=== PATIENT | female | born 1930 | race Caucasian/White ===

== ENCOUNTER 2016-03-28 13:22 | Emergency (ER) | payer MEDICARE, BC ==
[2016-03-28 14:28] LABS: Basophils # (A) 0.1 k/uL (0-0.2); Basophils % (A) 1 %; CH 30.6; CHCM 32.8; Eosinophils # (A) 0.1 k/uL (0-0.7); Eosinophils % (A) 1 %; HCT 40.1 % (34.0-46.0); HDW 3.11; HGB 12.5 gm/dL (11.4-16.0); Luc # (Auto) 0.16; Luc % (Auto) 2; Lymphocytes # (A) 1.6 k/uL (1.0-4.8); Lymphocytes % (A) 22 %; MCH 29.2 pg (25.0-35.0); MCHC 31.2 g/dL (31.0-37.0); MCV 93.7 fL (80.0-100.0); Mean Platelet Volume 8.8; Monocytes # (A) 0.6 k/uL (0-1.0); Monocytes % (A) 8 %; Neutrophils # (A) 4.9 k/uL (1.3-7.7); Neutrophils % (A) 67 %; RBC 4.28 m/uL (3.80-5.40); RDW 15.2 % (11.5-15.5); WBC 7.3 k/uL (3.8-10.6); WBC (Perox) 7.02
[2016-03-28 14:32] LABS: Appearance,Urine Clear (Clear); Bilirubin,Urine Negative (Negative); Glucose,Urine (UA) 4+ (Negative); Ketones,Urine Negative (Negative); Leukocyte Esterase,Urine Negative (Negative); Nitrite,Urine Negative (Negative); PH, Urine 5.5 (5.0-8.0); Protein,Urine Negative (Negative); Specific Gravity,Urine 1.004 (1.001-1.035); UA Billing (MACRO vs. MICRO) CHEM; Urobilinogen,Urine <2.0 mg/dL (<2.0)
[2016-03-28 14:37] LABS: Calcium 9.8 mg/dL (8.4-10.2); Total Bilirubin 0.7 mg/dL (0.2-1.3); Total Protein 7.7 g/dL (6.3-8.2)
--- NOTE | 2016-03-28 14:37 | XR ---
EXAMINATION TYPE: XR chest 1V portable DATE OF EXAM: 03/28/2016 2:23 PM COMPARISON: NONE HISTORY: Dizziness TECHNIQUE: Single frontal view of the chest is obtained. FINDINGS: Heart and mediastinum are normal. Lungs are clear of infiltrate. There are sternal wires. Costophrenic angles are clear. There are no hilar masses. IMPRESSION: No active cardiopulmonary disease.
--- NOTE | 2016-03-28 15:35 | ED ---
Dizziness HPI - General Chief Complaint: Dizziness Stated Complaint: Dizziness Time Seen by Provider: 03/28/16 13:28 Source: patient Mode of arrival: EMS Limitations: no limitations - History of Present Illness Initial Comments: This patient is an 86-year-old woman who presents to be evaluated for vertigo symptoms. She states that she had been getting ready to do some cooking and she was seated in a chair. When she attempted to get up she sat back down because she had an intense spinning sensation. She felt like the chair was doing flips and had to hold onto the arms. She states that when she attempted to get back up this sensation Returning. The symptoms were better when she was just sitting and remaining still. She has had no previous history of this. She denies any other associated symptoms. MD Complaint: dizziness -: hour(s) Timing: sudden onset Description: "room spinning", difficulty walking History of Same: No History of Trauma: No Severity: severe Improves With: remaining still Worsens With: movement Associated Symptoms: denies other symptoms - Related Data Home Medications Medication Instructions Recorded Confirmed Benazepril HCl 20 mg PO DAILY 03/28/16 03/28/16 Biotin 7500mcg 7,500 mcg PO DAILY 03/28/16 03/28/16 Furosemide [Lasix] 20 mg PO Q48H 03/28/16 03/28/16 Glimepiride [Amaryl] 4 mg PO AC-BID 03/28/16 03/28/16 Levothyroxine Sodium [Unithroid] 125 mcg PO QAM 03/28/16 03/28/16 Metoprolol Tartrate [Lopressor] 50 mg PO BID 03/28/16 03/28/16 Vit C/E/Zn/Coppr/Lutein/Zeaxan 1 cap PO BID 03/28/16 03/28/16 [Preservision Areds 2 Softgel] cloNIDine HCL [Catapres] 0.1 mg PO BID 03/28/16 03/28/16 Previous Rx's Medication Instructions Recorded Meclizine [Antivert] 25 mg PO TID #15 tab 03/28/16 Allergies Allergy/AdvReac Type Severity Reaction Status Date / Time No Known Allergies Allergy Unverified 03/28/16 13:45 Review of Systems ROS Statement: Those systems with pertinent positive or pertinent negative responses have been documented in the HPI. ROS Other: All systems not noted in ROS Statement are negative. Constitutional: Denies: fever, chills, weakness Eyes: Denies: eye pain, vision change ENT: Denies: ear pain, hearing loss Respiratory: Denies: cough, dyspnea Cardiovascular: Denies: chest pain, palpitations, edema, syncope Gastrointestinal: Denies: abdominal pain, vomiting, diarrhea, melena, hematochezia Genitourinary: Denies: dysuria, hematuria Musculoskeletal: Denies: back pain Skin: Denies: rash Neurological: Reports: vertigo. Denies: headache, weakness, numbness Past Medical History Past Medical History: Atrial Fibrillation, COPD, Diabetes Mellitus, Hyperlipidemia, Hypertension, Thyroid Disorder History of Any Multi-Drug Resistant Organisms: None Reported Past Surgical History: Appendectomy, Cholecystectomy, Coronary Bypass/CABG, Hysterectomy Additional Past Surgical History / Comment(s): 2009 five vessel CABG Past Psychological History: No Psychological Hx Reported Smoking Status: Former smoker Past Alcohol Use History: None Reported Past Drug Use History: None Reported General Exam Limitations: no limitations General appearance: alert, in no apparent distress Head exam: Present: atraumatic, normocephalic Eye exam: Present: normal appearance, PERRL, EOMI, nystagmus. Absent: scleral icterus, conjunctival injection ENT exam: Present: normal oropharynx Neck exam: Present: normal inspection, full ROM. Absent: tenderness Respiratory exam: Present: normal lung sounds bilaterally. Absent: respiratory distress, wheezes, rales, rhonchi, stridor Cardiovascular Exam: Present: regular rate, irregular rhythm, normal heart sounds. Absent: systolic murmur, diastolic murmur, rubs, gallop GI/Abdominal exam: Present: soft. Absent: distended, tenderness, guarding, rebound, mass Extremities exam: Present: normal inspection, normal capillary refill. Absent: pedal edema, calf tenderness Back exam: Present: normal inspection. Absent: CVA tenderness (R), CVA tenderness (L) Neurological exam: Present: alert, oriented X3, CN II-XII intact. Absent: motor sensory deficit Skin exam: Present: warm, dry, intact, normal color. Absent: rash Course Vital Signs 03/28/16 03/28/16 03/28/16 13:25 15:00 15:59 Temperature 97.7 F 97.8 F Pulse Rate 84 76 72 Respiratory 18 16 18 Rate Blood Pressure 158/72 139/64 130/60 O2 Sat by Pulse 94 L 97 Oximetry EKG Findings - EKG Results: EKG: interpreted by ERMD, normal axis, normal ST/T EKG shows: atrial fibrillation (Rate approximate 77 bpm) - KS, Pacemaker, Normal: Myocardial infarction: septal KS (old age or indeterminate) Medical Decision Making - Medical Decision Making Patient is an 86-year-old woman with acute onset of vertigo. The workup findings a few conditions 1 the patient is in atrial fibrillation. The patient is aware of this and believes that she takes the metoprolol for rate control. She states that her doctor did provide her with an anticoagulant but she had an episode of hemorrhage so they decided she was not going to take any anticoagulation. The patient has some mild renal function abnormalities that she will follow-up with her physician to discuss. The patient will take meclizine and is going to follow-up with her physician, she is returning home tomorrow. Discussed return parameters. - Lab Data Result diagrams: 03/28/16 14:10 03/28/16 14:10 Lab Results 03/28/16 03/28/16 03/28/16 Range/Units 14:05 14:10 14:10 WBC 7.3 (3.8-10.6) k/uL RBC 4.28 (3.80-5.40) m/uL Hgb 12.5 (11.4-16.0) gm/dL Hct 40.1 (34.0-46.0) % MCV 93.7 (80.0-100.0) fL MCH 29.2 (25.0-35.0) pg MCHC 31.2 (31.0-37.0) g/dL RDW 15.2 (11.5-15.5) % Plt Count 171 (150-450) k/uL Neutrophils % 67 % Lymphocytes % 22 % Monocytes % 8 % Eosinophils % 1 % Basophils % 1 % Neutrophils # 4.9 (1.3-7.7) k/uL Lymphocytes # 1.6 (1.0-4.8) k/uL Monocytes # 0.6 (0-1.0) k/uL Eosinophils # 0.1 (0-0.7) k/uL Basophils # 0.1 (0-0.2) k/uL D-Dimer (<0.60) mg/L FEU Sodium 145 (137-145) mmol/L Potassium 4.0 (3.5-5.1) mmol/L Chloride 104 (98-107) mmol/L Carbon Dioxide 26 (22-30) mmol/L Anion Gap 15 mmol/L BUN 31 H (7-17) mg/dL Creatinine 1.40 H (0.52-1.04) mg/dL Est GFR (MDRD) Af Amer 43 (>60 ml/min/1.73 sqM) Est GFR (MDRD) Non-Af 36 (>60 ml/min/1.73 sqM) Glucose 196 H (74-99) mg/dL Calcium 9.8 (8.4-10.2) mg/dL Total Bilirubin 0.7 (0.2-1.3) mg/dL AST 24 (14-36) U/L ALT 35 (9-52) U/L Alkaline Phosphatase 99 (38-126) U/L Troponin I (0.000-0.034) ng/mL Total Protein 7.7 (6.3-8.2) g/dL Albumin 4.3 (3.5-5.0) g/dL Urine Color Light Yellow Urine Appearance Clear (Clear) Urine pH 5.5 (5.0-8.0) Ur Specific Glidden 1.004 (1.001-1.035) Urine Protein Negative (Negative) Urine Glucose (UA) 4+ H (Negative) Urine Ketones Negative (Negative) Urine Blood Negative (Negative) Urine Nitrate Negative (Negative) Urine Bilirubin Negative (Negative) Urine Urobilinogen <2.0 (<2.0) mg/dL Ur Leukocyte Esterase Negative (Negative) 03/28/16 03/28/16 Range/Units 14:10 14:10 WBC (3.8-10.6) k/uL RBC (3.80-5.40) m/uL Hgb (11.4-16.0) gm/dL Hct (34.0-46.0) % MCV (80.0-100.0) fL MCH (25.0-35.0) pg MCHC (31.0-37.0) g/dL RDW (11.5-15.5) % Plt Count (150-450) k/uL Neutrophils % % Lymphocytes % % Monocytes % % Eosinophils % % Basophils % % Neutrophils # (1.3-7.7) k/uL Lymphocytes # (1.0-4.8) k/uL Monocytes # (0-1.0) k/uL Eosinophils # (0-0.7) k/uL Basophils # (0-0.2) k/uL D-Dimer 0.88 H (<0.60) mg/L FEU Sodium (137-145) mmol/L Potassium (3.5-5.1) mmol/L Chloride (98-107) mmol/L Carbon Dioxide (22-30) mmol/L Anion Gap mmol/L BUN (7-17) mg/dL Creatinine (0.52-1.04) mg/dL Est GFR (MDRD) Af Amer (>60 ml/min/1.73 sqM) Est GFR (MDRD) Non-Af (>60 ml/min/1.73 sqM) Glucose (74-99) mg/dL Calcium (8.4-10.2) mg/dL Total Bilirubin (0.2-1.3) mg/dL AST (14-36) U/L ALT (9-52) U/L Alkaline Phosphatase (38-126) U/L Troponin I <0.012 (0.000-0.034) ng/mL Total Protein (6.3-8.2) g/dL Albumin (3.5-5.0) g/dL Urine Color Urine Appearance (Clear) Urine pH (5.0-8.0) Ur Specific Glidden (1.001-1.035) Urine Protein (Negative) Urine Glucose (UA) (Negative) Urine Ketones (Negative) Urine Blood (Negative) Urine Nitrate (Negative) Urine Bilirubin (Negative) Urine Urobilinogen (<2.0) mg/dL Ur Leukocyte Esterase (Negative) Disposition Clinical Impression: Vertigo Disposition: HOME SELF-CARE Condition: Fair Instructions: Vertigo (ED) Prescriptions: Meclizine [Antivert] 25 mg PO TID #15 tab Referrals: Nonstaff,Physician [Primary Care Provider] - 1-2 days
--- NOTE | 2016-03-28 15:45 | CT ---
EXAMINATION TYPE: CT brain wo con DATE OF EXAM: 03/28/2016 3:38 PM COMPARISON: NONE HISTORY: Patient complains of dizziness. CT DLP: 782.6 mGycm Automated exposure control for dose reduction was used. FINDINGS: There is cerebral cortical atrophy. There is no mass effect nor midline shift. There is no sign of in tracranial hemorrhage. The calvarium is intact. IMPRESSION: Cerebral atrophy. Otherwise negative exam.
[2016-03-28 16:00] VITALS: BP 130/60; PULSE 72; RESP 18; TEMP 97.8
== END 2016-03-28 16:00 | disposition home or self-care (01) ==
LOC: EC 13:22
DX: R42 Dizziness and giddiness (principal); G31.9 Degenerative disease of nervous system, unspecified; R26.2 Difficulty in walking, not elsewhere classified; I48.91 Unspecified atrial fibrillation; E11.9 Type 2 diabetes mellitus without complications; I10 Essential (primary) hypertension; E07.9 Disorder of thyroid, unspecified; Z87.891 Personal history of nicotine dependence; Z79.899 Other long term (current) drug therapy
CPT/HCPCS: 36415; 70450; 71010; 80053; 81003; 84484; 85025; 85379; 93005; 99285

== ENCOUNTER → 2016-09-27 | Outpatient (CLI) | payer MEDICARE, BC | END | disposition home or self-care (01) | LOC: LABWHC1 16:35 | DX: E87.5 Hyperkalemia (principal) | CPT/HCPCS: 36415; 84132 ==

== ENCOUNTER 2017-05-22 21:36 | Inpatient (IN) | payer MEDICARE, BC ==
[2017-05-22] MEDS ORDERED: SODIUM CHLORIDE 0.9% 1,000 ML IV STA (21:44)
[2017-05-22] MEDS ORDERED: SODIUM CHLORIDE 0.9% 500 ML IV STA (21:44)
--- NOTE | 2017-05-22 21:47 | ED ---
General Adult HPI - General Chief complaint: Weakness Stated complaint: Leg Numbness Time Seen by Provider: 05/22/17 21:39 Source: patient, EMS, RN notes reviewed, old records reviewed Mode of arrival: EMS Limitations: no limitations - History of Present Illness Initial comments: This is a 7-year-old female to the ER for evasive dizziness, dizziness and headache. Patient states the room spinning around she feels weak. Patient also complains of weakness in her legs. Patient does have history of A. fib hypertension high cholesterol. Patient denies prior history of stroke. She does admit to headache at this time. She states her weakness in his leg is improved - Related Data Home Medications Medication Instructions Recorded Confirmed Benazepril HCl 20 mg PO DAILY 03/28/16 05/22/17 Furosemide [Lasix] 20 mg PO Q48H 03/28/16 05/22/17 Metoprolol Tartrate [Lopressor] 50 mg PO BID 03/28/16 05/22/17 Vit C/E/Zn/Coppr/Lutein/Zeaxan 1 cap PO BID 03/28/16 05/22/17 [Preservision Areds 2 Softgel] cloNIDine HCL [Catapres] 0.1 mg PO BID 03/28/16 05/22/17 Biotin 10,000 mcg PO DAILY 05/22/17 05/22/17 Cholecalciferol [Vitamin D3] 1,000 unit PO DAILY 05/22/17 05/22/17 Famotidine 40 mg PO BID 05/22/17 05/22/17 Multivitamin/Iron/Folic Acid 1 tab PO DAILY 05/22/17 05/22/17 [Centrum Complete Multivit Tab] Rosuvastatin [Crestor] 10 mg PO DAILY 05/22/17 05/22/17 Sodium Chloride [Putnam] 1 spray EA NOSTRIL DAILY PRN 05/22/17 05/22/17 amLODIPine BESYLATE [Norvasc] 10 mg PO DAILY 05/22/17 05/22/17 Previous Rx's Medication Instructions Recorded Glimepiride [Amaryl] 4 mg PO DAILY #0 05/26/17 Levothyroxine Sodium [Synthroid] 137 mcg PO QAM@0630 #30 tab 05/26/17 Allergies Allergy/AdvReac Type Severity Reaction Status Date / Time No Known Allergies Allergy Verified 05/22/17 22:16 Review of Systems ROS Statement: Those systems with pertinent positive or pertinent negative responses have been documented in the HPI. ROS Other: All systems not noted in ROS Statement are negative. Past Medical History Past Medical History: Atrial Fibrillation, COPD, Diabetes Mellitus, Hyperlipidemia, Hypertension, Thyroid Disorder History of Any Multi-Drug Resistant Organisms: None Reported Past Surgical History: Appendectomy, Cholecystectomy, Coronary Bypass/CABG, Hysterectomy Additional Past Surgical History / Comment(s): 2008 five vessel CABG Past Psychological History: No Psychological Hx Reported Smoking Status: Former smoker Past Alcohol Use History: None Reported Past Drug Use History: None Reported - Past Family History Father History Unknown: Yes General Exam - General Exam Comments Initial Comments: NIH of 0 Limitations: no limitations General appearance: alert, in no apparent distress Head exam: Present: atraumatic, normocephalic, normal inspection Eye exam: Present: normal appearance, PERRL, EOMI. Absent: scleral icterus, conjunctival injection, periorbital swelling ENT exam: Present: normal exam, mucous membranes moist Neck exam: Present: normal inspection. Absent: tenderness, meningismus, lymphadenopathy Respiratory exam: Present: normal lung sounds bilaterally. Absent: respiratory distress, wheezes, rales, rhonchi, stridor Cardiovascular Exam: Present: regular rate, normal rhythm, normal heart sounds. Absent: systolic murmur, diastolic murmur, rubs, gallop, clicks GI/Abdominal exam: Present: soft, normal bowel sounds. Absent: distended, tenderness, guarding, rebound, rigid Extremities exam: Present: normal inspection, full ROM, normal capillary refill. Absent: tenderness, pedal edema, joint swelling, calf tenderness Back exam: Present: normal inspection Neurological exam: Present: alert, oriented X3, CN II-XII intact Psychiatric exam: Present: normal affect, normal mood Skin exam: Present: warm, dry, intact, normal color. Absent: rash Course Vital Signs 05/22/17 05/22/17 05/23/17 21:38 23:50 01:06 Temperature 99.2 F Pulse Rate 98 76 Pulse Rate [ 78 Transport Operations Inspector ] Respiratory 20 18 18 Rate Blood Pressure 161/70 151/75 Blood Pressure 193/78 [Left Arm] O2 Sat by Pulse 97 98 100 Oximetry 05/23/17 05/23/17 05/23/17 01:57 04:00 06:36 Temperature Pulse Rate Pulse Rate [ 81 78 78 Transport Operations Inspector ] Respiratory 18 18 18 Rate Blood Pressure Blood Pressure 169/77 176/76 [Left Arm] O2 Sat by Pulse 98 99 Oximetry 05/23/17 05/23/17 05/23/17 07:42 07:44 11:21 Temperature 97 F L Pulse Rate Pulse Rate [ 77 70 Transport Operations Inspector ] Respiratory 18 17 17 Rate Blood Pressure Blood Pressure 171/70 162/73 [Left Arm] O2 Sat by Pulse 98 99 Oximetry 05/23/17 05/23/17 05/23/17 13:30 14:22 15:16 Temperature Pulse Rate Pulse Rate [ Transport Operations Inspector ] Respiratory Rate Blood Pressure Blood Pressure 210/84 168/75 178/77 [Left Arm] O2 Sat by Pulse Oximetry 05/23/17 15:18 Temperature Pulse Rate Pulse Rate [ 70 Transport Operations Inspector ] Respiratory 17 Rate Blood Pressure Blood Pressure [Left Arm] O2 Sat by Pulse Oximetry - Reevaluation(s) Reevaluation #1: 05/22/17 22:57 Significant change in symptoms Patient not a TPA Candidate secondary to extreme of age, low NIH, resolution of symptoms EKG Findings - EKG Comments: EKG Findings:: EKG shows rhythm rate of 82, QRS 78, QTC 443 Medical Decision Making - Medical Decision Making 87 female the ER for evaluation of TIA type symptoms. Patient be admitted for observation, neurological evaluation, continue monitoring and testing - Lab Data Result diagrams: 05/26/17 06:44 05/26/17 06:44 Lab Results 05/22/17 05/22/17 05/22/17 Range/Units 22:04 22:04 22:04 WBC 6.1 (3.8-10.6) k/uL RBC 3.92 (3.80-5.40) m/uL Hgb 11.3 L (11.4-16.0) gm/dL Hct 36.0 (34.0-46.0) % MCV 91.6 (80.0-100.0) fL MCH 28.8 (25.0-35.0) pg MCHC 31.4 (31.0-37.0) g/dL RDW 17.4 H (11.5-15.5) % Plt Count 211 (150-450) k/uL Neutrophils % 60 % Lymphocytes % 27 % Monocytes % 8 % Eosinophils % 2 % Basophils % 1 % Neutrophils # 3.7 (1.3-7.7) k/uL Lymphocytes # 1.7 (1.0-4.8) k/uL Monocytes # 0.5 (0-1.0) k/uL Eosinophils # 0.1 (0-0.7) k/uL Basophils # 0.0 (0-0.2) k/uL Anisocytosis Slight PT (9.0-12.0) sec INR (<1.2) APTT (22.0-30.0) sec Sodium 143 (137-145) mmol/L Potassium 4.9 (3.5-5.1) mmol/L Chloride 104 (98-107) mmol/L Carbon Dioxide 24 (22-30) mmol/L Anion Gap 15 mmol/L BUN 44 H (7-17) mg/dL Creatinine 1.30 H (0.52-1.04) mg/dL Est GFR (CKD-EPI)AfAm 43 (>60 ml/min/1.73 sqM) Est GFR (CKD-EPI)NonAf 37 (>60 ml/min/1.73 sqM) Glucose 164 H (74-99) mg/dL Calcium 9.9 (8.4-10.2) mg/dL Phosphorus 4.8 H (2.5-4.5) mg/dL Magnesium 2.4 H (1.6-2.3) mg/dL Total Bilirubin 0.4 (0.2-1.3) mg/dL AST 22 (14-36) U/L ALT 14 (9-52) U/L Alkaline Phosphatase 133 H (38-126) U/L Total Creatine Kinase 23 L (30-135) U/L CK-MB (CK-2) 0.7 (0.0-2.4) ng/mL CK-MB (CK-2) Rel Index 3.0 Troponin I <0.012 (0.000-0.034) ng/mL Total Protein 8.2 (6.3-8.2) g/dL Albumin 3.9 (3.5-5.0) g/dL Triglycerides (<150) mg/dL Cholesterol (<200) mg/dL LDL Cholesterol, Calc (0-99) mg/dL HDL Cholesterol (40-60) mg/dL 05/22/17 05/22/17 Range/Units 22:04 22:04 WBC (3.8-10.6) k/uL RBC (3.80-5.40) m/uL Hgb (11.4-16.0) gm/dL Hct (34.0-46.0) % MCV (80.0-100.0) fL MCH (25.0-35.0) pg MCHC (31.0-37.0) g/dL RDW (11.5-15.5) % Plt Count (150-450) k/uL Neutrophils % % Lymphocytes % % Monocytes % % Eosinophils % % Basophils % % Neutrophils # (1.3-7.7) k/uL Lymphocytes # (1.0-4.8) k/uL Monocytes # (0-1.0) k/uL Eosinophils # (0-0.7) k/uL Basophils # (0-0.2) k/uL Anisocytosis PT 11.0 (9.0-12.0) sec INR 1.1 (<1.2) APTT 23.7 (22.0-30.0) sec Sodium (137-145) mmol/L Potassium (3.5-5.1) mmol/L Chloride (98-107) mmol/L Carbon Dioxide (22-30) mmol/L Anion Gap mmol/L BUN (7-17) mg/dL Creatinine (0.52-1.04) mg/dL Est GFR (CKD-EPI)AfAm (>60 ml/min/1.73 sqM) Est GFR (CKD-EPI)NonAf (>60 ml/min/1.73 sqM) Glucose (74-99) mg/dL Calcium (8.4-10.2) mg/dL Phosphorus (2.5-4.5) mg/dL Magnesium (1.6-2.3) mg/dL Total Bilirubin (0.2-1.3) mg/dL AST (14-36) U/L ALT (9-52) U/L Alkaline Phosphatase (38-126) U/L Total Creatine Kinase (30-135) U/L CK-MB (CK-2) (0.0-2.4) ng/mL CK-MB (CK-2) Rel Index Troponin I (0.000-0.034) ng/mL Total Protein (6.3-8.2) g/dL Albumin (3.5-5.0) g/dL Triglycerides 143 (<150) mg/dL Cholesterol 106 (<200) mg/dL LDL Cholesterol, Calc 44 (0-99) mg/dL HDL Cholesterol 33 L (40-60) mg/dL - Radiology Data Radiology results: report reviewed (CT brain CTA negative), image reviewed Disposition Clinical Impression: Dizziness, Headache, CVA (cerebral vascular accident) Disposition: ADMITTED IP TO THIS [facility] Condition: Stable
[2017-05-22] MEDS ORDERED: MORPHINE SULFATE/PF 10MG/10ML VL IVP STA ×2 (21:56→23:30)
[2017-05-22] MEDS ORDERED: RX INFO: IV CONTRAST WAS GIVEN 1 EACH MISC MISCELLANE PRN (21:56)
[2017-05-22 22:22] LABS: Anisocytosis Slight; Basophils % (A) 1 %; Eosinophils # (A) 0.1 k/uL (0-0.7); Eosinophils % (A) 2 %; HGB 11.3 gm/dL (11.4-16.0); Lymphocytes # (A) 1.7 k/uL (1.0-4.8); Lymphocytes % (A) 27 %; MCH 28.8 pg (25.0-35.0); MCHC 31.4 g/dL (31.0-37.0); MCV 91.6 fL (80.0-100.0); Mean Platelet Volume 8.2; Monocytes # (A) 0.5 k/uL (0-1.0); Monocytes % (A) 8 %; Neutrophils # (A) 3.7 k/uL (1.3-7.7); Neutrophils % (A) 60 %; Platelet Count 211 k/uL (150-450); RBC 3.92 m/uL (3.80-5.40); RDW 17.4 % (11.5-15.5); WBC 6.1 k/uL (3.8-10.6)
[2017-05-22 22:35] LABS: Albumin 3.9 g/dL (3.5-5.0); Calcium 9.9 mg/dL (8.4-10.2); INR 1.1 (<1.2); Magnesium 2.4 mg/dL (1.6-2.3); Partial Thromboplastin Time 23.7 sec (22.0-30.0); Phosphorus 4.8 mg/dL (2.5-4.5); Potassium 4.9 mmol/L (3.5-5.1); Total Bilirubin 0.4 mg/dL (0.2-1.3); Total Protein 8.2 g/dL (6.3-8.2)
[2017-05-22] MEDS ORDERED: ASPIRIN 325 MG TAB PO STA (22:55)
[2017-05-22 23:20] LABS: Creatine Kinase 23 U/L (30-135)
--- NOTE | 2017-05-22 23:28 | CT ---
EXAMINATION TYPE: CT brain wo con DATE OF EXAM: 05/22/2017 COMPARISON: 03/28/2016 HISTORY: weakness CT DLP: 1432.90 mGycm Automated exposure control for dose reduction was used. FINDINGS: There is some cerebral cortical atrophy. There is no mass effect nor midline shift. There is no sign of intracranial hemorrhage. There is vascular calcification. The calvarium is intact. IMPRESSION: CEREBRAL ATROPHY. NO ACUTE INTRACRANIAL ABNORMALITY. NO CHANGE.
[2017-05-22 23:33] LABS: Creatine Kinase MB 0.7 ng/mL (0.0-2.4); Troponin I <0.012 ng/mL (0.000-0.034)
--- NOTE | 2017-05-22 23:33 | CT ---
EXAMINATION TYPE: CT angio head neck DATE OF EXAM: 05/22/2017 HISTORY: weakness COMPARISON: NONE CT DLP: 1432.90 mGycm. Automated Exposure Control for Dose Reduction was Utilized. TECHNIQUE: CTA scan of the neck and head is performed with IV Contrast, patient injected with 65 mL of Isovue 370, axial images are obtained, coronal and sagittal reformatted images are reviewed. Three -D reconstructed images are created on an independent workstation and reviewed. FINDINGS: Thoracic aorta is atheromatous. There is no evidence of aneurysm or dissection at the aortic arch. Th ere is normal branching pattern of the great vessels on the aortic arch. There is bilateral arterial flow in the vertebral arteries. Right vertebral artery is larger than the left. There is arterial britta w in the common internal and external carotid arteries bilaterally. There is plaque formation in appr oximate 50% stenosis in the distal right common carotid artery and the proximal right internal caroti d artery. There is similar narrowing in the left proximal internal carotid artery. I see no sign of c arotid artery dissection. There is arterial flow in the vertebrobasilar artery system. There is arterial flow in the anterior m iddle and posterior cerebral arteries. There is no evidence of intracranial aneurysm or neovascularit y. I do not see any significant stenosis in the intracranial arteries. There is normal contrast opaci fication of the venous sinuses. CONCLUSION: There is atherosclerotic vascular disease. There is approximate 50% narrowing at the proximal interna l carotid arteries bilaterally. No evidence of any significant intracranial arterial abnormality.
[2017-05-23] MEDS: SODIUM CHLORIDE 0.9% 1,000 ML IV SCH ×2 (00:01→21:36)
[2017-05-23 01:28] LABS: Appearance,Urine Cloudy (Clear); Bacteria,Urine Moderate /hpf; Bilirubin,Urine Negative (Negative); Blood,Urine Negative (Negative); Color,Urine Light Yellow; Glucose,Urine (UA) 4+ (Negative); Ketones,Urine Negative (Negative); Leukocyte Esterase,Urine Small (Negative); Mucus,Urine Rare /hpf; Nitrite,Urine Negative (Negative); Protein,Urine Trace (Negative); RBC,Urine >182 /hpf (0-5); Squamous Epithelial Cell,Urine 1 /hpf (0-4); Urobilinogen,Urine <2.0 mg/dL (<2.0); WBC,Urine 9 /hpf (0-5)
[2017-05-23] MEDS ORDERED: MORPHINE SULFATE/PF 10MG/10ML VL IVP STA (01:51)
[2017-05-23 07:00] VITALS: BMI 25.4
[2017-05-23 07:20] LABS: Cholesterol 106 mg/dL (<200); HDL Cholesterol 33 mg/dL (40-60); LDL Cholesterol,Calculated 44 mg/dL (0-99); Triglycerides 143 mg/dL (<150)
[2017-05-23] MEDS: ASPIRIN 325 MG TAB PO SCH (07:46)
[2017-05-23] MEDS ORDERED: SODIUM CHLORIDE 0.65% NASAL SPRAY 44 ML BTL INTRANASAL PRN (10:51)
[2017-05-23 11:29] LABS: Glucose,Whole Blood 137 mg/dL (75-99)
--- NOTE | 2017-05-23 11:31 | P.HPIM ---
History of Present Illness H&P Date: 05/23/17 Chief Complaint: Dizziness and headache This is a 87-year-old female, patient of Dr. Lujan. She has a known past medical history of hypertension, atrial fibrillation, hyperlipidemia, diabetes mellitus, COPD, hypothyroidism and coronary artery disease with previous CABG. Patient presents to the emergency room with complaints of dizziness and a right temporal headache. Symptoms started yesterday. Initially patient was sitting and having this dizziness. The room was spinning around her. Dizziness resolved she went to stand up and had a severe right-sided headache. As well as her left foot was not cooperating. She reports she was having difficulty standing on it and didn't feel right. Patient lives alone. She was brought into the emergency room for further evaluation. Computed tomography scan of the brain showing no acute changes. Does reveal cerebral atrophy. CTA of the head and neck shows approximately 50% narrowing in the proximal internal carotid arteries bilaterally. No significant intracranial arterial abnormality. Echocardiogram pending. Neurology consulted. Patient denies any prior history of stroke. She does have evidence of a UTI will be started on Rocephin. Patient's weakness in the left leg, headache and dizziness have now resolved. Patient is currently in ER and will be transferred to the sixth floor. Also having elevated blood pressures in the emergency room. Last blood pressure 171/70. Home blood pressure pills will be restarted. Patient denies any vision changes, ringing the ears, sore throat, chest pain, shortness breath , nausea or vomiting, bowel movement changes or urinary symptoms. She may have some underlying history of chronic kidney disease she reports being possibly on dialysis in the past. Patient is slightly confused but she is orientated 3. Patient does report having a prior episode of dizziness with similar symptoms years ago. She she reports it resolved on its own. Review of Systems Please refer to HPI otherwise unremarkable Past Medical History Past Medical History: Atrial Fibrillation, COPD, Diabetes Mellitus, Hyperlipidemia, Hypertension, Thyroid Disorder History of Any Multi-Drug Resistant Organisms: None Reported Past Surgical History: Appendectomy, Cholecystectomy, Coronary Bypass/CABG, Hysterectomy Additional Past Surgical History / Comment(s): 2008 five vessel CABG Past Psychological History: No Psychological Hx Reported Smoking Status: Former smoker Past Alcohol Use History: None Reported Past Drug Use History: None Reported - Past Family History Father History Unknown: Yes Medications and Allergies Home Medications Medication Instructions Recorded Confirmed Type Benazepril HCl 20 mg PO DAILY 03/28/16 05/22/17 History Furosemide [Lasix] 20 mg PO Q48H 03/28/16 05/22/17 History Glimepiride [Amaryl] 4 mg PO AC-BID 03/28/16 05/22/17 History Levothyroxine Sodium [Unithroid] 125 mcg PO QAM 03/28/16 05/22/17 History Metoprolol Tartrate [Lopressor] 50 mg PO BID 03/28/16 05/22/17 History Vit C/E/Zn/Coppr/Lutein/Zeaxan 1 cap PO BID 03/28/16 05/22/17 History [Preservision Areds 2 Softgel] cloNIDine HCL [Catapres] 0.1 mg PO BID 03/28/16 05/22/17 History Biotin 10,000 mcg PO DAILY 05/22/17 05/22/17 History Canagliflozin [Invokana] 100 mg PO DAILY 05/22/17 05/22/17 History Cholecalciferol [Vitamin D3] 1,000 unit PO DAILY 05/22/17 05/22/17 History Famotidine 40 mg PO BID 05/22/17 05/22/17 History Multivitamin/Iron/Folic Acid 1 tab PO DAILY 05/22/17 05/22/17 History [Centrum Complete Multivit Tab] Naproxen Sodium [Aleve] 220 mg PO DAILY PRN 05/22/17 05/22/17 History Rosuvastatin [Crestor] 10 mg PO DAILY 05/22/17 05/22/17 History Saxagliptin HCl [Onglyza] 5 mg PO DAILY 05/22/17 05/22/17 History Sodium Chloride [[place]] 1 spray EA NOSTRIL DAILY PRN 05/22/17 05/22/17 History amLODIPine BESYLATE [Norvasc] 10 mg PO DAILY 05/22/17 05/22/17 History Allergies Allergy/AdvReac Type Severity Reaction Status Date / Time No Known Allergies Allergy Verified 05/22/17 22:16 Physical Exam Vitals: Vital Signs Temp Pulse Pulse Resp BP BP Pulse Ox 05/23/17 07:44 97 F L 77 17 171/70 98 05/23/17 07:42 18 05/23/17 06:36 78 18 05/23/17 04:00 78 18 176/76 99 05/23/17 01:57 81 18 169/77 98 05/23/17 01:06 78 18 193/78 100 05/22/17 23:50 76 18 151/75 98 05/22/17 21:38 99.2 F 98 20 161/70 97 Intake and Output 05/22/17 05/23/17 05/23/17 22:59 06:59 14:59 Intake Total 160 Output Total 300 Balance -140 Intake: IV 160 Sodium Chloride 0.9% 1, 160 000 ml @ 20 mls/hr IV . Q24H [facility] Rx#:[id number] Output: Urine 300 Other: Voiding Method Bedpan Bedpan # Voids 1 Weight 67.3 kg 67.3 kg Head normocephalic. Right temporal pulses present Neck supple Lungs clear to auscultation bilaterally no wheezing or crackles Heart regular rate and rhythm S1-S2, no rub or gallop Abdomen is soft nontender nondistended positive bowel sounds no hepatosplenomegaly Extremities no edema Neuro alert and orientated to 3. Hand title abstractor equal bilaterally. Lower extremity strength equal bilaterally. Results CBC & Chem 7: 05/22/17 22:04 05/22/17 22:04 Labs: Abnormal Lab Results - Last 24 Hours (Table) 05/22/17 05/22/17 05/22/17 Range/Units 22:04 22:04 22:04 Hgb 11.3 L (11.4-16.0) gm/dL RDW 17.4 H (11.5-15.5) % BUN 44 H (7-17) mg/dL Creatinine 1.30 H (0.52-1.04) mg/dL Glucose 164 H (74-99) mg/dL Phosphorus 4.8 H (2.5-4.5) mg/dL Magnesium 2.4 H (1.6-2.3) mg/dL Alkaline Phosphatase 133 H (38-126) U/L Total Creatine Kinase 23 L (30-135) U/L HDL Cholesterol (40-60) mg/dL Urine Appearance (Clear) Urine Protein (Negative) Urine Glucose (UA) (Negative) Ur Leukocyte Esterase (Negative) Urine RBC (0-5) /hpf Urine WBC (0-5) /hpf Urine Bacteria (None) /hpf Urine Mucus (None) /hpf 05/22/17 05/23/17 Range/Units 22:04 00:43 Hgb (11.4-16.0) gm/dL RDW (11.5-15.5) % BUN (7-17) mg/dL Creatinine (0.52-1.04) mg/dL Glucose (74-99) mg/dL Phosphorus (2.5-4.5) mg/dL Magnesium (1.6-2.3) mg/dL Alkaline Phosphatase (38-126) U/L Total Creatine Kinase (30-135) U/L HDL Cholesterol 33 L (40-60) mg/dL Urine Appearance Cloudy H (Clear) Urine Protein Trace H (Negative) Urine Glucose (UA) 4+ H (Negative) Ur Leukocyte Esterase Small H (Negative) Urine RBC >182 H (0-5) /hpf Urine WBC 9 H (0-5) /hpf Urine Bacteria Moderate H (None) /hpf Urine Mucus Rare H (None) /hpf Thrombosis Risk Factor Assmnt - Choose All That Apply Each Factor Represents 1 point: Obesity (BMI >25) Each Risk Factor Represents 3 Points: Age 75 years or older Thrombosis Risk Factor Assessment Total Risk Factor Score: 4 Thrombosis Risk Factor Assessment Level: Moderate Risk Assessment and Plan Assessment: 1. Possible TIA with left leg weakness: Now resolved. computed tomography scan of brain shows no acute changes. CTA of the head and neck shows 50% narrowing in the internal carotid arteries bilaterally. Echo pending. Patient started on full aspirin. Neurology consulted 2. Dizziness and headache: Computed tomography scan of brain shows no acute changes. Symptoms have resolved. Patient did require morphine in the ER. Neurology consulted. Check orthostatic 3. UTI: Check urine culture. Start Rocephin 1 g IV daily 4. Possible chronic kidney disease: Creatinine in 03/28/2016 was 1.40. Creatinine on admission 1.30. We'll monitor. 5. Left adrenal mass patient is being seen by specialists outpatient 6. History of chronic atrial fibrillation: Not on anticoagulation. Checked with Dr. Lujan's office 7. Accelerated hypertension present on admission: Resume patient's blood pressure medications continue to monitor 8. Diabetes mellitus type 2: Add sliding scale coverage. Resume Amaryl. Other blood sugar medications are nonformulary. No evidence of hypoglycemia 9. History of coronary artery disease with CABG 10. Hypothyroidism continue Synthroid. Check TSH level 11. Hyperlipidemia continue statin GI prophylaxis Pepcid and DVT prophylaxis subcu heparin Time with Patient: Greater than 30 (Greater than 50% of the total time spent in counseling and coordination of care.I performed an examination of the patient and discussed their management with the physician Archeologist. I have reviewed the Physician Archeologist's notes and agree with the documented findings and plan of care)
[2017-05-23] MEDS: cefTRIAXone IN SWFI 1,000 MG/10 ML SYRINGE IVP SCH (11:32)
[2017-05-23] MEDS: FUROSEMIDE 20 MG TAB PO SCH (11:32)
[2017-05-23] MEDS: METOPROLOL TARTRATE 50 MG TAB PO SCH ×2 (11:32→20:40)
[2017-05-23] MEDS: LEVOTHYROXINE 125 MCG TAB PO SCH (11:32)
[2017-05-23] MEDS: LISINOPRIL 20 MG TAB PO SCH (11:33)
[2017-05-23] MEDS: INSULIN ASPART 100 UNIT/ML 1 ML 10 ML VIAL SQ SCH ×3 (11:35→21:38)
[2017-05-23 11:39] LABS: HCT 38.1 % (34.0-46.0); HGB 11.4 gm/dL (11.4-16.0); MCH 28.4 pg (25.0-35.0); MCV 94.7 fL (80.0-100.0); RBC 4.02 m/uL (3.80-5.40); WBC 6.9 k/uL (3.8-10.6)
[2017-05-23 11:40] LABS: Anisocytosis Slight; Basophils % (A) 0 %; Eosinophils # (A) 0.1 k/uL (0-0.7); Eosinophils % (A) 2 %; Hypochromasia Moderate; Lymphocytes # (A) 1.8 k/uL (1.0-4.8); Lymphocytes % (A) 26 %; Monocytes # (A) 0.6 k/uL (0-1.0); Monocytes % (A) 8 %; Neutrophils # (A) 4.2 k/uL (1.3-7.7); Neutrophils % (A) 62 %; Platelet Count 223 k/uL (150-450); RDW 17.3 % (11.5-15.5)
[2017-05-23 11:57] LABS: Albumin 4.2 g/dL (3.5-5.0); Calcium 10.1 mg/dL (8.4-10.2); Potassium 5.1 mmol/L (3.5-5.1); Total Bilirubin 0.5 mg/dL (0.2-1.3)
[2017-05-23 12:58] LABS: T4, Free (Free Thyroxine) 1.46 ng/dL (0.78-2.19)
[2017-05-23 13:28] LABS: Magnesium 2.7 mg/dL (1.6-2.3); Phosphorus 4.7 mg/dL (2.5-4.5)
[2017-05-23] MEDS ORDERED: ENALAPRILAT 1.25 MG/ML 1 ML VIAL IVP PRN (13:37)
[2017-05-23] MEDS ORDERED: ONDANSETRON 4 MG/2 ML VIAL IVP PRN (13:38)
[2017-05-23] MEDS: amLODIPine 10 MG TAB PO SCH (16:34)
[2017-05-23] MEDS ORDERED: ACETAMINOPHEN TAB 325 MG TAB PO PRN (16:42)
[2017-05-23] MEDS ORDERED: MORPHINE SULFATE/PF 10MG/10ML VL IVP PRN (16:43)
[2017-05-23 17:14] LABS: Glucose,Whole Blood 140 mg/dL (75-99)
--- NOTE | 2017-05-23 19:06 | ECHOF ---
Referral Reason:Thrombus MEASUREMENTS -------- HEIGHT: 162.6 cm WEIGHT: 67.1 kg BP: 172/74 RVIDd: 3.0 cm (< 3.3) IVSd: 1.1 cm (0.6 - 1.1) LVIDd: 3.3 cm (3.9 - 5.3) LVPWd: 1.4 cm (0.6 - 1.1) IVSs: 1.6 cm LVIDs: 2.3 cm LVPWs: 1.8 cm LA Diam: 4.6 cm (2.7 - 3.8) LAESV Index (A-L): 45.33 ml/m Ao Diam: 3.0 cm (2.0 - 3.7) AV Cusp: 1.0 cm (1.5 - 2.6) LA Diam: 4.8 cm (2.7 - 3.8) MV EXCURSION: 20.824 mm (> 18.000) MV EF SLOPE: 60 mm/s (70 - 150) EPSS: 0.4 cm MV E Christopher: 0.91 m/s MV DecT: 191 ms MV A Christopher: 0.31 m/s MV E/A Ratio: 2.94 AV maxP.69 mmHg AV meanP.56 mmHg RAP: 5.00 mmHg RVSP: 55.94 mmHg FINDINGS -------- Sinus rhythm. This was a technically adequate study. The left ventricular size is normal. Left ventricular wall thickness is normal. Overall left vent ricular systolic function is low-normal with, an EF between 50 - 55 %. The right ventricle is normal in size. The left atrium is markedly dilated. LA is severely dilated >40 ml/m2 The right atrial size is normal. There is mild aortic valve sclerosis. Peak/mean gradient across the Aortic Valve is 14.69mmHg / 7.5 6mmHg. Mild mitral annular calcification present. Mild mitral regurgitation is present. Moderate tricuspid regurgitation present. There is moderate pulmonary hypertension. The right gautam tricular systolic pressure, as measured by Doppler, is 55.94mmHg. Trace/mild (physiologic) pulmonic regurgitation. The aortic root size is normal. There is no pericardial effusion. CONCLUSIONS -------- 1. The left ventricular size is normal. 2. Left ventricular wall thickness is normal. 3. Overall left ventricular systolic function is low-normal with, an EF between 50 - 55 %. 4. The left atrium is markedly dilated. 5. LA is severely dilated >40 ml/m2 6. There is mild aortic valve sclerosis. 7. Peak/mean gradient across the Aortic Valve is 14.69mmHg / 7.56mmHg. 8. Mild mitral annular calcification present. 9. Mild mitral regurgitation is present. 10. Moderate tricuspid regurgitation present. 11. There is moderate pulmonary hypertension. 12. The right ventricular systolic pressure, as measured by Doppler, is 55.94mmHg. 13. Trace/mild (physiologic) pulmonic regurgitation. 14. The aortic root size is normal. 15. There is no pericardial effusion. VICE PRESIDENT PLANNING: Yadira Mao RDCS
--- NOTE | 2017-05-23 19:18 | P.CNNES ---
History of Present Illness Consult date: 05/23/17 Reason for Consult: This patient admitted with left sided weakness and TIA vs. stroke. History of Present Illness: This patient is a 87-year-old right-handed white female who was admitted to Hospital yesterday with symptoms of left leg weakness and right-sided headache pain. Patient apparently moved to [place] recently to be with her family as she was living in [place]. She is just been established with her primary care physician Dr. Lujan. Patient apparently was having symptoms yesterday of increasing dizziness and lightheadedness. She was unable to stand due to right- sided headache pain and left foot numbness and weakness. Apparently she stood up at home yesterday and could not get her legs to work properly. She just did not feel well and it was decided to bring her to the emergency room for further evaluation. Patient was seen in the ER by Dr. Boston. Her NIH stroke scale was 0. She was sent for a computed tomography scan of the brain which revealed cerebral atrophy with no acute intracranial abnormality. CTA angiogram of the head and neck revealed approximately 50% narrowing of the proximal internal carotid arteries bilaterally. Patient was admitted to the hospital for full stroke workup. Today she continues to have left-sided weakness on examination. It is more profound in terms of the left arm drift which is noted on her neurological exam. In the emergency room yesterday she did have the evidence of a urinary tract infection. She was started on Rocephin for treatment of the UTI. Patient denies any severe right-sided headache pain but still states the right side does seem to give her some discomfort. She was checked for temporal arteritis today bedside and does not show any significant pain on palpation of the right temporal artery. We have recommended she undergo some laboratory testing to include a sedimentation rate and C-reactive protein today for further assessment. Patient did have uncontrolled hypertension yesterday in the emergency room likely producing some degree of hypertensive encephalopathy. Her blood pressures seems to be doing better today. According to her daughter who is at bedside she was recently diagnosed with a left adrenal mass. She is to undergo a biopsy of this mass on 06/06/2017 for further assessment. She also has history of coronary artery bypass grafting in the past. She also has underlying history of atrial fibrillation but is not on any specific anticoagulation. We have recommended the patient should be seen by cardiology for further evaluation. The patient also has multiple admissions recently in [place] for episodes of GI bleeding. Apparently source of her bleeding has not been identified thus far. According to the daughter she had multiple admissions to the hospital in [place] with no clear diagnosis. We've recommended gastroenterology to see the patient for further assessment as well. The patient's neurological examination today bedside does reveal her to have left-sided hemiparesis arm greater than leg. We are recommending for the patient undergo an MRI of the brain for further evaluation of possible acute stroke syndrome. We will continue close neurological follow-up with the patient during this admission. Patient is unable to take aspirin or Plavix due to her recent bleeding disorder. These be placed on hold at this time and will await further recommendations from other specialists. Overall prognosis at this time remains guarded. Her case was discussed at length with the patient and her daughter bedside. All of their questions were answered. Daughter is aware of her guarded condition. Review of Systems Constitutional: Denies chills, Denies fever Eyes: denies blurred vision, denies pain Ears, nose, mouth and throat: Denies headache, Denies sore throat Cardiovascular: Denies chest pain, Denies shortness of breath Respiratory: Denies cough Gastrointestinal: Denies abdominal pain, Denies diarrhea, Denies nausea, Denies vomiting Genitourinary: Denies dysuria, Denies hematuria Musculoskeletal: Denies myalgias Integumentary: Denies pruritus, Denies rash Neurological: Reports balance difficulties, Reports confusion, Reports headaches , Reports vertigo, Denies numbness, Denies weakness Psychiatric: Denies anxiety, Denies depression Endocrine: Denies fatigue, Denies weight change Past Medical History Past Medical History: Atrial Fibrillation, COPD, Diabetes Mellitus, Hyperlipidemia, Hypertension, Thyroid Disorder History of Any Multi-Drug Resistant Organisms: None Reported Past Surgical History: Appendectomy, Cholecystectomy, Coronary Bypass/CABG, Hysterectomy Additional Past Surgical History / Comment(s): 2008 five vessel CABG Past Psychological History: No Psychological Hx Reported Smoking Status: Former smoker Past Alcohol Use History: None Reported Past Drug Use History: None Reported - Past Family History Father History Unknown: Yes Medications and Allergies Home Medications Medication Instructions Recorded Confirmed Type Benazepril HCl 20 mg PO DAILY 03/28/16 05/22/17 History Furosemide [Lasix] 20 mg PO Q48H 03/28/16 05/22/17 History Glimepiride [Amaryl] 4 mg PO AC-BID 03/28/16 05/22/17 History Levothyroxine Sodium [Unithroid] 125 mcg PO QAM 03/28/16 05/22/17 History Metoprolol Tartrate [Lopressor] 50 mg PO BID 03/28/16 05/22/17 History Vit C/E/Zn/Coppr/Lutein/Zeaxan 1 cap PO BID 03/28/16 05/22/17 History [Preservision Areds 2 Softgel] cloNIDine HCL [Catapres] 0.1 mg PO BID 03/28/16 05/22/17 History Biotin 10,000 mcg PO DAILY 05/22/17 05/22/17 History Canagliflozin [Invokana] 100 mg PO DAILY 05/22/17 05/22/17 History Cholecalciferol [Vitamin D3] 1,000 unit PO DAILY 05/22/17 05/22/17 History Famotidine 40 mg PO BID 05/22/17 05/22/17 History Multivitamin/Iron/Folic Acid 1 tab PO DAILY 05/22/17 05/22/17 History [Centrum Complete Multivit Tab] Naproxen Sodium [Aleve] 220 mg PO DAILY PRN 05/22/17 05/22/17 History Rosuvastatin [Crestor] 10 mg PO DAILY 05/22/17 05/22/17 History Saxagliptin HCl [Onglyza] 5 mg PO DAILY 05/22/17 05/22/17 History Sodium Chloride [[place]] 1 spray EA NOSTRIL DAILY PRN 05/22/17 05/22/17 History amLODIPine BESYLATE [Norvasc] 10 mg PO DAILY 05/22/17 05/22/17 History Allergies Allergy/AdvReac Type Severity Reaction Status Date / Time No Known Allergies Allergy Verified 05/22/17 22:16 Physical Examination - Vital Signs Vital Signs: Vital Signs Temp Pulse Pulse Resp BP BP Pulse Ox 05/23/17 18:06 98.2 F 79 18 183/83 97 05/23/17 15:18 70 17 05/23/17 15:16 178/77 05/23/17 14:22 168/75 05/23/17 13:30 210/84 05/23/17 11:21 70 17 162/73 99 05/23/17 07:44 97 F L 77 17 171/70 98 05/23/17 07:42 18 05/23/17 06:36 78 18 05/23/17 04:00 78 18 176/76 99 05/23/17 01:57 81 18 169/77 98 05/23/17 01:06 78 18 193/78 100 05/22/17 23:50 76 18 151/75 98 05/22/17 21:38 99.2 F 98 20 161/70 97 Intake and Output 05/23/17 05/23/17 05/23/17 06:59 14:59 22:59 Intake Total 160 Output Total 300 700 Balance -140 -700 Intake: IV 160 Sodium Chloride 0.9% 1, 160 000 ml @ 20 mls/hr IV . Q24H [facility] Rx#:[id number] Output: Urine 300 700 Other: Voiding Method Bedpan Bedpan Bedpan # Voids 1 Weight 67.3 kg - Constitutional General appearance: average body habitus, cooperative - EENT EENT: PERRL, mucous membranes moist - Respiratory Respiratory: lungs clear, normal breath sounds - Cardiovascular Cardiovascular: normal S1, normal S2 Extremities: no peripheral edema bilaterally - Gastrointestinal Gastrointestinal: normoactive bowel sounds - Integumentary Integumentary: normal - Neurologic Cranial nerve examination: PERRL, EOMI, VFF, V1/V2/V3 grossly intact, face symmetric, intact gag reflex, intact corneal reflex, normal palatal elevation Speech examination: intact Sensorimotor examination: intact Motor examination - right side: 4/5: biceps, triceps, wrist flexion, wrist extension, tare man, hip flexors, knee extensors, dorsiflexion, toe extension (EHL) , plantarflexion Motor examination - left side: 3/5: biceps, triceps, wrist flexion, wrist extension, tare man, hip flexors, knee extensors, dorsiflexion, toe extension (EHL) , plantarflexion Detailed sensory examination: intact Reflex and gait examination: intact Reflexes: 1+: ankle, bicep, knee, tricep - Musculoskeletal Musculoskeletal: no pain - Psychiatric Psychiatric: mood/affect appropriate, cooperative Results - Laboratory Findings CBC and BMP: 05/23/17 11:19 05/23/17 11:19 Abnormal Lab Findings: Abnormal Labs 05/22/17 05/22/17 05/22/17 22:04 22:04 22:04 Hgb 11.3 L MCHC RDW 17.4 H BUN 44 H Creatinine 1.30 H Glucose 164 H POC Glucose (mg/dL) Phosphorus 4.8 H Magnesium 2.4 H Alkaline Phosphatase 133 H Total Creatine Kinase 23 L Total Protein HDL Cholesterol TSH Urine Appearance Urine Protein Urine Glucose (UA) Ur Leukocyte Esterase Urine RBC Urine WBC Urine Bacteria Urine Mucus 05/22/17 05/23/17 05/23/17 22:04 00:43 11:19 Hgb MCHC 30.0 L RDW 17.3 H BUN Creatinine Glucose POC Glucose (mg/dL) Phosphorus Magnesium Alkaline Phosphatase Total Creatine Kinase Total Protein HDL Cholesterol 33 L TSH Urine Appearance Cloudy H Urine Protein Trace H Urine Glucose (UA) 4+ H Ur Leukocyte Esterase Small H Urine RBC >182 H Urine WBC 9 H Urine Bacteria Moderate H Urine Mucus Rare H 05/23/17 05/23/17 05/23/17 11:19 11:19 11:25 Hgb MCHC RDW BUN 39 H Creatinine 1.20 H Glucose 130 H POC Glucose (mg/dL) 137 H Phosphorus 4.7 H Magnesium 2.7 H Alkaline Phosphatase Total Creatine Kinase Total Protein 9.0 H HDL Cholesterol TSH 4.950 H Urine Appearance Urine Protein Urine Glucose (UA) Ur Leukocyte Esterase Urine RBC Urine WBC Urine Bacteria Urine Mucus 05/23/17 17:05 Hgb MCHC RDW BUN Creatinine Glucose POC Glucose (mg/dL) 140 H Phosphorus Magnesium Alkaline Phosphatase Total Creatine Kinase Total Protein HDL Cholesterol TSH Urine Appearance Urine Protein Urine Glucose (UA) Ur Leukocyte Esterase Urine RBC Urine WBC Urine Bacteria Urine Mucus Assessment and Plan (1) Acute right arterial ischemic stroke, MCA (middle cerebral artery) Current Visit: Yes Status: Acute Code(s): I63.511 - CEREB INFRC D/T UNSP OCCLS OR STENOS OF RIGHT MID CEREB ART SNOMED Code(s): 361518970 (2) Headache Current Visit: Yes Status: Acute Code(s): R51 - HEADACHE SNOMED Code(s): 01531419 (3) History of GI bleed Current Visit: Yes Status: Acute Code(s): Z87.19 - PERSONAL HISTORY OF OTHER DISEASES OF THE DIGESTIVE SYSTEM SNOMED Code(s): 822487930 (4) Adrenal mass, left Current Visit: Yes Status: Acute Code(s): E27.9 - DISORDER OF ADRENAL GLAND , UNSPECIFIED SNOMED Code(s): 929454081 (5) Dizziness Current Visit: Yes Status: Acute Code(s): R42 - DIZZINESS AND GIDDINESS SNOMED Code(s): 889758934 Plan: This patient is a 87-year-old right-handed white female was admitted to Hospital with symptoms of acute dizziness and left-sided weakness. Patient has multiple complex medical issues including history of atrial fibrillation, GI bleeding recently, and left adrenal mass. Patient was admitted to hospital yesterday through the ER due to symptoms of acute dizziness and weakness. She was seen in the ER by Dr. Boston. She underwent a computed tomography scan of the brain which failed to reveal any acute changes. An NIH stroke scale in the ER was 0. She underwent CTA angiogram as well as CT of the brain results of which are noted above. The patient's neurological examination reveals her to have left-sided hemiparesis. Clinical history suggests possibility of acute right MCA stroke. We have recommended she undergo an MRI of the brain for further evaluation. Recommend a complete stroke evaluation for the patient. Would also recommend cardiology consultation regarding her history of atrial fibrillation. Would also consider GI consultation regarding recent history of GI bleeding. She is not a candidate for aspirin or Plavix given her recent history of GI bleeding. She has multiple complex medical issues at this time and this was discussed at length with the patient and her daughter at bedside. We will proceed with MRI of the brain for further assessment of acute stroke. Await further recommendations from other consultants regarding her past medical history and current symptoms. Overall prognosis at this time remains very guarded. Case was discussed at length with the patient's daughter at bedside. All of her questions were answered to the best of our ability. She is aware of her mother's very guarded condition at this time. Time with Patient: Greater than 30
[2017-05-23] MEDS: GLIMEPIRIDE 4 MG TAB PO SCH (20:29)
[2017-05-23] MEDS: cloNIDine HCL 0.1 MG TAB PO SCH (20:40)
[2017-05-23] MEDS: VIT A,C & E-LUTEIN-MINERALS 1 EACH TAB PO SCH (20:40)
[2017-05-23] MEDS: HEPARIN SODIUM,PORCINE 5,000 UNIT/ML 1 ML VIAL SQ SCH (20:40)
[2017-05-23] MEDS: FAMOTIDINE 20 MG TAB PO SCH (20:40)
[2017-05-23 21:08] LABS: Glucose,Whole Blood 132 mg/dL (75-99)
[2017-05-24 06:45] LABS: Glucose,Whole Blood 184 mg/dL (75-99)
[2017-05-24] MEDS: LEVOTHYROXINE 125 MCG TAB PO SCH (07:02)
[2017-05-24] MEDS: GLIMEPIRIDE 4 MG TAB PO SCH ×2 (07:02→17:02)
[2017-05-24] MEDS: INSULIN ASPART 100 UNIT/ML 1 ML 10 ML VIAL SQ SCH ×4 (07:02→20:54)
[2017-05-24 07:25] LABS: Albumin 3.8 g/dL (3.5-5.0); Calcium 9.7 mg/dL (8.4-10.2); Magnesium 2.5 mg/dL (1.6-2.3); Phosphorus 4.6 mg/dL (2.5-4.5); Total Bilirubin 0.6 mg/dL (0.2-1.3); Total Protein 8.4 g/dL (6.3-8.2)
[2017-05-24 07:36] LABS: Potassium 5.9 mmol/L (3.5-5.1)
[2017-05-24] MEDS: LISINOPRIL 20 MG TAB PO SCH (08:09)
[2017-05-24] MEDS: ATORVASTATIN 20 MG TAB PO SCH (08:09)
[2017-05-24] MEDS: amLODIPine 10 MG TAB PO SCH (08:09)
[2017-05-24] MEDS: METOPROLOL TARTRATE 50 MG TAB PO SCH ×2 (08:09→20:55)
[2017-05-24] MEDS: VIT A,C & E-LUTEIN-MINERALS 1 EACH TAB PO SCH ×2 (08:09→20:55)
[2017-05-24] MEDS: MULTIVITAMINS, THERA 1 EACH TAB PO SCH (08:09)
[2017-05-24] MEDS: cloNIDine HCL 0.1 MG TAB PO SCH ×2 (08:09→20:55)
[2017-05-24] MEDS: ASPIRIN 325 MG TAB PO SCH (08:09)
[2017-05-24] MEDS: CHOLECALCIFEROL 1,000 UNIT TAB PO SCH (08:09)
[2017-05-24] MEDS: FAMOTIDINE 20 MG TAB PO SCH (08:09)
[2017-05-24] MEDS: HEPARIN SODIUM,PORCINE 5,000 UNIT/ML 1 ML VIAL SQ SCH (08:10)
[2017-05-24] MEDS: cefTRIAXone IN SWFI 1,000 MG/10 ML SYRINGE IVP SCH (08:10)
[2017-05-24 08:14] LABS: Anisocytosis Slight; Basophils # (A) 0.1 k/uL (0-0.2); Basophils % (A) 1 %; Eosinophils # (A) 0.1 k/uL (0-0.7); Eosinophils % (A) 1 %; HCT 36.9 % (34.0-46.0); HGB 11.9 gm/dL (11.4-16.0); Hypochromasia Marked; Lymphocytes # (A) 2.2 k/uL (1.0-4.8); Lymphocytes % (A) 23 %; MCH 31.5 pg (25.0-35.0); MCHC 32.2 g/dL (31.0-37.0); MCV 97.8 fL (80.0-100.0); Macrocytosis Slight; Mean Platelet Volume 8.8; Monocytes # (A) 0.5 k/uL (0-1.0); Monocytes % (A) 6 %; Neutrophils # (A) 6.4 k/uL (1.3-7.7); Neutrophils % (A) 68 %; Platelet Count 199 k/uL (150-450); RBC 3.77 m/uL (3.80-5.40); WBC 9.5 k/uL (3.8-10.6)
[2017-05-24] MEDS ORDERED: SODIUM POLYSTYRENE SULFONATE 15 GM/60 ML BOTTLE PO STA (08:39)
[2017-05-24] MEDS ORDERED: amLODIPine 10 MG TAB PO SCH (09:00)
[2017-05-24] MEDS ORDERED: NON-FORMULARY DRUG (Biotin [Biotin] 10,000 MCG) PO SCH (09:00)
[2017-05-24] MEDS ORDERED: MORPHINE ORAL SOLN 10 MG/5 ML CUP PO PRN (09:19)
--- NOTE | 2017-05-24 10:07 | CONS ---
CONSULTATION CHIEF COMPLAINT: Atrial fibrillation. Rui is an 87-year-old lady with history of coronary artery disease, status post CABG, hypertension, dyslipidemia, okx-ozfmglv-ipclmqoop diabetes, and chronic atrial fibrillation, who is admitted to hospital with left leg weakness and right-sided headache. Patient has been having dizziness and lightheadedness for the last few days and subsequently developed this weakness of the foot. She had a she was diagnosed with CVA versus TIA, had a CTA of the brain that showed a 50% stenosis involving proximal internal carotid arteries bilaterally and Cardiology has been consulted for atrial fibrillation. Patient has known atrial fibrillation and apparently for unexplained anemia, she was thought not to be a candidate for anticoagulation. Patient is somewhat unsure about this history. PAST MEDICAL HISTORY: Significant for chronic atrial fibrillation, diabetes, hypertension, dyslipidemia, coronary artery disease, status post CABG, appendectomy, cholecystectomy, hysterectomy. MEDICATIONS: At home included benazepril, Lasix, Amaryl, Synthroid, Lopressor 50 b.i.d., Catapres 0.1 b.i.d., multivitamin, Aleve, Crestor and Norvasc. ALLERGIES: There are no known drug allergies. FAMILY HISTORY: Negative for premature coronary artery disease. SOCIAL HISTORY: Negative for current smoking, EtOH abuse, or drug abuse. REVIEW OF SYSTEMS: HEENT is unremarkable. CARDIAC: As described above. RESPIRATORY: Negative. GI: Negative. GENITOURINARY: Negative. ALLERGY/IMMUNOLOGY: Negative. SKIN: Negative. MUSCULOSKELETAL: Significant for arthralgias. PSYCHOSOCIAL: Negative. DERM: Negative. CONSTITUTIONAL: Negative. ONCOLOGICAL: Negative. PSYCH: Negative. NEUROLOGICAL: Negative. Rest of the system review is not relevant. PHYSICAL EXAM: Patient is comfortable at rest, afebrile. Blood pressure is elevated at 167/74, respiratory rate is 18. Chest exam reveals diminished air entry at the bases. Heart exam reveals first and second heart sounds and ejection systolic murmur in the aortic area. Abdomen is soft, nontender. Exam of extremities did not reveal any edema. Peripheral pulses are felt. PERSONAL SUPPORT WORKER: Patient is able to move all her 4 extremities, but she feels generally weak and is requiring help to get around. LABS: Show that the hemoglobin is 11.9 potassium is elevated at 5.9, BUN is 36, creatinine is 1.45. TSH is 4.9 with a freeT4 of 1.4. EKG shows atrial fibrillation. An echocardiogram on this admission revealed normal LV systolic function with mild aortic stenosis and moderate tricuspid regurgitation. ASSESSMENT AND PLAN: 1. TIA. 2. Chronic atrial fibrillation. 3. Coronary artery disease, status post coronary artery bypass grafting. 4. Hypertension. 5. Dyslipidemia. 6. Zcb-krermws-bbvlktobd diabetes. PLAN: The patient will need and would benefit from long-term anticoagulation. We need to find out why there was this concern about bleeding as the patient does not seem particularly anemic and there has not been any recent blood transfusions. We are going to get information from the primary care physician's office. If there are no contraindications, we should start her on Eliquis 2.5 mg b.i.d. Thank you for allowing us to participate in this pleasant lady. JOLANTA / HAILE: [id number] /
--- NOTE | 2017-05-24 10:18 | P.CONS ---
History of Present Illness - Reason for Consult Consult date: 05/24/17 Recent GI bleed Requesting physician: Karen Padilla - History of Present Illness 87-year-old female recently residing in [place] and moved to [place] presents with left-sided weakness TIA versus stroke and UTI. Past medical history of chronic atrial fibrillation, diabetes, hypertension, dyslipidemia, CABG, cholecystectomy, CAD. Consult requested by neurologist for possible recent GI bleed. According to the patient and her family at bedside this morning she was recently hospitalized last few weeks and the [facility] with pneumonia and reports of an adrenal mass. Family states there was no diagnosis or evidence of GI bleed. Patient's family thought her hemoglobin may have been low during that admission but is not sure they will provide medical records. She's had a GI bleed many years ago not sure of source. Last colonoscopy many years ago no recent EGD. Presently she denied abdominal pain denies hematemesis hematochezia melena. Hemoglobin 11.3-11.9. MCV 97. Platelet 199. BUN 36. Creatinine 1.4. INR 1.1. Home medications include Aleve as needed. Pepcid twice daily. Review of Systems Constitutional: Denies fever, chills, sweats, weight gain, or loss. HEENT: Negative for migraines, blurred vision or loss, earaches, drainage, tinnitus, oral mucosal lesions, dysphagia, or odynophagia. CARDIAC: Atrial fibrillation. CAD. CABG. Hypertension. Hyperlipidemia. Negative for chest pain, arrhythmias, or palpitation. RESPIRATORY: Negative for shortness of breath, hemoptysis, cough, or sputum production. GI: See HPI for pertinent findings. : Negative for hematuria, urgency, frequency, polyuria, or dysuria. GYNc: Denies possibility of . Negative vaginal discharge. MUSCULOSKELETAL: Negative for muscle aches, swelling, arthritis, and arthralgias. NEUROLOGIC: Negative for stroke or TIA. ENDOCRINE: Negative for thyroid problems. SKIN: Negative for rash or itching. PSYCHIATRIC: Negative history for depression and anxiety Past Medical History Past Medical History: Atrial Fibrillation, COPD, Diabetes Mellitus, Hyperlipidemia, Hypertension, Thyroid Disorder History of Any Multi-Drug Resistant Organisms: None Reported Past Surgical History: Appendectomy, Cholecystectomy, Coronary Bypass/CABG, Hysterectomy Additional Past Surgical History / Comment(s): 2009 five vessel CABG Past Psychological History: No Psychological Hx Reported Smoking Status: Former smoker Past Alcohol Use History: None Reported Past Drug Use History: None Reported - Past Family History Father History Unknown: Yes Medications and Allergies Home Medications Medication Instructions Recorded Confirmed Type Benazepril HCl 20 mg PO DAILY 03/28/16 05/22/17 History Furosemide [Lasix] 20 mg PO Q48H 03/28/16 05/22/17 History Glimepiride [Amaryl] 4 mg PO AC-BID 03/28/16 05/22/17 History Levothyroxine Sodium [Unithroid] 125 mcg PO QAM 03/28/16 05/22/17 History Metoprolol Tartrate [Lopressor] 50 mg PO BID 03/28/16 05/22/17 History Vit C/E/Zn/Coppr/Lutein/Zeaxan 1 cap PO BID 03/28/16 05/22/17 History [Preservision Areds 2 Softgel] cloNIDine HCL [Catapres] 0.1 mg PO BID 03/28/16 05/22/17 History Biotin 10,000 mcg PO DAILY 05/22/17 05/22/17 History Canagliflozin [Invokana] 100 mg PO DAILY 05/22/17 05/22/17 History Cholecalciferol [Vitamin D3] 1,000 unit PO DAILY 05/22/17 05/22/17 History Famotidine 40 mg PO BID 05/22/17 05/22/17 History Multivitamin/Iron/Folic Acid 1 tab PO DAILY 05/22/17 05/22/17 History [Centrum Complete Multivit Tab] Naproxen Sodium [Aleve] 220 mg PO DAILY PRN 05/22/17 05/22/17 History Rosuvastatin [Crestor] 10 mg PO DAILY 05/22/17 05/22/17 History Saxagliptin HCl [Onglyza] 5 mg PO DAILY 05/22/17 05/22/17 History Sodium Chloride [[place]] 1 spray EA NOSTRIL DAILY PRN 05/22/17 05/22/17 History amLODIPine BESYLATE [Norvasc] 10 mg PO DAILY 05/22/17 05/22/17 History Allergies Allergy/AdvReac Type Severity Reaction Status Date / Time No Known Allergies Allergy Verified 05/22/17 22:16 Physical Exam Vitals: Vital Signs Temp Pulse Resp BP Pulse Ox 05/24/17 07:49 96.9 F L 79 18 167/74 95 05/24/17 04:00 97.3 F L 72 16 198/81 92 L 05/24/17 00:00 98.1 F 74 16 135/63 91 L 05/23/17 20:00 98.9 F 74 16 130/61 98 05/23/17 18:06 98.2 F 79 18 183/83 97 05/23/17 15:18 70 17 05/23/17 15:16 178/77 05/23/17 14:22 168/75 05/23/17 13:30 210/84 05/23/17 11:21 70 17 162/73 99 Intake and Output 05/23/17 05/24/17 05/24/17 22:59 06:59 14:59 Intake Total 60 80 120 Balance 60 80 120 Intake: IV 60 80 Sodium Chloride 0.9% 1, 60 80 000 ml @ 20 mls/hr IV . Q24H [facility] Rx#:[id number] Oral 120 Other: Voiding Method Bedpan Bedpan # Voids 1 1 Weight 64.5 kg General appearance: The patient is alert, oriented, in no acute distress. HET: Head is normocephalic and atraumatic. Pupils are equal and reactive. Oropharynx is clear without lesions. Neck: Supple without lymphadenopathy. Trachea midline. Heart: S1 S2. Regular rate and rhythm. Lungs: No crackles or wheezes are heard. Abdomen: Soft, nontender, nondistended with bowel sounds. No peritoneal signs. No palpable organomegaly or masses. Extremities: Normal skin color and turgor. No cyanosis, rash, ulceration, clubbing, or edema. Radial and pedal pulses are 2/4 bilaterally. Left-sided weakness. Results CBC & Chem 7: 05/25/17 06:13 05/25/17 06:13 Labs: Abnormal Lab Results - Last 24 Hours (Table) 05/23/17 05/23/17 05/23/17 Range/Units 11:19 11:19 11:19 RBC (3.80-5.40) m/uL MCHC 30.0 L (31.0-37.0) g/dL RDW 17.3 H (11.5-15.5) % ESR (0-20) mm/hr Potassium (3.5-5.1) mmol/L Chloride (98-107) mmol/L Carbon Dioxide (22-30) mmol/L BUN 39 H (7-17) mg/dL Creatinine 1.20 H (0.52-1.04) mg/dL Glucose 130 H (74-99) mg/dL POC Glucose (mg/dL) (75-99) mg/dL Phosphorus 4.7 H (2.5-4.5) mg/dL Magnesium 2.7 H (1.6-2.3) mg/dL C-Reactive Protein (<10.0) mg/L Total Protein 9.0 H (6.3-8.2) g/dL TSH 4.950 H (0.465-4.680) mIU/L 05/23/17 05/23/17 05/23/17 Range/Units 11:19 11:19 11:25 RBC (3.80-5.40) m/uL MCHC (31.0-37.0) g/dL RDW (11.5-15.5) % ESR 49 H (0-20) mm/hr Potassium (3.5-5.1) mmol/L Chloride (98-107) mmol/L Carbon Dioxide (22-30) mmol/L BUN (7-17) mg/dL Creatinine (0.52-1.04) mg/dL Glucose (74-99) mg/dL POC Glucose (mg/dL) 137 H (75-99) mg/dL Phosphorus (2.5-4.5) mg/dL Magnesium (1.6-2.3) mg/dL C-Reactive Protein 10.0 H (<10.0) mg/L Total Protein (6.3-8.2) g/dL TSH (0.465-4.680) mIU/L 05/23/17 05/23/17 05/24/17 Range/Units 17:05 21:05 06:18 RBC 3.77 L (3.80-5.40) m/uL MCHC (31.0-37.0) g/dL RDW 17.0 H (11.5-15.5) % ESR (0-20) mm/hr Potassium (3.5-5.1) mmol/L Chloride (98-107) mmol/L Carbon Dioxide (22-30) mmol/L BUN (7-17) mg/dL Creatinine (0.52-1.04) mg/dL Glucose (74-99) mg/dL POC Glucose (mg/dL) 140 H 132 H (75-99) mg/dL Phosphorus (2.5-4.5) mg/dL Magnesium (1.6-2.3) mg/dL C-Reactive Protein (<10.0) mg/L Total Protein (6.3-8.2) g/dL TSH (0.465-4.680) mIU/L 05/24/17 05/24/17 Range/Units 06:18 06:44 RBC (3.80-5.40) m/uL MCHC (31.0-37.0) g/dL RDW (11.5-15.5) % ESR (0-20) mm/hr Potassium 5.9 H (3.5-5.1) mmol/L Chloride 110 H (98-107) mmol/L Carbon Dioxide 17 L (22-30) mmol/L BUN 36 H (7-17) mg/dL Creatinine 1.45 H (0.52-1.04) mg/dL Glucose 154 H (74-99) mg/dL POC Glucose (mg/dL) 184 H (75-99) mg/dL Phosphorus 4.6 H (2.5-4.5) mg/dL Magnesium 2.5 H (1.6-2.3) mg/dL C-Reactive Protein (<10.0) mg/L Total Protein 8.4 H (6.3-8.2) g/dL TSH (0.465-4.680) mIU/L Microbiology - Last 24 Hours (Table) 05/23/17 00:43 Urine Culture - Preliminary Urine,Voided Assessment and Plan Assessment: Impression: 1. 87-year-old female presents with left-sided weakness dizziness evaluated by neurology with diagnosis of acute right arterial ischemic stroke. 2. History of reported remote GI bleed nothing recent clinically without evidence of active GI bleed. According to family patient was [place] 2[place]3 [place] with a diagnosis of pneumonia and adrenal mass. Recommendations: 1. Medical records from last hospitalization was requested. Family states they can provide the records or assist with obtaining them. From a GI standpoint there is no active clinical bleeding at this time. Proceed with indicated therapy as advised by neurology. CBC monitoring. Thank you for this kind referral and the opportunity to participate in the care of your patient. This consultation was discussed with Dr. Huntley. The impression and plan of care have been directed as dictated.
[2017-05-24 11:15] LABS: Glucose,Whole Blood 178 mg/dL (75-99)
[2017-05-24] MEDS ORDERED: LEVOTHYROXINE 112 MCG TAB PO SCH (13:29)
--- NOTE | 2017-05-24 13:31 | P.PN ---
Subjective Progress Note Date: 05/24/17 This is a 87-year-old female, patient of Dr. Lujan. She has a known past medical history of hypertension, atrial fibrillation, hyperlipidemia, diabetes mellitus, COPD, hypothyroidism and coronary artery disease with previous CABG. Patient presents to the emergency room with complaints of dizziness and a right temporal headache. Symptoms started yesterday. Initially patient was sitting and having this dizziness. The room was spinning around her. Dizziness resolved she went to stand up and had a severe right-sided headache. As well as her left foot was not cooperating. She reports she was having difficulty standing on it and didn't feel right. Patient lives alone. She was brought into the emergency room for further evaluation. Computed tomography scan of the brain showing no acute changes. Does reveal cerebral atrophy. CTA of the head and neck shows approximately 50% narrowing in the proximal internal carotid arteries bilaterally. No significant intracranial arterial abnormality. Echocardiogram pending. Neurology consulted. Patient denies any prior history of stroke. She does have evidence of a UTI will be started on Rocephin. Patient's weakness in the left leg, headache and dizziness have now resolved. Patient is currently in ER and will be transferred to the sixth floor. Also having elevated blood pressures in the emergency room. Last blood pressure 171/70. Home blood pressure pills will be restarted. Patient denies any vision changes, ringing the ears, sore throat, chest pain, shortness breath , nausea or vomiting, bowel movement changes or urinary symptoms. She may have some underlying history of chronic kidney disease she reports being possibly on dialysis in the past. Patient is slightly confused but she is orientated 3. Patient does report having a prior episode of dizziness with similar symptoms years ago. She she reports it resolved on its own. 05/24/2017 patient seen evaluated by neurology felt that she does have evidence of a stroke with left sided weakness. She is scheduled for an MRI of the brain today. Family at bedside with old records from March 2017 when she was hospitalized in [place]. That hospitalization was for an acute pyelonephritis COPD and bronchitis. Also there have been anemia at that time and it was documented as iron deficiency anemia and anemia of chronic disease. Patient did have fecal occult blood test positive during that hospitalization. She did not have an EGD or colonoscopy. And it's been several years since she's had colonoscopy. Hemoglobin was 9.7. Patient does have a history of atrial fibrillation and there is question if she was ever truly on anticoagulation. That was discontinued several years ago due to anemia and concerns for bleed. But family reports no source of bleeding was identified. She also has a history of CABG and chronic kidney disease. At one point she did require dialysis a few years ago. Currently no longer needing dialysis. Patient lying in bed comfortably. Reports that she was able to get up with physical therapy today. Denies any chest pain or shortness of breath. Denies any nausea or vomiting. Denies any bowel movement changes or urinary symptoms. Objective - Vital Signs Vital signs: Vital Signs Temp 97.8 F 05/24/17 11:23 Pulse 71 05/24/17 11:23 Resp 18 05/24/17 11:23 BP 109/52 05/24/17 11:23 Pulse Ox 91 L 05/24/17 11:23 Intake & Output 05/23/17 05/24/17 05/24/17 18:59 06:59 18:59 Intake Total 140 360 Output Total 700 Balance -700 140 360 Weight 64.5 kg Intake: IV 140 Sodium Chloride 0.9% 1, 140 000 ml @ 20 mls/hr IV . Q24H [facility] Rx#:[id number] Oral 360 Output: Urine 700 Other: Voiding Method Bedpan Bedpan # Voids 1 - Exam Head normocephalic Neck supple Lungs clear to auscultation bilaterally no wheezing or crackles Heart regular rate and rhythm S1-S2, no rub or gallop Abdomen is soft nontender nondistended positive bowel sounds no hepatosplenomegaly Extremities no edema Neuro alert and orientated to 3. Mild weakness noted in the left hand credit portfolio advisor and left leg - Labs CBC & Chem 7: 05/24/17 06:18 05/24/17 06:18 Labs: Abnormal Lab Results - Last 24 Hours (Table) 05/23/17 05/23/17 05/23/17 Range/Units 11:19 11:19 11:19 RBC (3.80-5.40) m/uL RDW (11.5-15.5) % ESR 49 H (0-20) mm/hr Potassium (3.5-5.1) mmol/L Chloride (98-107) mmol/L Carbon Dioxide (22-30) mmol/L BUN (7-17) mg/dL Creatinine (0.52-1.04) mg/dL Glucose (74-99) mg/dL POC Glucose (mg/dL) (75-99) mg/dL Phosphorus 4.7 H (2.5-4.5) mg/dL Magnesium 2.7 H (1.6-2.3) mg/dL C-Reactive Protein 10.0 H (<10.0) mg/L Total Protein (6.3-8.2) g/dL 05/23/17 05/23/17 05/24/17 Range/Units 17:05 21:05 06:18 RBC 3.77 L (3.80-5.40) m/uL RDW 17.0 H (11.5-15.5) % ESR (0-20) mm/hr Potassium (3.5-5.1) mmol/L Chloride (98-107) mmol/L Carbon Dioxide (22-30) mmol/L BUN (7-17) mg/dL Creatinine (0.52-1.04) mg/dL Glucose (74-99) mg/dL POC Glucose (mg/dL) 140 H 132 H (75-99) mg/dL Phosphorus (2.5-4.5) mg/dL Magnesium (1.6-2.3) mg/dL C-Reactive Protein (<10.0) mg/L Total Protein (6.3-8.2) g/dL 05/24/17 05/24/17 05/24/17 Range/Units 06:18 06:44 11:12 RBC (3.80-5.40) m/uL RDW (11.5-15.5) % ESR (0-20) mm/hr Potassium 5.9 H (3.5-5.1) mmol/L Chloride 110 H (98-107) mmol/L Carbon Dioxide 17 L (22-30) mmol/L BUN 36 H (7-17) mg/dL Creatinine 1.45 H (0.52-1.04) mg/dL Glucose 154 H (74-99) mg/dL POC Glucose (mg/dL) 184 H 178 H (75-99) mg/dL Phosphorus 4.6 H (2.5-4.5) mg/dL Magnesium 2.5 H (1.6-2.3) mg/dL C-Reactive Protein (<10.0) mg/L Total Protein 8.4 H (6.3-8.2) g/dL Microbiology - Last 24 Hours (Table) 05/23/17 00:43 Urine Culture - Final Urine,Voided Assessment and Plan Assessment: 1. Acute right MCA ischemic stroke : Seen by neurology. MRI of the brain ordered for today. computed tomography scan of brain shows no acute changes. CTA of the head and neck shows 50% narrowing in the internal carotid arteries bilaterally. Echo shows an EF of 50-55% and moderate pulmonary hypertension. Moderate tricuspid regurgitation. Continue full aspirin. Patient seen by neurology appreciate their input. Case discussed with consulting physicians including neurology, GI service and cardiology. Patient will require anticoagulation due to her atrial fibrillation likely contributing to her stroke. Patient has had no recent episodes of the GI bleed. Case discussed with family and reviewed chart from the hospital in [place] 2. Dizziness and headache: Computed tomography scan of brain shows no acute changes. Symptoms have resolved. Patient did require morphine in the ER. Neurology consulted. 3. UTI: Currently on Rocephin 1 g daily. Urine culture negative. We'll continue antibiotics for 1 more day 4. Possible chronic kidney disease, stage III: Creatinine in 03/28/2016 was 1.40. Creatinine February was 1.9. 5. Left adrenal mass patient is being seen by specialists outpatient 6. History of chronic atrial fibrillation: Not on anticoagulation at home. Case discussed with cardiology. We will await their recommendations on starting anticoagulation. 7. Accelerated hypertension present on admission: Resume patient's blood pressure medications continue to monitor. Elevated blood pressures likely related to patient's stroke 8. Diabetes mellitus type 2: Add sliding scale coverage. Resume Amaryl. Other blood sugar medications are nonformulary. No evidence of hypoglycemia 9. History of coronary artery disease with CABG 10. Hypothyroidism, TSH elevated at 4.950 and free T4 1 0.46 we'll decrease patient's Synthroid to 112 micrograms 11. Hyperlipidemia continue statin 12. Hyperkalemia: Potassium 5.9. Give Kayexalate. Discontinue lisinopril. 13. Hyper magnesium and hyperphosphatemia repeat labs in a.m. Likely related to patient's chronic kidney disease GI prophylaxis Pepcid and DVT prophylaxis subcu heparin I performed an examination of the patient and discussed their management with the physician Gas Station Attendant. I have reviewed the Physician Gas Station Attendant's notes and agree with the documented findings and plan of care
--- NOTE | 2017-05-24 13:57 | MR ---
MR brain without contrast HISTORY: Acute right hemispheric stroke Multiplanar multisequence imaging through the brain and correlated to CT brain 05/22/2017 There is restricted diffusion involving the right occipital lobe extending into the posterior tempora l region, right thalamus on the right with corresponding abnormal signal on T1, T2 and inversion margie very sequences. Intermediate signal on T1 and low signal on T2 and inversion recovery sequences are s een along inferior gyri suggesting a hemorrhagic component. There is some surrounding gliosis. No sig nificant mass effect or midline shift. There is no evident hydrocephalus. Scattered hyperintensities are present in the deep white matter on inversion recovery and T2-weighted sequences, there is cortical atrophy. The orbits show a symmetric appearance. There are normal vascu lar flow voids. IMPRESSION: Findings compatible with subacute infarct as described, there is likely a hemorrhagic, po ssible petechial component. This finding could potentially be confirmed on CT. Report relayed to eran ent's nurse Fela telephonically at the time of interpretation.
--- NOTE | 2017-05-24 15:31 | P.PN ---
Subjective Progress Note Date: 05/24/17 This patient is a pleasant 87-year-old right-handed white female who was admitted to hospital yesterday with evidence of left-sided weakness and atrial fibrillation. Patient also has a history of recent GI bleeding. Cardiology and gastroenterology were consulted for further evaluation for this patient. Patient was seen by cardiology who recommended treatment of atrial fibrillation with long-term anticoagulation. He had recommended Eliquis 2.5 mg twice a day. Gastroenterology also was able to see the patient today and are waiting for records to arrive from [place]. Patient recently transferred from [place] on to [place] and is living with her family members locally. She apparently has a long history of anemia and GI bleeding in the past. She was not a candidate for anticoagulation 2 years ago given her history of intermittent atrial fibrillation. The patient's neurological examination did reveal evidence of left-sided weakness yesterday. She was able to complete a MRI of the brain today. MRI reveals subacute infarct in the distribution of the right [employer] vascular territory. Report also indicated possible petechial hemorrhage. We have recommended patient not to be placed on any anticoagulant at this time. She is specifically not to be placed on aspirin, Plavix, or Eliquis at this time due to the risk of hemorrhagic transformation of her stroke. We are recommending a repeat computed tomography scan of the brain to be done tomorrow for further assessment. Patient is not a candidate for anticoagulation given the MRI findings today. We will await further recommendations from cardiology and gastroenterology regarding these findings. Case was discussed today at length with Ms. Dana Ramesh in regards to the MRI findings. She is in full agreement with our current recommendations. She'll be taken off of aspirin. As mentioned she is not a candidate for Plavix or Eliquis. The patient is resting comfortably. She continues to demonstrate evidence of left-sided weakness. We've explained the results of the MRI with her in detail. As noted we will plan to get a follow-up computed tomography scan of the brain tomorrow to further evaluate for any petechial hemorrhage sites. Her overall prognosis at this time remains very guarded. We will await further recommendations from Dr. Fernandez regarding further management of her case. Objective - Vital Signs Vital signs: Vital Signs Temp 97.8 F 05/24/17 11:23 Pulse 71 05/24/17 11:23 Resp 18 05/24/17 11:23 BP 109/52 05/24/17 11:23 Pulse Ox 91 L 05/24/17 11:23 Intake & Output 05/23/17 05/24/17 05/24/17 18:59 06:59 18:59 Intake Total 140 360 Output Total 700 Balance -700 140 360 Weight 64.5 kg Intake: IV 140 Sodium Chloride 0.9% 1, 140 000 ml @ 20 mls/hr IV . Q24H [facility] Rx#:[id number] Oral 360 Output: Urine 700 Other: Voiding Method Bedpan Bedpan # Voids 1 2 - Exam Physical examination: PHYSICAL EXAMINATION: Patient is resting comfortably in bed. VITAL SIGNS: Blood pressure is [109/52]. Heart rate is [71]. Respiration is [18] . Temperature is [97.8]. HEENT: Head is atraumatic, neck is supple, there were no carotid bruits. CHEST: Lungs are clear to auscultation and percussion. CARDIAC: S1, S2 normal rate and rhythm. There is no murmur. ABDOMEN: Soft and nontender. Bowel sounds are present. EXTREMITIES: There is no pedal edema. Peripheral pulses are present. Neurological examination: Patient's neurological examination is unchanged from yesterday. She continues to have left pronator drift and left-sided hemiparesthesias. - Labs CBC & Chem 7: 05/24/17 06:18 05/24/17 06:18 Labs: Abnormal Lab Results - Last 24 Hours (Table) 05/23/17 05/23/17 05/23/17 Range/Units 11:19 11:19 17:05 RBC (3.80-5.40) m/uL RDW (11.5-15.5) % ESR 49 H (0-20) mm/hr Potassium (3.5-5.1) mmol/L Chloride (98-107) mmol/L Carbon Dioxide (22-30) mmol/L BUN (7-17) mg/dL Creatinine (0.52-1.04) mg/dL Glucose (74-99) mg/dL POC Glucose (mg/dL) 140 H (75-99) mg/dL Phosphorus (2.5-4.5) mg/dL Magnesium (1.6-2.3) mg/dL C-Reactive Protein 10.0 H (<10.0) mg/L Total Protein (6.3-8.2) g/dL 05/23/17 05/24/17 05/24/17 Range/Units 21:05 06:18 06:18 RBC 3.77 L (3.80-5.40) m/uL RDW 17.0 H (11.5-15.5) % ESR (0-20) mm/hr Potassium 5.9 H (3.5-5.1) mmol/L Chloride 110 H (98-107) mmol/L Carbon Dioxide 17 L (22-30) mmol/L BUN 36 H (7-17) mg/dL Creatinine 1.45 H (0.52-1.04) mg/dL Glucose 154 H (74-99) mg/dL POC Glucose (mg/dL) 132 H (75-99) mg/dL Phosphorus 4.6 H (2.5-4.5) mg/dL Magnesium 2.5 H (1.6-2.3) mg/dL C-Reactive Protein (<10.0) mg/L Total Protein 8.4 H (6.3-8.2) g/dL 05/24/17 05/24/17 Range/Units 06:44 11:12 RBC (3.80-5.40) m/uL RDW (11.5-15.5) % ESR (0-20) mm/hr Potassium (3.5-5.1) mmol/L Chloride (98-107) mmol/L Carbon Dioxide (22-30) mmol/L BUN (7-17) mg/dL Creatinine (0.52-1.04) mg/dL Glucose (74-99) mg/dL POC Glucose (mg/dL) 184 H 178 H (75-99) mg/dL Phosphorus (2.5-4.5) mg/dL Magnesium (1.6-2.3) mg/dL C-Reactive Protein (<10.0) mg/L Total Protein (6.3-8.2) g/dL Microbiology - Last 24 Hours (Table) 05/23/17 00:43 Urine Culture - Final Urine,Voided Assessment and Plan (1) Acute right arterial ischemic stroke, MCA (middle cerebral artery) Current Visit: Yes Status: Acute Code(s): I63.511 - CEREB INFRC D/T UNSP OCCLS OR STENOS OF RIGHT MID CEREB ART SNOMED Code(s): 668483204 (2) Headache Current Visit: Yes Status: Acute Code(s): R51 - HEADACHE SNOMED Code(s): 46806499 (3) History of GI bleed Current Visit: Yes Status: Acute Code(s): Z87.19 - PERSONAL HISTORY OF OTHER DISEASES OF THE DIGESTIVE SYSTEM SNOMED Code(s): 690367327 (4) Adrenal mass, left Current Visit: Yes Status: Acute Code(s): E27.9 - DISORDER OF ADRENAL GLAND , UNSPECIFIED SNOMED Code(s): 166629547 (5) Dizziness Current Visit: Yes Status: Acute Code(s): R42 - DIZZINESS AND GIDDINESS SNOMED Code(s): 585934238 Plan: This patient is a 87-year-old right-handed white female who was admitted hospital yesterday with acute mental status changes and left-sided hemiparesthesias. Patient was able to complete MRI of the brain today the results of which are noted above. There is evidence of a right [employer] stroke with some hemorrhagic petechial changes. Patient is not a candidate for anticoagulation at this time given her history of atrial fibrillation. We have discussed these findings today with her admitting physician. We will hold off on aspirin, Plavix, and Eliquis for treatment of her atrial fibrillation given the MRI findings. We will plan to get a repeat computed tomography scan of the brain tomorrow for further follow-up. Would recommend PT OT evaluation and possible subacute rehab for this patient. Awaiting further recommendations from cardiology and gastroenterology regarding her complex past medical history. Her overall prognosis at this time remains very guarded. We will continue close neurological follow-up with the patient.
[2017-05-24] MEDS ORDERED: LEVOTHYROXINE 137 MCG TAB PO SCH (16:22)
[2017-05-24 16:28] LABS: Glucose,Whole Blood 139 mg/dL (75-99)
--- NOTE | 2017-05-24 16:51 | P.CONS ---
History of Present Illness - Chief Complaint Gait disturbance - History of Present Illness I had To see patient for inpatient rehab consultation with regard to gait disturbance. She was admitted to [facility] May 22 with dizziness. H&P notes left leg weakness. Seen by Dr. Tra Gallegos who did diagnose right MCA infarct. Seen by GI doctor who doubted GI bleed. Initial head CT demonstrated only cerebral atrophy. Angio-Seal CT demonstrates 50% occlusion internal carotids. Brain MRI demonstrated subacute infarct right a simple and temporal lobes. PT reports minimal assistance for bed mobility moderate assistance for transfers and gait 70 feet with roller walker. OT reports total assistance for upper dressing and maximal assistance for lower dressing, bathing, toileting. Moderate assistance for mobility and transfers. Speech therapy reports 70% accuracy for picture identification. Previous functional history as elicited from patient and son: 87 showed right- handed white female who lives and granddaughters home with granddaughter and their family. The checked generally does the cooking and laundry although patient states that she can do simple cooking and laundry. Independent with standing shower and gait with standard cane. Does not drive. Note that she is recently relocated from [facility]. Dr. Lujan is current doctor. Family history mother with Alzheimer. Review of Systems Review of systems: Note that she consistently denied any current problems. ENT: Denies sneezes or discharge. Eyes: Denies discharge or photophobia. Cardiac: Denies chest pain or palpitation. Pulmonary: Denies cough or shortness of breath. Breast: Denies discharge or lumps. Gastrointestinal: Denies nausea, emesis, constipation, diarrhea. Genitourinary: Denies discharge or frequency. Musculoskeletal: Denies muscle or bone aches. Neurologic: Denies motor or sensory change. Endocrine: Denies shakes or sweats. Oncology: Denies cancers. Dermatologic: Denies rash, itching, pruritus. ALLERGY/immunology: Denies sneezes, rashes. Past Medical History Past Medical History: Atrial Fibrillation, COPD, Diabetes Mellitus, Hyperlipidemia, Hypertension, Thyroid Disorder History of Any Multi-Drug Resistant Organisms: None Reported Past Surgical History: Appendectomy, Cholecystectomy, Coronary Bypass/CABG, Hysterectomy Additional Past Surgical History / Comment(s): 2008 five vessel CABG Past Psychological History: No Psychological Hx Reported Smoking Status: Former smoker Past Alcohol Use History: None Reported Past Drug Use History: None Reported - Past Family History Father History Unknown: Yes Medications and Allergies Home Medications Medication Instructions Recorded Confirmed Type Benazepril HCl 20 mg PO DAILY 03/28/16 05/22/17 History Furosemide [Lasix] 20 mg PO Q48H 03/28/16 05/22/17 History Glimepiride [Amaryl] 4 mg PO AC-BID 03/28/16 05/22/17 History Levothyroxine Sodium [Unithroid] 125 mcg PO QAM 03/28/16 05/22/17 History Metoprolol Tartrate [Lopressor] 50 mg PO BID 03/28/16 05/22/17 History Vit C/E/Zn/Coppr/Lutein/Zeaxan 1 cap PO BID 03/28/16 05/22/17 History [Preservision Areds 2 Softgel] cloNIDine HCL [Catapres] 0.1 mg PO BID 03/28/16 05/22/17 History Biotin 10,000 mcg PO DAILY 05/22/17 05/22/17 History Canagliflozin [Invokana] 100 mg PO DAILY 05/22/17 05/22/17 History Cholecalciferol [Vitamin D3] 1,000 unit PO DAILY 05/22/17 05/22/17 History Famotidine 40 mg PO BID 05/22/17 05/22/17 History Multivitamin/Iron/Folic Acid 1 tab PO DAILY 05/22/17 05/22/17 History [Centrum Complete Multivit Tab] Naproxen Sodium [Aleve] 220 mg PO DAILY PRN 05/22/17 05/22/17 History Rosuvastatin [Crestor] 10 mg PO DAILY 05/22/17 05/22/17 History Saxagliptin HCl [Onglyza] 5 mg PO DAILY 05/22/17 05/22/17 History Sodium Chloride [[place]] 1 spray EA NOSTRIL DAILY PRN 05/22/17 05/22/17 History amLODIPine BESYLATE [Norvasc] 10 mg PO DAILY 05/22/17 05/22/17 History Allergies Allergy/AdvReac Type Severity Reaction Status Date / Time No Known Allergies Allergy Verified 05/22/17 22:16 Physical Exam Vitals: Vital Signs Temp Pulse Resp BP Pulse Ox 05/24/17 16:00 97.2 F L 82 18 110/53 96 05/24/17 11:23 97.8 F 71 18 109/52 91 L 05/24/17 07:49 96.9 F L 79 18 167/74 95 05/24/17 04:00 97.3 F L 72 16 198/81 92 L 05/24/17 00:00 98.1 F 74 16 135/63 91 L 05/23/17 20:00 98.9 F 74 16 130/61 98 05/23/17 18:06 98.2 F 79 18 183/83 97 Intake and Output 05/24/17 05/24/17 05/24/17 06:59 14:59 22:59 Intake Total 80 360 Balance 80 360 Intake: IV 80 Sodium Chloride 0.9% 1, 80 000 ml @ 20 mls/hr IV . Q24H [facility] Rx#:[id number] Oral 360 Other: Voiding Method Bedpan # Voids 1 2 Weight 64.5 kg Skin: Atrophic, intact. General: Medium build and comfortable appearance. Head: Normocephalic, atraumatic. Eyes: Symmetric. Pupils equal round. Ears: Symmetric. Hearing within normal limits. Mouth: Clear. Neck: Supple. Carotid without bruit. Cardiac: Regular rate and rhythm. Lungs: Clear anteriorly and posteriorly. Abdomen: Soft active nontender. Extremities: Normal tone. Neurological: Mental status: Alert, cooperative, pleasant. Cranial nerves: Symmetric facial tone and trapezius. Motor: Active movement all 4 limbs, including distally. Sensation: Intact throughout. DTRs: Symmetric and equal throughout. Mobility: Sits with minimal to moderate assistance. Results CBC & Chem 7: 05/24/17 06:18 05/24/17 06:18 Labs: Abnormal Lab Results - Last 24 Hours (Table) 05/23/17 05/23/17 05/23/17 Range/Units 11:19 11:19 17:05 RBC (3.80-5.40) m/uL RDW (11.5-15.5) % ESR 49 H (0-20) mm/hr Potassium (3.5-5.1) mmol/L Chloride (98-107) mmol/L Carbon Dioxide (22-30) mmol/L BUN (7-17) mg/dL Creatinine (0.52-1.04) mg/dL Glucose (74-99) mg/dL POC Glucose (mg/dL) 140 H (75-99) mg/dL Phosphorus (2.5-4.5) mg/dL Magnesium (1.6-2.3) mg/dL C-Reactive Protein 10.0 H (<10.0) mg/L Total Protein (6.3-8.2) g/dL 05/23/17 05/24/17 05/24/17 Range/Units 21:05 06:18 06:18 RBC 3.77 L (3.80-5.40) m/uL RDW 17.0 H (11.5-15.5) % ESR (0-20) mm/hr Potassium 5.9 H (3.5-5.1) mmol/L Chloride 110 H (98-107) mmol/L Carbon Dioxide 17 L (22-30) mmol/L BUN 36 H (7-17) mg/dL Creatinine 1.45 H (0.52-1.04) mg/dL Glucose 154 H (74-99) mg/dL POC Glucose (mg/dL) 132 H (75-99) mg/dL Phosphorus 4.6 H (2.5-4.5) mg/dL Magnesium 2.5 H (1.6-2.3) mg/dL C-Reactive Protein (<10.0) mg/L Total Protein 8.4 H (6.3-8.2) g/dL 05/24/17 05/24/17 05/24/17 Range/Units 06:44 11:12 16:18 RBC (3.80-5.40) m/uL RDW (11.5-15.5) % ESR (0-20) mm/hr Potassium (3.5-5.1) mmol/L Chloride (98-107) mmol/L Carbon Dioxide (22-30) mmol/L BUN (7-17) mg/dL Creatinine (0.52-1.04) mg/dL Glucose (74-99) mg/dL POC Glucose (mg/dL) 184 H 178 H 139 H (75-99) mg/dL Phosphorus (2.5-4.5) mg/dL Magnesium (1.6-2.3) mg/dL C-Reactive Protein (<10.0) mg/L Total Protein (6.3-8.2) g/dL Microbiology - Last 24 Hours (Table) 05/23/17 00:43 Urine Culture - Final Urine,Voided CT Scan - head: report reviewed (Cerebral atrophy. Angio CT demonstrated 50% occlusion internal carotids.) MRI - head: report reviewed (Subacute infarct right a simple and temporal lobes. ) Assessment and Plan (1) Acute right arterial ischemic stroke, MCA (middle cerebral artery) Current Visit: Yes Status: Acute Code(s): I63.511 - CEREB INFRC D/T UNSP OCCLS OR STENOS OF RIGHT MID CEREB ART SNOMED Code(s): 140854795 Plan: Kevin: 1. Gait disturbance. 2. Acute right MCA infarct with a left hemiparesthesias. 3. Hypertension. 4. Disability. 5. Atrial fibrillation. 6. Diabetes. 7. Thyroid disorder. 8. COPD. Comments and plan: At this time PT, OT, COMBATANT SWIMMER ongoing. Definite safety concerns noted. Have discussed possible inpatient rehab with patient and son. Son reports initial plan was patient to move in with him and his although they both work. So currently patient has moved in with granddaughter.
[2017-05-24 20:56] LABS: Glucose,Whole Blood 119 mg/dL (75-99)
[2017-05-24] MEDS: SODIUM CHLORIDE 0.9% 1,000 ML IV SCH (20:56)
[2017-05-25] MEDS: INSULIN ASPART 100 UNIT/ML 1 ML 10 ML VIAL SQ SCH ×4 (06:01→20:57)
[2017-05-25] MEDS: GLIMEPIRIDE 4 MG TAB PO SCH ×2 (06:01→17:33)
[2017-05-25 06:12] LABS: Glucose,Whole Blood 56 mg/dL (75-99)
[2017-05-25] MEDS: LEVOTHYROXINE 137 MCG TAB PO SCH (06:13)
[2017-05-25 06:20] LABS: Glucose,Whole Blood 59 mg/dL (75-99)
[2017-05-25 06:46] LABS: Anisocytosis Slight; Basophils % (A) 0 %; Eosinophils # (A) 0.1 k/uL (0-0.7); Eosinophils % (A) 1 %; HCT 32.9 % (34.0-46.0); HGB 10.7 gm/dL (11.4-16.0); Lymphocytes # (A) 3.5 k/uL (1.0-4.8); Lymphocytes % (A) 39 %; MCHC 32.4 g/dL (31.0-37.0); Mean Platelet Volume 7.4; Monocytes # (A) 0.5 k/uL (0-1.0); Monocytes % (A) 6 %; Neutrophils # (A) 4.6 k/uL (1.3-7.7); Neutrophils % (A) 51 %; Platelet Count 213 k/uL (150-450); RBC 3.56 m/uL (3.80-5.40); RDW 16.9 % (11.5-15.5)
[2017-05-25 06:51] LABS: MCV 92.5 fL (80.0-100.0)
[2017-05-25 06:53] LABS: Glucose,Whole Blood 82 mg/dL (75-99)
[2017-05-25 06:59] LABS: Albumin 3.4 g/dL (3.5-5.0); Calcium 9.7 mg/dL (8.4-10.2); Magnesium 2.3 mg/dL (1.6-2.3); Phosphorus 4.1 mg/dL (2.5-4.5); Total Bilirubin 0.3 mg/dL (0.2-1.3); Total Protein 7.3 g/dL (6.3-8.2)
--- NOTE | 2017-05-25 08:42 | CT ---
EXAMINATION TYPE: CT brain wo con DATE OF EXAM: 05/25/2017 COMPARISON: 05/22/2017 HISTORY: Rt Occipital stroke CT DLP: 981.[address] of the brain was performed. The ventricles, basal cisterns and sulci overlying the cerebral convexities demonstrate mild enlargem ent. Large area of acute infarct involving the right [employer] territory extending from the medial aspect right temporal lobe into the right occipital lobe. No evidence for hemorrhagic transformation. There is decreased attenuation about the periventricular white matter and deep white matter of both c erebral hemispheres, compatible with chronic small vessel ischemia. Differential diagnosis does inclu de demyelination. No mass effects are seen.No midline shift. Osseous calvarium is intact. If symptoms persist consider MRI. IMPRESSION: 1. Acute right [employer] O[employer] territory infarct without hemorrhagic transformation.
--- NOTE | 2017-05-25 08:50 | P.PN ---
Subjective Progress Note Date: 05/25/17 87-year-old female admitted with acute CVA. Per nursing no reports of hematemesis hematochezia melena. Medical records reviewed from [facility] in [place] previous hospitalization one month ago no evidence of active GI bleed. Hemoglobin between 8 and 9 range deemed iron deficient with normal ferritin suspect anemia of chronic disease. Hemoglobin 10.7. Objective - Vital Signs Vital signs: Vital Signs Temp 97.2 F L 05/25/17 00:00 Pulse 66 05/25/17 04:00 Resp 16 05/25/17 04:00 BP 138/66 05/25/17 04:00 Pulse Ox 92 L 05/25/17 04:00 Intake & Output 05/24/17 05/25/17 05/25/17 18:59 06:59 18:59 Intake Total 582 360 Balance 582 360 Weight 67.5 kg Intake: Oral 582 360 Other: Voiding Method Bedpan # Voids 2 1 - Exam General appearance: The patient is alert, oriented, in no acute distress. HET: Head is normocephalic and atraumatic. Pupils are equal and reactive. Oropharynx is clear without lesions. Neck: Supple without lymphadenopathy. Trachea midline. Heart: S1 S2. Regular rate and rhythm. Lungs: No crackles or wheezes are heard. Abdomen: Soft, nontender, nondistended with bowel sounds. No peritoneal signs. No palpable organomegaly or masses. - Labs CBC & Chem 7: 05/25/17 06:13 05/25/17 06:13 Labs: Abnormal Lab Results - Last 24 Hours (Table) 05/24/17 05/24/17 05/24/17 Range/Units 11:12 16:18 20:54 RBC (3.80-5.40) m/uL Hgb (11.4-16.0) gm/dL Hct (34.0-46.0) % RDW (11.5-15.5) % BUN (7-17) mg/dL Creatinine (0.52-1.04) mg/dL Glucose (74-99) mg/dL POC Glucose (mg/dL) 178 H 139 H 119 H (75-99) mg/dL Albumin (3.5-5.0) g/dL 03/28/18 03/28/18 03/28/18 Range/Units 05:59 06:13 06:13 RBC 3.56 L (3.80-5.40) m/uL Hgb 10.7 L (11.4-16.0) gm/dL Hct 32.9 L (34.0-46.0) % RDW 16.9 H (11.5-15.5) % BUN 37 H (7-17) mg/dL Creatinine 1.47 H (0.52-1.04) mg/dL Glucose 49 L* (74-99) mg/dL POC Glucose (mg/dL) 56 L (75-99) mg/dL Albumin 3.4 L (3.5-5.0) g/dL 05/25/17 Range/Units 06:18 RBC (3.80-5.40) m/uL Hgb (11.4-16.0) gm/dL Hct (34.0-46.0) % RDW (11.5-15.5) % BUN (7-17) mg/dL Creatinine (0.52-1.04) mg/dL Glucose (74-99) mg/dL POC Glucose (mg/dL) 59 L (75-99) mg/dL Albumin (3.5-5.0) g/dL Microbiology - Last 24 Hours (Table) 05/23/17 00:43 Urine Culture - Final Urine,Voided Assessment and Plan Assessment: Impression: 1. 87-year-old female presents with left-sided weakness dizziness evaluated by neurology with diagnosis of acute right arterial ischemic stroke. 2. History of reported remote GI bleed nothing recent clinically without evidence of active GI bleed. According to family patient was [place]3 [place] state with a diagnosis of pneumonia and adrenal mass. Recommendations: 1. Medical records from last hospitalization reviewed. Clinically no active GI bleeding at this time. Proceed with indicated therapy as advised by neurology. Will follow as needed. Assessment and plan of care discussed with Dr. Huntley
[2017-05-25] MEDS ORDERED: APIXABAN 5 MG TAB PO SCH (09:45)
[2017-05-25] MEDS: FAMOTIDINE 20 MG TAB PO SCH (10:17)
[2017-05-25] MEDS: VIT A,C & E-LUTEIN-MINERALS 1 EACH TAB PO SCH ×2 (10:17→20:57)
[2017-05-25] MEDS: amLODIPine 10 MG TAB PO SCH (10:18)
[2017-05-25] MEDS: METOPROLOL TARTRATE 50 MG TAB PO SCH ×2 (10:18→20:57)
[2017-05-25] MEDS: ATORVASTATIN 20 MG TAB PO SCH (10:18)
[2017-05-25] MEDS: FUROSEMIDE 20 MG TAB PO SCH (10:18)
[2017-05-25] MEDS: cloNIDine HCL 0.1 MG TAB PO SCH ×2 (10:18→20:57)
[2017-05-25] MEDS: cefTRIAXone IN SWFI 1,000 MG/10 ML SYRINGE IVP SCH (10:20)
[2017-05-25] MEDS: CHOLECALCIFEROL 1,000 UNIT TAB PO SCH (10:21)
[2017-05-25] MEDS: MULTIVITAMINS, THERA 1 EACH TAB PO SCH (10:21)
[2017-05-25 11:20] LABS: Glucose,Whole Blood 274 mg/dL (75-99)
--- NOTE | 2017-05-25 11:52 | P.PN ---
Subjective Progress Note Date: 05/25/17 Principal diagnosis: TIA This is an 87-year-old female with history of coronary artery disease and prior bypass surgery, hypertension, hyperlipidemia, diabetes, chronic persistent atrial fibrillation, not on anticoagulation, history of anemia, who presented to the hospital with left leg weakness and right sided headache. Being worked up currently for possible TIA. Patient did have a CTA which revealed a 50% stenosis involving the proximal internal carotid arteries bilaterally. Cardiology consultation was initially requested because of the chronic A. fib. We did review patient's notes from recent hospitalization [place]-state, she was noted at that time to have a low hemoglobin similar to this admission and it was felt to be secondary to iron deficiency anemia and anemia of chronic disease. There was no evidence of active bleeding at that time. Patient also gets injections from ophthalmology behind her eye for what the son stated was for inflammation and bleeding. I did speak with her dry heat cabinet attendant today who has cleared the patient to be on anticoagulation in the form of Eliquis. Patient was seen and examined this morning sitting up in the chair at bedside, feels well, no complaints. Blood pressure 158/98 with a heart rate in the 70s, 97% on room air. White blood cell count 9.0, hemoglobin 10.7, platelet count 213. Sodium 143, potassium 5.0, BUN 37, creatinine 1.4. Objective - Vital Signs Vital signs: Vital Signs Temp 98.0 F 05/25/17 07:50 Pulse 71 05/25/17 07:50 Resp 18 05/25/17 07:50 BP 159/98 05/25/17 07:50 Pulse Ox 97 05/25/17 07:50 Intake & Output 05/24/17 05/25/17 05/25/17 18:59 06:59 18:59 Intake Total 582 360 Balance 582 360 Weight 67.5 kg Intake: Oral 582 360 Other: Voiding Method Bedpan # Voids 2 1 - Exam PHYSICAL EXAMINATION: HEENT: Head is atraumatic, normocephalic. Pupils equal, round. Neck is supple. There is no elevated jugular venous pressure. HEART EXAMINATION: Heart S1 and S2 irregularly irregular a systolic ejection murmur is heard CHEST EXAMINATION: Lungs are clear to auscultation and precussion. No chest wall tenderness is noted on palpation or with deep breathing. ABDOMEN: Soft, nontender. Bowel sounds are heard. No organomegaly noted. EXTREMITIES: 2+ peripheral pulses with no evidence of peripheral edema and no calf tenderness noted. NEUROLOGIC patient is awake, alert and oriented -3. . - Labs CBC & Chem 7: 05/25/17 06:13 05/25/17 06:13 Labs: Abnormal Lab Results - Last 24 Hours (Table) 05/24/17 05/24/17 05/25/17 Range/Units 16:18 20:54 05:59 RBC (3.80-5.40) m/uL Hgb (11.4-16.0) gm/dL Hct (34.0-46.0) % RDW (11.5-15.5) % BUN (7-17) mg/dL Creatinine (0.52-1.04) mg/dL Glucose (74-99) mg/dL POC Glucose (mg/dL) 139 H 119 H 56 L (75-99) mg/dL Albumin (3.5-5.0) g/dL 05/25/17 05/25/17 05/25/17 Range/Units 06:13 06:13 06:18 RBC 3.56 L (3.80-5.40) m/uL Hgb 10.7 L (11.4-16.0) gm/dL Hct 32.9 L (34.0-46.0) % RDW 16.9 H (11.5-15.5) % BUN 37 H (7-17) mg/dL Creatinine 1.47 H (0.52-1.04) mg/dL Glucose 49 L* (74-99) mg/dL POC Glucose (mg/dL) 59 L (75-99) mg/dL Albumin 3.4 L (3.5-5.0) g/dL 05/25/17 Range/Units 11:11 RBC (3.80-5.40) m/uL Hgb (11.4-16.0) gm/dL Hct (34.0-46.0) % RDW (11.5-15.5) % BUN (7-17) mg/dL Creatinine (0.52-1.04) mg/dL Glucose (74-99) mg/dL POC Glucose (mg/dL) 274 H (75-99) mg/dL Albumin (3.5-5.0) g/dL Microbiology - Last 24 Hours (Table) 05/23/17 00:43 Urine Culture - Final Urine,Voided Assessment and Plan Plan: Assessment and plan #1 acute right MCA ischemic stroke, being followed by neurology #2 chronic kidney disease stage III #3 chronic persistent atrial fibrillation, not on anticoagulation as an outpatient. #4 anemia of chronic disease, iron deficiency anemia. No active GI bleed #5 left adrenal mass #6 accelerated hypertension #7 diabetes #8 coronary artery disease with prior bypass surgery #9 hypothyroidism #10 hyper-lipidemia Plan We will start the patient on Eliquis 2-1/2 mg one tablet by mouth twice a day. Her blood pressure this morning is 158/98, we will continue current antihypertensives, not lowering the blood pressure too abruptly with the recent stroke. Continue other medications. The initiation of anticoagulation was made after speaking with ophthalmology because the patient does get frequent injections behind the eye, they cleared the patient to be initiated on anticoagulation. This was also discussed in detail with the patient and her son who is at bedside. DNP note has been reviewed, I agree with a documented findings and plan of care. Patient was seen and examined.
--- NOTE | 2017-05-25 12:40 | P.PN ---
Progress Note - Text Progress Note Date: 05/25/17 This is an addendum to the cardiology progress note dictated today. MRI revealed subacute infarct with possible hemorrhagic petechiae component, the finding could potentially be confirmed on CT. A repeat CT of the brain was then requested which revealed no hemorrhagic transformation. I spoke with Dr. Padilla regarding initiating Eliquis 2-03/01 twice a day today, he also reviewed the repeat CAT scan, and will speak to the son regarding anticoagulation, he prefers that the Eliquis be initiated from tomorrow morning on. This was discussed with the patient and her son in detail. DNP note has been reviewed, I agree with a documented findings and plan of care. Patient was seen and examined.
--- NOTE | 2017-05-25 12:43 | P.PN ---
Subjective Progress Note Date: 05/25/17 This is a 87-year-old female, patient of Dr. Lujan. She has a known past medical history of hypertension, atrial fibrillation, hyperlipidemia, diabetes mellitus, COPD, hypothyroidism and coronary artery disease with previous CABG. Patient presents to the emergency room with complaints of dizziness and a right temporal headache. Symptoms started yesterday. Initially patient was sitting and having this dizziness. The room was spinning around her. Dizziness resolved she went to stand up and had a severe right-sided headache. As well as her left foot was not cooperating. She reports she was having difficulty standing on it and didn't feel right. Patient lives alone. She was brought into the emergency room for further evaluation. Computed tomography scan of the brain showing no acute changes. Does reveal cerebral atrophy. CTA of the head and neck shows approximately 50% narrowing in the proximal internal carotid arteries bilaterally. No significant intracranial arterial abnormality. Echocardiogram pending. Neurology consulted. Patient denies any prior history of stroke. She does have evidence of a UTI will be started on Rocephin. Patient's weakness in the left leg, headache and dizziness have now resolved. Patient is currently in ER and will be transferred to the sixth floor. Also having elevated blood pressures in the emergency room. Last blood pressure 171/70. Home blood pressure pills will be restarted. Patient denies any vision changes, ringing the ears, sore throat, chest pain, shortness breath , nausea or vomiting, bowel movement changes or urinary symptoms. She may have some underlying history of chronic kidney disease she reports being possibly on dialysis in the past. Patient is slightly confused but she is orientated 3. Patient does report having a prior episode of dizziness with similar symptoms years ago. She she reports it resolved on its own. 05/24/2017 patient seen evaluated by neurology felt that she does have evidence of a stroke with left sided weakness. She is scheduled for an MRI of the brain today. Family at bedside with old records from March 2017 when she was hospitalized in [place]. That hospitalization was for an acute pyelonephritis COPD and bronchitis. Also there have been anemia at that time and it was documented as iron deficiency anemia and anemia of chronic disease. Patient did have fecal occult blood test positive during that hospitalization. She did not have an EGD or colonoscopy. And it's been several years since she's had colonoscopy. Hemoglobin was 9.7. Patient does have a history of atrial fibrillation and there is question if she was ever truly on anticoagulation. That was discontinued several years ago due to anemia and concerns for bleed. But family reports no source of bleeding was identified. She also has a history of CABG and chronic kidney disease. At one point she did require dialysis a few years ago. Currently no longer needing dialysis. Patient lying in bed comfortably. Reports that she was able to get up with physical therapy today. Denies any chest pain or shortness of breath. Denies any nausea or vomiting. Denies any bowel movement changes or urinary symptoms. On 05/25/2017 patient is alert and oriented 3 no apparent distress she is resting comfortably in bed she was able to stand up and walk a few steps with physical therapy. Repeat computed tomography scan of the brain done today revealed evidence of ischemic stroke without any evidence of hemorrhagic transformation. Patient was started on Eliquis 2.5 mg twice daily by cardiology Objective - Vital Signs Vital signs: Vital Signs Temp 98.0 F 05/25/17 11:10 Pulse 59 L 05/25/17 11:10 Resp 18 05/25/17 11:10 BP 127/62 05/25/17 11:10 Pulse Ox 95 05/25/17 11:10 Intake & Output 05/24/17 05/25/17 05/25/17 18:59 06:59 18:59 Intake Total 582 360 Balance 582 360 Weight 67.5 kg Intake: Oral 582 360 Other: Voiding Method Bedpan # Voids 2 1 - Exam Head normocephalic and atraumatic Neck supple no JVD no goiter and no adenopathy Lungs clear to auscultation bilaterally no wheezing or crackles Heart regular rate and rhythm S1-S2, no rub or gallop Abdomen is soft nontender nondistended positive bowel sounds no hepatosplenomegaly Extremities no edema no cyanosis or clubbing Neuro alert and orientated to 3. 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 - Labs CBC & Chem 7: 05/25/17 06:13 05/25/17 06:13 Labs: Abnormal Lab Results - Last 24 Hours (Table) 05/24/17 05/24/17 05/25/17 Range/Units 16:18 20:54 05:59 RBC (3.80-5.40) m/uL Hgb (11.4-16.0) gm/dL Hct (34.0-46.0) % RDW (11.5-15.5) % BUN (7-17) mg/dL Creatinine (0.52-1.04) mg/dL Glucose (74-99) mg/dL POC Glucose (mg/dL) 139 H 119 H 56 L (75-99) mg/dL Albumin (3.5-5.0) g/dL 05/25/17 05/25/17 05/25/17 Range/Units 06:13 06:13 06:18 RBC 3.56 L (3.80-5.40) m/uL Hgb 10.7 L (11.4-16.0) gm/dL Hct 32.9 L (34.0-46.0) % RDW 16.9 H (11.5-15.5) % BUN 37 H (7-17) mg/dL Creatinine 1.47 H (0.52-1.04) mg/dL Glucose 49 L* (74-99) mg/dL POC Glucose (mg/dL) 59 L (75-99) mg/dL Albumin 3.4 L (3.5-5.0) g/dL 05/25/17 Range/Units 11:11 RBC (3.80-5.40) m/uL Hgb (11.4-16.0) gm/dL Hct (34.0-46.0) % RDW (11.5-15.5) % BUN (7-17) mg/dL Creatinine (0.52-1.04) mg/dL Glucose (74-99) mg/dL POC Glucose (mg/dL) 274 H (75-99) mg/dL Albumin (3.5-5.0) g/dL Microbiology - Last 24 Hours (Table) 05/23/17 00:43 Urine Culture - Final Urine,Voided Assessment and Plan Plan: 1. Acute right MCA ischemic stroke : Seen by neurology. MRI of the brain ordered for today. computed tomography scan of brain shows no acute changes. CTA of the head and neck shows 50% narrowing in the internal carotid arteries bilaterally. Echo shows an EF of 50-55% and moderate pulmonary hypertension. Moderate tricuspid regurgitation. Continue full aspirin. Patient seen by neurology appreciate their input. Case discussed with consulting physicians including neurology, GI service and cardiology. Patient will require anticoagulation due to her atrial fibrillation likely contributing to her stroke. Patient has had no recent episodes of the GI bleed. Case discussed with family and reviewed chart from the hospital in [place]. Repeat computed tomography scan of the brain reveals no evidence of hemorrhagic transformation patient was started on Eliquis by cardiology 2. Dizziness and headache: Computed tomography scan of brain shows no acute changes. Symptoms have resolved. Patient did require morphine in the ER. Neurology consulted. 3. UTI: Currently on Rocephin 1 g daily. Urine culture negative. We'll continue antibiotics for 1 more day 4. Possible chronic kidney disease, stage III: Creatinine in 03/28/2016 was 1.40. Creatinine February was 1.9. 5. Left adrenal mass patient is being seen by specialists outpatient 6. History of chronic atrial fibrillation: Not on anticoagulation at home. Case discussed with cardiology. We will await their recommendations on starting anticoagulation. 7. Accelerated hypertension present on admission: Resume patient's blood pressure medications continue to monitor. Elevated blood pressures likely related to patient's stroke 8. Diabetes mellitus type 2: Add sliding scale coverage. Resume Amaryl. Other blood sugar medications are nonformulary. No evidence of hypoglycemia 9. History of coronary artery disease with CABG 10. Hypothyroidism, TSH elevated at 4.950 and free T4 1 0.46 we'll decrease patient's Synthroid to 112 micrograms 11. Hyperlipidemia continue statin 12. Hyperkalemia: Potassium 5.9. Give Kayexalate. Discontinue lisinopril. 13. Hyper magnesium and hyperphosphatemia repeat labs in a.m. Likely related to patient's chronic kidney disease GI prophylaxis Pepcid and DVT prophylaxis subcu heparin
--- NOTE | 2017-05-25 15:28 | P.PN ---
Progress Note - Text Progress Note Date: 05/25/17 This is a second addendum to the progress note dictated by cardiology. Dr. Padilla himself reviewed the repeat brain CT, and after reviewing wishes to hold off on initiating anticoagulation for 2 -3weeks. This was explained to the son and the patient in detail, therefore 2-[address] she will be initiated on the Eliquis 2-/2 twice a day. DNP note has been reviewed, I agree with a documented findings and plan of care. Patient was seen and examined.
[2017-05-25 16:25] LABS: Glucose,Whole Blood 87 mg/dL (75-99)
[2017-05-25 20:09] VITALS: RESP 16
--- NOTE | 2017-05-25 20:18 | P.PN ---
Subjective Progress Note Date: 05/25/17 This patient is a pleasant 87-year-old right-handed white female who was initially admitted to Hospital with symptoms of acute left-sided weakness. Patient underwent MRI of the brain yesterday the results of which were discussed at length with the patient yesterday as well as today. The patient's son who is at bedside was updated on the results of the MRI of the brain which reveals evidence of an acute right posterior cerebral artery stroke. There was some petechial hemorrhage noted in this area as well. It's a fairly large an extensive area of stroke infarction. It was recommended to have a repeat computed tomography scan of the brain done to rule out hemorrhagic transformation. The CAT scan was completed today and failed to reveal any evidence of hemorrhagic transformation or mention of petechial hemorrhage. We did review the actual MRI films today in detail with the radiologist. We are recommending the patient should avoid the use of Eliqui for a period of 2-3 weeks. Cardiology is recommended her to be started on long-term anticoagulation with our requests given the finding of her long history of chronic atrial fibrillation. Given the finding on her MRI study of the brain showing petechial hemorrhage we would recommend to hold off on use of the anticoagulant for at least 2-3 weeks. This was discussed today at length with nurse practitioner Jenna Longoria. She is in full agreement and will notify cardiology of our recommendation. The case was also discussed today at length with the patient's son who is at bedside. He understands the need to hold off on anticoagulation given the MRI findings. Hopefully she will be able to transition to this anticoagulant in 2-3 weeks at which time hopefully the overall initial stroke findings should be very stabilized. Patient is being considered for transfer to the inpatient rehab unit at [facility] in the next few days as well. We will continue close neurological follow -up for the patient during this admission. Gastroenterology has evaluated the patient and there is no evidence of GI bleeding based on her past history and current findings. We will continue close neurological follow-up for the patient. She is showing some improvement with her left-sided hemiparesthesias. She would benefit from inpatient rehab. We will continue to follow her progress closely during this admission. Objective - Vital Signs Vital signs: Vital Signs Temp 98.0 F 05/25/17 11:10 Pulse 59 L 05/25/17 11:10 Resp 18 03/28/18 11:10 BP 127/62 05/25/17 11:10 Pulse Ox 95 05/25/17 11:10 Intake & Output 05/24/17 05/25/17 05/25/17 18:59 06:59 18:59 Intake Total 582 700 Balance 582 700 Weight 67.5 kg Intake: IV 160 Sodium Chloride 0.9% 1, 160 000 ml @ 20 mls/hr IV . Q24H [facility] Rx#:[id number] Oral 582 540 Other: Voiding Method Bedpan # Voids 2 1 - Exam Physical examination: PHYSICAL EXAMINATION: Patient is resting comfortably in bed. VITAL SIGNS: Blood pressure is [109/52]. Heart rate is [71]. Respiration is [18] . Temperature is [97.8]. HEENT: Head is atraumatic, neck is supple, there were no carotid bruits. CHEST: Lungs are clear to auscultation and percussion. CARDIAC: S1, S2 normal rate and rhythm. There is no murmur. ABDOMEN: Soft and nontender. Bowel sounds are present. EXTREMITIES: There is no pedal edema. Peripheral pulses are present. Neurological examination: Patient's neurological examination is unchanged from yesterday. She continues to have left pronator drift and left-sided hemiparesis. There is some slight improvement in her muscle strength on the left side today. - Labs CBC & Chem 7: 05/25/17 06:13 05/25/17 06:13 Labs: Abnormal Lab Results - Last 24 Hours (Table) 05/24/17 05/24/17 05/25/17 Range/Units 16:18 20:54 05:59 RBC (3.80-5.40) m/uL Hgb (11.4-16.0) gm/dL Hct (34.0-46.0) % RDW (11.5-15.5) % BUN (7-17) mg/dL Creatinine (0.52-1.04) mg/dL Glucose (74-99) mg/dL POC Glucose (mg/dL) 139 H 119 H 56 L (75-99) mg/dL Albumin (3.5-5.0) g/dL 05/25/17 05/25/17 05/25/17 Range/Units 06:13 06:13 06:18 RBC 3.56 L (3.80-5.40) m/uL Hgb 10.7 L (11.4-16.0) gm/dL Hct 32.9 L (34.0-46.0) % RDW 16.9 H (11.5-15.5) % BUN 37 H (7-17) mg/dL Creatinine 1.47 H (0.52-1.04) mg/dL Glucose 49 L* (74-99) mg/dL POC Glucose (mg/dL) 59 L (75-99) mg/dL Albumin 3.4 L (3.5-5.0) g/dL 05/25/17 Range/Units 11:11 RBC (3.80-5.40) m/uL Hgb (11.4-16.0) gm/dL Hct (34.0-46.0) % RDW (11.5-15.5) % BUN (7-17) mg/dL Creatinine (0.52-1.04) mg/dL Glucose (74-99) mg/dL POC Glucose (mg/dL) 274 H (75-99) mg/dL Albumin (3.5-5.0) g/dL Microbiology - Last 24 Hours (Table) 05/23/17 00:43 Urine Culture - Final Urine,Voided Assessment and Plan (1) Acute right arterial ischemic stroke, MCA (middle cerebral artery) Current Visit: Yes Status: Acute Code(s): I63.511 - CEREB INFRC D/T UNSP OCCLS OR STENOS OF RIGHT MID CEREB ART SNOMED Code(s): 993855072 (2) Headache Current Visit: Yes Status: Acute Code(s): R51 - HEADACHE SNOMED Code(s): 91204646 (3) History of GI bleed Current Visit: Yes Status: Acute Code(s): Z87.19 - PERSONAL HISTORY OF OTHER DISEASES OF THE DIGESTIVE SYSTEM SNOMED Code(s): 465432647 (4) Adrenal mass, left Current Visit: Yes Status: Acute Code(s): E27.9 - DISORDER OF ADRENAL GLAND , UNSPECIFIED SNOMED Code(s): 460351405 (5) Dizziness Current Visit: Yes Status: Acute Code(s): R42 - DIZZINESS AND GIDDINESS SNOMED Code(s): 064955052 Plan: This patient is a pleasant 87-year-old female who recently suffered an 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 Patient presented yesterday with symptoms of left-sided weakness and history of chronic atrial fibrillation. She underwent MRI of the brain yesterday which did reveal evidence of an acute right PSYCHOLOGY INSTRUCTOR stroke with some petechial hemorrhage. We reviewed the MRI results today with radiology. She had a repeat computed tomography scan of the brain performed today which did not reveal any evidence of hemorrhagic transformation. Cardiology is following the patient for her history of chronic atrial fibrillation. They had recommended starting the patient on Eliquis for long-term anticoagulation. After review of the MRI and CT scans today we are recommending the patient not be started on eloquent was for 2-3 weeks due to the risk of hemorrhagic transformation. There are clear petechial hemorrhage sites seen on the MRI of the brain involving the right PSYCHOLOGY INSTRUCTOR territory. We have discussed these findings today in detail with the patient's son who was at bedside. He is aware of the risk of hemorrhage given this patient's recent MRI findings. For this reason we are recommending to postpone use of Eliquis for 2-3 weeks. She is a good candidate for inpatient rehab and hopefully will be able to complete this and then started on Eliquis in follow-up with the behavioral specialist in 2-3 weeks. We have discussed all of these findings in detail today with the patient's son. He understands our recommendations and is in full agreement. This case was also discussed in detail with cardiology and Dr. Jenna Longoria. She is aware of our recommendations regarding long-term anticoagulation for this patient to start only in 2-3 weeks. We will continue close neurological follow-up for the patient and are waiting her placement into the inpatient rehab unit as soon as bed is available. Her overall prognosis at this time still remains guarded.
[2017-05-25 20:52] LABS: Glucose,Whole Blood 156 mg/dL (75-99)
[2017-05-25] MEDS: SODIUM CHLORIDE 0.9% 1,000 ML IV SCH (20:55)
[2017-05-26 06:39] LABS: Glucose,Whole Blood 66 mg/dL (75-99)
[2017-05-26] MEDS: LEVOTHYROXINE 137 MCG TAB PO SCH (06:42)
[2017-05-26] MEDS: GLIMEPIRIDE 4 MG TAB PO SCH (06:42)
[2017-05-26] MEDS: INSULIN ASPART 100 UNIT/ML 1 ML 10 ML VIAL SQ SCH (06:42)
[2017-05-26 07:29] LABS: Glucose,Whole Blood 115 mg/dL (75-99)
[2017-05-26 07:38] LABS: Anisocytosis Slight; Basophils % (A) 0 %; Eosinophils # (A) 0.1 k/uL (0-0.7); Eosinophils % (A) 1 %; HCT 33.8 % (34.0-46.0); HGB 10.5 gm/dL (11.4-16.0); Hypochromasia Slight; Lymphocytes # (A) 3.7 k/uL (1.0-4.8); Lymphocytes % (A) 41 %; MCH 28.4 pg (25.0-35.0); MCV 91.7 fL (80.0-100.0); Mean Platelet Volume 8.2; Monocytes # (A) 0.6 k/uL (0-1.0); Monocytes % (A) 7 %; Neutrophils # (A) 4.4 k/uL (1.3-7.7); Neutrophils % (A) 48 %; Platelet Count 203 k/uL (150-450); RBC 3.68 m/uL (3.80-5.40)
[2017-05-26 07:44] VITALS: PULSE 86; TEMP 97.9
[2017-05-26 08:05] LABS: Albumin 3.5 g/dL (3.5-5.0); Calcium 9.6 mg/dL (8.4-10.2); Magnesium 1.9 mg/dL (1.6-2.3); Phosphorus 3.5 mg/dL (2.5-4.5); Potassium 3.9 mmol/L (3.5-5.1); Total Bilirubin 0.3 mg/dL (0.2-1.3); Total Protein 7.6 g/dL (6.3-8.2)
[2017-05-26 08:55] LABS: Glucose,Whole Blood 241 mg/dL (75-99)
[2017-05-26] MEDS ORDERED: APIXABAN 5 MG TAB PO SCH (09:00)
[2017-05-26] MEDS: amLODIPine 10 MG TAB PO SCH (10:37)
[2017-05-26] MEDS: ATORVASTATIN 20 MG TAB PO SCH (10:37)
[2017-05-26] MEDS: cefTRIAXone IN SWFI 1,000 MG/10 ML SYRINGE IVP SCH (10:38)
[2017-05-26] MEDS: CHOLECALCIFEROL 1,000 UNIT TAB PO SCH (10:39)
[2017-05-26] MEDS: FAMOTIDINE 20 MG TAB PO SCH (10:40)
[2017-05-26] MEDS: METOPROLOL TARTRATE 50 MG TAB PO SCH (10:40)
[2017-05-26] MEDS: cloNIDine HCL 0.1 MG TAB PO SCH (10:40)
[2017-05-26] MEDS: MULTIVITAMINS, THERA 1 EACH TAB PO SCH (10:41)
[2017-05-26] MEDS: VIT A,C & E-LUTEIN-MINERALS 1 EACH TAB PO SCH (10:41)
--- NOTE | 2017-05-26 10:51 | P.DS ---
Providers Date of admission: 05/22/17 22:55 Expected date of discharge: 05/26/17 Attending physician: Marcelo Fernandez Consults: 05/23/17 08:39 Consult Physician Routine Consulting Provider: Karen Padilla Consult Reason/Comments: CVA Do you want consulting provider notified?: Yes 05/24/17 08:00 Consult Physician Routine Consulting Provider: Zbigniew Huntley Consult Reason/Comments: Atrial Fibrillation and acute stroke. Do you want consulting provider notified?: Yes 05/24/17 10:04 Consult Physician Routine Consulting Provider: Bryant Wilde Consult Reason/Comments: eval for inpatient rehab Do you want consulting provider notified?: Yes Primary care physician: Shel[facility] Course: Discharge diagnosis 1. Acute posterior cerebral artery stroke with some petechial hemorrhage noted on MRI of the brain.: Seen by neurology. Initial computed tomography scan of brain shows no acute changes. CTA of the head and neck shows 50% narrowing in the internal carotid arteries bilaterally. Echo shows an EF of 50-55% and moderate pulmonary hypertension. Moderate tricuspid regurgitation. Repeat computed tomography scan of the brain shows an acute right WHITING MACHINE OPERATOR territorial infarct without hemorrhagic transformation. Neurology is recommending that Eliquis be started in 2-3 weeks due to risk of hemorrhagic transformation. There are clear petechial hemorrhage sites seen on MRI of the brain involving the right WHITING MACHINE OPERATOR territory per neurology. 2. Dizziness and headache: Computed tomography scan of brain shows no acute changes. Symptoms have resolved. Patient did require morphine in the ER. Neurology consulted. 3. UTI: Urine culture negative. Patient completed antibiotic treatment during her hospitalization with Rocephin 4. Possible chronic kidney disease, stage III: Creatinine in 03/28/2016 was 1.40. Creatinine February was 1.9. Creatinine at discharge 1.0 to 5. Left adrenal mass patient is being seen by specialists outpatient 6. History of chronic atrial fibrillation: Not on anticoagulation at home. Case discussed with cardiology. We will await their recommendations on starting anticoagulation. 7. Accelerated hypertension present on admission: Blood pressures have shown improvement 8. Diabetes mellitus type 2: Episodes of hypoglycemia. A1c 6.0. Amaryl will be decreased to 4 mg by mouth daily. Invokana and onglyza has been discontinued 9. History of coronary artery disease with CABG 10. Hypothyroidism, TSH elevated at 4.950 and free T4 1 0.46 Synthroid increased to 137 g during this admission 11. Hyperlipidemia continue statin 12. Hyperkalemia: Resolved. Restart patient's ROLAND inhibitor 13. Hyper magnesium and hyperphosphatemia: resolved. Likely related to patient 's chronic kidney disease Hospital course This is a 87-year-old female, patient of Dr. Lujan. She has a known past medical history of hypertension, atrial fibrillation, hyperlipidemia, diabetes mellitus, COPD, hypothyroidism and coronary artery disease with previous CABG. Patient presents to the emergency room with complaints of dizziness and a right temporal headache. Symptoms started yesterday. Initially patient was sitting and having this dizziness. The room was spinning around her. Dizziness resolved she went to stand up and had a severe right-sided headache. As well as her left foot was not cooperating. She reports she was having difficulty standing on it and didn't feel right. Patient lives alone. She was brought into the emergency room for further evaluation. Computed tomography scan of the brain showing no acute changes. Does reveal cerebral atrophy. CTA of the head and neck shows approximately 50% narrowing in the proximal internal carotid arteries bilaterally. No significant intracranial arterial abnormality. Echocardiogram pending. Neurology consulted. Patient denies any prior history of stroke. She does have evidence of a UTI will be started on Rocephin. Patient's weakness in the left leg, headache and dizziness have now resolved. Patient is currently in ER and will be transferred to the sixth floor. Also having elevated blood pressures in the emergency room. Last blood pressure 171/70. Home blood pressure pills will be restarted. Patient denies any vision changes, ringing the ears, sore throat, chest pain, shortness breath , nausea or vomiting, bowel movement changes or urinary symptoms. She may have some underlying history of chronic kidney disease she reports being possibly on dialysis in the past. Patient is slightly confused but she is orientated 3. Patient does report having a prior episode of dizziness with similar symptoms years ago. Patient was seen and evaluated by neurology and cardiology. Patient initially diagnosed with a possible MCA ischemic stroke by neurology. She was initially started on aspirin in the emergency room. An MRI of the brain was ordered by neurology. Report shows findings compatible with a subacute infarct, there is likely a hemorrhagic, possible petechial component. At that point aspirin and anticoagulation were discontinued. Repeat computed tomography scan of the brain completed on May 25 showed an acute right WHITING MACHINE OPERATOR territory infarct without hemorrhagic transformation. Neurology and cardiology discussed case. They are recommending to hold off on starting Eliquis for 2 to 3 weeks. Patient's symptoms have shown improvement. She is a candidate for inpatient rehab. She' ll be discharged to [facility] inpatient rehab with Dr. Wilde. I performed an examination of the patient and discussed their management with the physician Business Technology Professor. I have reviewed the Physician Business Technology Professor's notes and agree with the documented findings and plan of care Patient Condition at Discharge: Stable Plan - Discharge Summary New Discharge Prescriptions: New Levothyroxine Sodium [Synthroid] 137 mcg PO QAM@0630 #30 tab Continue Metoprolol Tartrate [Lopressor] 50 mg PO BID cloNIDine HCL [Catapres] 0.1 mg PO BID Furosemide [Lasix] 20 mg PO Q48H Benazepril HCl 20 mg PO DAILY Vit C/E/Zn/Coppr/Lutein/Zeaxan [Preservision Areds 2 Softgel] 1 cap PO BID Rosuvastatin [Crestor] 10 mg PO DAILY Famotidine 40 mg PO BID Sodium Chloride [[place]] 1 spray EA NOSTRIL DAILY PRN PRN Reason: Nasal Congestion Multivitamin/Iron/Folic Acid [Centrum Complete Multivit Tab] 1 tab PO DAILY Cholecalciferol [Vitamin D3] 1,000 unit PO DAILY Biotin 10,000 mcg PO DAILY amLODIPine BESYLATE [Norvasc] 10 mg PO DAILY Changed Glimepiride [Amaryl] 4 mg PO DAILY #0 Discontinued Levothyroxine Sodium [Unithroid] 125 mcg PO QAM Naproxen Sodium [Aleve] 220 mg PO DAILY PRN PRN Reason: Pain Canagliflozin [Invokana] 100 mg PO DAILY Saxagliptin HCl [Onglyza] 5 mg PO DAILY Discharge Medication List Benazepril HCl 20 mg PO DAILY 03/28/16 [History] Furosemide [Lasix] 20 mg PO Q48H 03/28/16 [History] Metoprolol Tartrate [Lopressor] 50 mg PO BID 03/28/16 [History] Vit C/E/Zn/Coppr/Lutein/Zeaxan [Preservision Areds 2 Softgel] 1 cap PO BID 03/28 [History] cloNIDine HCL [Catapres] 0.1 mg PO BID 03/28/16 [History] Biotin 10,000 mcg PO DAILY 05/22/17 [History] Cholecalciferol [Vitamin D3] 1,000 unit PO DAILY 05/22/17 [History] Famotidine 40 mg PO BID 05/22/17 [History] Multivitamin/Iron/Folic Acid [Centrum Complete Multivit Tab] 1 tab PO DAILY [History] Rosuvastatin [Crestor] 10 mg PO DAILY 05/22/17 [History] Sodium Chloride [[place]] 1 spray EA NOSTRIL DAILY PRN 05/22/17 [History] amLODIPine BESYLATE [Norvasc] 10 mg PO DAILY 05/22/17 [History] Glimepiride [Amaryl] 4 mg PO DAILY #0 05/26/17 [Rx] Levothyroxine Sodium [Synthroid] 137 mcg PO QAM@0630 #30 tab 05/26/17 [Rx] Follow up Appointment(s)/Referral(s): Shelly Lujan MD [Primary Care Provider] - 1 Week Patient Instructions/Handouts: Stroke (DC) Activity/Diet/Wound Care/Special Instructions: Diet: cardiac, diabetic diet Activity: as tolerated Transfer patient to [facility] inpatient rehab Eliquis 2.5mg po daily to be started in 2 to 3 weeks Discharge Disposition: OTHER INSTITUTION NOT DEFINED
[2017-05-26 11:21] VITALS: BP 160/71
[2017-05-26 12:09] LABS: Glucose,Whole Blood 187 mg/dL (75-99)
--- NOTE | 2017-05-26 12:38 | P.PN ---
Subjective Progress Note Date: 05/26/17 Principal diagnosis: TIA This is an 87-year-old female with history of coronary artery disease and prior bypass surgery, hypertension, hyperlipidemia, diabetes, chronic persistent atrial fibrillation, not on anticoagulation, history of anemia, who presented to the hospital with left leg weakness and right sided headache. Being worked up currently for possible TIA. Patient did have a CTA which revealed a 50% stenosis involving the proximal internal carotid arteries bilaterally. Cardiology consultation was initially requested because of the chronic A. fib. We did review patient's notes [place] recent [place], she was noted at that time to have a low hemoglobin similar to this admission and it was felt to be secondary to iron deficiency anemia and anemia of chronic disease. There was no evidence of active bleeding at that time. Patient also gets injections from ophthalmology behind her eye for what the son stated was for inflammation and bleeding. I did speak with her gill box fixer today who has cleared the patient to be on anticoagulation in the form of Eliquis. Patient was seen and examined this morning sitting up in the chair at bedside, feels well, no complaints. Blood pressure 158/98 with a heart rate in the 70s, 97% on room air. White blood cell count 9.0, hemoglobin 10.7, platelet count 213. Sodium 143, potassium 5.0, BUN 37, creatinine 1.4. 05/26/2017 Patient was seen and examined today, feeling well, no complaints. Arrangements have been made for the patient to transfer today to rehab at [facility]. We will also make her a follow-up appointment in the office. Eliquis 2 -1/2 mg one tablet by mouth twice a day may be initiated in 2-3 weeks. This was communicated also with the primary care doctor's PA who will be following the patient there, they will initiate the Eliquis in 2-3 weeks. Objective - Vital Signs Vital signs: Vital Signs Temp 97.9 F 05/26/17 11:19 Pulse 86 05/26/17 11:19 Resp 16 05/26/17 11:19 BP 160/71 05/26/17 11:19 Pulse Ox 96 05/26/17 11:19 Intake & Output 05/25/17 05/26/17 05/26/17 18:59 06:59 18:59 Intake Total 922 240 Balance 922 240 Weight 67.5 kg Intake: IV 160 Sodium Chloride 0.9% 1, 160 000 ml @ 20 mls/hr IV . Q24H [facility] Rx#:[id number] Oral 762 240 Other: Voiding Method Toilet Toilet # Voids 0 2 # Bowel Movements 1 - Exam PHYSICAL EXAMINATION: HEENT: Head is atraumatic, normocephalic. Pupils equal, round. Neck is supple. There is no elevated jugular venous pressure. HEART EXAMINATION: Heart S1 and S2 irregularly irregular a systolic ejection murmur is heard CHEST EXAMINATION: Lungs are clear to auscultation and precussion. No chest wall tenderness is noted on palpation or with deep breathing. ABDOMEN: Soft, nontender. Bowel sounds are heard. No organomegaly noted. EXTREMITIES: 2+ peripheral pulses with no evidence of peripheral edema and no calf tenderness noted. NEUROLOGIC patient is awake, alert and oriented -3. . - Labs CBC & Chem 7: 05/26/17 06:44 05/26/17 06:44 Labs: Abnormal Lab Results - Last 24 Hours (Table) 05/25/17 05/26/17 05/26/17 Range/Units 20:50 06:37 06:44 RBC 3.68 L (3.80-5.40) m/uL Hgb 10.5 L (11.4-16.0) gm/dL Hct 33.8 L (34.0-46.0) % RDW 17.0 H (11.5-15.5) % BUN (7-17) mg/dL Glucose (74-99) mg/dL POC Glucose (mg/dL) 156 H 66 L (75-99) mg/dL 05/26/17 05/26/17 05/26/17 Range/Units 06:44 07:27 08:53 RBC (3.80-5.40) m/uL Hgb (11.4-16.0) gm/dL Hct (34.0-46.0) % RDW (11.5-15.5) % BUN 26 H (7-17) mg/dL Glucose 47 L* (74-99) mg/dL POC Glucose (mg/dL) 115 H 241 H (75-99) mg/dL 05/26/17 Range/Units 11:49 RBC (3.80-5.40) m/uL Hgb (11.4-16.0) gm/dL Hct (34.0-46.0) % RDW (11.5-15.5) % BUN (7-17) mg/dL Glucose (74-99) mg/dL POC Glucose (mg/dL) 187 H (75-99) mg/dL Assessment and Plan Plan: Assessment and plan #1 acute right MCA ischemic stroke, being followed by neurology #2 chronic kidney disease stage III #3 chronic persistent atrial fibrillation, not on anticoagulation as an outpatient. #4 anemia of chronic disease, iron deficiency anemia. No active GI bleed #5 left adrenal mass #6 accelerated hypertension #7 diabetes #8 coronary artery disease with prior bypass surgery #9 hypothyroidism #10 hyper-lipidemia Plan Patient will be transferred to inpatient rehab at [facility] today. We will make her a follow-up appointment in the office. She will be initiated on Eliquis 2-1/2 mg by mouth twice a day in 2-3 weeks. DNP note has been reviewed, I agree with a documented findings and plan of care. Patient was seen and examined.
== END 2017-05-26 12:39 | DRG 65 ==
LOC: EC 21:36 → 6SEL 22:55
PROVIDERS: ADMIT Internal Medicine; ATTEND Internal Medicine
DX: I63.531 Cerebral infarction due to unspecified occlusion or stenosis of right posterior cerebral artery (principal); I67.4 Hypertensive encephalopathy; E11.22 Type 2 diabetes mellitus with diabetic chronic kidney disease; E83.39 Other disorders of phosphorus metabolism; I48.1 Persistent atrial fibrillation; G81.94 Hemiplegia, unspecified affecting left nondominant side; N39.0 Urinary tract infection, site not specified; E87.5 Hyperkalemia; I07.1 Rheumatic tricuspid insufficiency; D63.8 Anemia in other chronic diseases classified elsewhere; D50.9 Iron deficiency anemia, unspecified; E03.9 Hypothyroidism, unspecified; E27.9 Disorder of adrenal gland, unspecified; E78.00 Pure hypercholesterolemia, unspecified; E78.5 Hyperlipidemia, unspecified; I12.9 Hypertensive chronic kidney disease with stage 1 through stage 4 chronic kidney disease, or unspecified chronic kidney disease; I25.10 Atherosclerotic heart disease of native coronary artery without angina pectoris; I27.20 Pulmonary hypertension, unspecified; I48.2 Chronic atrial fibrillation; J44.9 Chronic obstructive pulmonary disease, unspecified; N18.3 Chronic kidney disease, stage 3 (moderate); Z79.01 Long term (current) use of anticoagulants; Z79.84 Long term (current) use of oral hypoglycemic drugs; Z79.899 Other long term (current) drug therapy; Z82.0 Family history of epilepsy and other diseases of the nervous system; Z87.891 Personal history of nicotine dependence; Z90.710 Acquired absence of both cervix and uterus; Z95.1 Presence of aortocoronary bypass graft; Z79.890 Hormone replacement therapy; Z79.1 Long term (current) use of non-steroidal anti-inflammatories (NSAID); Z87.19 Personal history of other diseases of the digestive system
CPT/HCPCS: 36415; 70450; 70496; 70498; 70551; 80053; 80061; 81001; 82550; 82553; 83036; 83735; 84100; 84439; 84443; 84484; 85025; 85610; 85652; 85730; 86140; 87086; 93005; 93306; 96361; 96374; 96375; 96376; 99285

== ENCOUNTER 2017-07-13 14:51 | Emergency (ER) | payer MEDICARE, BC ==
[2017-07-13 14:56] VITALS: TEMP 98.3
--- NOTE | 2017-07-13 15:03 | ED ---
General Adult HPI - General Chief complaint: Fall Stated complaint: Fall Time Seen by Provider: 07/13/17 14:58 Source: patient, EMS, RN notes reviewed, old records reviewed Mode of arrival: EMS Limitations: no limitations - History of Present Illness Initial comments: This is an 87-year-old female to the ER for evaluation. Patient presents ER today for evaluation regarding fall. Patient states she had a trip and fall but is not on both also maybe syncopal event or loss of consciousness after the fall. Patient states she initially did hit her head, unsure of events after that. She currently denies any complaints no headache chest pain shortness of breath or abdominal pain. Patient states she did get her by EMS otherwise history is obtained from EMS - Related Data Home Medications Medication Instructions Recorded Confirmed Benazepril HCl 20 mg PO DAILY 03/28/16 05/22/17 Furosemide [Lasix] 20 mg PO Q48H 03/28/16 05/22/17 Metoprolol Tartrate [Lopressor] 50 mg PO BID 03/28/16 05/22/17 Vit C/E/Zn/Coppr/Lutein/Zeaxan 1 cap PO BID 03/28/16 05/22/17 [Preservision Areds 2 Softgel] cloNIDine HCL [Catapres] 0.1 mg PO BID 03/28/16 05/22/17 Biotin 10,000 mcg PO DAILY 05/22/17 05/22/17 Cholecalciferol [Vitamin D3] 1,000 unit PO DAILY 05/22/17 05/22/17 Famotidine 40 mg PO BID 05/22/17 05/22/17 Multivitamin/Iron/Folic Acid 1 tab PO DAILY 05/22/17 05/22/17 [Centrum Complete Multivit Tab] Rosuvastatin [Crestor] 10 mg PO DAILY 05/22/17 05/22/17 Sodium Chloride [[place]] 1 spray EA NOSTRIL DAILY PRN 05/22/17 05/22/17 amLODIPine BESYLATE [Norvasc] 10 mg PO DAILY 05/22/17 05/22/17 Previous Rx's Medication Instructions Recorded Glimepiride [Amaryl] 4 mg PO DAILY #0 05/26/17 Levothyroxine Sodium [Synthroid] 137 mcg PO QAM@0630 #30 tab 05/26/17 Allergies Allergy/AdvReac Type Severity Reaction Status Date / Time No Known Allergies Allergy Verified 07/13/17 14:56 Review of Systems ROS Statement: Those systems with pertinent positive or pertinent negative responses have been documented in the HPI. ROS Other: All systems not noted in ROS Statement are negative. Past Medical History Past Medical History: Atrial Fibrillation, COPD, Diabetes Mellitus, Hyperlipidemia, Hypertension, Thyroid Disorder History of Any Multi-Drug Resistant Organisms: None Reported Past Surgical History: Appendectomy, Cholecystectomy, Coronary Bypass/CABG, Hysterectomy Additional Past Surgical History / Comment(s): 2009 five vessel CABG Past Psychological History: No Psychological Hx Reported Smoking Status: Former smoker Past Alcohol Use History: None Reported Past Drug Use History: None Reported - Past Family History Father History Unknown: Yes General Exam Limitations: no limitations General appearance: alert, in no apparent distress Head exam: Present: atraumatic, normocephalic, normal inspection Eye exam: Present: normal appearance, PERRL, EOMI. Absent: scleral icterus, conjunctival injection, periorbital swelling ENT exam: Present: normal exam, mucous membranes moist Neck exam: Present: normal inspection. Absent: tenderness, meningismus, lymphadenopathy Respiratory exam: Present: normal lung sounds bilaterally. Absent: respiratory distress, wheezes, rales, rhonchi, stridor Cardiovascular Exam: Present: regular rate, normal rhythm, normal heart sounds. Absent: systolic murmur, diastolic murmur, rubs, gallop, clicks GI/Abdominal exam: Present: soft, normal bowel sounds. Absent: distended, tenderness, guarding, rebound, rigid Extremities exam: Present: normal inspection, full ROM, normal capillary refill. Absent: tenderness, pedal edema, joint swelling, calf tenderness Back exam: Present: normal inspection Neurological exam: Present: alert, oriented X3, CN II-XII intact Psychiatric exam: Present: normal affect, normal mood Skin exam: Present: warm, dry, intact, normal color. Absent: rash Course Vital Signs 07/13/17 07/13/17 07/13/17 14:52 16:01 16:59 Temperature 98.3 F Pulse Rate 69 49 L 59 L Respiratory 18 16 18 Rate Blood Pressure 127/83 123/60 150/67 O2 Sat by Pulse 98 98 99 Oximetry EKG Findings - EKG Comments: EKG Findings:: EKG shows A. fib rate of 56, QRS 70, QTc 422 Medical Decision Making - Medical Decision Making 87 female the ER status post fall, head injury. Patient has negative CAT scan brain C-spine, x-rays negative for traumatic injury patient has no complaints will be discharged home, mild dehydration mildly prerenal, patient given a liter half of fluid here in the ER - Lab Data Result diagrams: 07/13/17 14:55 07/13/17 14:55 Lab Results 07/13/17 07/13/17 07/13/17 Range/Units 14:55 14:55 14:55 WBC 9.1 (3.8-10.6) k/uL RBC 3.26 L (3.80-5.40) m/uL Hgb 10.0 L (11.4-16.0) gm/dL Hct 30.6 L (34.0-46.0) % MCV 94.0 (80.0-100.0) fL MCH 30.7 (25.0-35.0) pg MCHC 32.6 (31.0-37.0) g/dL RDW 16.6 H (11.5-15.5) % Plt Count 165 (150-450) k/uL Neutrophils % 70 % Lymphocytes % 20 % Monocytes % 7 % Eosinophils % 1 % Basophils % 0 % Neutrophils # 6.4 (1.3-7.7) k/uL Lymphocytes # 1.8 (1.0-4.8) k/uL Monocytes # 0.6 (0-1.0) k/uL Eosinophils # 0.1 (0-0.7) k/uL Basophils # 0.0 (0-0.2) k/uL Anisocytosis Slight PT (9.0-12.0) sec INR (<1.2) APTT (22.0-30.0) sec Sodium 134 L (137-145) mmol/L Potassium 4.9 (3.5-5.1) mmol/L Chloride 97 L (98-107) mmol/L Carbon Dioxide 26 (22-30) mmol/L Anion Gap 11 mmol/L BUN 53 H (7-17) mg/dL Creatinine 1.90 H (0.52-1.04) mg/dL Est GFR (CKD-EPI)AfAm 27 (>60 ml/min/1.73 sqM) Est GFR (CKD-EPI)NonAf 24 (>60 ml/min/1.73 sqM) Glucose 192 H (74-99) mg/dL Calcium 9.3 (8.4-10.2) mg/dL Phosphorus 4.0 (2.5-4.5) mg/dL Magnesium 2.2 (1.6-2.3) mg/dL Total Bilirubin 0.4 (0.2-1.3) mg/dL AST 27 (14-36) U/L ALT 36 (9-52) U/L Alkaline Phosphatase 112 (38-126) U/L Total Creatine Kinase 32 (30-135) U/L CK-MB (CK-2) <0.2 (0.0-2.4) ng/mL CK-MB (CK-2) Rel Index Troponin I <0.012 (0.000-0.034) ng/mL Total Protein 7.3 (6.3-8.2) g/dL Albumin 3.9 (3.5-5.0) g/dL 07/13/17 Range/Units 14:55 WBC (3.8-10.6) k/uL RBC (3.80-5.40) m/uL Hgb (11.4-16.0) gm/dL Hct (34.0-46.0) % MCV (80.0-100.0) fL MCH (25.0-35.0) pg MCHC (31.0-37.0) g/dL RDW (11.5-15.5) % Plt Count (150-450) k/uL Neutrophils % % Lymphocytes % % Monocytes % % Eosinophils % % Basophils % % Neutrophils # (1.3-7.7) k/uL Lymphocytes # (1.0-4.8) k/uL Monocytes # (0-1.0) k/uL Eosinophils # (0-0.7) k/uL Basophils # (0-0.2) k/uL Anisocytosis PT 11.1 (9.0-12.0) sec INR 1.2 H (<1.2) APTT 24.3 (22.0-30.0) sec Sodium (137-145) mmol/L Potassium (3.5-5.1) mmol/L Chloride (98-107) mmol/L Carbon Dioxide (22-30) mmol/L Anion Gap mmol/L BUN (7-17) mg/dL Creatinine (0.52-1.04) mg/dL Est GFR (CKD-EPI)AfAm (>60 ml/min/1.73 sqM) Est GFR (CKD-EPI)NonAf (>60 ml/min/1.73 sqM) Glucose (74-99) mg/dL Calcium (8.4-10.2) mg/dL Phosphorus (2.5-4.5) mg/dL Magnesium (1.6-2.3) mg/dL Total Bilirubin (0.2-1.3) mg/dL AST (14-36) U/L ALT (9-52) U/L Alkaline Phosphatase (38-126) U/L Total Creatine Kinase (30-135) U/L CK-MB (CK-2) (0.0-2.4) ng/mL CK-MB (CK-2) Rel Index Troponin I (0.000-0.034) ng/mL Total Protein (6.3-8.2) g/dL Albumin (3.5-5.0) g/dL - Radiology Data Radiology results: report reviewed (CT brain C-spine chest and pelvis x-ray are negative for traumatic injury), image reviewed Disposition Clinical Impression: Fall, Dehydration, Head injuries Disposition: HOME SELF-CARE Condition: Good Instructions: Fall Prevention for Older Adults (ED), Head Injury (ED) Is patient prescribed a controlled substance at d/c from ED?: No Referrals: Shelly Lujan MD [Primary Care Provider] - 1-2 days
[2017-07-13] MEDS ORDERED: SODIUM CHLORIDE 0.9% 500 ML IV STA (15:06)
[2017-07-13] MEDS ORDERED: SODIUM CHLORIDE 0.9% 1,000 ML IV STA ×2 (15:06→15:41)
[2017-07-13 15:23] LABS: Anisocytosis Slight; Basophils % (A) 0 %; Eosinophils # (A) 0.1 k/uL (0-0.7); Eosinophils % (A) 1 %; HCT 30.6 % (34.0-46.0); Lymphocytes # (A) 1.8 k/uL (1.0-4.8); Lymphocytes % (A) 20 %; MCH 30.7 pg (25.0-35.0); MCHC 32.6 g/dL (31.0-37.0); Mean Platelet Volume 8.1; Monocytes # (A) 0.6 k/uL (0-1.0); Monocytes % (A) 7 %; Neutrophils # (A) 6.4 k/uL (1.3-7.7); Neutrophils % (A) 70 %; Platelet Count 165 k/uL (150-450); RBC 3.26 m/uL (3.80-5.40); RDW 16.6 % (11.5-15.5); WBC 9.1 k/uL (3.8-10.6)
[2017-07-13 15:29] LABS: INR 1.2 (<1.2); Partial Thromboplastin Time 24.3 sec (22.0-30.0); Prothrombin Time 11.1 sec (9.0-12.0)
[2017-07-13 15:31] LABS: Albumin 3.9 g/dL (3.5-5.0); Calcium 9.3 mg/dL (8.4-10.2); Magnesium 2.2 mg/dL (1.6-2.3); Potassium 4.9 mmol/L (3.5-5.1); Total Bilirubin 0.4 mg/dL (0.2-1.3); Total Protein 7.3 g/dL (6.3-8.2)
[2017-07-13 15:55] LABS: Creatine Kinase 32 U/L (30-135)
[2017-07-13 16:09] LABS: Creatine Kinase MB <0.2 ng/mL (0.0-2.4); Troponin I <0.012 ng/mL (0.000-0.034)
--- NOTE | 2017-07-13 16:29 | CT ---
EXAMINATION TYPE: CT brain cspine wo con DATE OF EXAM: 07/13/2017 COMPARISON: CT brain May 25, 2017. HISTORY: Fall with posterior head injury, headache and neck pain. CT DLP: 1664 mGycm. Automated Exposure Control for Dose Reduction was Utilized. TECHNIQUE: CT scan of the head and cervical spine are performed without contrast. FINDINGS: There is no acute intracranial hemorrhage or midline shift identified. The there is vent ricular and sulcal prominence consistent with diffuse cerebral atrophy. There is low-attenuation in t he periventricular white matter there is persistent subacute on chronic infarct medial right occipita l lobe axial image 27 with some posterior medial temporal lobe extension near axial image 19 redemons trated. The globes are intact and the visualized sinuses are clear. The calvarium is intact. Cervical spine is visualized in its entirety from C1 through upper thoracic levels and demonstrates d extroconvex scoliosis centered in the upper to midthoracic spine without evidence of acute fracture o r dislocation. Prevertebral soft tissue appears within normal limits. The C1-C2 articulation is wit hin normal limits on the coronal images. Vertebral body heights are maintained. Demineralization is present. There is grade 1 anterolisthesis of C4 on C5. There is moderate to advanced spurring and disc space narrowing C5-C6 level. Posterior s pur disc complex effaces anterior thecal sac at this level on sagittal image 26 confirmed on axial im age 53. Review of axial images shows multilevel uncovertebral facet degenerative changes contributing to multilevel neural foraminal narrowing. There is additional anterior spinal canal effacement due t o spur disc complex C4-C5 level. There is moderate to severe plaque in the common carotid arteries extending into carotid bulbs and pr oximal internal carotid arteries bilaterally. There is mild to moderate biapical pleural/parenchymal scarring. Nondependent air right brachiocephalic vein axial image 73 is presumed related to attempted IV access in the upper extremity. IMPRESSION: 1. There is no acute fracture or dislocation evident in the cervical spine. Demineralization, scoliot ic curvature, multilevel degenerative changes as detailed above. 2. No acute intracranial hemorrhage or midline shift is seen. There is moderate diffuse cerebral atro phy and chronic small vessel ischemic change with known right PEDIATRIC CARE COORDINATOR territorial subacute on chronic inf arct redemonstrated.
[2017-07-13 17:00] VITALS: PULSE 59; RESP 18
--- NOTE | 2017-07-13 17:07 | XR ---
EXAMINATION TYPE: XR pelvis AP view DATE OF EXAM: 07/13/2017 CLINICAL HISTORY: Pelvic and right hip pain after fall injury today. TECHNIQUE: A single AP view of the pelvis is obtained. COMPARISON: None. FINDINGS: Osseous structures are demineralized which is noted lower radiographic sensitivity. There is no acute fracture/dislocation evident in the pelvis. The hip and sacroiliac joints appear symmetr ic and unremarkable. Surgical clip left groin region is seen. Vascular calcification bilateral groin region is noted. IMPRESSION: There is no acute fracture or dislocation in the pelvis.
--- NOTE | 2017-07-13 17:08 | XR ---
EXAMINATION TYPE: XR chest 1V DATE OF EXAM: 07/13/2017 COMPARISON: Chest x-ray March 28, 2016. HISTORY: Chest pain after fall injury today. TECHNIQUE: Single AP portable frontal upright view of the chest is obtained. FINDINGS: Low lung volumes and chronic parenchymal changes present bilaterally. Overlying sternal wir es and mediastinal clips are redemonstrated. There is no focal air space opacity, pleural effusion, or pneumothorax seen. The cardiac silhouette size remains enlarged with atherosclerotic aorta. The osseous structures remain demineralized. IMPRESSION: Chronic changes and cardiomegaly without acute pulmonary process. No significant change from prior.
[2017-07-13 17:31] VITALS: BP 159/67
== END 2017-07-13 17:31 | disposition home or self-care (01) ==
LOC: EC 14:51
DX: S09.90XA Unspecified injury of head, initial encounter (principal); E86.0 Dehydration; E78.5 Hyperlipidemia, unspecified; I10 Essential (primary) hypertension; Z87.891 Personal history of nicotine dependence; Z79.899 Other long term (current) drug therapy; W01.190A Fall on same level from slipping, tripping and stumbling with subsequent striking against furniture, initial encounter
CPT/HCPCS: 36415; 70450; 71045; 72125; 72170; 80053; 82550; 82553; 83735; 84100; 84484; 85025; 85610; 85730; 93005; 96360; 96361; 99285

== ENCOUNTER 2017-10-13 13:53 | Inpatient (IN) | payer MEDICARE, BC ==
[2017-10-13 14:04] LABS: Glucose,Whole Blood 195 mg/dL (75-99)
[2017-10-13] MEDS ORDERED: SODIUM CHLORIDE 0.9% 1,000 ML IV STA (14:13)
--- NOTE | 2017-10-13 14:17 | ED ---
General Adult HPI - General Stated complaint: Unresponsive Time Seen by Provider: 10/13/17 14:00 Source: EMS, RN notes reviewed Mode of arrival: EMS Limitations: altered mental status, physical limitation - History of Present Illness Initial comments: Patient is an unresponsive 87-year-old female presenting to the emergency Department with her. Patient was reportedly walking around noon. Patient did reportedly complaining of headache earlier today. Patient is unresponsive at this time and is unable to provide any significant history. EMS reports that there is question of patient is a DO NOT RESUSCITATE or not. No reported history of seizure. - Related Data Home Medications Medication Instructions Recorded Confirmed Furosemide [Lasix] 20 mg PO DAILY PRN 03/28/16 10/13/17 Vit C/E/Zn/Coppr/Lutein/Zeaxan 1 cap PO DAILY 03/28/16 10/13/17 [Preservision Areds 2 Softgel] Cholecalciferol [Vitamin D3] 1,000 unit PO DAILY 05/22/17 10/13/17 Famotidine 40 mg PO DAILY 05/22/17 10/13/17 amLODIPine BESYLATE [Norvasc] 10 mg PO DAILY 05/22/17 10/13/17 Acetaminophen [Tylenol] 1,000 mg PO BID 10/13/17 10/13/17 Aspirin [Adult Low Dose Aspirin EC] 81 mg PO DAILY 10/13/17 10/13/17 Atorvastatin Calcium [Lipitor] 10 mg PO DAILY 10/13/17 10/13/17 Cranberry Fruit Extract [Cranberry] 500 mg PO DAILY 10/13/17 10/13/17 Cyanocobalamin [Vitamin B-12] 500 mcg PO DAILY 10/13/17 10/13/17 Ferrous Sulfate [Iron] 325 mg PO DAILY 10/13/17 10/13/17 Glimepiride [Amaryl] 2 mg PO BID 10/13/17 10/13/17 Isosorbide Mononitrate [Isosorbide 30 mg PO DAILY 10/13/17 10/13/17 Mononitrate ER] Levothyroxine Sodium 125 mcg PO DAILY 10/13/17 10/13/17 Metoprolol Succinate (ER) [Toprol 25 mg PO DAILY 10/13/17 10/13/17 Xl] [place]-3 Fatty Acids/Fish Oil [Fish 1 each PO DAILY 10/13/17 10/13/17 Oil 1,000 mg Softgel] Rosuvastatin Calcium [Crestor] 5 mg PO DAILY 10/13/17 10/13/17 Saxagliptin HCl [Onglyza] 5 mg PO DAILY 10/13/17 10/13/17 Sertraline HCl [Zoloft] 25 mg PO DAILY 10/13/17 10/13/17 Allergies Allergy/AdvReac Type Severity Reaction Status Date / Time acetaminophen [From Lortab] Allergy Hallucinati Verified 10/13/17 14:32 ons hydrocodone [From Lortab] Allergy Hallucinati Verified 10/13/17 14:32 ons Review of Systems ROS Statement: Those systems with pertinent positive or pertinent negative responses have been documented in the HPI. ROS Other: All systems not noted in ROS Statement are negative. Limitations: ROS unobtainable due to patients medical condition Past Medical History Past Medical History: Atrial Fibrillation, COPD, Diabetes Mellitus, Hyperlipidemia, Hypertension, Thyroid Disorder History of Any Multi-Drug Resistant Organisms: None Reported Past Surgical History: Appendectomy, Cholecystectomy, Coronary Bypass/CABG, Hysterectomy Additional Past Surgical History / Comment(s): 2009 five vessel CABG Past Psychological History: No Psychological Hx Reported Smoking Status: Former smoker Past Alcohol Use History: None Reported Past Drug Use History: None Reported - Past Family History Father History Unknown: Yes General Exam Limitations: altered mental status, physical limitation General appearance: lethargic Head exam: Present: atraumatic Eye exam: Present: PERRL, other (Eyes deviated to the left) ENT exam: Present: normal oropharynx, other (Weak gag is present) Neck exam: Present: normal inspection Respiratory exam: Present: normal lung sounds bilaterally Cardiovascular Exam: Present: tachycardia, irregular rhythm GI/Abdominal exam: Present: soft. Absent: tenderness Extremities exam: Present: normal inspection Expanded Neurological exam: Present: other (Weak gag. Unresponsive. Limited evaluation. Nonverbal. Patient does withdrawal to pain bilateral lower extremities, more so on the right side. Patient also withdrawals with the right hand. No withdraw to pain with the left hand.) Eye Response: (1) no response Motor Response: (4) withdraws to pain Verbal Response: (1) no verbal response Psychiatric exam: Present: other (Nonverbal) Skin exam: Present: normal color Course Vital Signs 10/13/17 10/13/17 10/13/17 14:00 14:15 14:30 Temperature 98.5 F 98 F Pulse Rate 108 H 99 114 H Respiratory 15 16 16 Rate Blood Pressure 168/88 184/77 181/75 O2 Sat by Pulse 99 99 98 Oximetry - Reevaluation(s) Reevaluation #1: 10/13/17 14:40 Case was discussed with neural interventional list, Dr. Daley who recommends no TPA. He does recommend EEG and medication for seizures. 10/13/17 14:47 Patient reevaluated without much change. Eye deviation however is no longer present. We are attempting to contact family for CODE STATUS. 10/13/17 15:20 Patient reevaluated and somewhat improved. Patient is able to orient to name. Patient is protecting airway. Family is present and updated. Son is the power of chemical machine tender. He states patient is DO NOT RESUSCITATE. 10/13/17 15:[address] Fernandez, who will admit for Dr. Lujan. EKG Findings - EKG Comments: EKG Findings:: A. fib with RVR, rate 111. QRS 76. QT 360. QTC 489. Normal axis. Septal Q waves. No acute ST change. Medical Decision Making - Lab Data Result diagrams: 10/13/17 14:04 10/13/17 14:04 Lab Results 10/13/17 10/13/17 10/13/17 Range/Units 14:02 14:04 14:04 WBC 12.1 H (3.8-10.6) k/uL RBC 3.96 (3.80-5.40) m/uL Hgb 12.3 (11.4-16.0) gm/dL Hct 38.9 (34.0-46.0) % MCV 98.3 (80.0-100.0) fL MCH 31.1 (25.0-35.0) pg MCHC 31.6 (31.0-37.0) g/dL RDW 15.8 H (11.5-15.5) % Plt Count 244 (150-450) k/uL Neutrophils % (Manual) 45 % Band Neutrophils % 3 % Lymphocytes % (Manual) 52 % Neutrophils # (Manual) 5.80 (1.3-7.7) k/uL Lymphocytes # (Manual) 6.29 H (1.0-4.8) k/uL Nucleated RBCs 0 (0-0) /100 WBC Manual Slide Review Performed Hypochromasia Slight Poikilocytosis (manual Present PT (9.0-12.0) sec INR (<1.2) APTT (22.0-30.0) sec Sodium (137-145) mmol/L Potassium (3.5-5.1) mmol/L Chloride (98-107) mmol/L Carbon Dioxide (22-30) mmol/L Anion Gap mmol/L BUN (7-17) mg/dL Creatinine (0.52-1.04) mg/dL Est GFR (CKD-EPI)AfAm (>60 ml/min/1.73 sqM) Est GFR (CKD-EPI)NonAf (>60 ml/min/1.73 sqM) Glucose (74-99) mg/dL POC Glucose (mg/dL) 195 H (75-99) mg/dL POC Glu Etl [employer] ID Loren Parisi Calcium (8.4-10.2) mg/dL Total Bilirubin (0.2-1.3) mg/dL AST (14-36) U/L ALT (9-52) U/L Alkaline Phosphatase (38-126) U/L Total Creatine Kinase 44 (30-135) U/L CK-MB (CK-2) 3.2 H* (0.0-2.4) ng/mL CK-MB (CK-2) Rel Index 7.3 Troponin I 0.067 H* (0.000-0.034) ng/mL Total Protein (6.3-8.2) g/dL Albumin (3.5-5.0) g/dL 10/13/17 10/13/17 Range/Units 14:04 14:04 WBC (3.8-10.6) k/uL RBC (3.80-5.40) m/uL Hgb (11.4-16.0) gm/dL Hct (34.0-46.0) % MCV (80.0-100.0) fL MCH (25.0-35.0) pg MCHC (31.0-37.0) g/dL RDW (11.5-15.5) % Plt Count (150-450) k/uL Neutrophils % (Manual) % Band Neutrophils % % Lymphocytes % (Manual) % Neutrophils # (Manual) (1.3-7.7) k/uL Lymphocytes # (Manual) (1.0-4.8) k/uL Nucleated RBCs (0-0) /100 WBC Manual Slide Review Hypochromasia Poikilocytosis (manual PT 10.7 (9.0-12.0) sec INR 1.1 (<1.2) APTT 22.6 (22.0-30.0) sec Sodium 138 (137-145) mmol/L Potassium 4.6 (3.5-5.1) mmol/L Chloride 101 (98-107) mmol/L Carbon Dioxide 19 L (22-30) mmol/L Anion Gap 18 mmol/L BUN 32 H (7-17) mg/dL Creatinine 1.43 H (0.52-1.04) mg/dL Est GFR (CKD-EPI)AfAm 38 (>60 ml/min/1.73 sqM) Est GFR (CKD-EPI)NonAf 33 (>60 ml/min/1.73 sqM) Glucose 192 H (74-99) mg/dL POC Glucose (mg/dL) (75-99) mg/dL POC Glu Etl [employer] Architect ID Calcium 9.4 (8.4-10.2) mg/dL Total Bilirubin 0.5 (0.2-1.3) mg/dL AST 37 H (14-36) U/L ALT 27 (9-52) U/L Alkaline Phosphatase 103 (38-126) U/L Total Creatine Kinase (30-135) U/L CK-MB (CK-2) (0.0-2.4) ng/mL CK-MB (CK-2) Rel Index Troponin I (0.000-0.034) ng/mL Total Protein 7.8 (6.3-8.2) g/dL Albumin 4.0 (3.5-5.0) g/dL Critical Care Time Critical Care Time: Yes Total Critical Care Time: 32 Disposition Clinical Impression: Status epilepticus Disposition: ADMITTED IP TO THIS [facility] Condition: Serious Referrals: Shelly Lujan MD [Primary Care Provider] - 1-2 days Decision Time: 15:22
[2017-10-13 14:26] LABS: HCT 38.9 % (34.0-46.0); HGB 12.3 gm/dL (11.4-16.0); Hypochromasia Slight; MCH 31.1 pg (25.0-35.0); MCHC 31.6 g/dL (31.0-37.0); MCV 98.3 fL (80.0-100.0); Mean Platelet Volume 7.9; Platelet Count 244 k/uL (150-450); RBC 3.96 m/uL (3.80-5.40); RDW 15.8 % (11.5-15.5); WBC 12.1 k/uL (3.8-10.6)
[2017-10-13 14:30] LABS: INR 1.1 (<1.2); Partial Thromboplastin Time 22.6 sec (22.0-30.0); Prothrombin Time 10.7 sec (9.0-12.0)
[2017-10-13 14:33] LABS: Calcium 9.4 mg/dL (8.4-10.2); Potassium 4.6 mmol/L (3.5-5.1); Total Bilirubin 0.5 mg/dL (0.2-1.3); Total Protein 7.8 g/dL (6.3-8.2)
--- NOTE | 2017-10-13 14:33 | CT ---
EXAMINATION TYPE: CT brain wo con for TPA DATE OF EXAM: 10/13/2017 COMPARISON: 07/13/2017 HISTORY: Unresponsive CT DLP: 892.[address] of the brain was performed. The ventricles, basal cisterns and sulci overlying the cerebral convexities demonstrate mild enlargem ent. Remote right occipital insult noted. Remote radha insult noted. There is no evidence for intracranial hemorrhage or sulcal effacement. There is decreased attenuation about the periventricular white matter and deep white matter of both c erebral hemispheres, compatible with chronic small vessel ischemia. Differential diagnosis does inclu de demyelination. No mass effects are seen.No midline shift. Osseous calvarium is intact. If symptoms persist consider MRI. IMPRESSION: 1. Age related atrophic and chronic small vessel ischemic change without acute intracranial process s een at this time. Remote insults noted without evidence for acute ischemia at this time on CT.
[2017-10-13] MEDS ORDERED: levETIRAcetam IV 1,000 MG in SALINE 1 100ML.BAG IVPB STA (14:41)
[2017-10-13 15:00] LABS: Creatine Kinase MB 3.2 ng/mL (0.0-2.4); Troponin I 0.067 ng/mL (0.000-0.034)
--- NOTE | 2017-10-13 15:00 | XR ---
EXAMINATION TYPE: XR chest 2V DATE OF EXAM: 10/13/2017 COMPARISON: 07/13/2017 TECHNIQUE: PA and lateral views submitted. HISTORY: Altered mental status FINDINGS: Limited inspiration with subsegmental areas of consolidation at the lung bases. Hypertrophic and dege nerative change of the spine. Prominence of interstitium and postsurgical changes. IMPRESSION: 1. Lateral view suggest subsegmental areas of atelectasis or early infiltrate. Favor atelectasis lia elate clinically. 2. Prominence of the interstitium could be related to reduced inspiration rather than pneumonitis or mild venous congestion correlate clinically.
[2017-10-13 15:04] LABS: Band Neutrophils % 3 %; Lymphocytes # (M) 6.29 k/uL (1.0-4.8); Neutrophils % (M) 45 %; Nucleated Red Blood Cells 0 /100 WBC (0-0); Poikilocytosis (M) Present; Total Cells Counted 100
--- NOTE | 2017-10-13 15:29 | CT ---
EXAMINATION TYPE: CT angio head neck DATE OF EXAM: 10/13/2017 COMPARISON: 05/22/2017 HISTORY: Unresponsive CT DLP: 220.20 mGycm CONTRAST: Performed with IV Contrast, patient injected with 65 mL of Isovue 370. Combination Contrast CTA cervical carotids and [place] CTA cervical carotids with 3-D recons truction Contrast CTA of the cervical carotids was performed 3-D reconstruction imaging obtained at a separate workstation. Right carotid system: Mild plaque is seen of the right common carotid artery. There is moderate plaq ue also noted at the carotid bulb and proximal ICA. Estimated diameter reduction of 60%. ECA is pat ent. Right vertebral artery appears unremarkable. Left carotid system: Mild plaque is seen of the left common carotid artery. There is moderate plaque also noted at the carotid bulb and proximal ICA. Estimated diameter reduction of 60%. ECA is patent. Left vertebral artery appears unremarkable. IMPRESSION: 1. Estimated diameter reduction of 60% bilaterally with atherosclerotic disease.. CTA [place] with 3-D reconstruction Contrast CTA of the [place] was performed 3-D reconstruction imaging obtained at a separate workstation. Vertebrobasilar system as well as intracranial portions of the internal carotid arteries and their ma gita tributaries are patent. I do not see evidence for sizable aneurysm or vascular malformation. Pl ease note MRI provides greater sensitivity and specificity. Visualized brain appears grossly unremar kable. IMPRESSION: 1. No siginificant abnormality.
[2017-10-13] MEDS ORDERED: LABETALOL 5 MG/ML VIAL MDV IVP STA (15:54)
[2017-10-13] MEDS: LABETALOL 5 MG/ML VIAL MDV IVP SCH ×4 (17:08→17:24)
[2017-10-13] MEDS: SODIUM CHLORIDE 0.9% 1,000 ML IV SCH (18:29)
[2017-10-13] MEDS: levETIRAcetam IV 750 MG in SODIUM CHLORIDE 0.9% 100 ML IVPB SCH (21:30)
--- NOTE | 2017-10-13 21:52 | P.CNNES ---
History of Present Illness Consult date: 10/13/17 History of Present Illness: The patient is an 87-year-old woman with history of possible seizure. The patient has history of atrial fibrillation COPD diabetes hypertension and thyroid disease. She emergency room physician discussed that her clinical case with neuro grade teacher and he recommended no TPA. He did recommend EEG and medication for seizures. Patient was admitted through the emergency room with a diagnosis of status epilepticus she had a CT angiogram of the head and neck which showed 60% stenosis bilaterally there is no evidence of aneurysm CT of the brain showed atrophy and chronic small vessel disease the patient was started on Keppra 750 mg IV every 12 hours in the emergency room the patient was transferred to the medical floor. She is still lethargic but not completely unresponsive. Review of Systems ROS unobtainable: due to mental status Past Medical History Past Medical History: Atrial Fibrillation, COPD, Diabetes Mellitus, Hyperlipidemia, Hypertension, Thyroid Disorder Additional Past Medical History / Comment(s): bleeding from unknown origin per family, headaches History of Any Multi-Drug Resistant Organisms: None Reported Past Surgical History: Appendectomy, Cholecystectomy, Coronary Bypass/CABG, Hysterectomy Additional Past Surgical History / Comment(s): 2009 five vessel CABG, shots in eye Past Psychological History: No Psychological Hx Reported Smoking Status: Former smoker Past Alcohol Use History: None Reported Past Drug Use History: None Reported - Past Family History Father History Unknown: Yes Medications and Allergies Home Medications Medication Instructions Recorded Confirmed Type Furosemide [Lasix] 20 mg PO DAILY PRN 03/28/16 10/13/17 History Vit C/E/Zn/Coppr/Lutein/Zeaxan 1 cap PO DAILY 03/28/16 10/13/17 History [Preservision Areds 2 Softgel] Cholecalciferol [Vitamin D3] 1,000 unit PO DAILY 05/22/17 10/13/17 History Famotidine 40 mg PO DAILY 05/22/17 10/13/17 History amLODIPine BESYLATE [Norvasc] 10 mg PO DAILY 05/22/17 10/13/17 History Acetaminophen [Tylenol] 1,000 mg PO BID 10/13/17 10/13/17 History Aspirin [Adult Low Dose Aspirin EC] 81 mg PO DAILY 10/13/17 10/13/17 History Atorvastatin Calcium [Lipitor] 10 mg PO DAILY 10/13/17 10/13/17 History Cranberry Fruit Extract [Cranberry] 500 mg PO DAILY 10/13/17 10/13/17 History Cyanocobalamin [Vitamin B-12] 500 mcg PO DAILY 10/13/17 10/13/17 History Ferrous Sulfate [Iron] 325 mg PO DAILY 10/13/17 10/13/17 History Glimepiride [Amaryl] 2 mg PO BID 10/13/17 10/13/17 History Isosorbide Mononitrate [Isosorbide 30 mg PO DAILY 10/13/17 10/13/17 History Mononitrate ER] Levothyroxine Sodium 125 mcg PO DAILY 10/13/17 10/13/17 History Metoprolol Succinate (ER) [Toprol 25 mg PO DAILY 10/13/17 10/13/17 History Xl] [place]-3 Fatty Acids/Fish Oil [Fish 1 each PO DAILY 10/13/17 10/13/17 History Oil 1,000 mg Softgel] Rosuvastatin Calcium [Crestor] 5 mg PO DAILY 10/13/17 10/13/17 History Saxagliptin HCl [Onglyza] 5 mg PO DAILY 10/13/17 10/13/17 History Sertraline HCl [Zoloft] 25 mg PO DAILY 10/13/17 10/13/17 History Allergies Allergy/AdvReac Type Severity Reaction Status Date / Time acetaminophen [From Lortab] Allergy Hallucinati Verified 10/13/17 14:32 ons hydrocodone [From Lortab] Allergy Hallucinati Verified 10/13/17 14:32 ons Physical Examination - Vital Signs Vital Signs: Vital Signs Temp Pulse Pulse Resp BP BP Pulse Ox 10/13/17 20:00 94 14 156/80 100 10/13/17 17:10 97 190/78 10/13/17 17:06 98.1 F 98 16 221/86 100 10/13/17 16:24 100 16 188/88 98 10/13/17 15:55 99.1 F 97 16 140/87 95 10/13/17 15:30 105 H 16 222/93 97 10/13/17 14:45 99 18 201/112 97 10/13/17 14:30 98 F 114 H 16 181/75 98 10/13/17 14:15 99 16 184/77 99 10/13/17 14:00 98.5 F 108 H 15 168/88 99 Intake and Output 08/16/18 08/16/18 08/16/18 06:59 14:59 22:59 Output Total 200 Balance -200 Output: Urine 200 Uretheral ([place]) 200 Other: Voiding Method Indwelling Catheter Weight 64.864 kg - Constitutional General appearance: average body habitus - Respiratory Respiratory: lungs clear - Cardiovascular Cardiovascular: regular rate, normal S1, normal S2 - Neurologic Neurologic examination: Mental status she was laying in bed unresponsive.. She did moan when verbally stimulated. She did follow some commands such as gripping with the right hand. She did not speak. She did not open her eyes. Cranial nerve examination pupils were 3 mm and equal. There was no obvious facial asymmetry next Motor examination she did have what appeared to be some left-sided weakness. X Sensory examination could not be checked Coordination could not be checked Gait could not be checked Results - Laboratory Findings CBC and BMP: 10/13/17 14:04 10/13/17 14:04 Abnormal Lab Findings: Abnormal Labs 10/13/17 10/13/17 10/13/17 14:02 14:04 14:04 WBC 12.1 H RDW 15.8 H Lymphocytes # (Manual) 6.29 H Carbon Dioxide BUN Creatinine Glucose POC Glucose (mg/dL) 195 H AST CK-MB (CK-2) 3.2 H* Troponin I 0.067 H* 10/13/17 14:04 WBC RDW Lymphocytes # (Manual) Carbon Dioxide 19 L BUN 32 H Creatinine 1.43 H Glucose 192 H POC Glucose (mg/dL) AST 37 H CK-MB (CK-2) Troponin I Assessment and Plan (1) Status epilepticus Current Visit: Yes Status: Acute SNOMED Code(s): 580509115 (2) History of stroke Current Visit: Yes Status: Acute SNOMED Code(s): 440286431 Plan: The patient is an 87-year-old woman who presented to the hospital with unresponsive state and question of seizure. The patient had imaging study of the head which did not show any acute abnormality. Shoulder also had a CTA of the head and neck which did not show any cerebral aneurysm. Recommend EEG and continue Keppra. We'll check Keppra level. Apparently her son is the power of workers compensation attorney who states that she is DO NOT RESUSCITATE.
[2017-10-14] MEDS: SODIUM CHLORIDE 0.9% 1,000 ML IV SCH ×3 (03:12→21:38)
[2017-10-14 06:35] LABS: Cholesterol 114 mg/dL (<200); HDL Cholesterol 35 mg/dL (40-60); LDL Cholesterol,Calculated 56 mg/dL (0-99); Triglycerides 117 mg/dL (<150)
[2017-10-14] MEDS: levETIRAcetam IV 750 MG in SODIUM CHLORIDE 0.9% 100 ML IVPB SCH ×2 (08:04→20:30)
[2017-10-14 10:49] LABS: Basophils % (A) 0 %; Eosinophils % (A) 1 %; HCT 32.4 % (34.0-46.0); HGB 10.5 gm/dL (11.4-16.0); Lymphocytes # (A) 2.5 k/uL (1.0-4.8); Lymphocytes % (A) 31 %; MCH 31.5 pg (25.0-35.0); MCHC 32.4 g/dL (31.0-37.0); MCV 97.2 fL (80.0-100.0); Mean Platelet Volume 8.6; Monocytes # (A) 0.9 k/uL (0-1.0); Monocytes % (A) 11 %; Neutrophils # (A) 4.6 k/uL (1.3-7.7); Neutrophils % (A) 55 %; Platelet Count 196 k/uL (150-450); RBC 3.33 m/uL (3.80-5.40); RDW 15.8 % (11.5-15.5); WBC 8.3 k/uL (3.8-10.6)
[2017-10-14 11:00] LABS: Calcium 8.9 mg/dL (8.4-10.2); Total Bilirubin 0.3 mg/dL (0.2-1.3); Total Protein 6.2 g/dL (6.3-8.2)
[2017-10-14] MEDS ORDERED: FUROSEMIDE 20 MG TAB PO PRN (12:02)
[2017-10-14] MEDS ORDERED: ACETAMINOPHEN IV (For NPO) 1,000 MG in EMPTY BAG 1 BAG IVPB PRN (12:14)
[2017-10-14] MEDS ORDERED: ASPIRIN 81 MG PO SCH (12:15)
[2017-10-14] MEDS: amLODIPine 10 MG TAB PO SCH (13:49)
[2017-10-14] MEDS: METOPROLOL SUCCINATE (ER) 25 MG TAB.ER.24H PO SCH (13:49)
[2017-10-14] MEDS: ISOSORBIDE MONONITRATE ER 30 MG TAB.ER.24H PO SCH (13:49)
[2017-10-14] MEDS: LEVOTHYROXINE 125 MCG TAB PO SCH (13:49)
--- NOTE | 2017-10-14 13:51 | ECHOF ---
Referral Reason:Thrombus MEASUREMENTS -------- HEIGHT: 162.6 cm WEIGHT: 64.9 kg BP: 187/108 RVIDd: 2.9 cm (< 3.3) IVSd: 1.1 cm (0.6 - 1.1) LVIDd: 3.5 cm (3.9 - 5.3) LVPWd: 1.2 cm (0.6 - 1.1) IVSs: 1.3 cm LVIDs: 3.2 cm LVPWs: 1.4 cm LAESV Index (A-L): 49.13 ml/m Ao Diam: 2.5 cm (2.0 - 3.7) AV Cusp: 0.8 cm (1.5 - 2.6) LA Diam: 4.4 cm (2.7 - 3.8) EPSS: 0.4 cm MV E Christopher: 1.10 m/s MV DecT: 178 ms MV A Christopher: 0.01 m/s MV E/A Ratio: 619.46 RAP: 5.00 mmHg RVSP: 66.57 mmHg MV EF SLOPE: 57.18 mm/s (70 - 150) MV EXCURSION: 1.26 cm (> 18.000) FINDINGS -------- Atrial fibrillation. This was a technically adequate study. The left ventricular size is normal. There is borderline concentric left ventricular hypertrophy. Overall left ventricular systolic function is mildly impaired with, an EF between 45 - 50 %. The right ventricle is mildly enlarged. LA is severely dilated >40 ml/m2 RA appears enlarged. There is moderate aortic valve sclerosis. Trace amount of aortic regurgitation. There is no evid ence of aortic stenosis. The mitral valve leaflets are mildly thickened. Mild mitral annular calcification present. Modera [id number] mitral regurgitation is present. Moderate to severe tricuspid regurgitation present. There is severe pulmonary hypertension. The r ight ventricular systolic pressure, as measured by Doppler, is 66.57mmHg. Trace/mild (physiologic) pulmonic regurgitation. The aortic root size is normal. Normal inferior vena cava with normal inspiratory collapse consistent with estimated right atrial pre ssure of 5 mmHg. There is no pericardial effusion. CONCLUSIONS -------- 1. Atrial fibrillation. 2. This was a technically adequate study. 3. The left ventricular size is normal. 4. There is borderline concentric left ventricular hypertrophy. 5. Overall left ventricular systolic function is mildly impaired with, an EF between 45 - 50 %. 6. The right ventricle is mildly enlarged. 7. LA is severely dilated >40 ml/m2 8. RA appears enlarged. 9. There is moderate aortic valve sclerosis. 10. Trace amount of aortic regurgitation. 11. The mitral valve leaflets are mildly thickened. 12. Mild mitral annular calcification present. 13. [id number] mitral regurgitation is present. 14. Moderate to severe tricuspid regurgitation present. 15. There is severe pulmonary hypertension. 16. The right ventricular systolic pressure, as measured by Doppler, is 66.57mmHg. 17. Trace/mild (physiologic) pulmonic regurgitation. 18. The aortic root size is normal. 19. There is no pericardial effusion. ENTRY LEVEL FINANCIAL ANALYST: Luigi Aaron RDCS
--- NOTE | 2017-10-14 14:57 | P.HPIM ---
History of Present Illness H&P Date: 10/14/17 Chief Complaint: Unresponsive This is a 87-year-old female, patient of Dr. Lujan. Patient has a known history of chronic atrial fibrillation, COPD, diabetes, hyperlipidemia, hypertension, hypothyroidism, stroke with residual left-sided weakness, chronic kidney disease and coronary artery disease with previous CABG. Patient presents to the emergency room after being found to have a seizure at the [facility] in which she resides at. Patient was unresponsive when she was brought into the emergency room. She was started on IV Keppra for possible seizure. She has been seen evaluated by neurology. Computed tomography scan of the brain shows age-related atrophic and chronic small vessel ischemic change without acute intracranial process. Remote insults noted without evidence for acute ischemia. CT angiogram of the head and neck shows an estimated diameter reduction of 60% bilaterally with atherosclerotic disease CTA of head was negative. Patient has had no further seizure activity. She is more awake at this time. She is complaining of a headache in the right temporal region and she is also been having vision changes. Patient is also had elevated blood pressures. She is now awake enough to take her oral blood pressure pills. These will be restarted. She's being followed by speech therapy as well as neurology. Patient denies any chest pain or shortness breath. Denies any nausea or vomiting. Denies any bowel movement changes or urinary symptoms. Also note that she has a history of bleeding on the eye in which she is follows up with an hebrew cantor and has received injections before. They're also following her because she is had chronic vision changes. Initially I was told that the patient had a episode of nonsustained V. tach 9. Run. Cardiology was initially consulted however they reviewed the strip and noted that there is no evidence of an arrhythmia but this was artifact. Consult has been canceled. Review of Systems Please refer to HPI otherwise unremarkable Past Medical History Past Medical History: Atrial Fibrillation, COPD, Diabetes Mellitus, Hyperlipidemia, Hypertension, Thyroid Disorder Additional Past Medical History / Comment(s): bleeding from unknown origin per family, headaches History of Any Multi-Drug Resistant Organisms: None Reported Past Surgical History: Appendectomy, Cholecystectomy, Coronary Bypass/CABG, Hysterectomy Additional Past Surgical History / Comment(s): 2008 five vessel CABG, shots in eye Past Psychological History: No Psychological Hx Reported Smoking Status: Former smoker Past Alcohol Use History: None Reported Past Drug Use History: None Reported - Past Family History Father History Unknown: Yes Medications and Allergies Home Medications Medication Instructions Recorded Confirmed Type Furosemide [Lasix] 20 mg PO DAILY PRN 03/28/16 10/13/17 History Vit C/E/Zn/Coppr/Lutein/Zeaxan 1 cap PO DAILY 03/28/16 10/13/17 History [Preservision Areds 2 Softgel] Cholecalciferol [Vitamin D3] 1,000 unit PO DAILY 05/22/17 10/13/17 History Famotidine 40 mg PO DAILY 05/22/17 10/13/17 History amLODIPine BESYLATE [Norvasc] 10 mg PO DAILY 05/22/17 10/13/17 History Acetaminophen [Tylenol] 1,000 mg PO BID 10/13/17 10/13/17 History Aspirin [Adult Low Dose Aspirin EC] 81 mg PO DAILY 10/13/17 10/13/17 History Atorvastatin Calcium [Lipitor] 10 mg PO DAILY 10/13/17 10/13/17 History Cranberry Fruit Extract [Cranberry] 500 mg PO DAILY 10/13/17 10/13/17 History Cyanocobalamin [Vitamin B-12] 500 mcg PO DAILY 10/13/17 10/13/17 History Ferrous Sulfate [Iron] 325 mg PO DAILY 10/13/17 10/13/17 History Glimepiride [Amaryl] 2 mg PO BID 10/13/17 10/13/17 History Isosorbide Mononitrate [Isosorbide 30 mg PO DAILY 10/13/17 10/13/17 History Mononitrate ER] Levothyroxine Sodium 125 mcg PO DAILY 10/13/17 10/13/17 History Metoprolol Succinate (ER) [Toprol 25 mg PO DAILY 10/13/17 10/13/17 History Xl] [place]-3 Fatty Acids/Fish Oil [Fish 1 each PO DAILY 10/13/17 10/13/17 History Oil 1,000 mg Softgel] Rosuvastatin Calcium [Crestor] 5 mg PO DAILY 10/13/17 10/13/17 History Saxagliptin HCl [Onglyza] 5 mg PO DAILY 10/13/17 10/13/17 History Sertraline HCl [Zoloft] 25 mg PO DAILY 10/13/17 10/13/17 History Allergies Allergy/AdvReac Type Severity Reaction Status Date / Time acetaminophen [From Lortab] Allergy Hallucinati Verified 10/13/17 14:32 ons hydrocodone [From Lortab] Allergy Hallucinati Verified 10/13/17 14:32 ons Physical Exam Vitals: Vital Signs Temp Pulse Pulse Resp BP BP Pulse Ox 10/14/17 08:00 97.9 F 87 16 196/83 99 10/14/17 04:00 97.6 F 81 14 106/70 95 10/14/17 00:00 97.1 F L 80 14 108/57 100 10/13/17 20:00 80 14 156/80 100 10/13/17 17:10 97 190/78 10/13/17 17:06 98.1 F 98 16 221/86 100 10/13/17 16:24 100 16 188/88 98 10/13/17 15:55 99.1 F 97 16 140/87 95 10/13/17 15:30 105 H 16 222/93 97 10/13/17 14:45 99 18 201/112 97 Intake and Output 10/13/17 10/14/17 10/14/17 22:59 06:59 14:59 Intake Total 600 Output Total 200 1250 Balance -200 -650 Intake: Intake, IV Titration 600 Amount Sodium Chloride 0.9% 1, 600 000 ml @ 100 mls/hr IV . Q10H [facility] Rx#:[id number] Output: Urine 200 1250 Uretheral (Landers) 200 Other: Voiding Method Indwelling Catheter Indwelling Catheter Indwelling Catheter # Voids 1 Weight 64.864 kg 63.5 kg 63.5 kg Head normocephalic Neck supple Lungs clear to auscultation bilaterally no wheezing or crackles Heart regular rate and rhythm S1-S2, no rub or gallop Abdomen is soft nontender nondistended positive bowel sounds no hepatosplenomegaly Extremities no edema Neuro patient's speech is muffled. She does have evidence of left-sided weakness. This she is less lethargic and able to answer questions. Results CBC & Chem 7: 10/14/17 06:05 10/14/17 06:05 Labs: Abnormal Lab Results - Last 24 Hours (Table) 10/13/17 10/13/17 10/13/17 Range/Units 14:04 14:04 14:04 RBC (3.80-5.40) m/uL Hgb (11.4-16.0) gm/dL Hct (34.0-46.0) % RDW (11.5-15.5) % Lymphocytes # (Manual) 6.29 H (1.0-4.8) k/uL ESR (0-20) mm/hr Chloride (98-107) mmol/L Carbon Dioxide 19 L (22-30) mmol/L BUN 32 H (7-17) mg/dL Creatinine 1.43 H (0.52-1.04) mg/dL Glucose 192 H (74-99) mg/dL AST 37 H (14-36) U/L CK-MB (CK-2) 3.2 H* (0.0-2.4) ng/mL Troponin I 0.067 H* (0.000-0.034) ng/mL Total Protein (6.3-8.2) g/dL Albumin (3.5-5.0) g/dL HDL Cholesterol (40-60) mg/dL 10/14/17 10/14/17 10/14/17 Range/Units 06:05 06:05 06:05 RBC 3.33 L (3.80-5.40) m/uL Hgb 10.5 L (11.4-16.0) gm/dL Hct 32.4 L (34.0-46.0) % RDW 15.8 H (11.5-15.5) % Lymphocytes # (Manual) (1.0-4.8) k/uL ESR (0-20) mm/hr Chloride 108 H (98-107) mmol/L Carbon Dioxide (22-30) mmol/L BUN 30 H (7-17) mg/dL Creatinine 1.30 H (0.52-1.04) mg/dL Glucose 53 L (74-99) mg/dL AST (14-36) U/L CK-MB (CK-2) (0.0-2.4) ng/mL Troponin I (0.000-0.034) ng/mL Total Protein 6.2 L (6.3-8.2) g/dL Albumin 3.0 L (3.5-5.0) g/dL HDL Cholesterol 35 L (40-60) mg/dL 10/14/17 Range/Units 06:05 RBC (3.80-5.40) m/uL Hgb (11.4-16.0) gm/dL Hct (34.0-46.0) % RDW (11.5-15.5) % Lymphocytes # (Manual) (1.0-4.8) k/uL ESR 23 H (0-20) mm/hr Chloride (98-107) mmol/L Carbon Dioxide (22-30) mmol/L BUN (7-17) mg/dL Creatinine (0.52-1.04) mg/dL Glucose (74-99) mg/dL AST (14-36) U/L CK-MB (CK-2) (0.0-2.4) ng/mL Troponin I (0.000-0.034) ng/mL Total Protein (6.3-8.2) g/dL Albumin (3.5-5.0) g/dL HDL Cholesterol (40-60) mg/dL Thrombosis Risk Factor Assmnt - Choose All That Apply Any of the Below Risk Factors Present?: No Other Risk Factors: Yes Each Risk Factor Represents 3 Points: Age 75 years or older Thrombosis Risk Factor Assessment Total Risk Factor Score: 3 Thrombosis Risk Factor Assessment Level: Moderate Risk Assessment and Plan Assessment: 1. Unresponsiveness: Likely postictal with new onset of seizure 2. Seizure: New onset. Started on IV Keppra in the ER. Keppra level pending. Patient evaluated by neurology. Computed tomography scan of the brain completed showing no acute intracranial process. CTA of the neck showing estimated diameter reduction of 60% bilaterally with atherosclerotic disease CTA of the head no significant abnormality. EEG is pending. Patient has no further seizure activity 3. Right temporal headache with vision changes unclear if this is new or old. We'll order Tylenol IV for pain control. Computed tomography scan of the brain no acute change. Order sed rate level for further evaluation 4. History of stroke with left-sided weakness 5. Chronic atrial fibrillation with rapid ventricular response on initial EKG heart rate of 111. Patient is currently in atrial fibrillation with a heart rate in the 70s. Continue her metoprolol. Not on any anticoagulation. We'll have nursing staff verify this with patient's family. 6. Chronic kidney disease, stage III. Creatinine near baseline. 7. Essential hypertension: Elevated blood pressures on admission. This could be contributing to patient's headache as well. Restart home blood pressure medications. We'll adjust further depending on blood pressure readings 8. Hypothyroidism continue Synthroid 9. History of coronary disease with previous CABG 10. Diabetes mellitus type 2 we'll continue sliding for coverage during hospitalization. Glipizide on hold 11. 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 At that time patient's Eliquis and aspirin were discontinued. GI prophylaxis Pepcid and DVT prophylaxis SCDs Time with Patient: Greater than 30 (Greater than 60% of the total time spent in counseling and coordination of care.I performed an examination of the patient and discussed their management with the physician Retail Cashier. I have reviewed the Physician Retail Cashier's notes and agree with the documented findings and plan of care)
[2017-10-14 16:58] LABS: Glucose,Whole Blood 80 mg/dL (75-99)
[2017-10-14] MEDS: INSULIN ASPART 100 UNIT/ML 1 ML 10 ML VIAL SQ SCH ×2 (17:58→21:36)
[2017-10-14 21:23] LABS: Glucose,Whole Blood 71 mg/dL (75-99)
[2017-10-14 23:01] LABS: Hemoglobin A1C 6.7 % (4.0-6.0)
[2017-10-15 00:05] LABS: Glucose,Whole Blood 72 mg/dL (75-99)
[2017-10-15 02:08] LABS: Glucose,Whole Blood 104 mg/dL (75-99)
[2017-10-15 06:29] LABS: Glucose,Whole Blood 93 mg/dL (75-99)
[2017-10-15 06:57] LABS: Basophils % (A) 0 %; Eosinophils # (A) 0.1 k/uL (0-0.7); Eosinophils % (A) 1 %; HCT 32.6 % (34.0-46.0); HGB 10.4 gm/dL (11.4-16.0); Lymphocytes # (A) 1.6 k/uL (1.0-4.8); Lymphocytes % (A) 25 %; MCHC 31.8 g/dL (31.0-37.0); MCV 97.4 fL (80.0-100.0); Mean Platelet Volume 7.4; Monocytes # (A) 0.6 k/uL (0-1.0); Monocytes % (A) 10 %; Neutrophils % (A) 63 %; Platelet Count 173 k/uL (150-450); RBC 3.35 m/uL (3.80-5.40); RDW 15.6 % (11.5-15.5); WBC 6.5 k/uL (3.8-10.6)
[2017-10-15] MEDS: INSULIN ASPART 100 UNIT/ML 1 ML 10 ML VIAL SQ SCH ×4 (07:03→21:03)
[2017-10-15] MEDS: SODIUM CHLORIDE 0.9% 1,000 ML IV SCH ×2 (07:04→18:41)
[2017-10-15 07:08] LABS: Albumin 2.9 g/dL (3.5-5.0); Potassium 4.4 mmol/L (3.5-5.1); Total Bilirubin 0.6 mg/dL (0.2-1.3)
[2017-10-15] MEDS ORDERED: NON-FORMULARY DRUG (Vit C/E/Zn/Coppr/Lutein/Zeaxan [Preservision Areds 2 Softgel] 1 CAP) PO SCH (09:00)
[2017-10-15] MEDS ORDERED: ATORVASTATIN 10 MG TAB PO SCH (09:00)
--- NOTE | 2017-10-15 09:34 | MR ---
EXAMINATION TYPE: MR brain wo con DATE OF EXAM: 10/15/2017 9:13 AM. COMPARISON: Previous study dated 05/24/2017. HISTORY: Seizure. Technique: Multiplanar, multiecho imaging of the brain was obtained without intravenous contrast. FINDINGS: There is a partially empty sella. Structures are otherwise unremarkable. There is a normal craniocervical junction. There is mild restricted diffusion at the site of the patient's previously described right occipital infarct. No other restricted diffusion is seen. There is ex vacuo enlargement of the occipital horn of the right lateral ventricle. There is encephal omalacia in the right occipital lobe. There is some residual edema. There are normal vascular flow voids. The orbits are unremarkable. There is no evidence of a CP angle mass lesion. There is abnormal signal within the radha compatible with layering degeneration. There are scattered s ubcortical FLAIR lesions. These may be on the basis of demyelination, small vessel disease, hypertens ion, migraine headaches or Lyme's disease. These are not changed appreciably from the previous study. There is no mass effect, midline shift or intracranial blood. IMPRESSION: 1. NO ACUTE INTRACRANIAL ABNORMALITY. 2. EVIDENCE OF AN OLD RIGHT OCCIPITAL INFARCT. 3. PARTIALLY EMPTY SELLA.
[2017-10-15] MEDS: CYANOCOBALAMIN 500 MCG TAB PO SCH (10:54)
[2017-10-15] MEDS: FAMOTIDINE 20 MG TAB PO SCH (10:54)
[2017-10-15] MEDS: LEVOTHYROXINE 125 MCG TAB PO SCH (10:54)
[2017-10-15] MEDS: SERTRALINE 25 MG TAB PO SCH (10:54)
[2017-10-15] MEDS: ATORVASTATIN 10 MG TAB PO SCH (10:54)
[2017-10-15] MEDS: amLODIPine 10 MG TAB PO SCH (10:54)
[2017-10-15] MEDS: METOPROLOL SUCCINATE (ER) 25 MG TAB.ER.24H PO SCH (10:55)
[2017-10-15] MEDS: ISOSORBIDE MONONITRATE ER 30 MG TAB.ER.24H PO SCH (10:55)
[2017-10-15] MEDS: CHOLECALCIFEROL 1,000 UNIT TAB PO SCH (10:55)
[2017-10-15] MEDS: FERROUS SULFATE 325 MG TAB PO SCH (10:55)
[2017-10-15] MEDS: levETIRAcetam IV 750 MG in SODIUM CHLORIDE 0.9% 100 ML IVPB SCH ×2 (11:15→21:11)
--- NOTE | 2017-10-15 11:23 | P.PN ---
Subjective Progress Note Date: 10/15/17 This is a 87-year-old female, patient of Dr. Lujan. Patient has a known history of chronic atrial fibrillation, COPD, diabetes, hyperlipidemia, hypertension, hypothyroidism, stroke with residual left-sided weakness, chronic kidney disease and coronary artery disease with previous CABG. Patient presents to the emergency room after being found to have a seizure at the [facility] in which she resides at. Patient was unresponsive when she was brought into the emergency room. She was started on IV Keppra for possible seizure. She has been seen evaluated by neurology. Computed tomography scan of the brain shows age-related atrophic and chronic small vessel ischemic change without acute intracranial process. Remote insults noted without evidence for acute ischemia. CT angiogram of the head and neck shows an estimated diameter reduction of 60% bilaterally with atherosclerotic disease CTA of head was negative. Patient has had no further seizure activity. She is more awake at this time. She is complaining of a headache in the right temporal region and she is also been having vision changes. Patient is also had elevated blood pressures. She is now awake enough to take her oral blood pressure pills. These will be restarted. She's being followed by speech therapy as well as neurology. Patient denies any chest pain or shortness breath. Denies any nausea or vomiting. Denies any bowel movement changes or urinary symptoms. Also note that she has a history of bleeding on the eye in which she is follows up with an qm nurse and has received injections before. They're also following her because she is had chronic vision changes. Initially I was told that the patient had a episode of nonsustained V. tach 9. Run. Cardiology was initially consulted however they reviewed the strip and noted that there is no evidence of an arrhythmia but this was artifact. Consult has been canceled. On 10/15/2017 patient is more alert today she is responsive still confused in no apparent distress, no new seizure since admission, patient had an MRI yesterday which revealed no evidence of any acute intracranial abnormality she had evidence of old right occipital infarct otherwise no new infarct or bleed. She had a prolonged witnessed seizure at the [facility] before admission , she was started on Keppra on admission Keppra level was ordered patient was seen by neurology Dr. Padilla. Objective - Vital Signs Vital signs: Vital Signs Temp 97.6 F 10/15/17 08:00 Pulse 84 10/15/17 08:00 Resp 16 10/15/17 08:00 BP 153/78 10/15/17 08:00 Pulse Ox 98 10/15/17 08:00 Intake & Output 10/14/17 10/15/17 10/15/17 18:59 06:59 18:59 Intake Total 780 Output Total 1200 Balance -1200 780 Weight 63.5 kg 70 kg Intake: Intake, IV Titration 700 Amount Sodium Chloride 0.9% 1, 300 000 ml @ 100 mls/hr IV . Q10H [facility] Rx#:[id number] Sodium Chloride 0.9% 1, 400 000 ml @ 100 mls/hr IV . Q10H [facility] Rx#:[id number] Oral 80 Output: Urine 1200 Other: Voiding Method Indwelling Catheter Indwelling Catheter # Voids 1 - Exam Head normocephalic and atraumatic Neck supple no JVD Lungs clear to auscultation bilaterally no wheezing or crackles Heart regular rate and rhythm S1-S2, no rub or gallop Abdomen is soft nontender nondistended positive bowel sounds no hepatosplenomegaly Extremities no edema no cyanosis or clubbing Neuro patient is more alert than yesterday she is confused there is no gross focal deficit - Labs CBC & Chem 7: 10/15/17 06:15 10/15/17 06:15 Labs: Abnormal Lab Results - Last 24 Hours (Table) 10/14/17 10/14/17 10/14/17 Range/Units 06:05 06:05 21:20 RBC (3.80-5.40) m/uL Hgb (11.4-16.0) gm/dL Hct (34.0-46.0) % RDW (11.5-15.5) % ESR 23 H (0-20) mm/hr Carbon Dioxide (22-30) mmol/L BUN (7-17) mg/dL Creatinine (0.52-1.04) mg/dL POC Glucose (mg/dL) 71 L (75-99) mg/dL Hemoglobin A1c 6.7 H (4.0-6.0) % Total Protein (6.3-8.2) g/dL Albumin (3.5-5.0) g/dL 10/15/17 10/15/17 10/15/17 Range/Units 00:04 02:07 06:15 RBC 3.35 L (3.80-5.40) m/uL Hgb 10.4 L (11.4-16.0) gm/dL Hct 32.6 L (34.0-46.0) % RDW 15.6 H (11.5-15.5) % ESR (0-20) mm/hr Carbon Dioxide (22-30) mmol/L BUN (7-17) mg/dL Creatinine (0.52-1.04) mg/dL POC Glucose (mg/dL) 72 L 104 H (75-99) mg/dL Hemoglobin A1c (4.0-6.0) % Total Protein (6.3-8.2) g/dL Albumin (3.5-5.0) g/dL 10/15/17 Range/Units 06:15 RBC (3.80-5.40) m/uL Hgb (11.4-16.0) gm/dL Hct (34.0-46.0) % RDW (11.5-15.5) % ESR (0-20) mm/hr Carbon Dioxide 31 H (22-30) mmol/L BUN 22 H (7-17) mg/dL Creatinine 1.05 H (0.52-1.04) mg/dL POC Glucose (mg/dL) (75-99) mg/dL Hemoglobin A1c (4.0-6.0) % Total Protein 6.0 L (6.3-8.2) g/dL Albumin 2.9 L (3.5-5.0) g/dL Assessment and Plan Plan: 1. Unresponsiveness: Likely postictal with new onset of seizure, no new seizure since admission mental status is improving gradually patient is more alert today 2. Seizure: New onset. Started on IV Keppra in the ER. Keppra level pending. Patient evaluated by neurology. Computed tomography scan of the brain completed showing no acute intracranial process. CTA of the neck showing estimated diameter reduction of 60% bilaterally with atherosclerotic disease CTA of the head no significant abnormality. EEG is pending. Patient has no further seizure activity 3. Right temporal headache with vision changes unclear if this is new or old. We'll order Tylenol IV for pain control. Computed tomography scan of the brain no acute change. Order sed rate level for further evaluation 4. History of stroke with left-sided weakness 5. Chronic atrial fibrillation with rapid ventricular response on initial EKG heart rate of 111. Patient is currently in atrial fibrillation with a heart rate in the 70s. Continue her metoprolol. Not on any anticoagulation. We'll have nursing staff verify this with patient's family. 6. Chronic kidney disease, stage III. Creatinine near baseline. 7. Essential hypertension: Elevated blood pressures on admission. This could be contributing to patient's headache as well. Restart home blood pressure medications. We'll adjust further depending on blood pressure readings 8. Hypothyroidism continue Synthroid 9. History of coronary disease with previous CABG 10. Diabetes mellitus type 2 we'll continue sliding for coverage during hospitalization. Glipizide on hold 11. 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 At that time patient's Eliquis and aspirin were discontinued.
[2017-10-15 11:41] LABS: Glucose,Whole Blood 105 mg/dL (75-99)
[2017-10-15 16:58] LABS: Glucose,Whole Blood 101 mg/dL (75-99)
[2017-10-15 21:04] LABS: Glucose,Whole Blood 105 mg/dL (75-99)
[2017-10-16] MEDS: SODIUM CHLORIDE 0.9% 1,000 ML IV SCH ×2 (04:23→18:04)
[2017-10-16 05:19] LABS: Glucose,Whole Blood 115 mg/dL (75-99)
[2017-10-16] MEDS: INSULIN ASPART 100 UNIT/ML 1 ML 10 ML VIAL SQ SCH ×4 (06:03→22:25)
[2017-10-16 06:13] LABS: Basophils % (A) 0 %; Eosinophils # (A) 0.1 k/uL (0-0.7); Eosinophils % (A) 1 %; HCT 31.7 % (34.0-46.0); HGB 10.4 gm/dL (11.4-16.0); Lymphocytes # (A) 1.5 k/uL (1.0-4.8); Lymphocytes % (A) 20 %; MCH 31.5 pg (25.0-35.0); MCHC 32.8 g/dL (31.0-37.0); MCV 95.8 fL (80.0-100.0); Mean Platelet Volume 7.3; Monocytes # (A) 0.6 k/uL (0-1.0); Monocytes % (A) 8 %; Neutrophils # (A) 5.1 k/uL (1.3-7.7); Neutrophils % (A) 69 %; Platelet Count 169 k/uL (150-450); RBC 3.31 m/uL (3.80-5.40); RDW 15.6 % (11.5-15.5); WBC 7.3 k/uL (3.8-10.6)
[2017-10-16 06:24] LABS: Calcium 9.3 mg/dL (8.4-10.2); Potassium 4.3 mmol/L (3.5-5.1); Total Bilirubin 0.8 mg/dL (0.2-1.3); Total Protein 6.2 g/dL (6.3-8.2)
[2017-10-16] MEDS: FERROUS SULFATE 325 MG TAB PO SCH (10:24)
[2017-10-16] MEDS: SERTRALINE 25 MG TAB PO SCH (10:24)
[2017-10-16] MEDS: METOPROLOL SUCCINATE (ER) 25 MG TAB.ER.24H PO SCH (10:24)
[2017-10-16] MEDS: LEVOTHYROXINE 125 MCG TAB PO SCH (10:24)
[2017-10-16] MEDS: CHOLECALCIFEROL 1,000 UNIT TAB PO SCH (10:24)
[2017-10-16] MEDS: FAMOTIDINE 20 MG TAB PO SCH (10:24)
[2017-10-16] MEDS: CYANOCOBALAMIN 500 MCG TAB PO SCH (10:24)
[2017-10-16] MEDS: amLODIPine 10 MG TAB PO SCH (10:24)
[2017-10-16] MEDS: ISOSORBIDE MONONITRATE ER 30 MG TAB.ER.24H PO SCH (10:24)
[2017-10-16] MEDS: ATORVASTATIN 10 MG TAB PO SCH (10:24)
[2017-10-16] MEDS: levETIRAcetam IV 750 MG in SODIUM CHLORIDE 0.9% 100 ML IVPB SCH ×2 (10:30→22:24)
[2017-10-16 11:41] LABS: Glucose,Whole Blood 263 mg/dL (75-99)
--- NOTE | 2017-10-16 14:30 | P.PN ---
Subjective Progress Note Date: 10/16/17 This is a 87-year-old female, patient of Dr. Lujan. Patient has a known history of chronic atrial fibrillation, COPD, diabetes, hyperlipidemia, hypertension, hypothyroidism, stroke with residual left-sided weakness, chronic kidney disease and coronary artery disease with previous CABG. Patient presents to the emergency room after being found to have a seizure at the [facility] in which she resides at. Patient was unresponsive when she was brought into the emergency room. She was started on IV Keppra for possible seizure. She has been seen evaluated by neurology. Computed tomography scan of the brain shows age-related atrophic and chronic small vessel ischemic change without acute intracranial process. Remote insults noted without evidence for acute ischemia. CT angiogram of the head and neck shows an estimated diameter reduction of 60% bilaterally with atherosclerotic disease CTA of head was negative. Patient has had no further seizure activity. She is more awake at this time. She is complaining of a headache in the right temporal region and she is also been having vision changes. Patient is also had elevated blood pressures. She is now awake enough to take her oral blood pressure pills. These will be restarted. She's being followed by speech therapy as well as neurology. Patient denies any chest pain or shortness breath. Denies any nausea or vomiting. Denies any bowel movement changes or urinary symptoms. Also note that she has a history of bleeding on the eye in which she is follows up with an online health and fitness coach and has received injections before. They're also following her because she is had chronic vision changes. Initially I was told that the patient had a episode of nonsustained V. tach 9. Run. Cardiology was initially consulted however they reviewed the strip and noted that there is no evidence of an arrhythmia but this was artifact. Consult has been canceled. On 10/15/2017 patient is more alert today she is responsive still confused in no apparent distress, no new seizure since admission, patient had an MRI yesterday which revealed no evidence of any acute intracranial abnormality she had evidence of old right occipital infarct otherwise no new infarct or bleed. She had a prolonged witnessed seizure at the [facility] home before admission , she was started on Keppra on admission Keppra level was ordered patient was seen by neurology Dr. Padilla. On 10/16/2017 patient is more alert and responsive today she denies any pain or discomfort there is no new reported seizure activity, no new input from neurology continue with Keppra awaiting Keppra level Objective - Vital Signs Vital signs: Vital Signs Temp 97.0 F L 10/16/17 08:00 Pulse 88 10/16/17 08:00 Resp 16 10/16/17 08:00 BP 152/86 10/16/17 08:00 Pulse Ox 96 10/16/17 08:00 Intake & Output 10/15/17 10/16/17 10/16/17 18:59 06:59 18:59 Intake Total 160 Output Total 1500 500 Balance -1500 -340 Weight 67 kg Intake: Intake, IV Titration 100 Amount Sodium Chloride 0.9% 1, 100 000 ml @ 100 mls/hr IV . Q10H [facility] Rx#:[id number] Oral 60 Output: Urine 1500 500 Other: Voiding Method Indwelling Catheter Indwelling Catheter Indwelling Catheter - Exam Head normocephalic and atraumatic Neck supple no JVD Lungs clear to auscultation bilaterally no wheezing or crackles Heart regular rate and rhythm S1-S2, no rub or gallop Abdomen is soft nontender nondistended positive bowel sounds no hepatosplenomegaly Extremities no edema no cyanosis or clubbing Neuro patient is more alert than yesterday she is confused there is no gross focal deficit - Labs CBC & Chem 7: 10/16/17 05:32 10/16/17 05:32 Labs: Abnormal Lab Results - Last 24 Hours (Table) 10/15/17 10/15/17 10/16/17 Range/Units 16:49 20:56 05:16 RBC (3.80-5.40) m/uL Hgb (11.4-16.0) gm/dL Hct (34.0-46.0) % RDW (11.5-15.5) % Chloride (98-107) mmol/L BUN (7-17) mg/dL Glucose (74-99) mg/dL POC Glucose (mg/dL) 101 H 105 H 115 H (75-99) mg/dL Total Protein (6.3-8.2) g/dL Albumin (3.5-5.0) g/dL 10/16/17 10/16/17 10/16/17 Range/Units 05:32 05:32 11:33 RBC 3.31 L (3.80-5.40) m/uL Hgb 10.4 L (11.4-16.0) gm/dL Hct 31.7 L (34.0-46.0) % RDW 15.6 H (11.5-15.5) % Chloride 109 H (98-107) mmol/L BUN 21 H (7-17) mg/dL Glucose 101 H (74-99) mg/dL POC Glucose (mg/dL) 263 H (75-99) mg/dL Total Protein 6.2 L (6.3-8.2) g/dL Albumin 3.0 L (3.5-5.0) g/dL Assessment and Plan Plan: 1. Unresponsiveness: Likely postictal with new onset of seizure, no new seizure since admission mental status is improving gradually patient is more alert today 2. Seizure: New onset. Started on IV Keppra in the ER. Keppra level pending. Patient evaluated by neurology. Computed tomography scan of the brain completed showing no acute intracranial process. CTA of the neck showing estimated diameter reduction of 60% bilaterally with atherosclerotic disease CTA of the head no significant abnormality. EEG is pending. Patient has no further seizure activity 3. Right temporal headache with vision changes unclear if this is new or old. We'll order Tylenol IV for pain control. Computed tomography scan of the brain no acute change. Order sed rate level for further evaluation 4. History of stroke with left-sided weakness 5. Chronic atrial fibrillation with rapid ventricular response on initial EKG heart rate of 111. Patient is currently in atrial fibrillation with a heart rate in the 70s. Continue her metoprolol. Not on any anticoagulation. We'll have nursing staff verify this with patient's family. 6. Chronic kidney disease, stage III. Creatinine near baseline. 7. Essential hypertension: Elevated blood pressures on admission. This could be contributing to patient's headache as well. Restart home blood pressure medications. We'll adjust further depending on blood pressure readings 8. Hypothyroidism continue Synthroid 9. History of coronary disease with previous CABG 10. Diabetes mellitus type 2 we'll continue sliding for coverage during hospitalization. Glipizide on hold 11. 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 At that time patient's Eliquis and aspirin were discontinued.
[2017-10-16 16:33] LABS: Glucose,Whole Blood 145 mg/dL (75-99)
[2017-10-16 20:54] LABS: Glucose,Whole Blood 150 mg/dL (75-99)
[2017-10-17] MEDS: SODIUM CHLORIDE 0.9% 1,000 ML IV SCH ×2 (06:11→12:41)
[2017-10-17 07:31] LABS: Glucose,Whole Blood 106 mg/dL (75-99)
[2017-10-17] MEDS: INSULIN ASPART 100 UNIT/ML 1 ML 10 ML VIAL SQ SCH ×4 (07:37→21:25)
[2017-10-17 08:19] LABS: Basophils % (A) 0 %; Eosinophils # (A) 0.1 k/uL (0-0.7); Eosinophils % (A) 1 %; HCT 30.4 % (34.0-46.0); HGB 9.9 gm/dL (11.4-16.0); Lymphocytes # (A) 1.4 k/uL (1.0-4.8); Lymphocytes % (A) 23 %; MCH 31.7 pg (25.0-35.0); MCHC 32.7 g/dL (31.0-37.0); MCV 96.9 fL (80.0-100.0); Mean Platelet Volume 7.5; Monocytes # (A) 0.6 k/uL (0-1.0); Monocytes % (A) 10 %; Neutrophils # (A) 3.9 k/uL (1.3-7.7); Neutrophils % (A) 64 %; Platelet Count 160 k/uL (150-450); RBC 3.14 m/uL (3.80-5.40); RDW 15.6 % (11.5-15.5); WBC 6.1 k/uL (3.8-10.6)
[2017-10-17 08:45] LABS: Albumin 2.8 g/dL (3.5-5.0); Potassium 4.1 mmol/L (3.5-5.1); Total Bilirubin 0.7 mg/dL (0.2-1.3); Total Protein 5.8 g/dL (6.3-8.2)
[2017-10-17] MEDS: FAMOTIDINE 20 MG TAB PO SCH (09:15)
[2017-10-17] MEDS: CHOLECALCIFEROL 1,000 UNIT TAB PO SCH (09:15)
[2017-10-17] MEDS: CYANOCOBALAMIN 500 MCG TAB PO SCH (09:15)
[2017-10-17] MEDS: amLODIPine 10 MG TAB PO SCH (09:15)
[2017-10-17] MEDS: SERTRALINE 25 MG TAB PO SCH (09:15)
[2017-10-17] MEDS: FERROUS SULFATE 325 MG TAB PO SCH (09:15)
[2017-10-17] MEDS: METOPROLOL SUCCINATE (ER) 25 MG TAB.ER.24H PO SCH (09:15)
[2017-10-17] MEDS: ISOSORBIDE MONONITRATE ER 30 MG TAB.ER.24H PO SCH (09:15)
[2017-10-17] MEDS: LEVOTHYROXINE 125 MCG TAB PO SCH (09:15)
[2017-10-17] MEDS: ATORVASTATIN 10 MG TAB PO SCH (09:15)
[2017-10-17] MEDS: levETIRAcetam IV 750 MG in SODIUM CHLORIDE 0.9% 100 ML IVPB SCH (09:16)
--- NOTE | 2017-10-17 11:23 | P.PN ---
Subjective Progress Note Date: 10/17/17 This is a 87-year-old female, patient of Dr. Lujan. Patient has a known history of chronic atrial fibrillation, COPD, diabetes, hyperlipidemia, hypertension, hypothyroidism, stroke with residual left-sided weakness, chronic kidney disease and coronary artery disease with previous CABG. Patient presents to the emergency room after being found to have a seizure at the [facility] in which she resides at. Patient was unresponsive when she was brought into the emergency room. She was started on IV Keppra for possible seizure. She has been seen evaluated by neurology. Computed tomography scan of the brain shows age-related atrophic and chronic small vessel ischemic change without acute intracranial process. Remote insults noted without evidence for acute ischemia. CT angiogram of the head and neck shows an estimated diameter reduction of 60% bilaterally with atherosclerotic disease CTA of head was negative. Patient has had no further seizure activity. She is more awake at this time. She is complaining of a headache in the right temporal region and she is also been having vision changes. Patient is also had elevated blood pressures. She is now awake enough to take her oral blood pressure pills. These will be restarted. She's being followed by speech therapy as well as neurology. Patient denies any chest pain or shortness breath. Denies any nausea or vomiting. Denies any bowel movement changes or urinary symptoms. Also note that she has a history of bleeding on the eye in which she is follows up with an jewelry repairer and has received injections before. They're also following her because she is had chronic vision changes. Initially I was told that the patient had a episode of nonsustained V. tach 9. Run. Cardiology was initially consulted however they reviewed the strip and noted that there is no evidence of an arrhythmia but this was artifact. Consult has been canceled. On 10/15/2017 patient is more alert today she is responsive still confused in no apparent distress, no new seizure since admission, patient had an MRI yesterday which revealed no evidence of any acute intracranial abnormality she had evidence of old right occipital infarct otherwise no new infarct or bleed. She had a prolonged witnessed seizure at the [facility] home before admission , she was started on Keppra on admission Keppra level was ordered patient was seen by neurology Dr. Padilla. On 10/16/2017 patient is more alert and responsive today she denies any pain or discomfort there is no new reported seizure activity, no new input from neurology continue with Keppra awaiting Keppra level 10/17/2017 no seizure activity reported. MRI of the brain no acute changes. Keppra level within normal range. Patient is awake and alert answering questions appropriately. She was able to say that she was never restarted on the Eliquis after being diagnosed with a posterior cerebral artery stroke with petechial hemorrhage on an MRI in April 2017. Aspirin had been on hold currently but repeat MRI of shows no bleed and no stroke. Aspirin will be restarted. Hemoglobin has trended down to 9.9. Iron studies ordered. Albumin 2.8. EEG pending. Objective - Vital Signs Vital signs: Vital Signs Temp 97.8 F 10/17/17 05:40 Pulse 66 10/17/17 05:40 Resp 20 10/17/17 05:40 BP 160/79 10/17/17 05:40 Pulse Ox 99 10/17/17 05:40 Intake & Output 10/16/17 10/17/17 10/17/17 18:59 06:59 18:59 Output Total 350 450 Balance -350 -450 Output: Urine 350 450 Other: Voiding Method Indwelling Catheter Indwelling Catheter Indwelling Catheter - Exam Head normocephalic Neck supple Lungs clear to auscultation bilaterally no wheezing or crackles Heart regular rate and rhythm S1-S2, no rub or gallop Abdomen is soft nontender nondistended positive bowel sounds no hepatosplenomegaly Extremities no edema Neuro alert and orientated to 3 - Labs CBC & Chem 7: 10/17/17 07:31 10/17/17 07:31 Labs: Abnormal Lab Results - Last 24 Hours (Table) 10/16/17 10/16/17 10/16/17 Range/Units 11:33 16:30 20:52 RBC (3.80-5.40) m/uL Hgb (11.4-16.0) gm/dL Hct (34.0-46.0) % RDW (11.5-15.5) % Chloride (98-107) mmol/L BUN (7-17) mg/dL POC Glucose (mg/dL) 263 H 145 H 150 H (75-99) mg/dL Total Protein (6.3-8.2) g/dL Albumin (3.5-5.0) g/dL 10/17/17 10/17/17 10/17/17 Range/Units 07:26 07:31 07:31 RBC 3.14 L (3.80-5.40) m/uL Hgb 9.9 L (11.4-16.0) gm/dL Hct 30.4 L (34.0-46.0) % RDW 15.6 H (11.5-15.5) % Chloride 109 H (98-107) mmol/L BUN 18 H (7-17) mg/dL POC Glucose (mg/dL) 106 H (75-99) mg/dL Total Protein 5.8 L (6.3-8.2) g/dL Albumin 2.8 L (3.5-5.0) g/dL Assessment and Plan Assessment: 1. Unresponsiveness: Likely postictal with new onset of seizure 2. Seizure: New onset. Started on IV Keppra in the ER. Patient evaluated by neurology. Computed tomography scan of the brain completed showing no acute intracranial process. CTA of the neck showing estimated diameter reduction of 60% bilaterally with atherosclerotic disease CTA of the head no significant abnormality. EEG is pending. Patient has no further seizure activity. Keppra level therapeutic 3. Right temporal headache with vision changes unclear if this is new or old. Symptoms resolved. Computed tomography scan and MRI of the brain no acute change. Sed rate level 23. Headache likely related to elevated blood pressures. 4. History of stroke with left-sided weakness 5. Chronic atrial fibrillation with rapid ventricular response on initial EKG heart rate of 111. Patient is currently in atrial fibrillation with a heart rate in the 70s. Continue her metoprolol. Not on any anticoagulation due to previous history of petechial hemorrhage on MRI of the brain 6. Chronic kidney disease, stage III. Creatinine near baseline. 7. Essential hypertension: Elevated blood pressures on admission. This could be contributing to patient's headache as well. Restart home blood pressure medications. Blood pressures improved. 8. Hypothyroidism continue Synthroid 9. History of coronary disease with previous CABG 10. Diabetes mellitus type 2 we'll continue sliding for coverage during hospitalization. Glipizide on hold 11. 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 At that time patient's Eliquis and aspirin were discontinued. Patient reports restarting baby aspirin. Per patient Eliquis was not restarted 12. Anemia: Hemoglobin dropped to 9.9. Check iron studies 13. Severe protein calorie malnutrition: Albumin 2.8 start Jeannine cheek Patient working with physical therapy. She will require ECF placement. Patient will be discharged to [facility] hopefully tomorrow. Awaiting EEG results and neurology recommendations for seizure medications GI prophylaxis Pepcid and DVT prophylaxis SCDs I performed an examination of the patient and discussed their management with the physician Wood Floor Refinisher. I have reviewed the Physician Wood Floor Refinisher's notes and agree with the documented findings and plan of care
[2017-10-17 11:57] LABS: Glucose,Whole Blood 160 mg/dL (75-99)
[2017-10-17] MEDS: ASPIRIN 81 MG PO SCH (13:12)
[2017-10-17 16:29] LABS: Iron Saturation 12.67 (12.00-45.00)
[2017-10-17 17:11] LABS: Glucose,Whole Blood 166 mg/dL (75-99)
[2017-10-17 20:30] LABS: Glucose,Whole Blood 167 mg/dL (75-99)
[2017-10-18 06:38] VITALS: BP 155/72; PULSE 85; RESP 20; TEMP 98.8
[2017-10-18 07:11] LABS: Glucose,Whole Blood 125 mg/dL (75-99)
[2017-10-18] MEDS: INSULIN ASPART 100 UNIT/ML 1 ML 10 ML VIAL SQ SCH ×2 (07:13→13:07)
[2017-10-18] MEDS: METOPROLOL SUCCINATE (ER) 25 MG TAB.ER.24H PO SCH (08:25)
[2017-10-18] MEDS: ASPIRIN 81 MG PO SCH (08:25)
[2017-10-18] MEDS: ISOSORBIDE MONONITRATE ER 30 MG TAB.ER.24H PO SCH (08:25)
[2017-10-18] MEDS: amLODIPine 10 MG TAB PO SCH (08:26)
[2017-10-18] MEDS: FERROUS SULFATE 325 MG TAB PO SCH (08:26)
[2017-10-18] MEDS: SERTRALINE 25 MG TAB PO SCH (08:26)
[2017-10-18] MEDS: LEVOTHYROXINE 125 MCG TAB PO SCH (08:26)
[2017-10-18] MEDS: FAMOTIDINE 20 MG TAB PO SCH (08:26)
[2017-10-18] MEDS: ATORVASTATIN 10 MG TAB PO SCH (08:26)
[2017-10-18] MEDS: CHOLECALCIFEROL 1,000 UNIT TAB PO SCH (08:26)
[2017-10-18] MEDS: CYANOCOBALAMIN 500 MCG TAB PO SCH (08:26)
[2017-10-18 08:42] LABS: Basophils % (A) 0 %; Eosinophils # (A) 0.1 k/uL (0-0.7); Eosinophils % (A) 1 %; HCT 33.7 % (34.0-46.0); HGB 10.3 gm/dL (11.4-16.0); Hypochromasia Slight; Lymphocytes # (A) 1.6 k/uL (1.0-4.8); Lymphocytes % (A) 23 %; MCH 30.3 pg (25.0-35.0); MCHC 30.6 g/dL (31.0-37.0); MCV 99.2 fL (80.0-100.0); Macrocytosis Slight; Mean Platelet Volume 7.8; Monocytes # (A) 0.7 k/uL (0-1.0); Monocytes % (A) 9 %; Neutrophils # (A) 4.7 k/uL (1.3-7.7); Neutrophils % (A) 66 %; Platelet Count 162 k/uL (150-450); RDW 15.5 % (11.5-15.5); WBC 7.1 k/uL (3.8-10.6)
[2017-10-18 09:02] LABS: Calcium 9.4 mg/dL (8.4-10.2); Potassium 4.5 mmol/L (3.5-5.1); Total Bilirubin 0.6 mg/dL (0.2-1.3); Total Protein 6.4 g/dL (6.3-8.2)
[2017-10-18 12:51] LABS: Glucose,Whole Blood 150 mg/dL (75-99)
[2017-10-18 13:03] VITALS: BMI 25.3
--- NOTE | 2017-10-18 13:52 | P.DS ---
Providers Date of admission: 10/13/17 15:22 Expected date of discharge: 10/18/17 Attending physician: Marcelo Fernandez Consults: 10/13/17 15:23 Consult Physician Urgent Consulting Provider: Vani Padilla Consult Reason/Comments: Status epilepticus, evaluate for stroke Do you want consulting provider notified?: Yes [facility] Course: Discharge diagnosis 1. Unresponsiveness: Likely postictal with new onset of seizure 2. Seizure: New onset. Started on IV Keppra in the ER. Patient evaluated by neurology. Computed tomography scan of the brain completed showing no acute intracranial process. CTA of the neck showing estimated diameter reduction of 60% bilaterally with atherosclerotic disease CTA of the head no significant abnormality. Patient has no further seizure activity. Keppra level therapeutic. Patient evaluated by neurology. Per nursing staff neurology had reviewed EEG. They are recommending Keppra 750 mg by mouth twice a day 3. Right temporal headache with vision changes unclear if this is new or old. Symptoms resolved. Computed tomography scan and MRI of the brain no acute change. Sed rate level 23. Headache likely related to elevated blood pressures. 4. History of stroke with left-sided weakness 5. Chronic atrial fibrillation with rapid ventricular response on initial EKG heart rate of 111. Patient is currently in atrial fibrillation with a heart rate in the 70s. Continue her metoprolol. Not on any anticoagulation due to previous history of petechial hemorrhage on MRI of the brain 6. Chronic kidney disease, stage III. Creatinine near baseline. 7. Essential hypertension: Elevated blood pressures on admission. This could be contributing to patient's headache as well. Restart home blood pressure medications. Blood pressures improved. 8. Hypothyroidism continue Synthroid 9. History of coronary disease with previous CABG 10. Diabetes mellitus type 2 blood sugar stable during admission. Patient did have one episode of hypoglycemia but that was likely when she was nothing by mouth until she became more awake after her postictal state 11. 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 At that time patient's Eliquis and aspirin were discontinued. Patient reports restarting baby aspirin. Per patient Eliquis was not restarted 12. Iron deficiency anemia: Hemoglobin up to 10.3 from 9.9. total iron 28. Increase ferrous sulfate to 325 mg twice a day. Check CBC in 1 week 13. Severe protein calorie malnutrition: Albumin 2.8 start [facility] course This is a 87-year-old female, patient of Dr. Lujan. Patient has a known history of chronic atrial fibrillation, COPD, diabetes, hyperlipidemia, hypertension, hypothyroidism, stroke with residual left-sided weakness, chronic kidney disease and coronary artery disease with previous CABG. Patient presents to the emergency room after being found to have a seizure at the [facility] in which she resides at. Patient was unresponsive when she was brought into the emergency room. She was started on IV Keppra for possible seizure. She has been seen evaluated by neurology. Computed tomography scan of the brain shows age-related atrophic and chronic small vessel ischemic change without acute intracranial process. Remote insults noted without evidence for acute ischemia. CT angiogram of the head and neck shows an estimated diameter reduction of 60% bilaterally with atherosclerotic disease CTA of head was negative. Patient has had no further seizure activity. She is more awake at this time. She is complaining of a headache in the right temporal region and she is also been having vision changes. Patient is also had elevated blood pressures. She is now awake enough to take her oral blood pressure pills. These will be restarted. She's being followed by speech therapy as well as neurology. Patient denies any chest pain or shortness breath. Denies any nausea or vomiting. Denies any bowel movement changes or urinary symptoms. Also note that she has a history of bleeding on the eye in which she is follows up with an developmental behavioral physician and has received injections before. They're also following her because she is had chronic vision changes. Initially I was told that the patient had a episode of nonsustained V. tach 9. Run. Cardiology was initially consulted however they reviewed the strip and noted that there is no evidence of an arrhythmia but this was artifact. Consult has been canceled. On 10/15/2017 patient is more alert today she is responsive still confused in no apparent distress, no new seizure since admission, patient had an MRI yesterday which revealed no evidence of any acute intracranial abnormality she had evidence of old right occipital infarct otherwise no new infarct or bleed. She had a prolonged witnessed seizure at the [facility] before admission , she was started on Keppra on admission Keppra level was ordered patient was seen by neurology Dr. Padilla. On 10/16/2017 patient is more alert and responsive today she denies any pain or discomfort there is no new reported seizure activity, no new input from neurology continue with Keppra awaiting Keppra level 10/17/2017 no seizure activity reported. MRI of the brain no acute changes. Keppra level within normal range. Patient is awake and alert answering questions appropriately. She was able to say that she was never restarted on the Eliquis after being diagnosed with a posterior cerebral artery stroke with petechial hemorrhage on an MRI in April 2017. Aspirin had been on hold currently but repeat MRI of shows no bleed and no stroke. Aspirin will be restarted. Hemoglobin has trended down to 9.9. Iron studies ordered. Albumin 2.8. EEG pending. 10/18/2017 patient is medically stable for discharge. She'll be discharged to [facility] for further rehabilitation. Dr. Fernandez will follow her care there. Patient diagnosed with seizure during this admission. EEG was reviewed by neurology. The results are not available to me. They are recommending Keppra 750 mg by mouth twice a day and had cleared her for discharge. Patient follow- up with Dr. Saucedo the neurologist in 2 weeks outpatient. Patient was also found to be anemic she did have a hemoglobin as low as 9.9 is now 10.3. She was found to have low iron levels in her ferrous sulfate has been increased to 3 and 25 mg twice a day instead of once a day. Recommend checking CBC in 1 week. Patient is medically stable for discharge. I performed an examination of the patient and discussed their management with the physician Neuropsychology Director. I have reviewed the Physician Neuropsychology Director's notes and agree with the documented findings and plan of care Patient Condition at Discharge: Stable Plan - Discharge Summary New Discharge Prescriptions: New Ferrous Sulfate [Iron (65 MG Elemental)] 325 mg PO BID-W/MEALS #0 tab levETIRAcetam [Keppra] 750 mg PO Q12HR tab Continue Furosemide [Lasix] 20 mg PO DAILY PRN PRN Reason: SWELLING Vit C/E/Zn/Coppr/Lutein/Zeaxan [Preservision Areds 2 Softgel] 1 cap PO DAILY Famotidine 40 mg PO DAILY Cholecalciferol [Vitamin D3] 1,000 unit PO DAILY amLODIPine BESYLATE [Norvasc] 10 mg PO DAILY Acetaminophen [Tylenol] 1,000 mg PO BID Aspirin [Adult Low Dose Aspirin EC] 81 mg PO DAILY Atorvastatin Calcium [Lipitor] 10 mg PO DAILY Cranberry Fruit Extract [Cranberry] 500 mg PO DAILY Cyanocobalamin [Vitamin B-12] 500 mcg PO DAILY Glimepiride [Amaryl] 2 mg PO BID Isosorbide Mononitrate [Isosorbide Mononitrate ER] 30 mg PO DAILY Levothyroxine Sodium 125 mcg PO DAILY Metoprolol Succinate (ER) [Toprol XL] 25 mg PO DAILY Monroe-3 Fatty Acids/Fish Oil [Fish Oil 1,000 mg Softgel] 1 each PO DAILY Rosuvastatin Calcium [Crestor] 5 mg PO DAILY Saxagliptin HCl [Onglyza] 5 mg PO DAILY Sertraline HCl [Zoloft] 25 mg PO DAILY Discontinued Ferrous Sulfate [Iron] 325 mg PO DAILY Discharge Medication List Furosemide [Lasix] 20 mg PO DAILY PRN 03/28/16 [History] Vit C/E/Zn/Coppr/Lutein/Zeaxan [Preservision Areds 2 Softgel] 1 cap PO DAILY [History] Cholecalciferol [Vitamin D3] 1,000 unit PO DAILY 05/22/17 [History] Famotidine 40 mg PO DAILY 05/22/17 [History] amLODIPine BESYLATE [Norvasc] 10 mg PO DAILY 05/22/17 [History] Acetaminophen [Tylenol] 1,000 mg PO BID 10/13/17 [History] Aspirin [Adult Low Dose Aspirin EC] 81 mg PO DAILY 10/13/17 [History] Atorvastatin Calcium [Lipitor] 10 mg PO DAILY 10/13/17 [History] Cranberry Fruit Extract [Cranberry] 500 mg PO DAILY 10/13/17 [History] Cyanocobalamin [Vitamin B-12] 500 mcg PO DAILY 10/13/17 [History] Glimepiride [Amaryl] 2 mg PO BID 10/13/17 [History] Isosorbide Mononitrate [Isosorbide Mononitrate ER] 30 mg PO DAILY 10/13/17 [ History] Levothyroxine Sodium 125 mcg PO DAILY 10/13/17 [History] Metoprolol Succinate (ER) [Toprol XL] 25 mg PO DAILY 10/13/17 [History] Monroe-3 Fatty Acids/Fish Oil [Fish Oil 1,000 mg Softgel] 1 each PO DAILY [History] Rosuvastatin Calcium [Crestor] 5 mg PO DAILY 10/13/17 [History] Saxagliptin HCl [Onglyza] 5 mg PO DAILY 10/13/17 [History] Sertraline HCl [Zoloft] 25 mg PO DAILY 10/13/17 [History] Ferrous Sulfate [Iron (65 MG Elemental)] 325 mg PO BID-W/MEALS #0 tab 10/18/17 [ Rx] levETIRAcetam [Keppra] 750 mg PO Q12HR tab 10/18/17 [Rx] Follow up Appointment(s)/Referral(s): Vani Padilla MD [STAFF PHYSICIAN] - 2 Weeks Shelly Lujan MD [Primary Care Provider] - 1 Week Ambulatory/Diagnostic Orders: Complete Blood Count w/diff [LAB.AMB] Time Frame: 1 Week, Location: None Selected Patient Instructions/Handouts: Type 2 Diabetes in Adults (DC) Activity/Diet/Wound Care/Special Instructions: continue up with assistance x 2 to the bathroom to prevent falls. continue heart healthy, consistent carb, soft diet. Glucerna shakes 3 times a day with meals ok to discharge patient to [facility]. Dr. Fernandez to follow at [facility] Discharge Disposition: TRANSFER TO SNF/ECF
[2017-10-18] MEDS ORDERED: FERROUS SULFATE 325 MG TAB PO SCH (17:30)
== END 2017-10-18 15:51 | DRG 100 ==
LOC: EC 13:53 → 6SEL 15:22 → 4MS4W 10-16 20:14
PROVIDERS: ADMIT Internal Medicine; ATTEND Internal Medicine
DX: G40.901 Epilepsy, unspecified, not intractable, with status epilepticus (principal); E43 Unspecified severe protein-calorie malnutrition; I47.2 Ventricular tachycardia; I69.354 Hemiplegia and hemiparesis following cerebral infarction affecting left non-dominant side; D50.9 Iron deficiency anemia, unspecified; E03.9 Hypothyroidism, unspecified; E11.22 Type 2 diabetes mellitus with diabetic chronic kidney disease; E11.649 Type 2 diabetes mellitus with hypoglycemia without coma; Z68.24 Body mass index [BMI] 24.0-24.9, adult; E78.5 Hyperlipidemia, unspecified; I12.9 Hypertensive chronic kidney disease with stage 1 through stage 4 chronic kidney disease, or unspecified chronic kidney disease; I25.10 Atherosclerotic heart disease of native coronary artery without angina pectoris; I48.2 Chronic atrial fibrillation; J44.9 Chronic obstructive pulmonary disease, unspecified; N18.3 Chronic kidney disease, stage 3 (moderate); Z79.82 Long term (current) use of aspirin; Z79.899 Other long term (current) drug therapy; Z87.891 Personal history of nicotine dependence; Z90.710 Acquired absence of both cervix and uterus; Z95.1 Presence of aortocoronary bypass graft; Z79.890 Hormone replacement therapy; Z88.6 Allergy status to analgesic agent; Z88.5 Allergy status to narcotic agent; Z90.49 Acquired absence of other specified parts of digestive tract
CPT/HCPCS: 36415; 70450; 70496; 70498; 70551; 71046; 80053; 80061; 80177; 82550; 82553; 82728; 83036; 83540; 83550; 83735; 84443; 84484; 85025; 85610; 85652; 85730; 93306; 95816; 96361; 96374; 96375; 96376; 99291

== ENCOUNTER 2018-08-09 16:09 | Inpatient (IN) | payer MEDICARE, BC ==
[2018-08-09] MEDS ORDERED: SODIUM CHLORIDE 0.9% 1,000 ML IV STA (16:33)
[2018-08-09] MEDS ORDERED: IPRATROPIUM-ALBUTEROL 3 ML NEB INHALATION STA (16:33)
[2018-08-09 16:48] LABS: Anisocytosis Slight; Basophils % (A) 0 %; Eosinophils # (A) 0.1 k/uL (0-0.7); Eosinophils % (A) 1 %; HCT 24.8 % (34.0-46.0); HGB 7.9 gm/dL (11.4-16.0); Lymphocytes # (A) 1.4 k/uL (1.0-4.8); Lymphocytes % (A) 15 %; MCH 30.2 pg (25.0-35.0); MCV 94.6 fL (80.0-100.0); Mean Platelet Volume 7.4; Monocytes # (A) 0.8 k/uL (0-1.0); Monocytes % (A) 9 %; Neutrophils # (A) 6.6 k/uL (1.3-7.7); Neutrophils % (A) 72 %; Platelet Count 254 k/uL (150-450); Poikilocytosis Slight; RBC 2.62 m/uL (3.80-5.40); RDW 16.6 % (11.5-15.5); WBC 9.2 k/uL (3.8-10.6)
[2018-08-09 16:56] LABS: INR 1.1 (<1.2); Partial Thromboplastin Time 26.9 sec (22.0-30.0); Prothrombin Time 11.2 sec (9.0-12.0)
[2018-08-09 16:57] LABS: ALT 20 U/L (9-52); AST 32 U/L (14-36); African American GFR (CKD) 31 (>60 ml/min/1.73 sqM); Albumin 3.3 g/dL (3.5-5.0); Alkaline Phosphatase 108 U/L (38-126); Anion Gap 9 mmol/L; Blood Urea Nitrogen 37 mg/dL (7-17); Calcium 8.9 mg/dL (8.4-10.2); Carbon Dioxide 28 mmol/L (22-30); Chloride 98 mmol/L (98-107); Creatine Kinase <20 U/L (30-135); Glucose 181 mg/dL (74-99); Magnesium 1.9 mg/dL (1.6-2.3); Phosphorus 4.5 mg/dL (2.5-4.5); Potassium 4.9 mmol/L (3.5-5.1); Sodium 135 mmol/L (137-145); Total Bilirubin 0.4 mg/dL (0.2-1.3); Total Protein 7.2 g/dL (6.3-8.2)
--- NOTE | 2018-08-09 17:21 | ED ---
Recheck HPI - General Chief Complaint: Recheck/Abnormal Lab/Rx Stated Complaint: Abnormal labs Time Seen by Provider: 08/09/18 16:21 Source: EMS, RN notes reviewed, old records reviewed Mode of arrival: EMS - History of Present Illness Initial Comments: This is a 88-year-old female the ER for evaluation she presents today for evaluation of shortness of breath, history of anemia. Patient unsure recent cause of anemia she has had prior blood transfusions before. She denies any pain denies any nausea vomiting denies any diarrhea, denies blood in her vomit or stool. She has neither. Unsure of why she has had prior transfusion. Complications. No blood thinners. MD Complaint: abnormal lab (Low hemoglobin) -: unknown Returns Today for: Called Because of Abnormal Lab/Test Context: called for abnormal lab result Associated Symptoms: shortness of breath - Related Data Home Medications Medication Instructions Recorded Confirmed Vit C/E/Zn/Coppr/Lutein/Zeaxan 1 cap PO DAILY@0903/28/16 08/09/18 [Preservision Areds 2 Softgel] Cholecalciferol [Vitamin D3 (25 1,000 unit PO DAILY 05/22/17 08/09/18 Mcg = 1000 Iu)] Famotidine 40 mg PO DAILY@89905/22/17 08/09/18 amLODIPine BESYLATE [Norvasc] 10 mg PO DAILY@209905/22/17 08/09/18 Acetaminophen [Tylenol] 1,000 mg PO BID@0900,209910/13/17 08/09/18 Aspirin [Adult Low Dose Aspirin EC] 81 mg PO DAILY@89910/13/17 08/09/18 Atorvastatin Calcium [Lipitor] 10 mg PO DAILY@209910/13/17 08/09/18 Cyanocobalamin [Vitamin B-12] 500 mcg PO DAILY 10/13/17 08/09/18 Isosorbide Mononitrate [Isosorbide 30 mg PO DAILY 10/13/17 08/09/18 Mononitrate ER] Levothyroxine Sodium 125 mcg PO DAILY 10/13/17 08/09/18 Metoprolol Succinate (ER) [Toprol 25 mg PO DAILY@89910/13/17 08/09/18 XL] [place]-3 Fatty Acids/Fish Oil [Fish 1 each PO DAILY@0900 10/13/17 08/09/18 Oil 1,000 mg Softgel] Rosuvastatin Calcium [Crestor] 5 mg PO DAILY@2100 10/13/17 08/09/18 Saxagliptin HCl [Onglyza] 5 mg PO DAILY@0910/13/17 08/09/18 Sertraline HCl [Zoloft] 25 mg PO DAILY@2100 10/13/17 08/09/18 Furosemide [Lasix] 40 mg PO DAILY@0608/09/18 08/09/18 Menthol [Biofreeze] 1 applic TOPICAL Q2H PRN 08/09/18 08/09/18 glipiZIDE [Glucotrol] 5 mg PO DAILY@1100 08/09/18 08/09/18 levETIRAcetam [Keppra] 250 mg PO TID@0600,1400,2200 08/09/18 08/09/18 traMADol HCL [Ultram] 50 mg PO Q8H PRN 08/09/18 08/09/18 Previous Rx's Medication Instructions Recorded Ferrous Sulfate [Iron (65 MG 325 mg PO BID-W/MEALS #0 tab 10/18/17 Elemental)] Allergies Allergy/AdvReac Type Severity Reaction Status Date / Time acetaminophen [From Lortab] Allergy Hallucinati Verified 08/09/18 16:26 ons hydrocodone [From Lortab] Allergy Hallucinati Verified 08/09/18 16:26 ons Review of Systems ROS Statement: Those systems with pertinent positive or pertinent negative responses have been documented in the HPI. ROS Other: All systems not noted in ROS Statement are negative. Past Medical History Past Medical History: Atrial Fibrillation, COPD, Diabetes Mellitus, Hy perlipidemia, Hypertension, Thyroid Disorder Additional Past Medical History / Comment(s): bleeding from unknown origin per family, headaches History of Any Multi-Drug Resistant Organisms: None Reported Past Surgical History: Appendectomy, Cholecystectomy, Coronary Bypass/CABG, Hysterectomy Additional Past Surgical History / Comment(s): 2009 five vessel CABG, shots in eye Past Psychological History: No Psychological Hx Reported Smoking Status: Former smoker Past Alcohol Use History: None Reported Past Drug Use History: None Reported - Past Family History Father History Unknown: Yes General Exam General appearance: alert, in no apparent distress Head exam: Present: atraumatic, normocephalic, normal inspection Eye exam: Present: normal appearance, PERRL, EOMI. Absent: scleral icterus, conjunctival injection, periorbital swelling ENT exam: Present: normal exam, mucous membranes moist Neck exam: Present: normal inspection. Absent: tenderness, meningismus, lymphadenopathy Respiratory exam: Present: normal lung sounds bilaterally. Absent: respiratory distress, wheezes, rales, rhonchi, stridor Cardiovascular Exam: Present: normal rhythm, irregular rhythm, normal heart sounds. Absent: systolic murmur, diastolic murmur, rubs, gallop, clicks GI/Abdominal exam: Present: soft, normal bowel sounds. Absent: distended, tenderness, guarding, rebound, rigid Extremities exam: Present: normal inspection, full ROM, normal capillary refill. Absent: tenderness, pedal edema, joint swelling, calf tenderness Back exam: Present: normal inspection Neurological exam: Present: alert, oriented X3, CN II-XII intact Psychiatric exam: Present: normal affect, normal mood Skin exam: Present: warm, dry, intact, normal color. Absent: rash Course Vital Signs 08/09/18 08/09/18 08/09/18 16:24 17:09 17:10 Temperature 98.1 F Pulse Rate 75 70 Pulse Rate [ 76 Bilateral Pulse Oximetery] Respiratory 18 Rate Blood Pressure 129/71 O2 Sat by Pulse 100 Oximetry 08/09/18 08/09/18 17:22 18:08 Temperature Pulse Rate 68 80 Pulse Rate [ Bilateral Pulse Oximetery] Respiratory 16 Rate Blood Pressure 130/74 O2 Sat by Pulse 100 Oximetry - Reevaluation(s) Reevaluation #1: 08/09/18 17:20 Medical record reviewed do not have access to prior labs Reevaluation #2: 08/09/18 19:12 Patient's not feeling syncopal she is weak she is short of breath Medical Decision Making - Medical Decision Making 88 female the ER for evaluation. Patient presents today for weakness low hemoglobin, no GI bleed. Patient be admitted for monitoring of hemoglobin no transfusion currently - Lab Data Result diagrams: 08/09/18 15:19 08/09/18 15:19 Lab Results 08/09/18 08/09/18 08/09/18 Range/Units 15:19 15:19 15:19 WBC 9.2 (3.8-10.6) k/uL RBC 2.62 L (3.80-5.40) m/uL Hgb 7.9 L (11.4-16.0) gm/dL Hct 24.8 L (34.0-46.0) % MCV 94.6 (80.0-100.0) fL MCH 30.2 (25.0-35.0) pg MCHC 32.0 (31.0-37.0) g/dL RDW 16.6 H (11.5-15.5) % Plt Count 254 (150-450) k/uL Neutrophils % 72 % Lymphocytes % 15 % Monocytes % 9 % Eosinophils % 1 % Basophils % 0 % Neutrophils # 6.6 (1.3-7.7) k/uL Lymphocytes # 1.4 (1.0-4.8) k/uL Monocytes # 0.8 (0-1.0) k/uL Eosinophils # 0.1 (0-0.7) k/uL Basophils # 0.0 (0-0.2) k/uL Poikilocytosis Slight Anisocytosis Slight PT (9.0-12.0) sec INR (<1.2) APTT (22.0-30.0) sec Sodium 135 L (137-145) mmol/L Potassium 4.9 (3.5-5.1) mmol/L Chloride 98 (98-107) mmol/L Carbon Dioxide 28 (22-30) mmol/L Anion Gap 9 mmol/L BUN 37 H (7-17) mg/dL Creatinine 1.70 H (0.52-1.04) mg/dL Est GFR (CKD-EPI)AfAm 31 (>60 ml/min/1.73 sqM) Est GFR (CKD-EPI)NonAf 27 (>60 ml/min/1.73 sqM) Glucose 181 H (74-99) mg/dL Plasma Lactic Acid Shoiab (0.7-2.0) mmol/L Calcium 8.9 (8.4-10.2) mg/dL Phosphorus 4.5 (2.5-4.5) mg/dL Magnesium 1.9 (1.6-2.3) mg/dL Total Bilirubin 0.4 (0.2-1.3) mg/dL AST 32 (14-36) U/L ALT 20 (9-52) U/L Alkaline Phosphatase 108 (38-126) U/L Creatine Kinase <20 L (30-135) U/L Troponin I (0.000-0.034) ng/mL NT-Pro-B Natriuret Pep 4320 pg/mL Total Protein 7.2 (6.3-8.2) g/dL Albumin 3.3 L (3.5-5.0) g/dL Blood Type Blood Type Confirm Blood Type Recheck Antibody Screen Spec Expiration Date 08/09/18 08/09/18 08/09/18 Range/Units 15:19 15:19 15:19 WBC (3.8-10.6) k/uL RBC (3.80-5.40) m/uL Hgb (11.4-16.0) gm/dL Hct (34.0-46.0) % MCV (80.0-100.0) fL MCH (25.0-35.0) pg MCHC (31.0-37.0) g/dL RDW (11.5-15.5) % Plt Count (150-450) k/uL Neutrophils % % Lymphocytes % % Monocytes % % Eosinophils % % Basophils % % Neutrophils # (1.3-7.7) k/uL Lymphocytes # (1.0-4.8) k/uL Monocytes # (0-1.0) k/uL Eosinophils # (0-0.7) k/uL Basophils # (0-0.2) k/uL Poikilocytosis Anisocytosis PT 11.2 (9.0-12.0) sec INR 1.1 (<1.2) APTT 26.9 (22.0-30.0) sec Sodium (137-145) mmol/L Potassium (3.5-5.1) mmol/L Chloride (98-107) mmol/L Carbon Dioxide (22-30) mmol/L Anion Gap mmol/L BUN (7-17) mg/dL Creatinine (0.52-1.04) mg/dL Est GFR (CKD-EPI)AfAm (>60 ml/min/1.73 sqM) Est GFR (CKD-EPI)NonAf (>60 ml/min/1.73 sqM) Glucose (74-99) mg/dL Plasma Lactic Acid Shoaib (0.7-2.0) mmol/L Calcium (8.4-10.2) mg/dL Phosphorus (2.5-4.5) mg/dL Magnesium (1.6-2.3) mg/dL Total Bilirubin (0.2-1.3) mg/dL AST (14-36) U/L ALT (9-52) U/L Alkaline Phosphatase (38-126) U/L Creatine Kinase (30-135) U/L Troponin I <0.012 (0.000-0.034) ng/mL NT-Pro-B Natriuret Pep pg/mL Total Protein (6.3-8.2) g/dL Albumin (3.5-5.0) g/dL Blood Type O Positive Blood Type Confirm Blood Type Recheck CABO Indicated Antibody Screen NEGATIVE Spec Expiration Date 08/12/2018 - 231808/09/18 08/09/18 Range/Units 15:19 17:20 WBC (3.8-10.6) k/uL RBC (3.80-5.40) m/uL Hgb (11.4-16.0) gm/dL Hct (34.0-46.0) % MCV (80.0-100.0) fL MCH (25.0-35.0) pg MCHC (31.0-37.0) g/dL RDW (11.5-15.5) % Plt Count (150-450) k/uL Neutrophils % % Lymphocytes % % Monocytes % % Eosinophils % % Basophils % % Neutrophils # (1.3-7.7) k/uL Lymphocytes # (1.0-4.8) k/uL Monocytes # (0-1.0) k/uL Eosinophils # (0-0.7) k/uL Basophils # (0-0.2) k/uL Poikilocytosis Anisocytosis PT (9.0-12.0) sec INR (<1.2) APTT (22.0-30.0) sec Sodium (137-145) mmol/L Potassium (3.5-5.1) mmol/L Chloride (98-107) mmol/L Carbon Dioxide (22-30) mmol/L Anion Gap mmol/L BUN (7-17) mg/dL Creatinine (0.52-1.04) mg/dL Est GFR (CKD-EPI)AfAm (>60 ml/min/1.73 sqM) Est GFR (CKD-EPI)NonAf (>60 ml/min/1.73 sqM) Glucose (74-99) mg/dL Plasma Lactic Acid Shoaib 1.2 (0.7-2.0) mmol/L Calcium (8.4-10.2) mg/dL Phosphorus (2.5-4.5) mg/dL Magnesium (1.6-2.3) mg/dL Total Bilirubin (0.2-1.3) mg/dL AST (14-36) U/L ALT (9-52) U/L Alkaline Phosphatase (38-126) U/L Creatine Kinase (30-135) U/L Troponin I (0.000-0.034) ng/mL NT-Pro-B Natriuret Pep pg/mL Total Protein (6.3-8.2) g/dL Albumin (3.5-5.0) g/dL Blood Type Blood Type Confirm O Positive Blood Type Recheck Antibody Screen Spec Expiration Date - EKG Data -: EKG Interpreted by Me (EKG shows A. fib rate of 73, QRS 74, QTc 436) - Radiology Data Radiology results: report reviewed (Chest x-rays negative for acute disease), image reviewed Disposition Clinical Impression: History of GI bleed, Anemia, Weakness Disposition: ADMITTED IP TO THIS HOSP Condition: Fair Is patient prescribed a controlled substance at d/c from ED?: No Referrals: Marcelo Fernandez MD [Primary Care Provider] - 1-2 days
--- NOTE | 2018-08-09 18:32 | XR ---
EXAMINATION: XR chest 2V DATE AND TIME: 08/09/2018 5:43 PM CLINICAL INDICATION: PHH; Weakness TECHNIQUE: Departmental protocol COMPARISON: 10/13/2017 FINDINGS: The lungs are clear. The pleural spaces are negative. Sternal sutures and mediastinal clips. The cardiac silhouette is moderately enlarged. The remainder o f the mediastinal silhouette is unremarkable. The skeletal structures and soft tissues are negative for acute findings. IMPRESSION: NO ACUTE PROCESS.
[2018-08-09 19:37] LABS: Appearance,Urine Cloudy (Clear); Bacteria,Urine Many /hpf; Bilirubin,Urine Negative (Negative); Blood,Urine Negative (Negative); Color,Urine Yellow; Glucose,Urine (UA) Negative (Negative); Hyaline Casts,Urine 3 /lpf (0-2); Ketones,Urine Negative (Negative); Leukocyte Esterase,Urine Large (Negative); Nitrite,Urine Negative (Negative); PH, Urine 5.5 (5.0-8.0); Protein,Urine Trace (Negative); RBC,Urine 1 /hpf (0-5); Specific Gravity,Urine 1.009 (1.001-1.035); Squamous Epithelial Cell,Urine <1 /hpf (0-4); Urobilinogen,Urine <2.0 mg/dL (<2.0); WBC,Urine 102 /hpf (0-5)
[2018-08-09 22:32] LABS: Anisocytosis Slight; Basophils % (A) 0 %; Eosinophils # (A) 0.1 k/uL (0-0.7); Eosinophils % (A) 1 %; HCT 24.9 % (34.0-46.0); Hypochromasia Slight; Lymphocytes # (A) 1.8 k/uL (1.0-4.8); Lymphocytes % (A) 17 %; MCH 31.2 pg (25.0-35.0); MCHC 32.3 g/dL (31.0-37.0); MCV 96.7 fL (80.0-100.0); Mean Platelet Volume 7.3; Monocytes # (A) 0.9 k/uL (0-1.0); Monocytes % (A) 9 %; Neutrophils # (A) 7.4 k/uL (1.3-7.7); Neutrophils % (A) 70 %; Platelet Count 253 k/uL (150-450); Poikilocytosis Slight; RBC 2.58 m/uL (3.80-5.40); RDW 16.7 % (11.5-15.5); WBC 10.5 k/uL (3.8-10.6)
[2018-08-09 23:47] VITALS: BMI 29.5
[2018-08-09 23:59] LABS: Glucose,Whole Blood 113 mg/dL (75-99)
[2018-08-10 07:14] LABS: Glucose,Whole Blood 93 mg/dL (75-99)
[2018-08-10] MEDS ORDERED: METHYL SALICYLATE/MENTHOL CREAM 5 OZ TOPICAL PRN (08:21)
[2018-08-10] MEDS ORDERED: NON-FORMULARY DRUG (Omega-3 Fatty Acids/Fish Oil [Fish Oil 1,000 Mg Softgel] 1 EACH) PO SCH (09:00)
[2018-08-10] MEDS ORDERED: FAMOTIDINE 20 MG TAB PO SCH (09:00)
[2018-08-10] MEDS: CHOLECALCIFEROL 1,000 UNIT TAB PO SCH (10:24)
[2018-08-10] MEDS: CYANOCOBALAMIN 500 MCG TAB PO SCH (10:24)
[2018-08-10] MEDS: METOPROLOL SUCCINATE (ER) 25 MG TAB.ER.24H PO SCH (10:25)
[2018-08-10] MEDS: glipiZIDE 5 MG TAB PO SCH (10:25)
[2018-08-10] MEDS: ISOSORBIDE MONONITRATE ER 30 MG TAB.ER.24H PO SCH (10:25)
[2018-08-10] MEDS: VIT A,C & E-LUTEIN-MINERALS 1 EACH TAB PO SCH (10:25)
[2018-08-10] MEDS: LINAGLIPTIN 5 MG TABLET PO SCH (10:25)
[2018-08-10 10:29] LABS: Anisocytosis Slight; Basophils % (A) 0 %; Eosinophils # (A) 0.1 k/uL (0-0.7); Eosinophils % (A) 1 %; HCT 23.6 % (34.0-46.0); HGB 7.4 gm/dL (11.4-16.0); Hypochromasia Slight; Lymphocytes # (A) 1.2 k/uL (1.0-4.8); Lymphocytes % (A) 14 %; MCH 30.7 pg (25.0-35.0); MCHC 31.6 g/dL (31.0-37.0); MCV 97.2 fL (80.0-100.0); Mean Platelet Volume 7.8; Monocytes # (A) 0.6 k/uL (0-1.0); Monocytes % (A) 7 %; Neutrophils # (A) 6.7 k/uL (1.3-7.7); Neutrophils % (A) 76 %; Platelet Count 231 k/uL (150-450); RBC 2.43 m/uL (3.80-5.40); RDW 16.6 % (11.5-15.5); WBC 8.7 k/uL (3.8-10.6)
[2018-08-10] MEDS: LEVOTHYROXINE 125 MCG TAB PO SCH (10:29)
--- NOTE | 2018-08-10 10:41 | P.HPIM ---
History of Present Illness H&P Date: 08/10/18 This is an 88-year-old female patient. Patient [place] [facility] [place] Patient presented due to low hemoglobin level. Patient denies any signs of bleeding. Patient does reports she's had increased shortness of breath. Patient does have a past medical history of atrial fibrillation in which she is not on anticoagulation due to previous brain bleed, COPD, diabetes mellitus, hyperlipidemia, hypertension, hypothyroidism, seizures, appendectomy, cholecystectomy and coronary artery bypass graft surgery. Patient's hemoglobin level low at 7.4. Chest x-ray completed showing no acute process. EKG completed showing atrial fibrillation with a heart rate of 73. Urinary analysis also showing urinary tract infection. Urine culture ordered. Patient started on Rocephin. At this time patient is resting comfortably in bed. Patient denies any chest pain. Patient is complaining of occasional shortness of breath without cough. Patient denies any nausea vomiting or diarrhea. Patient denies any urinary burning or frequency. Review of Systems please refer to HPI otherwise unremarkable Past Medical History Past Medical History: Atrial Fibrillation, COPD, Diabetes Mellitus, Hyperlipidemia, Hypertension, Thyroid Disorder Additional Past Medical History / Comment(s): bleeding from unknown origin per family, headaches History of Any Multi-Drug Resistant Organisms: None Reported Past Surgical History: Appendectomy, Cholecystectomy, Coronary Bypass/CABG, Hysterectomy Additional Past Surgical History / Comment(s): 2009 five vessel CABG, shots in eye Past Psychological History: No Psychological Hx Reported Smoking Status: Former smoker Past Alcohol Use History: None Reported Past Drug Use History: None Reported - Past Family History Father History Unknown: Yes Medications and Allergies Home Medications Medication Instructions Recorded Confirmed Type Vit C/E/Zn/Coppr/Lutein/Zeaxan 1 cap PO DAILY@0900 03/28/16 08/09/18 History [Preservision Areds 2 Softgel] Cholecalciferol [Vitamin D3 (25 1,000 unit PO DAILY 05/22/17 08/09/18 History Mcg = 1000 Iu)] Famotidine 40 mg PO DAILY@0900 05/22/17 08/09/18 History amLODIPine BESYLATE [Norvasc] 10 mg PO DAILY@209905/22/17 08/09/18 History Acetaminophen [Tylenol] 1,000 mg PO BID@0900,2100 10/13/17 08/09/18 History Aspirin [Adult Low Dose Aspirin EC] 81 mg PO DAILY@89910/13/17 08/09/18 History Atorvastatin Calcium [Lipitor] 10 mg PO DAILY@209910/13/17 08/09/18 History Cyanocobalamin [Vitamin B-12] 500 mcg PO DAILY 10/13/17 08/09/18 History Isosorbide Mononitrate [Isosorbide 30 mg PO DAILY 10/13/17 08/09/18 History Mononitrate ER] Levothyroxine Sodium 125 mcg PO DAILY 10/13/17 08/09/18 History Metoprolol Succinate (ER) [Toprol 25 mg PO DAILY@89910/13/17 08/09/18 History XL] [place]-3 Fatty Acids/Fish Oil [Fish 1 each PO DAILY@89910/13/17 08/09/18 History Oil 1,000 mg Softgel] Rosuvastatin Calcium [Crestor] 5 mg PO DAILY@209910/13/17 08/09/18 History Saxagliptin HCl [Onglyza] 5 mg PO DAILY@89910/13/17 08/09/18 History Sertraline HCl [Zoloft] 25 mg PO DAILY@209910/13/17 08/09/18 History Ferrous Sulfate [Iron (65 MG 325 mg PO BID-W/MEALS #0 tab 10/18/17 08/09/18 Rx Elemental)] Furosemide [Lasix] 40 mg PO DAILY@59908/09/18 08/09/18 History Menthol [Biofreeze] 1 applic TOPICAL Q2H PRN 08/09/18 08/09/18 History glipiZIDE [Glucotrol] 5 mg PO DAILY@1100 08/09/18 08/09/18 History levETIRAcetam [Keppra] 250 mg PO TID@0600,1400,2200 08/09/18 08/09/18 History traMADol HCL [Ultram] 50 mg PO Q8H PRN 08/09/18 08/09/18 History Allergies Allergy/AdvReac Type Severity Reaction Status Date / Time acetaminophen [From Lortab] Allergy Hallucinati Verified 08/09/18 16:26 ons hydrocodone [From Lortab] Allergy Hallucinati Verified 08/09/18 16:26 ons Physical Exam Vitals: Vital Signs Temp Pulse Pulse Resp BP BP Pulse Ox 08/10/18 07:59 95 08/10/18 04:00 99.0 F 90 18 135/65 97 08/09/18 22:05 98.5 F 88 20 148/73 100 08/09/18 21:17 98 F 80 16 121/56 100 08/09/18 20:10 97.9 F 85 16 142/66 100 08/09/18 18:08 80 16 130/74 100 08/09/18 17:22 68 08/09/18 17:10 76 08/09/18 17:09 70 08/09/18 16:24 98.1 F 75 18 129/71 100 Intake and Output 08/09/18 08/10/18 08/10/18 22:59 06:59 14:59 Other: Voiding Method Bedside Commode Incontinent # Voids 1 # Bowel Movements 1 Weight 66.361 kg 65.2 kg Head normocephalic Neck supple Lungs clear to auscultation bilaterally no wheezing or crackles Heart regular rate and rhythm S1-S2, no rub or gallop Abdomen is soft nontender nondistended positive bowel sounds no hepatosplenomegaly Extremities no edema Neuro alert and orientated to 2. Poor historian Results CBC & Chem 7: 08/10/18 10:02 08/09/18 15:19 Labs: Abnormal Lab Results - Last 24 Hours (Table) 08/09/18 08/09/18 08/09/18 Range/Units 15:19 15:19 19:30 RBC 2.62 L (3.80-5.40) m/uL Hgb 7.9 L (11.4-16.0) gm/dL Hct 24.8 L (34.0-46.0) % RDW 16.6 H (11.5-15.5) % Sodium 135 L (137-145) mmol/L BUN 37 H (7-17) mg/dL Creatinine 1.70 H (0.52-1.04) mg/dL Glucose 181 H (74-99) mg/dL POC Glucose (mg/dL) (75-99) mg/dL Creatine Kinase <20 L (30-135) U/L Albumin 3.3 L (3.5-5.0) g/dL Urine Appearance Cloudy H (Clear) Urine Protein Trace H (Negative) Ur Leukocyte Esterase Large H (Negative) Urine WBC 102 H (0-5) /hpf Urine WBC Clumps Many H (None) /hpf Urine Bacteria Many H (None) /hpf Hyaline Casts 3 H (0-2) /lpf 08/09/18 08/09/18 08/10/18 Range/Units 21:58 23:55 10:02 RBC 2.58 L 2.43 L (3.80-5.40) m/uL Hgb 8.0 L 7.4 L (11.4-16.0) gm/dL Hct 24.9 L 23.6 L (34.0-46.0) % RDW 16.7 H 16.6 H (11.5-15.5) % Sodium (137-145) mmol/L BUN (7-17) mg/dL Creatinine (0.52-1.04) mg/dL Glucose (74-99) mg/dL POC Glucose (mg/dL) 113 H (75-99) mg/dL Creatine Kinase (30-135) U/L Albumin (3.5-5.0) g/dL Urine Appearance (Clear) Urine Protein (Negative) Ur Leukocyte Esterase (Negative) Urine WBC (0-5) /hpf Urine WBC Clumps (None) /hpf Urine Bacteria (None) /hpf Hyaline Casts (0-2) /lpf Microbiology - Last 24 Hours (Table) 08/09/18 19:30 Urine Culture - Preliminary Urine,Voided Thrombosis Risk Factor Assmnt - Choose All That Apply Any of the Below Risk Factors Present?: Yes Each Factor Represents 1 point: Abnormal pulmonary function (COPD) Other Risk Factors: Yes Each Risk Factor Represents 3 Points: Age 75 years or older Other congenital or acquired thrombophilia - If yes, enter type in comment: No Thrombosis Risk Factor Assessment Total Risk Factor Score: 4 Thrombosis Risk Factor Assessment Level: Moderate Risk Assessment and Plan Assessment: 1. Anemia possible GI bleed. GI services have been consulted. Hemoglobin 7.4. We'll continue to monitor. 2. Shortness breath likely related to anemia. Chest x-ray completed showing no acute process 3. Chronic atrial fibrillation. Patient maintained Metroprolol. Patient not on any anticoagulation due to previous history of to petechial hemorrhage on MRI of the brain 4. History of seizures. Patient maintained on Keppra. Patient does follows with neurology services 5. Chronic kidney disease stage III. Baseline creatinine 1.60 and 35. Creatinine slightly elevated at 1.70. Lasix currently on hold 6. Diabetes mellitus type 2. Home meds reordered. Sliding scale coverage added 7. History of coronary artery disease with previous CABG in 2008 8. History of hypothyroidism. Patient maintained on Synthroid 9. History of iron deficiency anemia. Patient is maintained on ferrous sulfate 10. History of GERD 11. 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 Patient follows with dermatolo gy 12. Chronic systolic congestive heart failure. Patient is maintained on Lasix currently on hold due to elevated creatinine 13. Urinary tract infection. Patient maintained on Rocephin. Urine culture ordered DVT prophylaxis SCDs. GI prophylaxis Pepcid I performed an examination of the patient and discussed their management with the Nurse Practitioner. I have reviewed the Nurse Practitioner's notes and agree with the documented findings and plan of care Time with Patient: Greater than 30 (I performed an examination of the patient and discussed their management with the Nurse Practitioner. I have reviewed the Nurse Practitioner's notes and agree with the documented findings and plan of care. Greater than 60% of the total time spent in counseling and coordination of care)
[2018-08-10 10:48] LABS: Albumin 3.2 g/dL (3.5-5.0); Total Bilirubin 0.5 mg/dL (0.2-1.3); Total Protein 7.1 g/dL (6.3-8.2)
[2018-08-10 12:13] LABS: Glucose,Whole Blood 116 mg/dL (75-99)
[2018-08-10] MEDS: INSULIN ASPART (NovoLOG) 100 UNIT/ML VIAL SQ SCH ×3 (13:16→21:15)
[2018-08-10] MEDS: levETIRAcetam 250 MG TAB PO SCH ×2 (14:13→21:16)
--- NOTE | 2018-08-10 15:23 | P.CONS ---
History of Present Illness - Reason for Consult Consult date: 08/10/18 Anemia GI bleed evaluation Requesting physician: Marcelo Fernandez - Chief Complaint Abnormal CBC - History of Present Illness 88-year-old female admitted with an abnormal CBC. Past apical history of atrial fibrillation not on anticoagulation, iron deficiency anemia maintained on iron COPD, diabetes, CAD/CABG. Admission hemoglobin 7.9. MCV 94. Platelet 254. Presently hemoglobin is 7.4. INR 1.1. B1 37. Creatinine 1.7. Denies overt bleeding such as hematemesis met easier melena. No history GI bleed or peptic ulcer disease. No history of EGD colonoscopy. No NSAIDs or excessive aspirin usage. Iron indices September 2017 consistent with iron deficiency anemia. Past Medical History Past Medical History: Atrial Fibrillation, COPD, Diabetes Mellitus, Hyperlipidemia, Hypertension, Thyroid Disorder Additional Past Medical History / Comment(s): bleeding from unknown origin per family, headaches History of Any Multi-Drug Resistant Organisms: None Reported Past Surgical History: Appendectomy, Cholecystectomy, Coronary Bypass/CABG, Hysterectomy Additional Past Surgical History / Comment(s): 2008 five vessel CABG, shots in eye Past Psychological History: No Psychological Hx Reported Smoking Status: Former smoker Past Alcohol Use History: None Reported Past Drug Use History: None Reported - Past Family History Father History Unknown: Yes Medications and Allergies Home Medications Medication Instructions Recorded Confirmed Type Vit C/E/Zn/Coppr/Lutein/Zeaxan 1 cap PO DAILY@0900 03/28/16 08/09/18 History [Preservision Areds 2 Softgel] Cholecalciferol [Vitamin D3 (25 1,000 unit PO DAILY 05/22/17 08/09/18 History Mcg = 1000 Iu)] Famotidine 40 mg PO DAILY@0900 05/22/17 08/09/18 History amLODIPine BESYLATE [Norvasc] 10 mg PO DAILY@209905/22/17 08/09/18 History Acetaminophen [Tylenol] 1,000 mg PO BID@0900,209910/13/17 08/09/18 History Aspirin [Adult Low Dose Aspirin EC] 81 mg PO DAILY@0900 10/13/17 08/09/18 History Atorvastatin Calcium [Lipitor] 10 mg PO DAILY@209910/13/17 08/09/18 History Cyanocobalamin [Vitamin B-12] 500 mcg PO DAILY 10/13/17 08/09/18 History Isosorbide Mononitrate [Isosorbide 30 mg PO DAILY 10/13/17 08/09/18 History Mononitrate ER] Levothyroxine Sodium 125 mcg PO DAILY 10/13/17 08/09/18 History Metoprolol Succinate (ER) [Toprol 25 mg PO DAILY@89910/13/17 08/09/18 History XL] [place]-3 Fatty Acids/Fish Oil [Fish 1 each PO DAILY@89910/13/17 08/09/18 History Oil 1,000 mg Softgel] Rosuvastatin Calcium [Crestor] 5 mg PO DAILY@209910/13/17 08/09/18 History Saxagliptin HCl [Onglyza] 5 mg PO DAILY@89910/13/17 08/09/18 History Sertraline HCl [Zoloft] 25 mg PO DAILY@209910/13/17 08/09/18 History Ferrous Sulfate [Iron (65 MG 325 mg PO BID-W/MEALS #0 tab 10/18/17 08/09/18 Rx Elemental)] Furosemide [Lasix] 40 mg PO DAILY@59908/09/18 08/09/18 History Menthol [Biofreeze] 1 applic TOPICAL Q2H PRN 08/09/18 08/09/18 History glipiZIDE [Glucotrol] 5 mg PO DAILY@1100 08/09/18 08/09/18 History levETIRAcetam [Keppra] 250 mg PO TID@0600,1400,2200 08/09/18 08/09/18 History Cefuroxime Axetil [Ceftin] 500 mg PO BID 7 Days #14 tab 08/11/18 Rx traMADol HCL [Ultram] 50 mg PO Q8H PRN 14 Days #42 tablet 08/11/18 Rx Allergies Allergy/AdvReac Type Severity Reaction Status Date / Time acetaminophen [From Lortab] Allergy Hallucinati Verified 08/09/18 16:26 ons hydrocodone [From Lortab] Allergy Hallucinati Verified 08/09/18 16:26 ons Physical Exam Vitals: Vital Signs Temp Pulse Pulse Resp BP BP Pulse Ox 08/10/18 13:58 98.8 F 83 16 133/73 99 08/10/18 07:59 95 08/10/18 04:00 99.0 F 90 18 135/65 97 08/09/18 22:05 98.5 F 88 20 148/73 100 08/09/18 21:17 98 F 80 16 121/56 100 08/09/18 20:10 97.9 F 85 16 142/66 100 08/09/18 18:08 80 16 130/74 100 08/09/18 17:22 68 08/09/18 17:10 76 08/09/18 17:09 70 08/09/18 16:24 98.1 F 75 18 129/71 100 Intake and Output 08/10/18 08/10/18 08/10/18 06:59 14:59 22:59 Intake Total 50 Balance 50 Intake: IV 50 cefTRIAXone 1 gm In 50 Sodium Chloride 0.9% 50 ml @ 100 mls/hr IVPB Q24HR [facility] Rx#:[id number] Other: Voiding Method Bedside Commode Bedside Commode Incontinent # Voids 1 2 # Bowel Movements 1 Weight 65.2 kg General appearance: The patient is alert, oriented, in no acute distress. HET: Head is normocephalic and atraumatic. Pupils are equal and reactive. Oropharynx is clear without lesions. Neck: Supple without lymphadenopathy. Trachea midline. Heart: S1 S2. Lungs: No crackles or wheezes are heard. Abdomen: Soft, nontender, nondistended with bowel sounds. No peritoneal signs. No palpable organomegaly or masses. Extremities: Normal skin color and turgor. No cyanosis, rash, ulceration, clubbing, or edema. Radial and pedal pulses are 2/4 bilaterally. Neurological: No focal deficits. Strength and sensation are grossly intact. Results CBC & Chem 7: 08/11/18 08:52 08/11/18 08:52 Labs: Abnormal Lab Results - Last 24 Hours (Table) 08/09/18 08/09/18 08/09/18 Range/Units 15:19 15:19 19:30 RBC 2.62 L (3.80-5.40) m/uL Hgb 7.9 L (11.4-16.0) gm/dL Hct 24.8 L (34.0-46.0) % RDW 16.6 H (11.5-15.5) % Sodium 135 L (137-145) mmol/L BUN 37 H (7-17) mg/dL Creatinine 1.70 H (0.52-1.04) mg/dL Glucose 181 H (74-99) mg/dL POC Glucose (mg/dL) (75-99) mg/dL Creatine Kinase <20 L (30-135) U/L Albumin 3.3 L (3.5-5.0) g/dL Urine Appearance Cloudy H (Clear) Urine Protein Trace H (Negative) Ur Leukocyte Esterase Large H (Negative) Urine WBC 102 H (0-5) /hpf Urine WBC Clumps Many H (None) /hpf Urine Bacteria Many H (None) /hpf Hyaline Casts 3 H (0-2) /lpf 08/09/18 08/09/18 08/10/18 Range/Units 21:58 23:55 10:02 RBC 2.58 L 2.43 L (3.80-5.40) m/uL Hgb 8.0 L 7.4 L (11.4-16.0) gm/dL Hct 24.9 L 23.6 L (34.0-46.0) % RDW 16.7 H 16.6 H (11.5-15.5) % Sodium (137-145) mmol/L BUN (7-17) mg/dL Creatinine (0.52-1.04) mg/dL Glucose (74-99) mg/dL POC Glucose (mg/dL) 113 H (75-99) mg/dL Creatine Kinase (30-135) U/L Albumin (3.5-5.0) g/dL Urine Appearance (Clear) Urine Protein (Negative) Ur Leukocyte Esterase (Negative) Urine WBC (0-5) /hpf Urine WBC Clumps (None) /hpf Urine Bacteria (None) /hpf Hyaline Casts (0-2) /lpf 08/10/18 08/10/18 Range/Units 10:02 11:56 RBC (3.80-5.40) m/uL Hgb (11.4-16.0) gm/dL Hct (34.0-46.0) % RDW (11.5-15.5) % Sodium (137-145) mmol/L BUN 28 H (7-17) mg/dL Creatinine 1.25 H (0.52-1.04) mg/dL Glucose 142 H (74-99) mg/dL POC Glucose (mg/dL) 116 H (75-99) mg/dL Creatine Kinase (30-135) U/L Albumin 3.2 L (3.5-5.0) g/dL Urine Appearance (Clear) Urine Protein (Negative) Ur Leukocyte Esterase (Negative) Urine WBC (0-5) /hpf Urine WBC Clumps (None) /hpf Urine Bacteria (None) /hpf Hyaline Casts (0-2) /lpf Microbiology - Last 24 Hours (Table) 08/09/18 19:30 Urine Culture - Preliminary Urine,Voided Assessment and Plan (1) Anemia Narrative/Plan: 88-year-old female admitted with normocytic hypochromic iron deficiency anemia without overt bleeding such as hematemesis medicated melena. History of iron deficiency anemia maintained on iron supplementation. Current Visit: Yes Status: Acute Code(s): D64.9 - ANEMIA, UNSPECIFIED SNOM ED Code(s): 523069269 Plan: 1. Vitamin B12 folate requested. No plans for inpatient endoscopic exams at this time unless patient manifests active GI bleeding. EGD colonoscopy was discussed however at this time patient is declining. Guaiac testing. Continue to monitor CBC closely. Will follow closely with you. Thank you for this kind referral and the opportunity to participate in the care of your patient. This consultation was discussed with Dr. Garcia. The impression and plan of care have been directed as dictated.
[2018-08-10] MEDS: FERROUS SULFATE 325 MG TAB PO SCH (16:24)
[2018-08-10 17:12] LABS: Glucose,Whole Blood 130 mg/dL (75-99)
[2018-08-10] MEDS: traMADol 50 MG TAB PO PRN (17:21)
[2018-08-10 19:04] LABS: Iron Saturation 7.44 (12.00-45.00)
[2018-08-10] MEDS ORDERED: amLODIPine 10 MG TAB PO SCH (21:00)
[2018-08-10] MEDS ORDERED: NON-FORMULARY DRUG (Rosuvastatin Calcium [Crestor] 5 MG) PO SCH (21:00)
[2018-08-10] MEDS ORDERED: ATORVASTATIN 10 MG TAB PO SCH (21:00)
[2018-08-10] MEDS ORDERED: SERTRALINE 25 MG TAB PO SCH (21:00)
[2018-08-10 21:12] LABS: Glucose,Whole Blood 130 mg/dL (75-99)
[2018-08-11] MEDS: LEVOTHYROXINE 125 MCG TAB PO SCH (05:42)
[2018-08-11] MEDS: levETIRAcetam 250 MG TAB PO SCH ×2 (05:42→14:03)
[2018-08-11] MEDS ORDERED: FUROSEMIDE 40 MG TAB PO SCH (06:00)
[2018-08-11] MEDS: INSULIN ASPART (NovoLOG) 100 UNIT/ML VIAL SQ SCH ×3 (07:34→16:54)
[2018-08-11 07:36] LABS: Glucose,Whole Blood 94 mg/dL (75-99)
[2018-08-11] MEDS: traMADol 50 MG TAB PO PRN (07:52)
[2018-08-11] MEDS: METOPROLOL SUCCINATE (ER) 25 MG TAB.ER.24H PO SCH (07:53)
[2018-08-11] MEDS: CHOLECALCIFEROL 1,000 UNIT TAB PO SCH (07:53)
[2018-08-11] MEDS: FERROUS SULFATE 325 MG TAB PO SCH ×2 (07:53→16:50)
[2018-08-11] MEDS: ISOSORBIDE MONONITRATE ER 30 MG TAB.ER.24H PO SCH (07:53)
[2018-08-11] MEDS: LINAGLIPTIN 5 MG TABLET PO SCH (07:53)
[2018-08-11] MEDS: CYANOCOBALAMIN 500 MCG TAB PO SCH (07:53)
[2018-08-11] MEDS: VIT A,C & E-LUTEIN-MINERALS 1 EACH TAB PO SCH (07:53)
[2018-08-11] MEDS ORDERED: FAMOTIDINE 20 MG TAB PO SCH (09:00)
[2018-08-11 09:29] LABS: Anisocytosis Slight; Basophils % (A) 0 %; Eosinophils # (A) 0.1 k/uL (0-0.7); Eosinophils % (A) 1 %; HCT 23.8 % (34.0-46.0); HGB 7.6 gm/dL (11.4-16.0); Hypochromasia Moderate; Lymphocytes # (A) 1.1 k/uL (1.0-4.8); Lymphocytes % (A) 9 %; MCHC 31.8 g/dL (31.0-37.0); MCV 97.3 fL (80.0-100.0); Mean Platelet Volume 7.8; Monocytes # (A) 0.9 k/uL (0-1.0); Monocytes % (A) 8 %; Neutrophils # (A) 9.4 k/uL (1.3-7.7); Neutrophils % (A) 81 %; Platelet Count 213 k/uL (150-450); Poikilocytosis Slight; RBC 2.44 m/uL (3.80-5.40); WBC 11.7 k/uL (3.8-10.6)
[2018-08-11 09:50] LABS: Albumin 3.1 g/dL (3.5-5.0); Calcium 9.4 mg/dL (8.4-10.2); Potassium 4.4 mmol/L (3.5-5.1); Total Bilirubin 0.4 mg/dL (0.2-1.3); Total Protein 7.1 g/dL (6.3-8.2)
[2018-08-11] MEDS: glipiZIDE 5 MG TAB PO SCH (11:43)
[2018-08-11 11:57] LABS: Glucose,Whole Blood 135 mg/dL (75-99)
[2018-08-11] MEDS ORDERED: SODIUM FERRIC GLUCONAT-SUCROSE 125 MG in SODIUM CHLORIDE 0.9% 100 ML IVPB ONE (12:00)
--- NOTE | 2018-08-11 14:03 | P.DS ---
Providers Date of admission: 08/09/18 19:12 Expected date of discharge: 08/11/18 Attending physician: Marcelo Fernandez Consults: 08/10/18 10:28 Consult Physician Routine Consulting Provider: Carlos A Zhu Consult Reason/Comments: anemia, gi bleed Do you want consulting provider notified?: Yes Primary care physician: Marcelo Rebecca [facility] Course: Discharge diagnosis 1. Anemia possible GI bleed. GI services have been consulted. Hemoglobin 7.4. We'll continue to monitor. Globin 07.6 patient will be DC'd on ferrous sulfate 2. Shortness breath likely related to anemia. Chest x-ray completed showing no acute process 3. Chronic atrial fibrillation. Patient maintained Metroprolol. Patient not on any anticoagulation due to previous history of to petechial hemorrhage on MRI of the brain 4. History of seizures. Patient maintained on Keppra. Patient does follows with neurology services 5. Chronic kidney disease stage III. Baseline creatinine 1.60 and 35. Creatinine improving to 1.1 6. Diabetes mellitus type 2. Home meds reordered. Sliding scale coverage added 7. History of coronary artery disease with previous CABG in 2008 8. History of hypothyroidism. Patient maintained on Synthroid 9. History of iron deficiency anemia. Patient is maintained on ferrous sulfate 10. History of GERD 11. 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 Patient follows with dermatology 12. Chronic systolic congestive heart failure. Patient maintained on Lasix. 13. Urinary tract infection. Patient maintained on Rocephin. Urine culture ordered. Patient will be DC'd on Ceftin Hospital course This is an 88-year-old female patient. Patient currently resides at [facility]. Patient presented due to low hemoglobin level. Patient denies any signs of bleeding. Patient does reports she's had increased shortness of breath. Patient does have a past medical history of atrial fibrillation in which she is not on anticoagulation due to previous brain bleed, COPD, diabetes mellitus, hyperlipidemia, hypertension, hypothyroidism, seizures, appendectomy, cholecystectomy and coronary artery bypass graft surgery. Patient's hemoglobin level low at 7.4. Chest x-ray completed showing no acute process. EKG completed showing atrial fibrillation with a heart rate of 73. Urinary analysis also showing urinary tract infection. Urine culture ordered. Patient started on Rocephin. At this time patient is resting comfortably in bed. Patient denies any chest pain. Patient is complaining of occasional shortness of breath without cough. Patient denies any nausea vomiting or diarrhea. Patient denies any urinary burning or frequency. On 08/11/2018 patient is alert and oriented 3. Hemoglobin stable 7.6. No signs of bleeding. Patient received 1 dose of IV iron today. EGD was discussed per GI services patient declined. Iron, TIBC vitamin B12 within normal limits at 792. Patient will be DC'd on Ceftin for urinary tract infection. At this time patient denies chest pain or shortness of breath. Patient denies nausea vomiting or diarrhea. Patient denies any urinary burning or frequency. I performed an examination of the patient and discussed their management with the Nurse Practitioner. I have reviewed the Nurse Practitioner's notes and agree with the documented findings and plan of care Patient Condition at Discharge: Stable Plan - Discharge Summary Discharge Rx Participant: No New Discharge Prescriptions: New Cefuroxime Axetil [Ceftin] 500 mg PO BID 7 Days #14 tab Continue Vit C/E/Zn/Coppr/Lutein/Zeaxan [Preservision Areds 2 Softgel] 1 cap PO DAILY@0900 Famotidine 40 mg PO DAILY@0900 Cholecalciferol [Vitamin D3 (25 Mcg = 1000 Iu)] 1,000 unit PO DAILY amLODIPine BESYLATE [Norvasc] 10 mg PO DAILY@2100 Acetaminophen [Tylenol] 1,000 mg PO BID@0900,2100 Aspirin [Adult Low Dose Aspirin EC] 81 mg PO DAILY@0900 Atorvastatin Calcium [Lipitor] 10 mg PO DAILY@2100 Cyanocobalamin [Vitamin B-12] 500 mcg PO DAILY Isosorbide Mononitrate [Isosorbide Mononitrate ER] 30 mg PO DAILY Levothyroxine Sodium 125 mcg PO DAILY Metoprolol Succinate (ER) [Toprol XL] 25 mg PO DAILY@0900 [place]-3 Fatty Acids/Fish Oil [Fish Oil 1,000 mg Softgel] 1 each PO DAILY@0900 Rosuvastatin Calcium [Crestor] 5 mg PO DAILY@2100 Saxagliptin HCl [Onglyza] 5 mg PO DAILY@0900 Sertraline HCl [Zoloft] 25 mg PO DAILY@2100 Ferrous Sulfate [Iron (65 MG Elemental)] 325 mg PO BID-W/MEALS #0 tab Menthol [Biofreeze] 1 applic TOPICAL Q2H PRN PRN Reason: Pain levETIRAcetam [Keppra] 250 mg PO TID@0600,1400,2200 Furosemide [Lasix] 40 mg PO DAILY@0600 glipiZIDE [Glucotrol] 5 mg PO DAILY@1100 traMADol HCL [Ultram] 50 mg PO Q8H PRN 14 Days #42 tablet PRN Reason: HEADAHCE/PAIN Discharge Medication List Vit C/E/Zn/Coppr/Lutein/Zeaxan [Preservision Areds 2 Softgel] 1 cap PO DAILY@0903/28/16 [History] Cholecalciferol [Vitamin D3 (25 Mcg = 1000 Iu)] 1,000 unit PO DAILY 05/22/17 [Hi story] Famotidine 40 mg PO DAILY@89905/22/17 [History] amLODIPine BESYLATE [Norvasc] 10 mg PO DAILY@209905/22/17 [History] Acetaminophen [Tylenol] 1,000 mg PO BID@09,209910/13/17 [History] Aspirin [Adult Low Dose Aspirin EC] 81 mg PO DAILY@89910/13/17 [History] Atorvastatin Calcium [Lipitor] 10 mg PO DAILY@209910/13/17 [History] Cyanocobalamin [Vitamin B-12] 500 mcg PO DAILY 10/13/17 [History] Isosorbide Mononitrate [Isosorbide Mononitrate ER] 30 mg PO DAILY 10/13/17 [History] Levothyroxine Sodium 125 mcg PO DAILY 10/13/17 [History] Metoprolol Succinate (ER) [Toprol XL] 25 mg PO DAILY@89910/13/17 [History] [place]-3 Fatty Acids/Fish Oil [Fish Oil 1,000 mg Softgel] 1 each PO DAILY@89910/13/17 [History] Rosuvastatin Calcium [Crestor] 5 mg PO DAILY@209910/13/17 [History] Saxagliptin HCl [Onglyza] 5 mg PO DAILY@89910/13/17 [History] Sertraline HCl [Zoloft] 25 mg PO DAILY@209910/13/17 [History] Ferrous Sulfate [Iron (65 MG Elemental)] 325 mg PO BID-W/MEALS #0 tab 10/18/17 [Rx] Furosemide [Lasix] 40 mg PO DAILY@08/09/19 [History] Menthol [Biofreeze] 1 applic TOPICAL Q2H PRN 08/09/18 [History] glipiZIDE [Glucotrol] 5 mg PO DAILY@1100 08/09/18 [History] levETIRAcetam [Keppra] 250 mg PO TID@0600,1400,2200 08/09/18 [History] Cefuroxime Axetil [Ceftin] 500 mg PO BID 7 Days #14 tab 08/11/18 [Rx] traMADol HCL [Ultram] 50 mg PO Q8H PRN 14 Days #42 tablet 08/11/18 [Rx] Follow up Appointment(s)/Referral(s): Marcelo Fernandez MD [Primary Care Provider] - 1-2 days Activity/Diet/Wound Care/Special Instructions: Activity as tolerated Diet heart healthy Discharge Disposition: TRANSFER TO SNF/ECF
[2018-08-11 14:54] VITALS: BP 126/60; PULSE 90; RESP 16; TEMP 97.4
--- NOTE | 2018-08-11 15:07 | P.PN ---
Subjective Progress Note Date: 08/11/18 Principal diagnosis: Anemia No GI bleeding. Feels well. Tolerating diet. Hemoglobin stable 7.6. No bowel movements. Objective - Vital Signs Vital signs: Vital Signs Temp 97.4 F L 08/11/18 13:20 Pulse 90 08/11/18 13:20 Resp 16 08/11/18 13:20 BP 126/60 08/11/18 13:20 Pulse Ox 99 08/11/18 13:20 Intake & Output 08/10/18 08/11/18 08/11/18 18:59 06:59 18:59 Intake Total 50 150 Balance 50 150 Weight 68.5 kg Intake: IV 50 50 cefTRIAXone 1 gm In 50 50 Sodium Chloride 0.9% 50 ml @ 100 mls/hr IVPB Q24HR [facility] Rx#:[id number] Intake, IV Titration 100 Amount Sodium Ferric Gluconat- 100 Sucrose 125 mg In Sodium Chloride 0.9% 100 ml @ 100 mls/hr IVPB ONCE ONE Rx#:[id number] Other: Voiding Method Bedside Commode # Voids 2 4 - Exam General appearance: The patient is alert, oriented, in no acute distress. HET: Head is normocephalic and atraumatic. Pupils are equal and reactive. Oropharynx is clear without lesions. Neck: Supple without lymphadenopathy. Trachea midline. Heart: S1 S2. Regular rate and rhythm. Lungs: No crackles or wheezes are heard. Abdomen: Soft, nontender, nondistended with bowel sounds. No peritoneal signs. No palpable organomegaly or masses. Extremities: Normal skin color and turgor. No cyanosis, rash, ulceration, clubbing, or edema. Radial and pedal pulses are 2/4 bilaterally. Neurological: No focal deficits. Strength and sensation are grossly intact. - Labs CBC & Chem 7: 08/11/18 08:52 08/11/18 08:52 Labs: Abnormal Lab Results - Last 24 Hours (Table) 08/10/18 08/10/18 08/10/18 Range/Units 10:02 17:10 21:11 WBC (3.8-10.6) k/uL RBC (3.80-5.40) m/uL Hgb (11.4-16.0) gm/dL Hct (34.0-46.0) % RDW (11.5-15.5) % Neutrophils # (1.3-7.7) k/uL BUN (7-17) mg/dL Creatinine (0.52-1.04) mg/dL Glucose (74-99) mg/dL POC Glucose (mg/dL) 130 H 130 H (75-99) mg/dL Iron 16 L (50-170) ug/dL TIBC 215 L (228-460) ug/dL Iron Saturation 7.44 L (12.00-45.00) Ferritin 333.9 H (10.0-291.0) ng/mL Albumin (3.5-5.0) g/dL 08/11/18 08/11/18 08/11/18 Range/Units 08:52 08:52 11:43 WBC 11.7 H (3.8-10.6) k/uL RBC 2.44 L (3.80-5.40) m/uL Hgb 7.6 L (11.4-16.0) gm/dL Hct 23.8 L (34.0-46.0) % RDW 17.0 H (11.5-15.5) % Neutrophils # 9.4 H (1.3-7.7) k/uL BUN 22 H (7-17) mg/dL Creatinine 1.11 H (0.52-1.04) mg/dL Glucose 142 H (74-99) mg/dL POC Glucose (mg/dL) 135 H (75-99) mg/dL Iron (50-170) ug/dL TIBC (228-460) ug/dL Iron Saturation (12.00-45.00) Ferritin (10.0-291.0) ng/mL Albumin 3.1 L (3.5-5.0) g/dL Microbiology - Last 24 Hours (Table) 08/09/18 19:30 Urine Culture - Preliminary Urine,Voided Gram Neg Bacilli Assessment and Plan (1) Anemia Narrative/Plan: 88-year-old female admitted with normocytic hypochromic iron deficiency anemia without overt bleeding such as hematemesis hematochezia or melena. History of iron deficiency anemia maintained on iron supplementation. Suspect anemia of chronic disease an underlying occult GI bleed possible malignancy cannot be excluded. No history of EGD colonoscopy screening. Current Visit: Yes Status: Acute Code(s): D64.9 - ANEMIA, UNSPECIFIED SNOMED Code(s): 558098283 (2) Advanced age Current Visit: Yes Status: Acute Code(s): R54 - AGE-RELATED PHYSICAL DEBILITY SNOMED Code(s): 94357069 Plan: 1. Vitamin B12 reviewed, B12; 792. No plans for inpatient endoscopic exams at this time. May be discharged with outpatient CBC monitoring. EGD colonoscopy was discussed yesterday however at this time patient is declining. Assessment and plan a care discussed with Dr. Garcia
[2018-08-11 16:58] LABS: Glucose,Whole Blood 52 mg/dL (75-99)
[2018-08-11 17:17] LABS: Glucose,Whole Blood 63 mg/dL (75-99)
[2018-08-11 17:34] LABS: Glucose,Whole Blood 76 mg/dL (75-99)
== END 2018-08-11 17:33 | DRG 378 ==
LOC: EC 16:09 → 4MS4W 19:12
PROVIDERS: ADMIT Internal Medicine; ATTEND Internal Medicine
DX: K92.2 Gastrointestinal hemorrhage, unspecified (principal); I13.0 Hypertensive heart and chronic kidney disease with heart failure and stage 1 through stage 4 chronic kidney disease, or unspecified chronic kidney disease; I50.22 Chronic systolic (congestive) heart failure; N39.0 Urinary tract infection, site not specified; D50.9 Iron deficiency anemia, unspecified; E03.9 Hypothyroidism, unspecified; E11.22 Type 2 diabetes mellitus with diabetic chronic kidney disease; E78.5 Hyperlipidemia, unspecified; I25.10 Atherosclerotic heart disease of native coronary artery without angina pectoris; I48.2 Chronic atrial fibrillation; J44.9 Chronic obstructive pulmonary disease, unspecified; K21.9 Gastro-esophageal reflux disease without esophagitis; N18.3 Chronic kidney disease, stage 3 (moderate); Z79.82 Long term (current) use of aspirin; Z79.84 Long term (current) use of oral hypoglycemic drugs; Z79.890 Hormone replacement therapy; Z79.899 Other long term (current) drug therapy; Z87.891 Personal history of nicotine dependence; Z90.710 Acquired absence of both cervix and uterus; Z95.1 Presence of aortocoronary bypass graft
CPT/HCPCS: 36415; 71046; 80053; 81001; 82550; 82607; 82728; 83540; 83550; 83605; 83735; 83880; 84100; 84484; 85025; 85610; 85730; 86850; 86900; 86901; 87077; 87086; 87186; 93005; 94640; 94760; 96360; 96361; 99285

== ENCOUNTER 2018-08-21 15:08 | Inpatient (IN) | payer MEDICARE, BC ==
[2018-08-21 16:14] LABS: Anisocytosis Slight; Basophils % (A) 0 %; Eosinophils # (A) 0.1 k/uL (0-0.7); Eosinophils % (A) 1 %; HCT 22.7 % (34.0-46.0); HGB 7.1 gm/dL (11.4-16.0); Hypochromasia Moderate; Lymphocytes # (A) 1.5 k/uL (1.0-4.8); Lymphocytes % (A) 14 %; MCH 30.6 pg (25.0-35.0); MCHC 31.5 g/dL (31.0-37.0); Macrocytosis Slight; Mean Platelet Volume 7.6; Monocytes # (A) 0.9 k/uL (0-1.0); Monocytes % (A) 9 %; Neutrophils # (A) 8.2 k/uL (1.3-7.7); Neutrophils % (A) 75 %; Platelet Count 232 k/uL (150-450); Poikilocytosis Slight; RBC 2.34 m/uL (3.80-5.40)
[2018-08-21 16:22] LABS: Albumin 3.4 g/dL (3.5-5.0); Potassium 5.1 mmol/L (3.5-5.1); Total Bilirubin 0.3 mg/dL (0.2-1.3); Total Protein 7.6 g/dL (6.3-8.2)
[2018-08-21 16:23] LABS: INR 1.2 (<1.2); Partial Thromboplastin Time 27.1 sec (22.0-30.0); Prothrombin Time 12.2 sec (9.0-12.0)
--- NOTE | 2018-08-21 16:23 | ED ---
General Adult HPI - General Chief complaint: Recheck/Abnormal Lab/Rx Stated complaint: Abn labs Time Seen by Provider: 08/21/18 15:10 Source: patient, EMS, RN notes reviewed Mode of arrival: EMS Limitations: no limitations - History of Present Illness Initial comments: This is an 88-year-old female presents emergency Department without complaint. Patient's is sent in by the long-term for a low hemoglobin. Nobody is with the patient to give any further history the patient is unable to give any further history because she does not know why she is here. Patient denies any difficulty breathing or shortness of breath patient denies chest pain or abdominal pain. Patient denies any current problems. At this time there is no further history available - Related Data Home Medications Medication Instructions Recorded Confirmed Vit C/E/Zn/Coppr/Lutein/Zeaxan 1 cap PO DAILY@89903/28/16 08/21/18 [Preservision Areds 2 Softgel] Cholecalciferol [Vitamin D3 (25 1,000 unit PO DAILY@89905/22/17 08/21/18 Mcg = 1000 Iu)] Famotidine 40 mg PO DAILY@89905/22/17 08/21/18 amLODIPine BESYLATE [Norvasc] 10 mg PO DAILY@209905/22/17 08/21/18 Acetaminophen [Tylenol] 1,000 mg PO BID@899,209910/13/17 08/21/18 Aspirin [Adult Low Dose Aspirin EC] 81 mg PO DAILY@89910/13/17 08/21/18 Atorvastatin Calcium [Lipitor] 10 mg PO DAILY@209910/13/17 08/21/18 Cyanocobalamin [Vitamin B-12] 500 mcg PO DAILY@89910/13/17 08/21/18 Isosorbide Mononitrate [Isosorbide 30 mg PO DAILY@89910/13/17 08/21/18 Mononitrate ER] [place]-3 Fatty Acids/Fish Oil [Fish 1 cap PO DAILY@89910/13/17 08/21/18 Oil 1,000 mg Softgel] Rosuvastatin Calcium [Crestor] 5 mg PO DAILY@209910/13/17 08/21/18 Saxagliptin HCl [Onglyza] 5 mg PO DAILY@89910/13/17 08/21/18 Sertraline HCl [Zoloft] 25 mg PO HS@2100 10/13/17 08/21/18 Furosemide [Lasix] 40 mg PO DAILY@0600 08/09/18 08/21/18 Menthol [Biofreeze] 1 applic TOPICAL Q2H PRN 08/09/18 08/21/18 glipiZIDE [Glucotrol] 5 mg PO DAILY@1100 08/09/18 08/21/18 levETIRAcetam [Keppra] 250 mg PO TID@0600,1400,2200 08/09/18 08/21/18 Ferrous Sulfate [Iron (65 MG 325 mg PO BID@0900,1800 08/21/18 08/21/18 Elemental)] Levothyroxine Sodium 112 mcg PO DAILY@0608/21/18 08/21/18 Metoprolol Tartrate [Lopressor] 25 mg PO BID@0900,2100 08/21/18 08/21/18 Spironolactone [Aldactone] 25 mg PO DAILY@0600 08/21/18 08/21/18 Previous Rx's Medication Instructions Recorded traMADol HCL [Ultram] 50 mg PO Q8H PRN 14 Days #42 tablet 08/11/18 Allergies Allergy/AdvReac Type Severity Reaction Status Date / Time acetaminophen [From Lortab] AdvReac Hallucinati Verified 08/21/18 15:18 ons hydrocodone [From Lortab] AdvReac Hallucinati Verified 08/21/18 15:18 ons Review of Systems ROS Statement: Those systems with pertinent positive or pertinent negative responses have been documented in the HPI. ROS Other: All systems not noted in ROS Statement are negative. Past Medical History Past Medical History: Atrial Fibrillation, COPD, Diabetes Mellitus, Hyperlipidem ia, Hypertension, Thyroid Disorder Additional Past Medical History / Comment(s): bleeding from unknown origin per family, headaches History of Any Multi-Drug Resistant Organisms: None Reported Past Surgical History: Appendectomy, Cholecystectomy, Coronary Bypass/CABG, Hysterectomy Additional Past Surgical History / Comment(s): 2009 five vessel CABG, shots in eye Past Psychological History: No Psychological Hx Reported Smoking Status: Former smoker Past Alcohol Use History: None Reported Past Drug Use History: None Reported - Past Family History Father History Unknown: Yes General Exam - General Exam Comments Initial Comments: GENERAL: Patient is well-developed and well-nourished. Patient is nontoxic and well- hydrated and is in mild distress. ENT: Neck is soft and supple. No significant lymphadenopathy is noted. Oropharynx is clear. Moist mucous membranes. Neck has full range of motion without eliciting any pain. EYES: Patient's conjunctiva is pale. Extraocular movements were intact and pupils were equal round and reactive to light. Eyelids were unremarkable. PULMONARY: Unlabored respirations. Good breath sounds bilaterally. No audible rales rhonc hi or wheezing was noted. CARDIOVASCULAR: There is a regular rate and rhythm without any murmurs gallops or rubs. ABDOMEN: Soft and nontender with normal bowel sounds. SKIN: Skin is clear with no lesions or rashes and otherwise unremarkable. NEUROLOGIC: Patient is alert and oriented x3. Cranial nerves II through XII are grossly intact. Motor and sensory are also intact. Normal speech, volume and content. Symmetrical smile. MUSCULOSKELETAL: Normal extremities with adequate strength and full range of motion. No lower extremity swelling or edema. No calf tenderness. LYMPHATICS: No significant lymphadenopathy is noted PSYCHIATRIC: Normal psychiatric evaluation. Limitations: no limitations Course Vital Signs 08/21/18 08/21/18 15:09 16:22 Temperature 98.7 F Pulse Rate 78 81 Respiratory 18 18 Rate Blood Pressure 131/78 129/44 O2 Sat by Pulse 99 97 Oximetry Medical Decision Making - Medical Decision Making Patient's hemoglobin 7.1. I spoke with Dr. Fernandez he agreed to admit the patient side with the patient wrote admitting orders repeated CBCs - Lab Data Result diagrams: 08/21/18 15:15 08/21/18 15:15 Lab Results 08/21/18 08/21/18 08/21/18 Range/Units 15:15 15:15 15:15 WBC 11.0 H (3.8-10.6) k/uL RBC 2.34 L (3.80-5.40) m/uL Hgb 7.1 L (11.4-16.0) gm/dL Hct 22.7 L (34.0-46.0) % MCV 97.0 (80.0-100.0) fL MCH 30.6 (25.0-35.0) pg MCHC 31.5 (31.0-37.0) g/dL RDW 18.0 H (11.5-15.5) % Plt Count 232 (150-450) k/uL Neutrophils % 75 % Lymphocytes % 14 % Monocytes % 9 % Eosinophils % 1 % Basophils % 0 % Neutrophils # 8.2 H (1.3-7.7) k/uL Lymphocytes # 1.5 (1.0-4.8) k/uL Monocytes # 0.9 (0-1.0) k/uL Eosinophils # 0.1 (0-0.7) k/uL Basophils # 0.0 (0-0.2) k/uL Hypochromasia Moderate Poikilocytosis Slight Anisocytosis Slight Macrocytosis Slight PT 12.2 H (9.0-12.0) sec INR 1.2 H (<1.2) APTT 27.1 (22.0-30.0) sec Sodium 137 (137-145) mmol/L Potassium 5.1 (3.5-5.1) mmol/L Chloride 101 (98-107) mmol/L Carbon Dioxide 25 (22-30) mmol/L Anion Gap 11 mmol/L BUN 37 H (7-17) mg/dL Creatinine 1.65 H (0.52-1.04) mg/dL Est GFR (CKD-EPI)AfAm 32 (>60 ml/min/1.73 sqM) Est GFR (CKD-EPI)NonAf 28 (>60 ml/min/1.73 sqM) Glucose 117 H (74-99) mg/dL Calcium 9.0 (8.4-10.2) mg/dL Total Bilirubin 0.3 (0.2-1.3) mg/dL AST 17 (14-36) U/L ALT 12 (9-52) U/L Alkaline Phosphatase 111 (38-126) U/L Total Protein 7.6 (6.3-8.2) g/dL Albumin 3.4 L (3.5-5.0) g/dL Disposition Clinical Impression: Anemia Disposition: ADMITTED IP TO THIS HOSP Referrals: Marcelo Fernandez MD [Primary Care Provider] - 1-2 days Time of Disposition: 16:55
[2018-08-21] MEDS ORDERED: SODIUM CHLORIDE 0.9% 1,000 ML IV ONE (16:55)
[2018-08-21 17:05] LABS: Appearance,Urine Clear (Clear); Bilirubin,Urine Negative (Negative); Blood,Urine Negative (Negative); Color,Urine Yellow; Glucose,Urine (UA) Negative (Negative); Hyaline Casts,Urine 3 /lpf (0-2); Ketones,Urine Negative (Negative); Leukocyte Esterase,Urine Trace (Negative); Mucus,Urine Rare /hpf; Nitrite,Urine Negative (Negative); PH, Urine 5.5 (5.0-8.0); Protein,Urine 1+ (Negative); Specific Gravity,Urine 1.013 (1.001-1.035); Squamous Epithelial Cell,Urine <1 /hpf (0-4); Urobilinogen,Urine <2.0 mg/dL (<2.0); WBC,Urine 4 /hpf (0-5)
[2018-08-21 17:12] LABS: RBC,Urine 1 /hpf (0-5)
[2018-08-21] MEDS ORDERED: traMADol 50 MG TAB PO PRN (17:27)
[2018-08-21] MEDS ORDERED: METHYL SALICYLATE/MENTHOL CREAM 5 OZ TOPICAL PRN (17:27)
[2018-08-21] MEDS: FERROUS SULFATE 325 MG TAB PO SCH (19:37)
[2018-08-21] MEDS ORDERED: NON-FORMULARY DRUG (Rosuvastatin Calcium [Crestor] 5 MG) PO SCH (21:00)
[2018-08-21] MEDS: ACETAMINOPHEN TAB 500 MG TAB PO SCH (21:27)
[2018-08-21] MEDS: levETIRAcetam 250 MG TAB PO SCH (21:28)
[2018-08-21] MEDS: ATORVASTATIN 10 MG TAB PO SCH (21:28)
[2018-08-21] MEDS: METOPROLOL TARTRATE 25 MG TAB PO SCH (21:28)
[2018-08-21] MEDS: amLODIPine 10 MG TAB PO SCH (21:28)
[2018-08-21] MEDS: SERTRALINE 25 MG TAB PO SCH (21:28)
[2018-08-21 23:57] LABS: Anisocytosis Slight; HCT 22.7 % (34.0-46.0); Hypochromasia Moderate; MCH 30.5 pg (25.0-35.0); MCV 98.6 fL (80.0-100.0); Macrocytosis Slight; Platelet Count 215 k/uL (150-450); Poikilocytosis Slight; WBC 9.6 k/uL (3.8-10.6)
[2018-08-22 03:11] VITALS: BMI 27.1
[2018-08-22] MEDS: FUROSEMIDE 40 MG TAB PO SCH (05:26)
[2018-08-22] MEDS: SPIRONOLACTONE 25 MG TAB PO SCH (05:26)
[2018-08-22] MEDS: levETIRAcetam 250 MG TAB PO SCH ×3 (05:26→21:25)
[2018-08-22] MEDS: LEVOTHYROXINE 112 MCG TAB PO SCH (05:26)
[2018-08-22] MEDS: ACETAMINOPHEN TAB 500 MG TAB PO SCH ×2 (08:14→21:22)
[2018-08-22] MEDS: ASPIRIN 81 MG PO SCH ×2 (08:14→08:19)
[2018-08-22] MEDS: CYANOCOBALAMIN 500 MCG TAB PO SCH (08:14)
[2018-08-22] MEDS: FERROUS SULFATE 325 MG TAB PO SCH ×2 (08:14→16:52)
[2018-08-22] MEDS: CHOLECALCIFEROL 1,000 UNIT TAB PO SCH (08:14)
[2018-08-22] MEDS: METOPROLOL TARTRATE 25 MG TAB PO SCH ×2 (08:15→21:24)
[2018-08-22] MEDS: VIT A,C & E-LUTEIN-MINERALS 1 EACH TAB PO SCH (08:15)
[2018-08-22] MEDS: ISOSORBIDE MONONITRATE ER 30 MG TAB.ER.24H PO SCH (08:15)
[2018-08-22] MEDS: LINAGLIPTIN 5 MG TABLET PO SCH (08:15)
[2018-08-22 09:00] LABS: Anisocytosis Slight; HCT 20.9 % (34.0-46.0); Hypochromasia Marked; MCH 30.4 pg (25.0-35.0); MCHC 31.4 g/dL (31.0-37.0); Macrocytosis Slight; Mean Platelet Volume 7.8; Platelet Count 191 k/uL (150-450); Poikilocytosis Slight; RBC 2.16 m/uL (3.80-5.40); RDW 18.4 % (11.5-15.5); WBC 8.7 k/uL (3.8-10.6)
[2018-08-22] MEDS ORDERED: FAMOTIDINE 20 MG TAB PO SCH (09:00)
[2018-08-22] MEDS ORDERED: NON-FORMULARY DRUG (Omega-3 Fatty Acids/Fish Oil [Fish Oil 1,000 Mg Softgel] 1 CAP) PO SCH (09:00)
[2018-08-22 09:16] LABS: HGB 6.6 gm/dL (11.4-16.0)
[2018-08-22] MEDS ORDERED: FUROSEMIDE 10 MG/ML 2 ML VIAL IV PRN (10:17)
--- NOTE | 2018-08-22 10:48 | P.HPIM ---
History of Present Illness H&P Date: 08/22/18 This is an 88-year-old female patient who presented from [facility] due to abnormal lab values. Patient's hemoglobin low at 7.1. Patient denies any abdominal pain. Patient denies any signs of bleeding. Patient does have a past medical history of atrial fibrillation which she's not on anticoagulation, COPD, diabetes mellitus, hyperlipidemia, hypertension, hypothyroidism brain., Vicente ry artery bypass graft surgery, congestive heart failure and seizures. Patient does report feeling fatigued. GI and oncology services have been consulted. Hemoglobin 6.6 will order 1 unit PRBCs. At this time patient is resting comfortably in bed. Patient denies any chest pain or shortness breath. Patient denies any nausea vomiting or diarrhea. Patient denies any urinary burning or frequency. Review of Systems please refer to HPI otherwise unremarkable Past Medical History Past Medical History: Atrial Fibrillation, COPD, Diabetes Mellitus, Hyperlipidemia, Hypertension, Thyroid Disorder Additional Past Medical History / Comment(s): bleeding from unknown origin per family, headaches, diet managed DM II History of Any Multi-Drug Resistant Organisms: None Reported Past Surgical History: Appendectomy, Cholecystectomy, Coronary Bypass/CABG, Hys terectomy Additional Past Surgical History / Comment(s): 2008 five vessel CABG, shots in eye Past Psychological History: No Psychological Hx Reported Smoking Status: Former smoker Past Alcohol Use History: None Reported Past Drug Use History: None Reported - Past Family History Father History Unknown: Yes Medications and Allergies Home Medications Medication Instructions Recorded Confirmed Type Vit C/E/Zn/Coppr/Lutein/Zeaxan 1 cap PO DAILY@0900 03/28/16 08/21/18 History [Preservision Areds 2 Softgel] Cholecalciferol [Vitamin D3 (25 1,000 unit PO DAILY@0900 05/22/17 08/21/18 History Mcg = 1000 Iu)] Famotidine 40 mg PO DAILY@0900 05/22/17 08/21/18 History amLODIPine BESYLATE [Norvasc] 10 mg PO DAILY@209905/22/17 08/21/18 History Acetaminophen [Tylenol] 1,000 mg PO BID@0900,2100 10/13/17 08/21/18 History Aspirin [Adult Low Dose Aspirin EC] 81 mg PO DAILY@0900 10/13/17 08/21/18 History Atorvastatin Calcium [Lipitor] 10 mg PO DAILY@209910/13/17 08/21/18 History Cyanocobalamin [Vitamin B-12] 500 mcg PO DAILY@89910/13/17 08/21/18 History Isosorbide Mononitrate [Isosorbide 30 mg PO DAILY@89910/13/17 08/21/18 History Mononitrate ER] [place]-3 Fatty Acids/Fish Oil [Fish 1 cap PO DAILY@89910/13/17 08/21/18 History Oil 1,000 mg Softgel] Rosuvastatin Calcium [Crestor] 5 mg PO DAILY@209910/13/17 08/21/18 History Saxagliptin HCl [Onglyza] 5 mg PO DAILY@89910/13/17 08/21/18 History Sertraline HCl [Zoloft] 25 mg PO HS@209910/13/17 08/21/18 History Furosemide [Lasix] 40 mg PO DAILY@59908/09/18 08/21/18 History Menthol [Biofreeze] 1 applic TOPICAL Q2H PRN 08/09/18 08/21/18 History glipiZIDE [Glucotrol] 5 mg PO DAILY@109908/09/18 08/21/18 History levETIRAcetam [Keppra] 250 mg PO TID@0600,1400,2200 08/09/18 08/21/18 History traMADol HCL [Ultram] 50 mg PO Q8H PRN 14 Days #42 tablet 08/11/18 08/21/18 Rx Ferrous Sulfate [Iron (65 MG 325 mg PO BID@0900,1800 08/21/18 08/21/18 History Elemental)] Levothyroxine Sodium 112 mcg PO DAILY@59908/21/18 08/21/18 History Metoprolol Tartrate [Lopressor] 25 mg PO BID@0900,2100 08/21/18 08/21/18 History Spironolactone [Aldactone] 25 mg PO DAILY@59908/21/18 08/21/18 History Allergies Allergy/AdvReac Type Severity Reaction Status Date / Time acetaminophen [From Lortab] AdvReac Hallucinati Verified 08/21/18 15:18 ons hydrocodone [From Lortab] AdvReac Hallucinati Verified 08/21/18 15:18 ons Physical Exam Vitals: Vital Signs Temp Pulse Pulse Resp BP BP Pulse Ox 08/22/18 05:00 98.3 F 97 16 146/77 95 08/22/18 00:00 16 08/21/18 21:00 98.5 F 72 16 109/53 98 08/21/18 18:17 98.1 F 74 16 150/75 98 08/21/18 17:39 98.5 F 74 18 138/75 98 08/21/18 17:17 67 18 99/46 98 08/21/18 16:22 81 18 129/44 97 08/21/18 15:09 98.7 F 78 18 131/78 99 Intake and Output 08/21/18 08/22/18 08/22/18 22:59 06:59 14:59 Intake Total 300 590 Balance 300 590 Intake: Intake, IV Titration 300 Amount Sodium Chloride 0.9% 1, 300 000 ml @ 75 mls/hr IV . [id number] ONE Rx#:[id number] Oral 590 Other: # Voids 2 3 Weight 67.404 kg Head normocephalic Neck supple Lungs clear to auscultation bilaterally no wheezing or crackles Heart regular rate and rhythm S1-S2, no rub or gallop Abdomen is soft nontender nondistended positive bowel sounds no hepatosplenomegaly Extremities no edema Neuro alert and orientated to 3 Results CBC & Chem 7: 08/22/18 07:48 08/21/18 15:15 Labs: Abnormal Lab Results - Last 24 Hours (Table) 08/21/18 08/21/18 08/21/18 Range/Units 15:15 15:15 15:15 WBC 11.0 H (3.8-10.6) k/uL RBC 2.34 L (3.80-5.40) m/uL Hgb 7.1 L (11.4-16.0) gm/dL Hct 22.7 L (34.0-46.0) % RDW 18.0 H (11.5-15.5) % Neutrophils # 8.2 H (1.3-7.7) k/uL PT 12.2 H (9.0-12.0) sec INR 1.2 H (<1.2) BUN 37 H (7-17) mg/dL Creatinine 1.65 H (0.52-1.04) mg/dL Glucose 117 H (74-99) mg/dL Albumin 3.4 L (3.5-5.0) g/dL Urine Protein (Negative) Ur Leukocyte Esterase (Negative) Hyaline Casts (0-2) /lpf Urine Mucus (None) /hpf 08/21/18 08/21/18 08/22/18 Range/Units 16:45 23:22 07:48 WBC (3.8-10.6) k/uL RBC 2.30 L 2.16 L (3.80-5.40) m/uL Hgb 7.0 L 6.6 L* (11.4-16.0) gm/dL Hct 22.7 L 20.9 L (34.0-46.0) % RDW 18.0 H 18.4 H (11.5-15.5) % Neutrophils # (1.3-7.7) k/uL PT (9.0-12.0) sec INR (<1.2) BUN (7-17) mg/dL Creatinine (0.52-1.04) mg/dL Glucose (74-99) mg/dL Albumin (3.5-5.0) g/dL Urine Protein 1+ H (Negative) Ur Leukocyte Esterase Trace H (Negative) Hyaline Casts 3 H (0-2) /lpf Urine Mucus Rare H (None) /hpf Thrombosis Risk Factor Assmnt - Choose All That Apply Any of the Below Risk Factors Present?: Yes Each Factor Represents 1 point: Obesity (BMI >25) Other Risk Factors: Yes Each Risk Factor Represents 3 Points: Age 75 years or older Thrombosis Risk Factor Assessment Total Risk Factor Score: 4 Thrombosis Risk Factor Assessment Level: Moderate Risk Assessment and Plan Assessment: 1. Iron deficiency Anemia. Patient maintained on ferrous sulfate. hemoglobin 6.6 will order 1 unit PRBCs. Iron studies completed on 08/10/2018 showing a low iron saturation TIBC and iron levels. Vitamin B12 within normal limits at 792. GI and oncology service is consulted. Stool for occult blood ordered. 2. Chronic atrial fibrillation. Patient maintained Metroprolol on any anticoagulation due to previous history of petechial hemorrhage on MRI of the brain 3. [facility] of [facility] 4. Chronic kidney disease stage III. baseline creatinine around 1.60. We'll continue to monitor 5. History of coronary artery disease with previous CABG 2008 6. history of hypothyroidism. Patient retained on Synthroid 7. Chronic systolic congestive heart failure. Patient continued on Lasix and Aldactone. Chest x-ray and BNP ordered for a.m. 8. History of diabetes mellitus type 2. Patient maintained on Tradjenta and glipizide. Sliding scale insulin added. Hemoglobin A1c ordered 9. History of GERD 10. 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 History of urinary tract infection. Patient recently completed treatment with Ceftin. Urinary analysis showing a small amount of leukocyte Estrace. Urine culture ordered. Patient asymptomatic DVT prophylaxis SCDs. GI prophylaxis Protonix Time with Patient: Greater than 30 (Greater than 60% of the total time spent in counseling and coordination of care. I performed an examination of the patient a nd discussed their management with the Nurse Practitioner. I have reviewed the Nurse Practitioner's notes and agree with the documented findings and plan of care)
[2018-08-22] MEDS ORDERED: BISACODYL 5 MG TABLET.DR PO STA (12:00)
--- NOTE | 2018-08-22 12:00 | P.CONS ---
History of Present Illness - Reason for Consult Consult date: 08/22/18 Anemia Requesting physician: Marcelo Fernandez - Chief Complaint Abnormal CBC - History of Present Illness 88-year-old female admitted with an abnormal CBC weakness. Past medical history CAD CABG 5 vessel cholecystectomy COPD diabetes hypertension hyperlipidemia. Recently hospitalized 2 weeks ago with abnormal CBC. She has a past medical history of atrial fibrillation not on anticoagulation, iron deficiency anemia maintained on oral iron, COPD, diabetes, CAD CABG. No history of EGD colonoscopy screening. Patient was advised EGD colonoscopy on the last admission for evaluation of anemia but she declined. Denies abdominal pain, overt bleeding such as hematemesis hematochezia or melena. Hemoglobin 2 weeks ago was between 7-8. Admission hemoglobin 7.0 decreased to 6.6. 1 unit of blood has been ordered. MCV 97. Platelet 191. INR 1.2. BUN 37. Creatinine 1.6. Iron 16. TIBC 215. Iron saturation 7%. Ferritin 333. Marked hypochromia. Previous hemoglobin September 2017 between 9-10 range and April 2017 11 range. Review of Systems Constitutional: Denies fever, chills, sweats, weight gain, or loss. HEENT: Negative for migraines, blurred vision or loss, earaches, drainage, tinnitus, oral mucosal lesions, dysphagia, or odynophagia. CARDIAC: Negative for chest pain, arrhythmias, or palpitation. RESPIRATORY: Negative for shortness of breath, hemoptysis, cough, or sputum production. GI: See HPI for pertinent findings. : Negative for hematuria, urgency, frequency, polyuria, or dysuria. GYNc: Denies possibility of . Negative vaginal discharge. MUSCULOSKELETAL: Negative for muscle aches, swelling, arthritis, and arthralgias. NEUROLOGIC: Negative for stroke or TIA. ENDOCRINE: Negative for thyroid problems. SKIN: Negative for rash or itching. PSYCHIATRIC: Negative history for depression and anxiety Past Medical History Past Medical History: Atrial Fibrillation, COPD, Diabetes Mellitus, Hyperlipidemia, Hypertension, Thyroid Disorder Additional Past Medical History / Comment(s): bleeding from unknown origin per family, headaches, diet managed DM II History of Any Multi-Drug Resistant Organisms: None Reported Past Surgical History: Appendectomy, Cholecystectomy, Coronary Bypass/CABG, Hysterectomy Additional Past Surgical History / Comment(s): 2008 five vessel CABG, shots in eye Past Psychological History: No Psychological Hx Reported Smoking Status: Former smoker Past Alcohol Use History: None Reported Past Drug Use History: None Reported - Past Family History Father History Unknown: Yes Medications and Allergies Home Medications Medication Instructions Recorded Confirmed Type Vit C/E/Zn/Coppr/Lutein/Zeaxan 1 cap PO DAILY@89903/28/16 08/21/18 History [Preservision Areds 2 Softgel] Cholecalciferol [Vitamin D3 (25 1,000 unit PO DAILY@89905/22/17 08/21/18 History Mcg = 1000 Iu)] Famotidine 40 mg PO DAILY@89905/22/17 08/21/18 History amLODIPine BESYLATE [Norvasc] 10 mg PO DAILY@209905/22/17 08/21/18 History Acetaminophen [Tylenol] 1,000 mg PO BID@09,209910/13/17 08/21/18 History Aspirin [Adult Low Dose Aspirin EC] 81 mg PO DAILY@89910/13/17 08/21/18 History Atorvastatin Calcium [Lipitor] 10 mg PO DAILY@209910/13/17 08/21/18 History Cyanocobalamin [Vitamin B-12] 500 mcg PO DAILY@89910/13/17 08/21/18 History Isosorbide Mononitrate [Isosorbide 30 mg PO DAILY@89910/13/17 08/21/18 History Mononitrate ER] [place]-3 Fatty Acids/Fish Oil [Fish 1 cap PO DAILY@89910/13/17 08/21/18 History Oil 1,000 mg Softgel] Rosuvastatin Calcium [Crestor] 5 mg PO DAILY@209910/13/17 08/21/18 History Saxagliptin HCl [Onglyza] 5 mg PO DAILY@89910/13/17 08/21/18 History Sertraline HCl [Zoloft] 25 mg PO HS@209910/13/17 08/21/18 History Furosemide [Lasix] 40 mg PO DAILY@59908/09/18 08/21/18 History Menthol [Biofreeze] 1 applic TOPICAL Q2H PRN 08/09/18 08/21/18 History glipiZIDE [Glucotrol] 5 mg PO DAILY@109908/09/18 08/21/18 History levETIRAcetam [Keppra] 250 mg PO TID@0600,1400,2200 08/09/18 08/21/18 History traMADol HCL [Ultram] 50 mg PO Q8H PRN 14 Days #42 tablet 08/11/18 08/21/18 Rx Ferrous Sulfate [Iron (65 MG 325 mg PO BID@0900,1800 08/21/18 08/21/18 History Elemental)] Levothyroxine Sodium 112 mcg PO DAILY@0600 08/21/18 08/21/18 History Metoprolol Tartrate [Lopressor] 25 mg PO BID@0900,2100 08/21/18 08/21/18 History Spironolactone [Aldactone] 25 mg PO DAILY@0600 08/21/18 08/21/18 History Allergies Allergy/AdvReac Type Severity Reaction Status Date / Time acetaminophen [From Lortab] AdvReac Hallucinati Verified 08/21/18 15:18 ons hydrocodone [From Lortab] AdvReac Hallucinati Verified 08/21/18 15:18 ons Physical Exam Vitals: Vital Signs Temp Pulse Pulse Resp BP BP Pulse Ox 08/22/18 05:00 98.3 F 97 16 146/77 95 08/22/18 00:00 16 08/21/18 21:00 98.5 F 72 16 109/53 98 08/21/18 18:17 98.1 F 74 16 150/75 98 08/21/18 17:39 98.5 F 74 18 138/75 98 08/21/18 17:17 67 18 99/46 98 08/21/18 16:22 81 18 129/44 97 08/21/18 15:09 98.7 F 78 18 131/78 99 Intake and Output 08/21/18 08/22/18 08/22/18 22:59 06:59 14:59 Intake Total 300 590 Balance 300 590 Intake: Intake, IV Titration 300 Amount Sodium Chloride 0.9% 1, 300 000 ml @ 75 mls/hr IV . [id number] ONE Rx#:[id number] Oral 590 Other: # Voids 2 3 Weight 67.404 kg General appearance: The patient is alert, oriented, in no acute distress. HET: Head is normocephalic and atraumatic. Pupils are equal and reactive. Oropharynx is clear without lesions. Neck: Supple without lymphadenopathy. Trachea midline. Heart: S1 S2. Regular rate and rhythm. Lungs: No crackles or wheezes are heard. Abdomen: Soft, nontender, nondistended with bowel sounds. No peritoneal signs. No palpable organomegaly or masses. Extremities: Normal skin color and turgor. No cyanosis, rash, ulceration, cl ubbing, or edema. Radial and pedal pulses are 2/4 bilaterally. Neurological: No focal deficits. Strength and sensation are grossly intact. Results CBC & Chem 7: 08/22/18 07:48 08/21/18 15:15 Labs: Abnormal Lab Results - Last 24 Hours (Table) 08/21/18 08/21/18 08/21/18 Range/Units 15:15 15:15 15:15 WBC 11.0 H (3.8-10.6) k/uL RBC 2.34 L (3.80-5.40) m/uL Hgb 7.1 L (11.4-16.0) gm/dL Hct 22.7 L (34.0-46.0) % RDW 18.0 H (11.5-15.5) % Neutrophils # 8.2 H (1.3-7.7) k/uL PT 12.2 H (9.0-12.0) sec INR 1.2 H (<1.2) BUN 37 H (7-17) mg/dL Creatinine 1.65 H (0.52-1.04) mg/dL Glucose 117 H (74-99) mg/dL Albumin 3.4 L (3.5-5.0) g/dL Urine Protein (Negative) Ur Leukocyte Esterase (Negative) Hyaline Casts (0-2) /lpf Urine Mucus (None) /hpf Crossmatch 08/21/18 08/21/18 08/22/18 Range/Units 16:45 23:22 07:48 WBC (3.8-10.6) k/uL RBC 2.30 L 2.16 L (3.80-5.40) m/uL Hgb 7.0 L 6.6 L* (11.4-16.0) gm/dL Hct 22.7 L 20.9 L (34.0-46.0) % RDW 18.0 H 18.4 H (11.5-15.5) % Neutrophils # (1.3-7.7) k/uL PT (9.0-12.0) sec INR (<1.2) BUN (7-17) mg/dL Creatinine (0.52-1.04) mg/dL Glucose (74-99) mg/dL Albumin (3.5-5.0) g/dL Urine Protein 1+ H (Negative) Ur Leukocyte Esterase Trace H (Negative) Hyaline Casts 3 H (0-2) /lpf Urine Mucus Rare H (None) /hpf Crossmatch 08/22/18 Range/Units 10:43 WBC (3.8-10.6) k/uL RBC (3.80-5.40) m/uL Hgb (11.4-16.0) gm/dL Hct (34.0-46.0) % RDW (11.5-15.5) % Neutrophils # (1.3-7.7) k/uL PT (9.0-12.0) sec INR (<1.2) BUN (7-17) mg/dL Creatinine (0.52-1.04) mg/dL Glucose (74-99) mg/dL Albumin (3.5-5.0) g/dL Urine Protein (Negative) Ur Leukocyte Esterase (Negative) Hyaline Casts (0-2) /lpf Urine Mucus (None) /hpf Crossmatch See Detail Assessment and Plan (1) Anemia Narrative/Plan: 88-year-old female admitted with symptomatic anemia normocytic hypochromic iron deficiency without overt bleeding such as hematemesis hematochezia or melena. Underlying GI source occult blood loss cannot be excluded. Current Visit: Yes Status: Acute Code(s): D64.9 - ANEMIA, UNSPECIFIED SNOMED Code(s): 419359697 Plan: 1. CBC monitoring. Blood transfusion as indicated. Patient is willing to proceed with EGD colonoscopy evaluation. Patient has an increased risk secondary to age as well as underlying history of atrial fibrillation CAD CABG, COPD diabetes and hypertension, she is willing to proceed accordingly. 2. Clear liquid diet. FOBT guaiac requested. 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 The patient has indicated understanding and acceptance of the risks and procedures discussed. Thank you for this kind referral and the opportunity to participate in the care of your patient. This consultation was discussed with Dr. Palmer. The impression and plan of care have been directed as dictated.
[2018-08-22 12:38] LABS: Glucose,Whole Blood 108 mg/dL (75-99)
[2018-08-22] MEDS: INSULIN ASPART (NovoLOG) 100 UNIT/ML VIAL SQ SCH ×3 (12:45→21:20)
[2018-08-22] MEDS: glipiZIDE 5 MG TAB PO SCH (12:47)
[2018-08-22] MEDS ORDERED: PEG 3350-NA SULF,BICARB,CL/KCL 4,000 ML BOTTLE PO ONE (16:00)
[2018-08-22 16:56] LABS: Glucose,Whole Blood 143 mg/dL (75-99)
[2018-08-22 17:53] LABS: Hemoglobin A1C 6.2 % (4.0-6.0)
[2018-08-22 20:09] LABS: Glucose,Whole Blood 66 mg/dL (75-99)
[2018-08-22 20:41] LABS: Glucose,Whole Blood 94 mg/dL (75-99)
[2018-08-22] MEDS: amLODIPine 10 MG TAB PO SCH (21:24)
[2018-08-22] MEDS: ATORVASTATIN 10 MG TAB PO SCH (21:24)
[2018-08-22] MEDS: SERTRALINE 25 MG TAB PO SCH (21:25)
[2018-08-23] MEDS: FUROSEMIDE 40 MG TAB PO SCH (05:50)
[2018-08-23] MEDS: SPIRONOLACTONE 25 MG TAB PO SCH (05:50)
[2018-08-23] MEDS: LEVOTHYROXINE 112 MCG TAB PO SCH (05:50)
[2018-08-23] MEDS: levETIRAcetam 250 MG TAB PO SCH ×3 (05:50→23:15)
[2018-08-23 06:55] LABS: Glucose,Whole Blood 83 mg/dL (75-99)
[2018-08-23] MEDS: INSULIN ASPART (NovoLOG) 100 UNIT/ML VIAL SQ SCH ×4 (07:59→20:07)
[2018-08-23] MEDS: CHOLECALCIFEROL 1,000 UNIT TAB PO SCH (08:00)
[2018-08-23] MEDS: ACETAMINOPHEN TAB 500 MG TAB PO SCH ×2 (08:00→20:06)
[2018-08-23] MEDS: FERROUS SULFATE 325 MG TAB PO SCH ×2 (08:00→17:35)
[2018-08-23] MEDS: ASPIRIN 81 MG PO SCH (08:00)
[2018-08-23] MEDS: VIT A,C & E-LUTEIN-MINERALS 1 EACH TAB PO SCH (08:00)
[2018-08-23] MEDS: CYANOCOBALAMIN 500 MCG TAB PO SCH (08:00)
[2018-08-23] MEDS: LINAGLIPTIN 5 MG TABLET PO SCH (08:01)
[2018-08-23 08:12] LABS: Albumin 3.4 g/dL (3.5-5.0); Calcium 9.4 mg/dL (8.4-10.2); Potassium 4.3 mmol/L (3.5-5.1); Total Bilirubin 0.9 mg/dL (0.2-1.3); Total Protein 7.7 g/dL (6.3-8.2)
[2018-08-23 08:26] LABS: Glucose,Whole Blood 94 mg/dL (75-99)
[2018-08-23] MEDS ORDERED: PANTOPRAZOLE 40 MG/10 ML VIAL IVP SCH (09:00)
--- NOTE | 2018-08-23 10:00 | ECHOF ---
Referral Reason:history of CHF MEASUREMENTS -------- HEIGHT: 157.5 cm WEIGHT: 67.1 kg BP: 119/64 RVIDd: 3.4 cm (< 3.3) IVSd: 1.0 cm (0.6 - 1.1) LVIDd: 4.3 cm (3.9 - 5.3) LVPWd: 1.0 cm (0.6 - 1.1) IVSs: 1.4 cm LVIDs: 2.7 cm LVPWs: 1.6 cm LA Diam: 4.8 cm (2.7 - 3.8) LAESV Index (A-L): 44.85 ml/m Ao Diam: 2.6 cm (2.0 - 3.7) AV Cusp: 0.8 cm (1.5 - 2.6) EPSS: 0.7 cm AV maxP.64 mmHg AV meanP.78 mmHg RAP: 5.00 mmHg RVSP: 53.86 mmHg MV EF SLOPE: 66.47 mm/s (70 - 150) MV EXCURSION: 1.56 cm (> 18.000) FINDINGS -------- Hx of CABG The left ventricular size is normal. Left ventricular wall thickness is normal. Overall left vent ricular systolic function is normal with, an EF between 60 - 65 %. There is paradoxical/dysynergic septal motion consistent with right ventricular volume overload and/or elevated right ventricular end -diastolic pressure. The right ventricle is mildly enlarged. Left atrium is severely dilated by volume. The right atrium is normal in size and function. There is mild aortic valve sclerosis without stenosis. There is mild aortic stenosis present. The mitral valve leaflets are mildly thickened. Mild mitral regurgitation is present. Severe tricuspid regurgitation present. There is moderate pulmonary hypertension. The right ventr icular systolic pressure, as measured by Doppler, is 53.86mmHg. Trace/mild (physiologic) pulmonic regurgitation. The aortic root size is normal. There is no pericardial effusion. CONCLUSIONS -------- 1. Hx of CABG 2. The left ventricular size is normal. 3. Left ventricular wall thickness is normal. 4. Overall left ventricular systolic function is normal with, an EF between 60 - 65 %. 5. There is paradoxical/dysynergic septal motion consistent with right ventricular volume overload an d/or elevated right ventricular end-diastolic pressure. 6. The right ventricle is mildly enlarged. 7. Left atrium is severely dilated by volume. 8. The right atrium is normal in size and function. 9. There is mild aortic valve sclerosis without stenosis. 10. There is mild aortic stenosis present. 11. The mitral valve leaflets are mildly thickened. 12. Mild mitral regurgitation is present. 13. Severe tricuspid regurgitation present. 14. There is moderate pulmonary hypertension. 15. The right ventricular systolic pressure, as measured by Doppler, is 53.86mmHg. 16. Trace/mild (physiologic) pulmonic regurgitation. 17. The aortic root size is normal. 18. There is no pericardial effusion. SOD STRIPPER: VAIBHAV Vergara
--- NOTE | 2018-08-23 10:43 | P.PN ---
Subjective Progress Note Date: 08/23/18 This is an 88-year-old female patient who presented from [facility] [place] due to abnormal lab values. Patient's hemoglobin low at 7.1. Patient denies any abdominal pain. Patient denies any signs of bleeding. Patient does have a past medical history of atrial fibrillation which she's not on anticoagulation, COPD, diabetes mellitus, hyperlipidemia, hypertension, hypothyroidism brain., Coronary artery bypass graft surgery, congestive heart failure and seizures. Patient does report feeling fatigued. GI and oncology services have been consulted. Hemoglobin 6.6 will order 1 unit PRBCs. At this time patient is resting comfortably in bed. Patient denies any chest pain or shortness breath. Patient denies any nausea vomiting or diarrhea. Patient denies any urinary burning or frequency. On 08/23/2018 patient is alert and oriented x3. Patient is currently resting comfortably in bed. Patient received 1 unit PRBCs. CBC currently pending. Plans for possible EGD and colonoscopy today. Per nursing staff patient unable to tolerate the prep. This was discussed with GI services . Likely will just proceed with EGD. stool for occult blood negative. Patient denies chest pain or shortness of breath. Patient intends vomiting or diarrhea. Patient denies any urinary burning or frequency Objective - Vital Signs Vital signs: Vital Signs Temp 97.7 F 08/23/18 04:25 Pulse 80 08/23/18 04:25 Resp 16 08/23/18 04:25 BP 149/76 08/23/18 04:25 Pulse Ox 100 08/23/18 04:25 Intake & Output 08/22/18 08/23/18 08/23/18 18:59 06:59 18:59 Intake Total 0 310 Balance 0 310 Intake: Blood Product 0 310 Rc As-1 Unit 0 310 [id number] Other: Voiding Method Toilet Bedside Commode # Voids 1 0 # Bowel Movements 1 4 - Exam Head normocephalic Neck supple Lungs clear to auscultation bilaterally no wheezing or crackles Heart regular rate and rhythm S1-S2, no rub or gallop Abdomen is soft nontender nondistended positive bowel sounds no hepatosplenomegaly Extremities no edema Neuro alert and orientated to 3 - Labs CBC & Chem 7: 08/22/18 07:48 08/23/18 07:12 Labs: Abnormal Lab Results - Last 24 Hours (Table) 08/22/18 08/22/18 08/22/18 Range/Units 07:48 10:43 12:36 BUN (7-17) mg/dL Creatinine (0.52-1.04) mg/dL POC Glucose (mg/dL) 108 H (75-99) mg/dL Hemoglobin A1c 6.2 H (4.0-6.0) % Albumin (3.5-5.0) g/dL Crossmatch See Detail 08/22/18 08/22/18 08/23/18 Range/Units 16:54 20:08 07:12 BUN 26 H (7-17) mg/dL Creatinine 1.19 H (0.52-1.04) mg/dL POC Glucose (mg/dL) 143 H 66 L (75-99) mg/dL Hemoglobin A1c (4.0-6.0) % Albumin 3.4 L (3.5-5.0) g/dL Crossmatch Microbiology - Last 24 Hours (Table) 08/22/18 13:32 Urine Culture - Preliminary Urine,Catheterized Assessment and Plan Assessment: 1. Iron deficiency Anemia. Patient maintained on ferrous sulfate. hemoglobin 6.6 will order 1 unit PRBCs. Iron studies completed on 08/10/2018 showing a low iron saturation TIBC and iron levels. Vitamin B12 within normal limits at 792. GI and oncology service is consulted. Stool for occult blood negative. Plans for possible colonoscopy EGD today per GI services 2. Chronic atrial fibrillation. Patient maintained Metroprolol not on any anticoagulation due to previous history of petechial hemorrhage on MRI of the brain 3. History of seizures patient seen on [facility] 4. Chronic kidney disease stage III. baseline creatinine around 1.60. We'll continue to monitor. Creatinine improving to 1.19 bun 26 5. History of coronary artery disease with previous CABG 2008 6. history of hypothyroidism. Patient retained on Synthroid 7. Chronic systolic congestive heart failure. Patient continued on Lasix and Aldactone. 2-D echo completed showing EF of 60-65% 8. History of diabetes mellitus type 2. Patient maintained on Tradjenta and glipizide. Sliding scale insulin added. Hemoglobin A1c 6.2 9. History of GERD 10. 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 History of urinary tract infection. Patient recently completed treatment with Ceftin. Urinary analysis showing a small amount of leukocyte Estrace. Urine culture ordered. Patient asymptomatic DVT prophylaxis SCDs. GI prophylaxis Protonix I performed an examination of the patient and discussed their management with the Nurse Practitioner. I have reviewed the Nurse Practitioner's notes and agree with the documented findings and plan of care
--- NOTE | 2018-08-23 10:52 | P.PN ---
Progress Note - Text Progress Note Date: 08/23/18 Unable to complete bowel prep will proceed with EGD only today.
--- NOTE | 2018-08-23 11:19 | XR ---
EXAMINATION TYPE: XR chest 2V DATE OF EXAM: 08/23/2018 COMPARISON: 08/09/2018 INDICATION: CHF TECHNIQUE: Frontal and lateral views of the chest are obtained. FINDINGS: The heart size is normal. The pulmonary vasculature is normal. The lungs are clear. IMPRESSION: 1. No acute pulmonary process.
[2018-08-23 11:41] LABS: Glucose,Whole Blood 95 mg/dL (75-99)
[2018-08-23 11:46] LABS: Anisocytosis Slight; Basophils % (A) 0 %; Eosinophils # (A) 0.1 k/uL (0-0.7); Eosinophils % (A) 1 %; HCT 25.4 % (34.0-46.0); Hypochromasia Moderate; Lymphocytes # (A) 0.9 k/uL (1.0-4.8); Lymphocytes % (A) 11 %; MCH 31.4 pg (25.0-35.0); MCHC 32.1 g/dL (31.0-37.0); MCV 97.7 fL (80.0-100.0); Macrocytosis Slight; Mean Platelet Volume 7.8; Monocytes # (A) 0.7 k/uL (0-1.0); Monocytes % (A) 8 %; Neutrophils # (A) 6.6 k/uL (1.3-7.7); Neutrophils % (A) 78 %; Platelet Count 187 k/uL (150-450); Poikilocytosis Slight; RDW 17.9 % (11.5-15.5); WBC 8.4 k/uL (3.8-10.6)
[2018-08-23 12:03] LABS: HGB 8.2 gm/dL (11.4-16.0)
[2018-08-23] MEDS ORDERED: PROPOFOL 10 MG/ML 20 ML VIAL IV ONE (13:08)
[2018-08-23] MEDS ORDERED: IV FLUID CONTINUATION 1,000 ML IV ONE (13:15)
--- NOTE | 2018-08-23 13:36 | P.PCN ---
Date of Procedure: 08/23/18 Description of Procedure: BRIEF HISTORY: 88-year-old female admitted with an abnormal CBC weakness. Past medical history CAD CABG 5 vessel cholecystectomy COPD diabetes hypertension hyperlipidemia. Recently hospitalized 2 weeks ago with abnormal CBC. She has a past medical history of atrial fibrillation not on anticoagulation, iron deficiency anemia maintained on oral iron, COPD, diabetes, CAD CABG. No history of EGD colonoscopy screening. Patient was advised EGD colonoscopy on the last admission for evaluation of anemia but she declined. Denies abdominal pain, overt bleeding such as hematemesis hematochezia or melena. Hemoglobin 2 weeks ago was between 7-8. Admission hemoglobin 7.0 decreased to 6.6. 1 unit of blood has been ordered. MCV 97. Platelet 191. INR 1.2. BUN 37. Creatinine 1.6. Iron 16. TIBC 215. Iron saturation 7%. Ferritin 333. Marked hypochro fredis. Previous hemoglobin September 2017 between 9-10 range and April 2017 11 range. PROCEDURE PERFORMED: Esophagogastroduodenoscopy with biopsy. PREOPERATIVE DIAGNOSIS: Iron deficiency anemia. ESTIMATED BLOOD LOSS: Minimal. IV sedation per anesthesia. PROCEDURE: After informed consent was obtained, the patient was brought into the endoscopy unit. IV sedation was administered by Anesthesia under continuous monitoring. Initially the Olympus GIF-190 video endoscope was inserted into the mouth. Esophagus intubated without any difficulty. It was gradually advanced into the stomach and duodenum and carefully examined. The bulb and the second part of the duodenum appeared normal, with biopsies taken. The scope at this time was withdrawn to the stomach, adequately insufflated with air, and upon careful examination, mucosa of the antrum, body, cardia and the fundus were significant for mild scattered erythema in the antrum and body suggestive of mild gastritis with biopsies taken. A superficial nonbleeding ulcer without high-risk stigmata for bleeding was seen in the fundus of the stomach with biopsies taken. Small hiatal hernia was noted. The scope was then withdrawn into the esophagus. The GE junction was located at 33 cm from the incisors. The esophagus appeared normal. There were no erosions or ulcerations seen and the patient tolerated the procedure well. IMPRESSION: 1. Superficial gastric ulcer without any high-risk stigmata for bleeding, biopsied. 2. Mild gastritis antrum and body, biopsied. 3. Small hiatal hernia. 4. Duodenal biopsies. RECOMMENDATIONS: The findings of this examination were discussed with the patient. Await pathology from biopsies. Continue Protonix 40 mg twice a day. Continue to monitor hemoglobin and transfuse as needed. Patient has been offered a colonoscopy but has been unwilling to prep, can consider other means to rule out lower GI tract pathology such as an x-ray barium enema. Continue iron supplementation. Okay for diet.
[2018-08-23] MEDS: ISOSORBIDE MONONITRATE ER 30 MG TAB.ER.24H PO SCH (15:02)
[2018-08-23] MEDS: METOPROLOL TARTRATE 25 MG TAB PO SCH ×2 (15:02→20:05)
[2018-08-23] MEDS: glipiZIDE 5 MG TAB PO SCH (15:03)
--- NOTE | 2018-08-23 16:07 | P.CONS ---
History of Present Illness - Reason for Consult Consult date: 08/23/18 anemia Requesting physician: Cammie Rivas - Chief Complaint abnormal lab - History of Present Illness Pt is a very pleasant 88 year old female with history significant for CABG, valvular replacement, CKD, CAP, HTN who denies knowledge of a history of anemia. Her only sympotmms to report are easy fatigue, SOB on exertion and sleeping more. She denies recent illnesses, adenopathy, bleeding, appetite is good, she does remain active, no new or unusual pains, swelling, changes in bowel or bladder habits. She feels well in general. Review of Systems 14 point ROS is negative except as stated in HPI Past Medical History Past Medical History: Atrial Fibrillation, COPD, Diabetes Mellitus, Hyperl ipidemia, Hypertension, Thyroid Disorder Additional Past Medical History / Comment(s): bleeding from unknown origin per family, headaches, diet managed DM II History of Any Multi-Drug Resistant Organisms: None Reported Past Surgical History: Appendectomy, Cholecystectomy, Coronary Bypass/CABG, Hysterectomy Additional Past Surgical History / Comment(s): 2008 five vessel CABG, shots in eye Past Psychological History: No Psychological Hx Reported Smoking Status: Former smoker Past Alcohol Use History: None Reported Past Drug Use History: None Reported - Past Family History Father History Unknown: Yes Medications and Allergies Home Medications Medication Instructions Recorded Confirmed Type Vit C/E/Zn/Coppr/Lutein/Zeaxan 1 cap PO DAILY@0903/28/16 08/21/18 History [Preservision Areds 2 Softgel] Cholecalciferol [Vitamin D3 (25 1,000 unit PO DAILY@89905/22/17 08/21/18 History Mcg = 1000 Iu)] Famotidine 40 mg PO DAILY@89905/22/17 08/21/18 History amLODIPine BESYLATE [Norvasc] 10 mg PO DAILY@209905/22/17 08/21/18 History Acetaminophen [Tylenol] 1,000 mg PO BID@899,209910/13/17 08/21/18 History Aspirin [Adult Low Dose Aspirin EC] 81 mg PO DAILY@89910/13/17 08/21/18 History Atorvastatin Calcium [Lipitor] 10 mg PO DAILY@209910/13/17 08/21/18 History Cyanocobalamin [Vitamin B-12] 500 mcg PO DAILY@0910/13/17 08/21/18 History Isosorbide Mononitrate [Isosorbide 30 mg PO DAILY@89910/13/17 08/21/18 History Mononitrate ER] [place]-3 Fatty Acids/Fish Oil [Fish 1 cap PO DAILY@89910/13/17 08/21/18 History Oil 1,000 mg Softgel] Rosuvastatin Calcium [Crestor] 5 mg PO DAILY@209910/13/17 08/21/18 History Saxagliptin HCl [Onglyza] 5 mg PO DAILY@89910/13/17 08/21/18 History Sertraline HCl [Zoloft] 25 mg PO HS@209910/13/17 08/21/18 History Furosemide [Lasix] 40 mg PO DAILY@59908/09/18 08/21/18 History Menthol [Biofreeze] 1 applic TOPICAL Q2H PRN 08/09/18 08/21/18 History glipiZIDE [Glucotrol] 5 mg PO DAILY@1100 08/09/18 08/21/18 History levETIRAcetam [Keppra] 250 mg PO TID@0600,1400,2200 08/09/18 08/21/18 History traMADol HCL [Ultram] 50 mg PO Q8H PRN 14 Days #42 tablet 08/11/18 08/21/18 Rx Ferrous Sulfate [Iron (65 MG 325 mg PO BID@0900,1800 08/21/18 08/21/18 History Elemental)] Levothyroxine Sodium 112 mcg PO DAILY@59908/21/18 08/21/18 History Metoprolol Tartrate [Lopressor] 25 mg PO BID@0900,209908/21/18 08/21/18 History Spironolactone [Aldactone] 25 mg PO DAILY@59908/21/18 08/21/18 History Allergies Allergy/AdvReac Type Severity Reaction Status Date / Time acetaminophen [From Lortab] AdvReac Hallucinati Verified 08/21/18 15:18 ons hydrocodone [From Lortab] AdvReac Hallucinati Verified 08/21/18 15:18 ons Physical Exam Vitals: Vital Signs Temp Pulse Pulse Resp BP BP Pulse Ox 08/23/18 14:17 98 F 82 16 132/71 97 08/23/18 12:52 98.0 F 86 16 164/73 98 08/23/18 12:46 98 F 85 16 134/63 97 08/23/18 04:25 97.7 F 80 16 149/76 100 08/22/18 21:36 16 08/22/18 20:41 97.9 F 92 16 164/79 96 08/22/18 19:38 97.4 F L 80 16 158/73 97 08/22/18 16:52 89 17 161/76 100 08/22/18 16:22 98.0 F 94 17 183/85 100 08/22/18 16:12 97.6 F 83 16 136/75 98 Intake and Output 08/22/18 08/23/18 08/23/18 22:59 06:59 14:59 Intake Total 310 Balance 310 Intake: Blood Product 310 Rc As-1 Unit 310 [id number] Other: Voiding Method Toilet Bedside Commode # Voids 0 2 # Bowel Movements 3 4 1 - Constitutional General appearance: average body habitus, cooperative, no acute distress - EENT Eyes: anicteric sclerae, EOMI ENT: hearing grossly normal - Neck Neck: no lymphadenopathy - Respiratory Respiratory: bilateral: CTA - Cardiovascular Rhythm: regular Heart sounds: normal: S1, S2 Abnormal Heart Sounds: systolic murmur leg Peripheral Edema: bilateral: None - Gastrointestinal General gastrointestinal: no absent bowel sounds, no decreased bowel sounds, no distended, no hepatomegaly, no hyperactive bowel sounds, normal bowel sounds, no organomegaly, no rigid, no scaphoid, soft, no splenomegaly, no tenderness, no umbilical hernia, no ventral hernia - Integumentary Integumentary: pale - Neurologic Neurologic: CNII-XII intact - Musculoskeletal Musculoskeletal: generalized weakness, strength equal bilaterally - Psychiatric Psychiatric: A&O x's 3, appropriate affect, intact judgment & insight Results CBC & Chem 7: 08/23/18 10:40 08/23/18 07:12 Labs: Abnormal Lab Results - Last 24 Hours (Table) 08/22/18 08/22/18 08/22/18 Range/Units 07:48 10:43 16:54 RBC (3.80-5.40) m/uL Hgb (11.4-16.0) gm/dL Hct (34.0-46.0) % RDW (11.5-15.5) % Lymphocytes # (1.0-4.8) k/uL BUN (7-17) mg/dL Creatinine (0.52-1.04) mg/dL POC Glucose (mg/dL) 143 H (75-99) mg/dL Hemoglobin A1c 6.2 H (4.0-6.0) % Albumin (3.5-5.0) g/dL Crossmatch See Detail 08/22/18 08/23/18 08/23/18 Range/Units 20:08 07:12 10:40 RBC 2.60 L (3.80-5.40) m/uL Hgb 8.2 L D (11.4-16.0) gm/dL Hct 25.4 L (34.0-46.0) % RDW 17.9 H (11.5-15.5) % Lymphocytes # 0.9 L (1.0-4.8) k/uL BUN 26 H (7-17) mg/dL Creatinine 1.19 H (0.52-1.04) mg/dL POC Glucose (mg/dL) 66 L (75-99) mg/dL Hemoglobin A1c (4.0-6.0) % Albumin 3.4 L (3.5-5.0) g/dL Crossmatch Microbiology - Last 24 Hours (Table) 08/22/18 13:32 Urine Culture - Preliminary Urine,Catheterized Assessment and Plan (1) Anemia Narrative/Plan: Pt has been anemic according to this EMR since last year, progressive. Normocytic normochromic, iron studies are not indicative of iron deficiency, ferritin is elevated, consistent with inflammation. BUN/Cr have been elevated over the last year as well. Pt does have a artificial heart valve (pig, which is not typically associated with hemolysis) but, no evidence to suggest acute hemolysis but, will check labs. Agree with GI work up Several labs ordered. Pt may benefit from epo supplementation for CKD, pending erythropoetin level. Transfuse for Hgb< 7 unless symptomatic Current Visit: Yes Status: Acute Priority: High Code(s): D64.9 - ANEMIA, UNSPECIFIED SNOMED Code(s): 882111795
[2018-08-23 17:13] LABS: Glucose,Whole Blood 91 mg/dL (75-99)
[2018-08-23] MEDS: PANTOPRAZOLE 40 MG TABLET PO SCH (17:35)
[2018-08-23] MEDS: amLODIPine 10 MG TAB PO SCH (20:05)
[2018-08-23] MEDS: ATORVASTATIN 10 MG TAB PO SCH (20:05)
[2018-08-23 20:08] LABS: Glucose,Whole Blood 89 mg/dL (75-99)
[2018-08-23] MEDS: SERTRALINE 25 MG TAB PO SCH (21:42)
[2018-08-24] MEDS: SPIRONOLACTONE 25 MG TAB PO SCH (05:13)
[2018-08-24] MEDS: FUROSEMIDE 40 MG TAB PO SCH (05:13)
[2018-08-24] MEDS: LEVOTHYROXINE 112 MCG TAB PO SCH (05:48)
[2018-08-24] MEDS: levETIRAcetam 250 MG TAB PO SCH ×3 (05:48→21:22)
[2018-08-24 06:55] LABS: Glucose,Whole Blood 86 mg/dL (75-99)
[2018-08-24] MEDS: INSULIN ASPART (NovoLOG) 100 UNIT/ML VIAL SQ SCH ×4 (08:29→21:21)
[2018-08-24] MEDS: CYANOCOBALAMIN 500 MCG TAB PO SCH (08:30)
[2018-08-24] MEDS: LINAGLIPTIN 5 MG TABLET PO SCH (08:30)
[2018-08-24] MEDS: CHOLECALCIFEROL 1,000 UNIT TAB PO SCH (08:30)
[2018-08-24] MEDS: ISOSORBIDE MONONITRATE ER 30 MG TAB.ER.24H PO SCH (08:30)
[2018-08-24] MEDS: FERROUS SULFATE 325 MG TAB PO SCH ×2 (08:31→18:20)
[2018-08-24] MEDS: METOPROLOL TARTRATE 25 MG TAB PO SCH ×2 (08:31→21:22)
[2018-08-24] MEDS: ASPIRIN 81 MG PO SCH (08:32)
[2018-08-24] MEDS: VIT A,C & E-LUTEIN-MINERALS 1 EACH TAB PO SCH (08:32)
[2018-08-24] MEDS: PANTOPRAZOLE 40 MG TABLET PO SCH ×2 (08:32→18:20)
[2018-08-24] MEDS: ACETAMINOPHEN TAB 500 MG TAB PO SCH ×2 (08:33→21:21)
[2018-08-24 08:51] LABS: Anisocytosis Slight; Basophils % (A) 0 %; Eosinophils # (A) 0.1 k/uL (0-0.7); Eosinophils % (A) 1 %; HCT 27.5 % (34.0-46.0); HGB 8.1 gm/dL (11.4-16.0); Hypochromasia Marked; Lymphocytes # (A) 1.1 k/uL (1.0-4.8); Lymphocytes % (A) 12 %; MCH 29.8 pg (25.0-35.0); MCHC 29.5 g/dL (31.0-37.0); MCV 101.1 fL (80.0-100.0); Macrocytosis Slight; Monocytes # (A) 0.8 k/uL (0-1.0); Monocytes % (A) 9 %; Neutrophils # (A) 6.8 k/uL (1.3-7.7); Neutrophils % (A) 75 %; Platelet Count 204 k/uL (150-450); Poikilocytosis Slight; RBC 2.73 m/uL (3.80-5.40); RDW 17.1 % (11.5-15.5); WBC 9.1 k/uL (3.8-10.6)
[2018-08-24 09:03] LABS: Albumin 3.2 g/dL (3.5-5.0); Calcium 9.3 mg/dL (8.4-10.2); Potassium 4.4 mmol/L (3.5-5.1); Total Bilirubin 0.9 mg/dL (0.2-1.3); Total Protein 7.4 g/dL (6.3-8.2)
[2018-08-24 11:18] LABS: Glucose,Whole Blood 117 mg/dL (75-99)
[2018-08-24] MEDS: glipiZIDE 5 MG TAB PO SCH (11:42)
--- NOTE | 2018-08-24 12:19 | P.PN ---
Subjective Progress Note Date: 08/24/18 Principal diagnosis: Anemia Addy post EGD superficial nonbleeding gastric ulcer. No active bleeding. Tolerating healthy heart diet. Hemoglobin stable E.1. Objective - Vital Signs Vital signs: Vital Signs Temp 98.3 F 08/24/18 12:04 Pulse 73 08/24/18 12:04 Resp 17 08/24/18 12:04 BP 115/61 08/24/18 12:04 Pulse Ox 100 08/24/18 12:04 Intake & Output 08/23/18 08/24/18 08/24/18 18:59 06:59 18:59 Intake Total 1180 Balance 1180 Intake: Oral 1180 Other: Voiding Method Toilet Toilet Bedside Commode Bedside Commode # Voids 2 3 # Bowel Movements 1 1 - Exam General appearance: The patient is alert, oriented, in no acute distress. HET: Head is normocephalic and atraumatic. Pupils are equal and reactive. Oropharynx is clear without lesions. Neck: Supple without lymphadenopathy. Trachea midline. Heart: S1 S2. Regular rate and rhythm. Lungs: No crackles or wheezes are heard. Abdomen: Soft, nontender, nondistended with bowel sounds. No peritoneal signs. No palpable organomegaly or masses. Extremities: Normal skin color and turgor. No cyanosis, rash, ulceration, clubbing, or edema. Radial and pedal pulses are 2/4 bilaterally. Neurological: No focal deficits. Strength and sensation are grossly intact. - Labs CBC & Chem 7: 08/24/18 07:36 08/24/18 07:36 Labs: Abnormal Lab Results - Last 24 Hours (Table) 08/23/18 08/24/18 08/24/18 Range/Units 07:12 07:36 07:36 RBC 2.73 L (3.80-5.40) m/uL Hgb 8.1 L (11.4-16.0) gm/dL Hct 27.5 L (34.0-46.0) % MCV 101.1 H (80.0-100.0) fL MCHC 29.5 L (31.0-37.0) g/dL RDW 17.1 H (11.5-15.5) % Chloride 109 H (98-107) mmol/L Carbon Dioxide 19 L (22-30) mmol/L BUN 23 H (7-17) mg/dL Creatinine 1.07 H (0.52-1.04) mg/dL POC Glucose (mg/dL) (75-99) mg/dL Lactate Dehydrogenase 664 H (313-618) U/L Albumin 3.2 L (3.5-5.0) g/dL 08/24/18 Range/Units 11:17 RBC (3.80-5.40) m/uL Hgb (11.4-16.0) gm/dL Hct (34.0-46.0) % MCV (80.0-100.0) fL MCHC (31.0-37.0) g/dL RDW (11.5-15.5) % Chloride (98-107) mmol/L Carbon Dioxide (22-30) mmol/L BUN (7-17) mg/dL Creatinine (0.52-1.04) mg/dL POC Glucose (mg/dL) 117 H (75-99) mg/dL Lactate Dehydrogenase (313-618) U/L Albumin (3.5-5.0) g/dL Microbiology - Last 24 Hours (Table) 08/22/18 13:32 Urine Culture - Final Urine,Catheterized Assessment and Plan (1) Anemia Narrative/Plan: 88-year-old female admitted with symptomatic anemia normocytic hypochromic iron deficiency without overt bleeding such as hematemesis hematochezia or melena. EGD evaluation identified a nonbleeding superficial gastric ulcer. Current Visit: Yes Status: Acute Priority: High Code(s): D64.9 - ANEMIA, UNSPECIFIED SNOMED Code(s): 064818899 (2) Gastric ulcer Current Visit: Yes Status: Acute Code(s): K25.9 - GASTRIC ULCER, UNSP ACUTE OR CHRONIC, W/O HEMOR OR PERF SNOMED Code(s): 210692719 Plan: 1. CBC monitoring. Discharge per medicine. Protonix 40 mg twice daily. Colonoscopy incomplete patient unwilling to prep. Consideration for barium enema to rule out lower GI tract pathology. assessment and plan a care discussed with Dr. Garcia
--- NOTE | 2018-08-24 15:30 | P.PN ---
Subjective Progress Note Date: 08/24/18 This is an 88-year-old female patient who presented from [facility] on the [place] due to abnormal lab values. Patient's hemoglobin low at 7.1. Patient denies any abdominal pain. Patient denies any signs of bleeding. Patient does have a past medical history of atrial fibrillation which she's not on anticoagulation, COPD, diabetes mellitus, hyperlipidemia, hypertension, hypothyroidism brain., Coronary artery bypass graft surgery, congestive heart failure and seizures. Patient does report feeling fatigued. GI and oncology services have been consulted. Hemoglobin 6.6 will order 1 unit PRBCs. At this time patient is resting comfortably in bed. Patient denies any chest pain or shortness breath. Patient denies any nausea vomiting or diarrhea. Patient denies any urinary burning or frequency. On 08/23/2018 patient is alert and oriented x3. Patient is currently resting comfortably in bed. Patient received 1 unit PRBCs. CBC currently pending. Plans for possible EGD and colonoscopy today. Per nursing staff patient unable to tolerate the prep. This was discussed with GI services . Likely will just proceed with EGD. stool for occult blood negative. Patient denies chest pain or shortness of breath. Patient intends vomiting or diarrhea. Patient denies any urinary burning or frequency On 08/24/2018 patient alert and oriented 3. Patient states she feels muchimproved since getting 1 unit of PRBCs. Hemoglobin improving to 8.1. EKG completed showing superficial nonbleeding ulcer. Patient maintained on Protonix twice a day. Patient given 1 dose of IV iron today with possible discharge tomorrow. Patient denies chest pain or shortness of breath. Patient denies nausea vomiting or diarrhea. Patient denies any urinary burning or frequency. Objective - Vital Signs Vital signs: Vital Signs Temp 98.3 F 08/24/18 12:04 Pulse 73 08/24/18 12:04 Resp 17 08/24/18 12:04 BP 115/61 08/24/18 12:04 Pulse Ox 100 08/24/18 12:04 Intake & Output 08/23/18 08/24/18 08/24/18 18:59 06:59 18:59 Intake Total 1180 Balance 1180 Intake: Oral 1180 Other: Voiding Method Toilet Toilet Bedside Commode Bedside Commode # Voids 2 3 4 # Bowel Movements 1 1 2 - Exam Head normocephalic Neck supple Lungs clear to auscultation bilaterally no wheezing or crackles Heart regular rate and rhythm S1-S2, no rub or gallop Abdomen is soft nontender nondistended positive bowel sounds no hepatosplenomegaly Extremities no edema Neuro alert and orientated to 3 - Labs CBC & Chem 7: 08/24/18 07:36 08/24/18 07:36 Labs: Abnormal Lab Results - Last 24 Hours (Table) 08/23/18 08/24/18 08/24/18 Range/Units 07:12 07:36 07:36 RBC 2.73 L (3.80-5.40) m/uL Hgb 8.1 L (11.4-16.0) gm/dL Hct 27.5 L (34.0-46.0) % MCV 101.1 H (80.0-100.0) fL MCHC 29.5 L (31.0-37.0) g/dL RDW 17.1 H (11.5-15.5) % Haptoglobin 297.0 H (31.2-198.0) mg/dL Chloride 109 H (98-107) mmol/L Carbon Dioxide 19 L (22-30) mmol/L BUN 23 H (7-17) mg/dL Creatinine 1.07 H (0.52-1.04) mg/dL POC Glucose (mg/dL) (75-99) mg/dL Albumin 3.2 L (3.5-5.0) g/dL 08/24/18 Range/Units 11:17 RBC (3.80-5.40) m/uL Hgb (11.4-16.0) gm/dL Hct (34.0-46.0) % MCV (80.0-100.0) fL MCHC (31.0-37.0) g/dL RDW (11.5-15.5) % Haptoglobin (31.2-198.0) mg/dL Chloride (98-107) mmol/L Carbon Dioxide (22-30) mmol/L BUN (7-17) mg/dL Creatinine (0.52-1.04) mg/dL POC Glucose (mg/dL) 117 H (75-99) mg/dL Albumin (3.5-5.0) g/dL Microbiology - Last 24 Hours (Table) 08/22/18 13:32 Urine Culture - Final Urine,Catheterized Assessment and Plan Assessment: 1. Iron deficiency Anemia. Patient maintained on ferrous sulfate. hemoglobin 6.6 will order 1 unit PRBCs. Iron studies completed on 08/10/2018 showing a low iron saturation TIBC and iron levels. Vitamin B12 within normal limits at 792. GI and oncology service is consulted. Stool for occult blood negative. EGD completed showing superficial gastric ulcer without any fibrous segment of for bleeding, mild gastritis small hiatal hernia. Patient started on Protonix twice a day. Hgb 8.1. Will give 1 dose of IV iron today 2. Chronic atrial fibrillation. Patient maintained Metroprolol not on any anticoagulation due to previous history of petechial hemorrhage on MRI of the brain 3. History of seizures patient seen on [facility] 4. Chronic kidney disease stage III. baseline creatinine around 1.60. We'll continue to monitor. Creatinine improving to 1.19 bun 26 5. History of coronary artery disease with previous CABG 2008 6. history of hypothyroidism. Patient retained on Synthroid 7. Chronic systolic congestive heart failure. Patient continued on Lasix and Aldactone. 2-D echo completed showing EF of 60-65% 8. History of diabetes mellitus type 2. Patient maintained on Tradjenta and glipizide. Sliding scale insulin added. Hemoglobin A1c 6.2 9. History of GERD 10. 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 History of urinary tract infection. Patient recently completed treatment with Ceftin. Urinary analysis showing a small amount of leukocyte Estrace. Urine culture ordered. Patient asymptomatic DVT prophylaxis SCDs. GI prophylaxis Protonix possible discharge tomorrow I performed an examination of the patient and discussed their management with the Nurse Practitioner. I have reviewed the Nurse Practitioner's notes and agree with the documented findings and plan of care
[2018-08-24] MEDS ORDERED: SODIUM FERRIC GLUCONAT-SUCROSE 125 MG in SODIUM CHLORIDE 0.9% 100 ML IVPB ONE (16:00)
[2018-08-24 17:01] LABS: Glucose,Whole Blood 205 mg/dL (75-99)
[2018-08-24 19:51] LABS: Glucose,Whole Blood 215 mg/dL (75-99)
[2018-08-24] MEDS: amLODIPine 10 MG TAB PO SCH (21:21)
[2018-08-24] MEDS: ATORVASTATIN 10 MG TAB PO SCH (21:21)
[2018-08-24] MEDS: SERTRALINE 25 MG TAB PO SCH (21:22)
[2018-08-25] MEDS: LEVOTHYROXINE 112 MCG TAB PO SCH (06:25)
[2018-08-25] MEDS: levETIRAcetam 250 MG TAB PO SCH ×2 (06:25→08:23)
[2018-08-25] MEDS: SPIRONOLACTONE 25 MG TAB PO SCH (06:25)
[2018-08-25] MEDS: FUROSEMIDE 40 MG TAB PO SCH (06:25)
[2018-08-25 06:30] LABS: Glucose,Whole Blood 81 mg/dL (75-99)
[2018-08-25 07:04] LABS: Glucose,Whole Blood 107 mg/dL (75-99)
[2018-08-25] MEDS: CYANOCOBALAMIN 500 MCG TAB PO SCH (08:22)
[2018-08-25] MEDS: METOPROLOL TARTRATE 25 MG TAB PO SCH (08:22)
[2018-08-25] MEDS: PANTOPRAZOLE 40 MG TABLET PO SCH (08:22)
[2018-08-25] MEDS: ACETAMINOPHEN TAB 500 MG TAB PO SCH (08:22)
[2018-08-25] MEDS: INSULIN ASPART (NovoLOG) 100 UNIT/ML VIAL SQ SCH ×2 (08:22→12:13)
[2018-08-25] MEDS: ASPIRIN 81 MG PO SCH (08:23)
[2018-08-25] MEDS: FERROUS SULFATE 325 MG TAB PO SCH (08:23)
[2018-08-25] MEDS: LINAGLIPTIN 5 MG TABLET PO SCH (08:23)
[2018-08-25] MEDS: CHOLECALCIFEROL 1,000 UNIT TAB PO SCH (08:23)
[2018-08-25] MEDS: ISOSORBIDE MONONITRATE ER 30 MG TAB.ER.24H PO SCH (08:23)
[2018-08-25] MEDS: VIT A,C & E-LUTEIN-MINERALS 1 EACH TAB PO SCH (08:23)
[2018-08-25 09:41] LABS: Anisocytosis Slight; Basophils % (A) 0 %; Eosinophils # (A) 0.1 k/uL (0-0.7); Eosinophils % (A) 1 %; HCT 26.7 % (34.0-46.0); HGB 8.1 gm/dL (11.4-16.0); Hypochromasia Moderate; Lymphocytes # (A) 0.8 k/uL (1.0-4.8); Lymphocytes % (A) 9 %; MCH 30.2 pg (25.0-35.0); MCHC 30.3 g/dL (31.0-37.0); MCV 99.7 fL (80.0-100.0); Macrocytosis Slight; Mean Platelet Volume 7.5; Monocytes # (A) 0.7 k/uL (0-1.0); Monocytes % (A) 8 %; Neutrophils # (A) 7.4 k/uL (1.3-7.7); Neutrophils % (A) 80 %; Platelet Count 192 k/uL (150-450); Poikilocytosis Slight; RBC 2.68 m/uL (3.80-5.40); RDW 17.3 % (11.5-15.5); WBC 9.2 k/uL (3.8-10.6)
[2018-08-25 10:03] LABS: Albumin 2.9 g/dL (3.5-5.0); Potassium 4.2 mmol/L (3.5-5.1); Total Bilirubin 0.5 mg/dL (0.2-1.3); Total Protein 6.8 g/dL (6.3-8.2)
[2018-08-25 11:03] LABS: Glucose,Whole Blood 118 mg/dL (75-99)
[2018-08-25 11:33] VITALS: BP 126/71; PULSE 71; RESP 17; TEMP 97.9
[2018-08-25] MEDS: glipiZIDE 5 MG TAB PO SCH (12:13)
[2018-08-25] MEDS ORDERED: SODIUM FERRIC GLUCONAT-SUCROSE 125 MG in SODIUM CHLORIDE 0.9% 100 ML IVPB ONE (14:15)
--- NOTE | 2018-08-25 14:37 | P.DS ---
Providers Date of admission: 08/22/18 16:13 Expected date of discharge: 08/25/18 Attending physician: Marcelo Fernandez Consults: 08/22/18 10:17 Consult Physician Urgent Consulting Provider: Oz Eng Consult Reason/Comments: anemia Do you want consulting provider notified?: Yes Primary care physician: Marcelo Rebecca [facility] Course: Discharge diagnosis 1. Iron deficiency Anemia. Patient maintained on ferrous sulfate. hemoglobin 6.6 will order 1 unit PRBCs. Iron studies completed on 08/10/2018 showing a low iron saturation TIBC and iron levels. Vitamin B12 within normal limits at 792. GI and oncology service is consulted. Stool for occult blood negative. EGD completed showing superficial gastric ulcer without any fibrous segment of for bleeding, mild gastritis small hiatal hernia. Patient started on Protonix twice a day. Hgb 8.1. Will give 1 dose of IV iron today. Patient will get an additional dose of IV iron prior to discharge. Patient also be discharged on Protonix twice a day and Carafate. Patient to follow-up with GI services outpatient 2. Chronic atrial fibrillation. Patient maintained Metroprolol not on any anticoagulation due to previous history of petechial hemorrhage on MRI of the brain 3. History of seizures patient seen on [facility] 4. Chronic kidney disease stage III. baseline creatinine around 1.60. We'll continue to monitor. Creatinine improving to 1.19 bun 26 5. History of coronary artery disease with previous CABG 2008 6. history of hypothyroidism. Patient retained on Synthroid 7. Chronic systolic congestive heart failure. Patient continued on Lasix and Aldactone. 2-D echo completed showing EF of 60-65% 8. History of diabetes mellitus type 2. Patient maintained on Tradjenta and glipizide. Sliding scale insulin added. Hemoglobin A1c 6.2 9. History of GERD 10. History of squamous cell carcinoma patient does follow with dermatology 11. History of urinary tract infection. Patient recently completed treatment with Ceftin. Urinary analysis showing a small amount of leukocyte Estrace. Urine culture ordered. Patient asymptomatic Hospital course This is an 88-year-old female patient who presented from [facility] due to abnormal lab values. Patient's hemoglobin low at 7.1. Patient denies any abdominal pain. Patient denies any signs of bleeding. Patient does have a past medical history of atrial fibrillation which she's not on anticoagulation, COPD, diabetes mellitus, hyperlipidemia, hypertension, hypothyroidism brain., Coronary artery bypass graft surgery, congestive heart failure and seizures. Patient does report feeling fatigued. GI and oncology services have been consulted. Hemoglobin 6.6 will order 1 unit PRBCs. At this time patient is resting comfortably in bed. Patient denies any chest pain or shortness breath. Patient denies any nausea vomiting or diarrhea. Patient denies any urinary burning or frequency. On 08/23/2018 patient is alert and oriented x3. Patient is currently resting comfortably in bed. Patient received 1 unit PRBCs. CBC currently pending. Plans for possible EGD and colonoscopy today. Per nursing staff patient unable to tolerate the prep. This was discussed with GI services . Likely will just proceed with EGD. stool for occult blood negative. Patient denies chest pain or shortness of breath. Patient intends vomiting or diarrhea. Patient denies any urinary burning or frequency On 08/24/2018 patient alert and oriented 3. Patient states she feels muchimproved since getting 1 unit of PRBCs. Hemoglobin improving to 8.1. EGD completed showing superficial nonbleeding ulcer. Patient maintained on Protonix twice a day. Patient given 1 dose of IV iron today with possible discharge tomorrow. Patient denies chest pain or shortness of breath. Patient denies nausea vomiting or diarrhea. Patient denies any urinary burning or frequency. On 08/25/2018 patient's alert and oriented 3. HemoGlobin remains stable at 8.1. Patient to get 1 dose of IV iron prior to discharge. Patient will be discharged on Protonix 40 twice a day and Carafate. Patient to follow-up GI services. At this time patient denies chest pain or shortness of breath. Patient denies nausea vomiting or diarrhea. Patient denies any urinary burning or frequency. CBC and CMP ordered for 3 days I performed an examination of the patient and discussed their management with the Nurse Practitioner. I have reviewed the Nurse Practitioner's notes and agree with the documented findings and plan of care Patient Condition at Discharge: Stable Plan - Discharge Summary New Discharge Prescriptions: New Sucralfate [Carafate] 1 gm PO AC-BID tab Pantoprazole [Protonix] 40 mg PO AC-BID tablet. Continue Vit C/E/Zn/Coppr/Lutein/Zeaxan [Preservision Areds 2 Softgel] 1 cap PO DAILY@0900 Famotidine 40 mg PO DAILY@0900 Cholecalciferol [Vitamin D3 (25 Mcg = 1000 Iu)] 1,000 unit PO DAILY@0900 amLODIPine BESYLATE [Norvasc] 10 mg PO DAILY@2100 Acetaminophen [Tylenol] 1,000 mg PO BID@0900,2100 Aspirin [Adult Low Dose Aspirin EC] 81 mg PO DAILY@0900 Atorvastatin Calcium [Lipitor] 10 mg PO DAILY@2100 Cyanocobalamin [Vitamin B-12] 500 mcg PO DAILY@0900 Isosorbide Mononitrate [Isosorbide Mononitrate ER] 30 mg PO DAILY@0900 [place]-3 Fatty Acids/Fish Oil [Fish Oil 1,000 mg Softgel] 1 cap PO DAILY@0900 Rosuvastatin Calcium [Crestor] 5 mg PO DAILY@2100 Saxagliptin HCl [Onglyza] 5 mg PO DAILY@0900 Sertraline HCl [Zoloft] 25 mg PO HS@2099 Menthol [Biofreeze] 1 applic TOPICAL Q2H PRN PRN Reason: Pain levETIRAcetam [Keppra] 250 mg PO TID@0600,1400,2200 Furosemide [Lasix] 40 mg PO DAILY@0600 glipiZIDE [Glucotrol] 5 mg PO DAILY@1100 Levothyroxine Sodium 112 mcg PO DAILY@0600 Metoprolol Tartrate [Lopressor] 25 mg PO BID@0900,2100 Spironolactone [Aldactone] 25 mg PO DAILY@0600 Ferrous Sulfate [Iron (65 MG Elemental)] 325 mg PO BID@0900,1800 traMADol HCL [Ultram] 50 mg PO Q8H PRN 14 Days #42 tablet PRN Reason: HEADAHCE/PAIN Discharge Medication List Vit C/E/Zn/Coppr/Lutein/Zeaxan [Preservision Areds 2 Softgel] 1 cap PO DAILY@0900 03/28/16 [History] Cholecalciferol [Vitamin D3 (25 Mcg = 1000 Iu)] 1,000 unit PO DAILY@0900 05/22/17 [History] Famotidine 40 mg PO DAILY@0900 05/22/17 [History] amLODIPine BESYLATE [Norvasc] 10 mg PO DAILY@209905/22/17 [History] Acetaminophen [Tylenol] 1,000 mg PO BID@0900,2100 10/13/18 [History] Aspirin [Adult Low Dose Aspirin EC] 81 mg PO DAILY@89910/13/17 [History] Atorvastatin Calcium [Lipitor] 10 mg PO DAILY@209910/13/17 [History] Cyanocobalamin [Vitamin B-12] 500 mcg PO DAILY@89910/13/17 [History] Isosorbide Mononitrate [Isosorbide Mononitrate ER] 30 mg PO DAILY@89910/13/17 [History] [place]-3 Fatty Acids/Fish Oil [Fish Oil 1,000 mg Softgel] 1 cap PO DAILY@89910/13/17 [History] Rosuvastatin Calcium [Crestor] 5 mg PO DAILY@209910/13/17 [History] Saxagliptin HCl [Onglyza] 5 mg PO DAILY@89910/13/17 [History] Sertraline HCl [Zoloft] 25 mg PO HS@209910/13/17 [History] Furosemide [Lasix] 40 mg PO DAILY@59908/09/18 [History] Menthol [Biofreeze] 1 applic TOPICAL Q2H PRN 08/09/18 [History] glipiZIDE [Glucotrol] 5 mg PO DAILY@109908/09/18 [History] levETIRAcetam [Keppra] 250 mg PO TID@0600,1400,2200 08/09/18 [History] Ferrous Sulfate [Iron (65 MG Elemental)] 325 mg PO BID@0900,1800 08/21/18 [History] Levothyroxine Sodium 112 mcg PO DAILY@59908/21/18 [History] Metoprolol Tartrate [Lopressor] 25 mg PO BID@0900,209908/21/18 [History] Spironolactone [Aldactone] 25 mg PO DAILY@59908/21/18 [History] Pantoprazole [Protonix] 40 mg PO AC-BID tablet. 08/25/18 [Rx] Sucralfate [Carafate] 1 gm PO AC-BID tab 08/25/18 [Rx] traMADol HCL [Ultram] 50 mg PO Q8H PRN 14 Days #42 tablet 08/25/18 [Rx] Follow up Appointment(s)/Referral(s): Marcelo Fernandez MD [Primary Care Provider] - 1-2 days Jakob Garcia MD [STAFF PHYSICIAN] - 1 Week Ambulatory/Diagnostic Orders: Complete Blood Count w/diff [LAB.AMB] Time Frame: 3 Days, Location: None Selected Comprehensive Metabolic Panel [LAB.AMB] Time Frame: 3 Days, Location: None Selected Activity/Diet/Wound Care/Special Instructions: Activity as tolerated Diet heart healthy Discharge Disposition: TRANSFER TO SNF/ECF
[2018-08-25] MEDS ORDERED: SUCRALFATE 1 GM TAB PO SCH (17:30)
== END 2018-08-25 16:54 | DRG 812 ==
LOC: EC 15:08 → 3NMEDONC 17:14 → OBSVTOIN 08-22 16:13 → 3NMEDONC 08-23 07:33
PROVIDERS: ADMIT Internal Medicine; ATTEND Internal Medicine
PROC: 0DB68ZX Excision of Stomach, Via Natural or Artificial Opening Endoscopic, Diagnostic (ICD-10-PCS; 2018-08-23)
PROC: 0DB78ZX Excision of Stomach, Pylorus, Via Natural or Artificial Opening Endoscopic, Diagnostic (ICD-10-PCS; 2018-08-23)
PROC: 0DB98ZX Excision of Duodenum, Via Natural or Artificial Opening Endoscopic, Diagnostic (ICD-10-PCS; principal; 2018-08-23 12:00)
DX: D50.9 Iron deficiency anemia, unspecified (principal); I13.0 Hypertensive heart and chronic kidney disease with heart failure and stage 1 through stage 4 chronic kidney disease, or unspecified chronic kidney disease; I50.22 Chronic systolic (congestive) heart failure; E03.9 Hypothyroidism, unspecified; E11.22 Type 2 diabetes mellitus with diabetic chronic kidney disease; E78.5 Hyperlipidemia, unspecified; I25.10 Atherosclerotic heart disease of native coronary artery without angina pectoris; I48.2 Chronic atrial fibrillation; J44.9 Chronic obstructive pulmonary disease, unspecified; K21.9 Gastro-esophageal reflux disease without esophagitis; K25.9 Gastric ulcer, unspecified as acute or chronic, without hemorrhage or perforation; K29.70 Gastritis, unspecified, without bleeding; K44.9 Diaphragmatic hernia without obstruction or gangrene; N18.3 Chronic kidney disease, stage 3 (moderate); R56.9 Unspecified convulsions; Z79.82 Long term (current) use of aspirin; Z79.84 Long term (current) use of oral hypoglycemic drugs; Z79.890 Hormone replacement therapy; Z79.899 Other long term (current) drug therapy; Z87.440 Personal history of urinary (tract) infections; Z87.891 Personal history of nicotine dependence; Z90.710 Acquired absence of both cervix and uterus; Z95.1 Presence of aortocoronary bypass graft; Z95.2 Presence of prosthetic heart valve; Z66 Do not resuscitate
CPT/HCPCS: 36415; 43239; 51701; 71046; 80053; 81001; 82272; 82668; 83010; 83036; 83615; 83880; 85025; 85027; 85610; 85730; 86850; 86900; 86901; 86920; 87086; 88305; 93306; 96360; 99285

== ENCOUNTER 2018-09-14 03:05 | Inpatient (IN) | payer MEDICARE, BC ==
--- NOTE | 2018-09-14 04:53 | XR ---
EXAM: XR Chest, 1 View CLINICAL HISTORY: ITS.REASON XR Reason: Pain TECHNIQUE: Frontal view of the chest. COMPARISON: 08/23/18 FINDINGS: Lungs: No consolidation or mass. Pleural space: No acute findings Heart: cardiomegaly. Mediastinum: Unremarkable. Bones/joints: No acute findings. IMPRESSION: No acute cardiopulmonary process. Cardiomegaly.
--- NOTE | 2018-09-14 04:54 | XR ---
EXAM: XR Pelvis, 1 or 2 Views CLINICAL HISTORY: ITS.REASON XR Reason: Pain TECHNIQUE: Frontal view of the pelvis. COMPARISON: No relevant prior studies available. FINDINGS: Bones/joints: No acute fracture. No dislocation. Soft tissues: Unremarkable. IMPRESSION: No acute findings.
--- NOTE | 2018-09-14 05:15 | CT ---
EXAM: CT Head Without Intravenous Contrast CLINICAL HISTORY: ITS.REASON CT Reason: Pain TECHNIQUE: Axial computed tomography images of the head/brain without intravenous contrast. CTDI is 45 mGy and DLP is 972 mGy-cm. This CT exam was performed using one or more of the following dose reduction techniques: automated exposure control, adjustment of the mA and/or kV according to patient size, and/or use of iterative reconstruction technique. COMPARISON: 10/13/17 CT head FINDINGS: Brain: No hemorrhage. Chronic microvascular ischemic changes. Old right [employer] infarct. Ventricles: No hydrocephalus. Cerebral volume loss. Bones/joints: Unremarkable. Soft tissues: Unremarkable. Sinuses: Unremarkable. Mastoid air cells: Clear. IMPRESSION: No acute hemorrhage, hydrocephalus, or mass effect. EXAM: CT Cervical Spine Without Intravenous Contrast CLINICAL HISTORY: ITS.REASON CT Reason: Pain TECHNIQUE: Axial computed tomography images of the cervical spine without intravenous contrast. CTDI is 10 mGy and DLP is 266 mGy-cm. This CT exam was performed using one or more of the following dose reduction techniques: automated exposure control, adjustment of the mA and/or kV according to patient size, and/or use of iterative reconstruction technique. COMPARISON: No relevant prior studies available. FINDINGS: Vertebrae: No acute fracture. Discs/spinal canal/neural foramina: Mild degenerative changes. Mild canal stenosis at C5-C6. Soft tissues: 9 mm lesion in the right middle lobe. IMPRESSION: No acute fracture or subluxation. 9 mm lesion in the right middle lobe. Recommend outpatient chest CT for better characterization.
--- NOTE | 2018-09-14 06:18 | ED ---
Fall HPI <Catherine Ramirez - Last Filed: 09/14/18 08:00> - General Source: patient Mode of arrival: EMS - History of Present Illness MD Complaint: fall -: minutes(s) Fall From: standing When Fall Occurred: 1 hour [employer] Fall Witnessed: yes, by living facility staff Place Fall Occurred: [facility] Loss of Consciousness: none Prolonged Down Time?: no Symptoms Prior to Fall: none Location: head Context: tripped/slipped Associated Symptoms: denies <John Biswas - Last Filed: 09/14/18 09:39> <Santi Willard - Last Filed: 09/14/18 10:34> - General Chief Complaint: Fall Stated Complaint: Fall Time Seen by Provider: 09/14/18 04:26 - History of Present Illness Initial Comments: Patient is an 88-year-old woman who presents after having had a fall at her [facility]. The patient reportedly was in the process of transferring from which her bed. Patient states she is not steady when standing. She does not recall loss consciousness. She is denying any pain. She was noted to have had a laceration and was transferred here. (John Biswas) - Related Data Home Medications Medication Instructions Recorded Confirmed Vit C/E/Zn/Coppr/Lutein/Zeaxan 1 cap PO DAILY@89903/28/16 09/14/18 [Preservision Areds 2 Softgel] Cholecalciferol [Vitamin D3 (25 1,000 unit PO DAILY@89905/22/17 09/14/18 Mcg = 1000 Iu)] Famotidine 40 mg PO DAILY@89905/22/17 09/14/18 amLODIPine BESYLATE [Norvasc] 10 mg PO DAILY@209905/22/17 09/14/18 Acetaminophen [Tylenol] 1,000 mg PO BID@0900,209910/13/17 09/14/18 Aspirin [Adult Low Dose Aspirin EC] 81 mg PO DAILY@89910/13/17 09/14/18 Atorvastatin Calcium [Lipitor] 10 mg PO DAILY@209910/13/17 09/14/18 Cyanocobalamin [Vitamin B-12] 500 mcg PO DAILY@89910/13/17 09/14/18 Isosorbide Mononitrate [Isosorbide 30 mg PO DAILY@0900 10/13/17 09/14/18 Mononitrate ER] [place]-3 Fatty Acids/Fish Oil [Fish 1 cap PO DAILY@89910/13/17 09/14/18 Oil 1,000 mg Softgel] Rosuvastatin Calcium [Crestor] 5 mg PO DAILY@209910/13/17 09/14/18 Saxagliptin HCl [Onglyza] 5 mg PO DAILY@89910/13/17 09/14/18 Sertraline HCl [Zoloft] 25 mg PO HS@209910/13/17 09/14/18 Furosemide [Lasix] 40 mg PO DAILY@59908/09/18 09/14/18 Menthol [Biofreeze] 1 applic TOPICAL Q2H PRN 08/09/18 09/14/18 glipiZIDE [Glucotrol] 5 mg PO DAILY@1100 08/09/18 09/14/18 levETIRAcetam [Keppra] 250 mg PO TID@0600,1400,2200 08/09/18 09/14/18 Ferrous Sulfate [Iron (65 MG 325 mg PO BID@0900,1800 08/21/18 09/14/18 Elemental)] Levothyroxine Sodium 112 mcg PO DAILY@59908/21/18 09/14/18 Metoprolol Tartrate [Lopressor] 25 mg PO BID@0900,2100 08/21/18 09/14/18 Spironolactone [Aldactone] 25 mg PO DAILY@59908/21/18 09/14/18 Ipratropium-Albuterol Nebulize 3 ml INHALATION 09/14/18 09/14/18 [Duoneb 0.5 mg-3 mg/3 ml Soln] RT-QID@0900,13,17,21 Pantoprazole [Protonix] 40 mg PO AC-BID@0600,1700 09/14/18 09/14/18 Sucralfate [Carafate] 1 gm PO AC-BID@0600,1700 09/14/18 09/14/18 Previous Rx's Medication Instructions Recorded traMADol HCL [Ultram] 50 mg PO Q8H PRN 14 Days #42 tablet 08/25/18 Allergies Allergy/AdvReac Type Severity Reaction Status Date / Time acetaminophen [From Lortab] AdvReac Hallucinati Verified 09/14/18 07:51 ons hydrocodone [From Lortab] AdvReac Hallucinati Verified 09/14/18 07:51 ons Review of Systems ROS Other: All systems not noted in ROS Statement are negative. <Catherien Ramirez - Last Filed: 09/14/18 08:00> ROS Other: All systems not noted in ROS Statement are negative. Constitutional: Denies: fever, chills Respiratory: Denies: cough, dyspnea Cardiovascular: Denies: chest pain, palpitations Gastrointestinal: Denies: abdominal pain, nausea, vomiting Musculoskeletal: Denies: back pain Skin: Denies: rash Neurological: Reports: as per HPI, headache. Denies: weakness <TrueJohn - Last Filed: 09/14/18 09:39> ROS Other: All systems not noted in ROS Statement are negative. <Santi Willard - Last Filed: 09/14/18 10:34> ROS Statement: Those systems with pertinent positive or pertinent negative responses have been documented in the HPI. Past Medical History Past Medical History: Atrial Fibrillation, COPD, Diabetes Mellitus, Hyperlipidemia, Hypertension, Thyroid Disorder Additional Past Medical History / Comment(s): bleeding from unknown origin per family, headaches, diet managed DM II History of Any Multi-Drug Resistant Organisms: None Reported Past Surgical History: Appendectomy, Cholecystectomy, Coronary Bypass/CABG, Hysterectomy Additional Past Surgical History / Comment(s): 2009 five vessel CABG, shots in eye Past Psychological History: No Psychological Hx Reported Smoking Status: Former smoker Past Alcohol Use History: None Reported Past Drug Use History: None Reported - Past Family History Father History Unknown: Yes <TrueJohn - Last Filed: 09/14/18 09:39> General Exam General appearance: alert, in no apparent distress Head exam: Present: normocephalic Eye exam: Present: normal appearance. Absent: scleral icterus, conjunctival injection Neck exam: Present: normal inspection, full ROM. Absent: tenderness Respiratory exam: Present: normal lung sounds bilaterally. Absent: respiratory distress, wheezes, rales, rhonchi, stridor, chest wall tenderness Cardiovascular Exam: Present: regular rate, normal rhythm, normal heart sounds. Absent: systolic murmur, diastolic murmur, rubs, gallop GI/Abdominal exam: Present: soft. Absent: distended, tenderness, guarding, rebound, mass Extremities exam: Present: normal inspection, normal capillary refill. Absent: pedal edema, calf tenderness Back exam: Absent: CVA tenderness (R), CVA tenderness (L) Neurological exam: Present: alert, CN II-XII intact. Absent: oriented X3 (Patient is oriented to person and place but could not recall the date.), motor sensory deficit Skin exam: Present: warm, dry, intact, normal color. Absent: rash <John Biswas - Last Filed: 09/14/18 09:39> Course Vital Signs 09/14/18 09/14/18 09/14/18 03:18 08:00 09:09 Temperature 97.8 F Pulse Rate 78 86 78 Respiratory 18 18 18 Rate Blood Pressure 131/78 134/66 113/59 O2 Sat by Pulse 100 98 97 Oximetry 09/14/18 09:52 Temperature Pulse Rate 79 Respiratory 18 Rate Blood Pressure 154/76 O2 Sat by Pulse 97 Oximetry Procedures - Laceration Laceration #1 Site: other (forehead) Size (cm): 3 Depth: simple, single layer Anesthetic Used: lidocaine 1% Anesthesia Technique: local infiltration Amount (mls): 2 Pre-repair: wound explored, irrigated extensively Type of Sutures: nylon Size of Sutures: 6-0 Number of Sutures: 3 (1 figure 8 suture, 2 simple sutures) Technique: simple, interrupted, other (1 figure 8) Patient Tolerated Procedure: well, no complications <Catherine Ramirez - Last Filed: 09/14/18 08:00> Medical Decision Making - Lab Data Result diagrams: 09/14/18 06:00 09/14/18 06:00 <Catherine Ramirez - Last Filed: 09/14/18 08:00> - Lab Data Result diagrams: 09/14/18 06:00 09/14/18 06:00 <John Biswas - Last Filed: 09/14/18 09:39> - Lab Data Result diagrams: 09/14/18 06:00 09/14/18 06:00 <Santi Willard - Last Filed: 09/14/18 10:34> - Lab Data Lab Results 09/14/18 09/14/18 Range/Units 06:00 06:00 WBC 17.1 H (3.8-10.6) k/uL RBC 2.78 L (3.80-5.40) m/uL Hgb 8.5 L (11.4-16.0) gm/dL Hct 26.6 L (34.0-46.0) % MCV 95.6 (80.0-100.0) fL MCH 30.5 (25.0-35.0) pg MCHC 31.9 (31.0-37.0) g/dL RDW 17.4 H (11.5-15.5) % Plt Count 274 (150-450) k/uL Neutrophils % 83 % Lymphocytes % 6 % Monocytes % 7 % Eosinophils % 0 % Basophils % 0 % Neutrophils # 14.3 H (1.3-7.7) k/uL Lymphocytes # 1.1 (1.0-4.8) k/uL Monocytes # 1.3 H (0-1.0) k/uL Eosinophils # 0.1 (0-0.7) k/uL Basophils # 0.0 (0-0.2) k/uL Hypochromasia Moderate Poikilocytosis Slight Anisocytosis Slight Sodium 134 L (137-145) mmol/L Potassium 4.1 (3.5-5.1) mmol/L Chloride 100 (98-107) mmol/L Carbon Dioxide 22 (22-30) mmol/L Anion Gap 12 mmol/L BUN 58 H (7-17) mg/dL Creatinine 1.99 H (0.52-1.04) mg/dL Est GFR (CKD-EPI)AfAm 26 (>60 ml/min/1.73 sqM) Est GFR (CKD-EPI)NonAf 22 (>60 ml/min/1.73 sqM) Glucose 66 L (74-99) mg/dL Calcium 9.5 (8.4-10.2) mg/dL Disposition <Catherine Ramirez - Last Filed: 09/14/18 08:00> Is patient prescribed a controlled substance at d/c from ED?: No <John Biswas - Last Filed: 09/14/18 09:39> <Santi Willard - Last Filed: 09/14/18 10:34> Clinical Impression: Fall, Head injury, Urinary tract infection Disposition: HOME SELF-CARE Condition: Fair
[2018-09-14 06:41] LABS: Anisocytosis Slight; Basophils % (A) 0 %; Eosinophils # (A) 0.1 k/uL (0-0.7); Eosinophils % (A) 0 %; HCT 26.6 % (34.0-46.0); HGB 8.5 gm/dL (11.4-16.0); Hypochromasia Moderate; Lymphocytes # (A) 1.1 k/uL (1.0-4.8); Lymphocytes % (A) 6 %; MCH 30.5 pg (25.0-35.0); MCHC 31.9 g/dL (31.0-37.0); MCV 95.6 fL (80.0-100.0); Mean Platelet Volume 7.9; Monocytes # (A) 1.3 k/uL (0-1.0); Monocytes % (A) 7 %; Neutrophils # (A) 14.3 k/uL (1.3-7.7); Neutrophils % (A) 83 %; Platelet Count 274 k/uL (150-450); Poikilocytosis Slight; RBC 2.78 m/uL (3.80-5.40); RDW 17.4 % (11.5-15.5); WBC 17.1 k/uL (3.8-10.6)
[2018-09-14 06:51] LABS: Calcium 9.5 mg/dL (8.4-10.2); Potassium 4.1 mmol/L (3.5-5.1)
[2018-09-14] MEDS ORDERED: LIDOCAINE 1% INJ 10MG/ML (20 ML MDV) SQ ONE (07:21)
[2018-09-14] MEDS ORDERED: SODIUM CHLORIDE 0.9% 500 ML 500 ML IV STA (09:21)
[2018-09-14] MEDS ORDERED: NALOXONE 0.4 MG/ML 1 ML VIAL IV PRN (09:22)
[2018-09-14] MEDS: SODIUM CHLORIDE 0.9% 1,000 ML IV SCH ×2 (09:31→21:40)
[2018-09-14 10:21] LABS: Appearance,Urine Cloudy (Clear); Bacteria,Urine Occasional /hpf; Bilirubin,Urine Negative (Negative); Blood,Urine Small (Negative); Color,Urine Yellow; Glucose,Urine (UA) Negative (Negative); Ketones,Urine Negative (Negative); Leukocyte Esterase,Urine Large (Negative); Nitrite,Urine Negative (Negative); Protein,Urine 1+ (Negative); Specific Gravity,Urine 1.012 (1.001-1.035); Urobilinogen,Urine <2.0 mg/dL (<2.0)
[2018-09-14] MEDS ORDERED: cefTRIAXone IN SWFI 1,000 MG/10 ML SYRINGE IVP STA (10:33)
[2018-09-14] MEDS: IPRATROPIUM-ALBUTEROL 3 ML NEB INHALATION SCH ×3 (10:50→19:02)
[2018-09-14] MEDS ORDERED: glipiZIDE 5 MG TAB PO SCH (11:00)
--- NOTE | 2018-09-14 12:49 | P.HPIM ---
History of Present Illness H&P Date: 09/14/18 Chief Complaint: Fall and UTI This is a 88-year-old female, resident at [facility]. 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 Patient was just recently hospitalized in July at that time diagnosed with a superficial gastric ulcer had EGD completed in and was placed on Protonix and Ca rafate. Since then she has been doing well. She presented to the hospital due to a fall at [facility]. She was being transferring from bed to a chair. Patient hit the front of her head. There is no loss of consciousness. She presented to the ER for further evaluation. She was found to have a urinary tract infection started on Rocephin. White count was 17.1 hemoglobin 8.5. She also had eviden ce of dehydration creatinine was elevated at 1.99 BUN 58. Blood sugar low also at 66. Patient denies any chest pain, shortness of breath, nausea or vomiting, bowel movement changes or urinary symptoms. She did have a computed tomography scan of the head and cervical spine completed in the ER. Computed tomography scan of the brain no acute hemorrhage, hydrocephalus or mass effect. CT of cervical spine showing no acute fracture or subluxation. Did know a 9 mm lesion in the right middle lobe. Recommend outpatient chest CT for better characterization. Chest x-ray no acute pulmonary pop process. Pelvic x-ray no evidence of any fractures. Patient denies any pain at this time. She did re quire sutures to a laceration above the left eyebrow in ER. She received IV fluid bolus in ER. Lasix is currently on hold. Review of Systems Please refer to HPI otherwise unremarkable Past Medical History Past Medical History: Atrial Fibrillation, Coronary Artery Disease (CAD), Cancer, Heart Failure, COPD, Diabetes Mellitus, GERD/Reflux, Hyperlipidemia, Hypertension, Thyroid Disorder Additional Past Medical History / Comment(s): Pt recently admitted to [facility] on 08/22/18 with abnormal labs/iron deficiency anemia-received blood transfusion/EGD showed superficial gastric nonbleeding ulcer/hiatal hernia/gastritis. Other hx: Chronic afib, chronic CHF, CVA with L sided weakness, NIDDM type II, CKD st age III, seizure disorder with last seizure 09/2017, pt states she has had R eye injections but does not recall reason, headaches, skin cancer removal/nose, unsteady gait. History of Any Multi-Drug Resistant Organisms: None Reported Past Surgical History: Appendectomy, Cholecystectomy, Coronary Bypass/CABG, Heart Catheterization, Hysterectomy Additional Past Surgical History / Comment(s): 08/24/18 EGD, 2009 five vessel CABG, skin cancer removed from nose. Past Anesthesia/Blood Transfusion Reactions: No Reported Reaction Additional Past Anesthesia/Blood Transfusion Reaction / Comment(s): Pt has received blood without reaction. Smoking Status: Former smoker - Past Family History Father History Unknown: Yes Family Medical History: No Reported History Additional Family Medical History / Comment(s): Father was healthy Mother Family Medical History: No Reported History Additional Family Medical History / Comment(s): Mother was healthy Medications and Allergies Home Medications Medication Instructions Recorded Confirmed Type Vit C/E/Zn/Coppr/Lutein/Zeaxan 1 cap PO DAILY@0900 03/28/16 09/14/18 History [Preservision Areds 2 Softgel] Cholecalciferol [Vitamin D3 (25 1,000 unit PO DAILY@89905/22/17 09/14/18 History Mcg = 1000 Iu)] Famotidine 40 mg PO DAILY@89905/22/17 09/14/18 History amLODIPine BESYLATE [Norvasc] 10 mg PO DAILY@209905/22/17 09/14/18 History Acetaminophen [Tylenol] 1,000 mg PO BID@0900,209910/13/17 09/14/18 History Aspirin [Adult Low Dose Aspirin EC] 81 mg PO DAILY@89910/13/17 09/14/18 History Atorvastatin Calcium [Lipitor] 10 mg PO DAILY@209910/13/17 09/14/18 History Cyanocobalamin [Vitamin B-12] 500 mcg PO DAILY@89910/13/17 09/14/18 History Isosorbide Mononitrate [Isosorbide 30 mg PO DAILY@89910/13/17 09/14/18 History Mononitrate ER] [place]-3 Fatty Acids/Fish Oil [Fish 1 cap PO DAILY@89910/13/17 09/14/18 History Oil 1,000 mg Softgel] Rosuvastatin Calcium [Crestor] 5 mg PO DAILY@2100 10/13/17 09/14/18 History Saxagliptin HCl [Onglyza] 5 mg PO DAILY@0900 10/13/17 09/14/18 History Sertraline HCl [Zoloft] 25 mg PO HS@2100 10/13/17 09/14/18 History Furosemide [Lasix] 40 mg PO DAILY@0600 08/09/18 09/14/18 History Menthol [Biofreeze] 1 applic TOPICAL Q2H PRN 08/09/18 09/14/18 History glipiZIDE [Glucotrol] 5 mg PO DAILY@1100 08/09/18 09/14/18 History levETIRAcetam [Keppra] 250 mg PO TID@0600,1400,2200 08/09/18 09/14/18 History Ferrous Sulfate [Iron (65 MG 325 mg PO BID@0900,1800 08/21/18 09/14/18 History Elemental)] Levothyroxine Sodium 112 mcg PO DAILY@0600 08/21/18 09/14/18 History Metoprolol Tartrate [Lopressor] 25 mg PO BID@0900,2100 08/21/18 09/14/18 History Spironolactone [Aldactone] 25 mg PO DAILY@0600 08/21/18 09/14/18 History traMADol HCL [Ultram] 50 mg PO Q8H PRN 14 Days #42 tablet 08/25/18 09/14/18 Rx Ipratropium-Albuterol Nebulize 3 ml INHALATION 09/14/18 09/14/18 History [Duoneb 0.5 mg-3 mg/3 ml Soln] RT-QID@0900,13,17,21 Pantoprazole [Protonix] 40 mg PO AC-BID@0600,1700 09/14/18 09/14/18 History Sucralfate [Carafate] 1 gm PO AC-BID@0600,1700 09/14/18 09/14/18 History Allergies Allergy/AdvReac Type Severity Reaction Status Date / Time acetaminophen [From Lortab] AdvReac Hallucinati Verified 09/14/18 07:51 ons hydrocodone [From Lortab] AdvReac Hallucinati Verified 09/14/18 07:51 ons Physical Exam Vitals: Vital Signs Temp Pulse Pulse Resp BP BP Pulse Ox 09/14/18 12:24 98.4 F 86 20 138/60 97 09/14/18 11:01 84 09/14/18 10:58 87 18 184/76 100 09/14/18 10:53 77 09/14/18 09:52 79 18 154/76 97 09/14/18 09:09 78 18 113/59 97 09/14/18 08:00 86 18 134/66 98 09/14/18 03:18 97.8 F 78 18 131/78 100 Intake and Output 09/13/18 09/14/18 09/14/18 22:59 06:59 14:59 Other: Weight 72.575 kg Head normocephalic. Head is bandaged dressing is clean dry and intact. There is some dried blood noted in the hairline in the back of her head. Neck supple Lungs clear to auscultation bilaterally no wheezing or crackles Heart regular rate and rhythm S1-S2, no rub or gallop Abdomen is soft nontender nondistended positive bowel sounds no hepatosplenom egaly Extremities no edema Neuro alert and orientated to 2. Patient new her name and place. Did not know the year. Patient is able to follow simple commands. Strength equal bilaterally upper and lower Results CBC & Chem 7: 09/14/18 06:00 09/14/18 06:00 Labs: Abnormal Lab Results - Last 24 Hours (Table) 09/14/18 09/14/18 09/14/18 Range/Units 06:00 06:00 10:05 WBC 17.1 H (3.8-10.6) k/uL RBC 2.78 L (3.80-5.40) m/uL Hgb 8.5 L (11.4-16.0) gm/dL Hct 26.6 L (34.0-46.0) % RDW 17.4 H (11.5-15.5) % Neutrophils # 14.3 H (1.3-7.7) k/uL Monocytes # 1.3 H (0-1.0) k/uL Sodium 134 L (137-145) mmol/L BUN 58 H (7-17) mg/dL Creatinine 1.99 H (0.52-1.04) mg/dL Glucose 66 L (74-99) mg/dL Urine Appearance Cloudy H (Clear) Urine Protein 1+ H (Negative) Urine Blood Small H (Negative) Ur Leukocyte Esterase Large H (Negative) Urine WBC >182 H (0-5) /hpf Urine WBC Clumps Many H (None) /hpf Urine Bacteria Occasional H (None) /hpf Thrombosis Risk Factor Assmnt - Choose All That Apply Any of the Below Risk Factors Present?: Yes Each Factor Represents 1 point: Abnormal pulmonary function (COPD), Obesity (BMI >25) Other Risk Factors: Yes Each Risk Factor Represents 2 Points: Malignancy Other congenital or acquired thrombophilia - If yes, enter type in comment: No Thrombosis Risk Factor Assessment Total Risk Factor Score: 4 Thrombosis Risk Factor Assessment Level: Moderate Risk Assessment and Plan Assessment: 1. Fall with generalized weakness: Possible secondary to UTI and dehydration. Patient receiving IV fluids and antibiotics. Consult physical therapy and occupational therapy. No loss of consciousness. Computed tomography scan of the brain was a negative. Computed tomography scan of the cervical spine no anika dence of fracture or subluxation 2. UTI: Check urine culture. Start Rocephin 1 g daily 3. Acute kidney injury with chronic kidney disease stage III. Baseline creatinine near 1.2 to 1.6. Creatinine on admission 1.99 BUN 58. Hold Lasix and aldactone. Patient received IV fluid bolus in the ER. We'll continue normal saline at 75 mL per hour. Continue to monitor kidney function closely. 4. Diabetes mellitus type 2: Hypoglycemia on admission blood sugar of 66. Check hemoglobin A1c. Add sliding scale coverage. We'll hold oral hypoglycemics for now. Hypoglycemia could also be contributing factor to her fall and generalized weakness. We'll monitor. 5. Iron deficiency anemia continue iron supplement. 6. Gastric ulcer noted on recent EGD in July 2018 continue Protonix and Melsisa fate. No active signs of bleeding at this time. Continue to monitor hemoglobin 7. History of COPD stable 8. History of chronic atrial fibrillation. Maintained on metoprolol. Not on any anticoagulation due to previous history of petechial hemorrhage on MRI of brain 9. History of seizure disorder continue Keppra 10. History of coronary artery disease with previous CABG in 2008 11. History of chronic systolic just of heart failure. No evidence of exacerbation at this time. We'll hold Lasix due to worsening kidney function. Continue Aldactone for now. Last 2-D echo showing an EF of 60-65% 12. Previous history of UTIs 13. Hypothyroidism continue Synthroid 14. Incidental finding on CT of cervical spine of a 9 mm lesion in the right middle lobe. Radiologist is recommending outpatient CT of chest. Patient does have a prior history of smoking 15. Head laceration above the left eyebrow requiring sutures in the ER GI prophylaxis Protonix and DVT prophylaxis subcu heparin Time with Patient: Greater than 30 (Greater than 50% of the total time spent in counseling and coordination of care.I performed an examination of the patient and discussed their management with the physician Traveling Sales Representative. I have reviewed the Physician Traveling Sales Representative's notes and agree with the documented findings and plan of care)
[2018-09-14 16:43] LABS: Glucose,Whole Blood 101 mg/dL (75-99)
[2018-09-14] MEDS: INSULIN ASPART (NovoLOG) 100 UNIT/ML VIAL SQ SCH ×2 (17:30→21:02)
[2018-09-14] MEDS: levETIRAcetam 250 MG TAB PO SCH ×2 (17:31→21:36)
[2018-09-14] MEDS: FERROUS SULFATE 325 MG TAB PO SCH (17:31)
[2018-09-14] MEDS: SUCRALFATE 1 GM TAB PO SCH (17:32)
[2018-09-14] MEDS: PANTOPRAZOLE 40 MG TABLET PO SCH (17:32)
[2018-09-14 20:32] LABS: Glucose,Whole Blood 99 mg/dL (75-99)
[2018-09-14] MEDS ORDERED: NON-FORMULARY DRUG (Rosuvastatin Calcium [Crestor] 5 MG) PO SCH (21:00)
[2018-09-14] MEDS: amLODIPine 10 MG TAB PO SCH (21:36)
[2018-09-14] MEDS: SERTRALINE 25 MG TAB PO SCH (21:36)
[2018-09-14] MEDS: ATORVASTATIN 10 MG TAB PO SCH (21:36)
[2018-09-14] MEDS: METOPROLOL TARTRATE 25 MG TAB PO SCH (21:37)
[2018-09-14] MEDS: HEPARIN SODIUM,PORCINE 5,000 UNIT/ML 1 ML VIAL SQ SCH (21:39)
[2018-09-15] MEDS ORDERED: SPIRONOLACTONE 25 MG TAB PO SCH (06:00)
[2018-09-15] MEDS: LEVOTHYROXINE 112 MCG TAB PO SCH (06:17)
[2018-09-15] MEDS: levETIRAcetam 250 MG TAB PO SCH ×3 (06:17→20:56)
[2018-09-15] MEDS: PANTOPRAZOLE 40 MG TABLET PO SCH ×2 (06:17→17:33)
[2018-09-15] MEDS: SUCRALFATE 1 GM TAB PO SCH ×2 (06:17→17:33)
[2018-09-15 07:17] LABS: Glucose,Whole Blood 96 mg/dL (75-99)
[2018-09-15] MEDS: INSULIN ASPART (NovoLOG) 100 UNIT/ML VIAL SQ SCH ×4 (07:49→20:57)
[2018-09-15] MEDS: ISOSORBIDE MONONITRATE ER 30 MG TAB.ER.24H PO SCH (07:56)
[2018-09-15] MEDS: VIT A,C & E-LUTEIN-MINERALS 1 EACH TAB PO SCH (07:56)
[2018-09-15] MEDS: METOPROLOL TARTRATE 25 MG TAB PO SCH ×2 (07:56→20:57)
[2018-09-15] MEDS: ASPIRIN 81 MG PO SCH (07:56)
[2018-09-15] MEDS: FERROUS SULFATE 325 MG TAB PO SCH ×2 (07:56→17:33)
[2018-09-15] MEDS: FAMOTIDINE 20 MG TAB PO SCH (07:56)
[2018-09-15] MEDS: CYANOCOBALAMIN 500 MCG TAB PO SCH (07:56)
[2018-09-15] MEDS: CHOLECALCIFEROL 1,000 UNIT TAB PO SCH (07:56)
[2018-09-15] MEDS: HEPARIN SODIUM,PORCINE 5,000 UNIT/ML 1 ML VIAL SQ SCH ×2 (07:57→20:57)
[2018-09-15] MEDS: IPRATROPIUM-ALBUTEROL 3 ML NEB INHALATION SCH ×4 (08:24→19:44)
[2018-09-15] MEDS ORDERED: NON-FORMULARY DRUG (Omega-3 Fatty Acids/Fish Oil [Fish Oil 1,000 Mg Softgel] 1 CAP) PO SCH (09:00)
[2018-09-15] MEDS ORDERED: LINAGLIPTIN 5 MG TABLET PO SCH (09:00)
[2018-09-15 09:14] LABS: Anisocytosis Slight; Basophils % (A) 0 %; Eosinophils % (A) 0 %; HCT 23.8 % (34.0-46.0); HGB 7.3 gm/dL (11.4-16.0); Hypochromasia Moderate; Lymphocytes # (A) 1.2 k/uL (1.0-4.8); Lymphocytes % (A) 7 %; MCH 29.7 pg (25.0-35.0); MCHC 30.7 g/dL (31.0-37.0); MCV 96.7 fL (80.0-100.0); Mean Platelet Volume 7.2; Monocytes # (A) 1.1 k/uL (0-1.0); Monocytes % (A) 6 %; Neutrophils # (A) 14.5 k/uL (1.3-7.7); Neutrophils % (A) 84 %; Platelet Count 275 k/uL (150-450); Poikilocytosis Slight; RBC 2.46 m/uL (3.80-5.40); RDW 17.2 % (11.5-15.5); WBC 17.3 k/uL (3.8-10.6)
[2018-09-15 09:32] LABS: Albumin 2.9 g/dL (3.5-5.0); Calcium 9.4 mg/dL (8.4-10.2); Total Bilirubin 0.5 mg/dL (0.2-1.3); Total Protein 7.1 g/dL (6.3-8.2)
--- NOTE | 2018-09-15 10:33 | P.PN ---
Subjective Progress Note Date: 09/15/18 This is a 88-year-old female, resident at [facility]. 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 Patient was just recently hospitalized in July at that time diagnosed with a superficial gastric ulcer had EGD completed in and was placed on Protonix and Carafate. Since then she has been doing well. She presented to the hospital due to a fall at [facility]. She was being transferring from bed to a chair. Patient hit the front of her head. There is no loss of consciousness. She presented to the ER for further evaluation. She was found to have a urinary tract infection started on Rocephin. White count was 17.1 hemoglobin 8.5. She also had evidence of dehydration creatinine was elevated at 1.99 BUN 58. Blood sugar low also at 66. Patient denies any chest pain, shortness of breath, nausea or vomiting, bowel movement changes or urinary symptoms. She did have a computed tomography scan of the head and cervical spine completed in the ER. Computed tomography scan of the brain no acute hemorrhage, hydrocephalus or mass effect. CT of cervical spine showing no acute fracture or subluxation. Did know a 9 mm lesion in the right middle lobe. Recommend outpatient chest CT for better characterization. Chest x-ray no acute pulmonary pop process. Pelvic x- ray no evidence of any fractures. Patient denies any pain at this time. She did require sutures to a laceration above the left eyebrow in ER. She received IV fluid bolus in ER. Lasix is currently on hold. 09/15/2018 patient sitting up in bedside chair. She does admit to a cough and some shortness of breath. She was receiving IV fluids yesterday. IV fluids will be discontinued. Creatinine has come down from 1.99-1.59. White count has gone up from 17.1-17.3 and hemoglobin is 8.5-7.3. Patient's last bowel movement was yesterday. No active sites of bleeding. Patient denies any headache. Denies any chest pain. Denies any nausea vomiting. Denies any bowel movement changes or urinary symptoms. Remains on Rocephin for UTI. Objective - Vital Signs Vital signs: Vital Signs Temp 98.1 F 09/15/18 04:14 Pulse 96 09/15/18 08:40 Resp 18 09/15/18 04:14 BP 122/73 09/15/18 04:14 Pulse Ox 97 09/15/18 04:14 Intake & Output 09/14/18 09/15/18 09/15/18 18:59 06:59 18:59 Intake Total 560 Output Total 0 Balance 560 0 Intake: Intake, IV Titration 500 Amount Sodium Chloride 0.9% 1, 450 000 ml @ 75 mls/hr IV . [id number] JAYA Rx#:[id number] cefTRIAXone 1 gm In 50 Sodium Chloride 0.9% 50 ml @ 100 mls/hr IVPB Q24HR JAYA Rx#:[id number] Oral 60 Output: Stool 0 Other: Voiding Method Toilet Diaper Bedside Commode # Voids 1 2 - Exam Head normocephalic. Wrapped in Kerlix. Neck supple. Positive JVD Lungs diminished bilaterally no wheezing or crackles noted. Heart regular rate and rhythm S1-S2, no rub or gallop Abdomen is soft nontender nondistended positive bowel sounds no hepatosplenomegaly Extremities no edema Neuro alert and orientated to 2. Sleepy but able to answer questions. - Labs CBC & Chem 7: 09/15/18 08:34 09/15/18 08:34 Labs: Abnormal Lab Results - Last 24 Hours (Table) 09/14/18 09/14/18 09/15/18 Range/Units 10:05 16:41 08:34 WBC 17.3 H (3.8-10.6) k/uL RBC 2.46 L (3.80-5.40) m/uL Hgb 7.3 L (11.4-16.0) gm/dL Hct 23.8 L (34.0-46.0) % MCHC 30.7 L (31.0-37.0) g/dL RDW 17.2 H (11.5-15.5) % Neutrophils # 14.5 H (1.3-7.7) k/uL Monocytes # 1.1 H (0-1.0) k/uL Carbon Dioxide (22-30) mmol/L BUN (7-17) mg/dL Creatinine (0.52-1.04) mg/dL Glucose (74-99) mg/dL POC Glucose (mg/dL) 101 H (75-99) mg/dL Albumin (3.5-5.0) g/dL Urine WBC >182 H (0-5) /hpf 09/15/18 Range/Units 08:34 WBC (3.8-10.6) k/uL RBC (3.80-5.40) m/uL Hgb (11.4-16.0) gm/dL Hct (34.0-46.0) % MCHC (31.0-37.0) g/dL RDW (11.5-15.5) % Neutrophils # (1.3-7.7) k/uL Monocytes # (0-1.0) k/uL Carbon Dioxide 21 L (22-30) mmol/L BUN 45 H (7-17) mg/dL Creatinine 1.59 H (0.52-1.04) mg/dL Glucose 127 H (74-99) mg/dL POC Glucose (mg/dL) (75-99) mg/dL Albumin 2.9 L (3.5-5.0) g/dL Urine WBC (0-5) /hpf Microbiology - Last 24 Hours (Table) 09/14/18 10:05 Urine Culture - Preliminary Urine,Catheterized Assessment and Plan Assessment: 1. Fall with generalized weakness: Possible secondary to UTI, dehydration and hypoglycemia. Patient receiving IV fluids and antibiotics. Consult physical therapy and occupational therapy. No loss of consciousness. Computed tomography scan of the brain was a negative. Computed tomography scan of the cervical spine no evidence of fracture or subluxation 2. UTI: Check urine culture. Continue Rocephin 1 g daily 3. Acute kidney injury with chronic kidney disease stage III. Baseline creatinine near 1.2 to 1.6. Creatinine on admission 1.99 BUN 58. K functions are improving. Creatinine is down to 1.59. We'll resume patient's home Lasix 40 mg by mouth daily. Aldactone on hold. 4. Diabetes mellitus type 2: Hypoglycemia on admission blood sugar of 66. Check hemoglobin A1c. Add sliding scale coverage. We'll hold oral hypoglycemics for now. Hypoglycemia could also be contributing factor to her fall and generalized weakness. We'll monitor. 5. Iron deficiency anemia continue iron supplement. Hemoglobin has dropped to 7.3. Possibly related to IV fluids. No active signs of bleeding. Check iron studies. 6. Gastric ulcer noted on recent EGD in July 2018 continue Protonix and Carafa te. No active signs of bleeding at this time. Continue to monitor hemoglobin 7. History of COPD stable 8. History of chronic atrial fibrillation. Maintained on metoprolol. Not on any anticoagulation due to previous history of petechial hemorrhage on MRI of brain 9. History of seizure disorder continue Keppra 10. History of coronary artery disease with previous CABG in 2008 11. History of chronic systolic just of heart failure. No evidence of exacerbation at this time. We'll hold Lasix due to worsening kidney function. Continue Aldactone for now. Last 2-D echo showing an EF of 60-65% 12. Previous history of UTIs 13. Hypothyroidism continue Synthroid. TSH normal at 1.640 14. Incidental finding on CT of cervical spine of a 9 mm lesion in the right middle lobe. Radiologist is recommending outpatient CT of chest. Patient does have a prior history of smoking 15. Head laceration above the left eyebrow requiring sutures in the ER 16. Moderate protein calorie malnutrition albumin 2.9. Continue Concerta shakes 17. Cough with shortness of breath possibly related to some fluid overload. Hep-Lock IV fluids we'll restart patient's Lasix and check chest x-ray. Check BNP. 18. Leukocytosis likely related to UTI. Await urine culture. GI prophylaxis Protonix and DVT prophylaxis subcu heparin I performed an examination of the patient and discussed their management with the physician Sports Nutritionist. I have reviewed the Physician Sports Nutritionist's notes and agree with the documented findings and plan of care
[2018-09-15 11:23] LABS: Glucose,Whole Blood 212 mg/dL (75-99)
[2018-09-15] MEDS: FUROSEMIDE 40 MG TAB PO SCH (13:08)
--- NOTE | 2018-09-15 13:41 | XR ---
EXAMINATION TYPE: XR chest 2V DATE OF EXAM: 09/15/2018 COMPARISON: NONE HISTORY: Shortness of breath TECHNIQUE: Frontal and lateral views of the chest are obtained. FINDINGS: Scattered senescent parenchymal changes noted. Hyperinflation compatible with COPD. Increased density right medial lung base No evidence for atelectasis. Heart size is stable. Pulmonary venous congestion without overt failure. Mediastinal structures are stable and grossly unremarkable. No evidence for hilar prominence. Degenerative changes dorsal spine. IMPRESSION: 1. Correlate for developing infiltrate right medial lung base. Pulmonary venous congestion without ov ert failure.
[2018-09-15] MEDS ORDERED: FUROSEMIDE 10 MG/ML 2 ML VIAL IV ONE (15:15)
[2018-09-15] MEDS ORDERED: SODIUM FERRIC GLUCONAT-SUCROSE 125 MG in SODIUM CHLORIDE 0.9% 100 ML IVPB ONE (16:00)
[2018-09-15 17:19] LABS: Glucose,Whole Blood 245 mg/dL (75-99)
[2018-09-15 17:31] LABS: Iron Saturation 9.38 (12.00-45.00)
[2018-09-15] MEDS: AZITHROMYCIN 500 MG in SODIUM CHLORIDE 0.9% 250 ML IVPB SCH (17:33)
--- NOTE | 2018-09-15 17:41 | P.CNPUL ---
History of Present Illness Consult date: 09/15/18 Reason for consult: pneumonia Chief complaint: Pneumonia, Pulmonary nodule History of present illness: This is a 88-year-old female with the history of complex past medical problems see below patient was was transferred from wheelchair to bed and fell down and developed left forehead laceration came into the hospital she appears to be dehydrated as urinary tract infection, incidentally found to have a 9 mm right middle lobe nodule the initial x-ray of the chest was unremarkable subsequent x- ray shows right-sided pneumonia probably involving the middle lobe as well patient has been on IV Rocephin review of the data revealed that patient has past medical history of 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 Patient was just recently hospitalized in July at that time diagnosed with a superficial gastric ulcer had EGD completed in and was placed on Protonix and Carafate. Since then she has been doing well. She presented to the hospital due to a fall at [facility]. She was being transferring from bed to a chair. Patient hit the front of her head. There is no loss of consciousness. She presented to the ER for further evaluation. She was found to have a urinary tract infection started on Rocephin. White count was 17.1 hemoglobin 8.5. She also had evidence of dehydration creatinine was elevated at 1.99 BUN 58. Blood sugar low also at 66. Patient denies any chest pain, shortness of breath, nausea or vomiting, bowel movement changes or urinary symptoms. She did have a computed tomography scan of the head and cervical spine completed in the ER. Computed tomography scan of the brain no acute hemorrhage, hydrocephalus or mass effect. CT of cervical spine showing no acute fracture or subluxation. Review of Systems All systems: negative Past Medical History Past Medical History: Atrial Fibrillation, Coronary Artery Disease (CAD), Cancer, Heart Failure, COPD, Diabetes Mellitus, GERD/Reflux, Hyperlipidemia, Hypertension, Thyroid Disorder Additional Past Medical History / Comment(s): Pt recently admitted to [facility] on 08/22/18 with abnormal labs/iron deficiency anemia-received blood transfusion/EGD showed superficial gastric nonbleeding ulcer/hiatal hernia/gastritis. Other hx: Chronic afib, chronic CHF, CVA with L sided weakness, NIDDM type II, CKD stage III, seizure disorder with last seizure 09/2017, pt states she has had R eye injections but does not recall reason, headaches, skin cancer removal/nose, unsteady gait. History of Any Multi-Drug Resistant Organisms: None Reported Past Surgical History: Appendectomy, Cholecystectomy, Coronary Bypass/CABG, Heart Catheterization, Hysterectomy Additional Past Surgical History / Comment(s): 08/24/18 EGD, 2009 five vessel CABG, skin cancer removed from nose. Past Anesthesia/Blood Transfusion Reactions: No Reported Reaction Additional Past Anesthesia/Blood Transfusion Reaction / Comment(s): Pt has received blood without reaction. Smoking Status: Former smoker - Past Family History Father History Unknown: Yes Family Medical History: No Reported History Additional Family Medical History / Comment(s): Father was healthy Mother Family Medical History: No Reported History Additional Family Medical History / Comment(s): Mother was healthy Medications and Allergies Home Medications Medication Instructions Recorded Confirmed Type Vit C/E/Zn/Coppr/Lutein/Zeaxan 1 cap PO DAILY@89903/28/16 09/14/18 History [Preservision Areds 2 Softgel] Cholecalciferol [Vitamin D3 (25 1,000 unit PO DAILY@89905/22/17 09/14/18 History Mcg = 1000 Iu)] Famotidine 40 mg PO DAILY@89905/22/17 09/14/18 History amLODIPine BESYLATE [Norvasc] 10 mg PO DAILY@209905/22/17 09/14/18 History Acetaminophen [Tylenol] 1,000 mg PO BID@0900,209910/13/17 09/14/18 History Aspirin [Adult Low Dose Aspirin EC] 81 mg PO DAILY@89910/13/17 09/14/18 History Atorvastatin Calcium [Lipitor] 10 mg PO DAILY@209910/13/17 09/14/18 History Cyanocobalamin [Vitamin B-12] 500 mcg PO DAILY@89910/13/17 09/14/18 History Isosorbide Mononitrate [Isosorbide 30 mg PO DAILY@89910/13/17 09/14/18 History Mononitrate ER] [place]-3 Fatty Acids/Fish Oil [Fish 1 cap PO DAILY@89910/13/17 09/14/18 History Oil 1,000 mg Softgel] Rosuvastatin Calcium [Crestor] 5 mg PO DAILY@2100 10/13/17 09/14/18 History Saxagliptin HCl [Onglyza] 5 mg PO DAILY@0900 10/13/17 09/14/18 History Sertraline HCl [Zoloft] 25 mg PO HS@2100 10/13/17 09/14/18 History Furosemide [Lasix] 40 mg PO DAILY@0600 08/09/18 09/14/18 History Menthol [Biofreeze] 1 applic TOPICAL Q2H PRN 08/09/18 09/14/18 History glipiZIDE [Glucotrol] 5 mg PO DAILY@1100 08/09/18 09/14/18 History levETIRAcetam [Keppra] 250 mg PO TID@0600,1400,2200 08/09/18 09/14/18 History Ferrous Sulfate [Iron (65 MG 325 mg PO BID@0900,1800 08/21/18 09/14/18 History Elemental)] Levothyroxine Sodium 112 mcg PO DAILY@0608/21/18 09/14/18 History Metoprolol Tartrate [Lopressor] 25 mg PO BID@0900,2100 08/21/18 09/14/18 History Spironolactone [Aldactone] 25 mg PO DAILY@0600 08/21/18 09/14/18 History traMADol HCL [Ultram] 50 mg PO Q8H PRN 14 Days #42 tablet 08/25/18 09/14/18 Rx Ipratropium-Albuterol Nebulize 3 ml INHALATION 09/14/18 09/14/18 History [Duoneb 0.5 mg-3 mg/3 ml Soln] RT-QID@0900,13,17,21 Pantoprazole [Protonix] 40 mg PO AC-BID@0600,1700 09/14/18 09/14/18 History Sucralfate [Carafate] 1 gm PO AC-BID@0600,1700 09/14/18 09/14/18 History Allergies Allergy/AdvReac Type Severity Reaction Status Date / Time acetaminophen [From Lortab] AdvReac Hallucinati Verified 09/14/18 07:51 ons hydrocodone [From Lortab] AdvReac Hallucinati Verified 09/14/18 07:51 ons Physical Exam Vitals: Vital Signs Temp Pulse Pulse Resp BP Pulse Ox 09/15/18 16:27 92 09/15/18 16:12 92 09/15/18 12:02 97.5 F L 85 14 116/65 98 09/15/18 11:50 96 09/15/18 11:40 96 09/15/18 08:40 96 09/15/18 08:24 92 09/15/18 04:14 98.1 F 83 18 122/73 97 09/14/18 23:50 95 16 09/14/18 20:29 99.1 F 95 16 134/73 96 09/14/18 19:12 82 09/14/18 19:02 80 Intake and Output 09/15/18 09/15/18 09/15/18 06:59 14:59 22:59 Output Total 0 Balance 0 Output: Stool 0 Other: Voiding Method Diaper Toilet Toilet Diaper Diaper # Voids 2 2 - Constitutional Laceration forehead covered with dressing General appearance: average body habitus, cooperative, disheveled, no acute distress - EENT Eyes: anicteric sclerae, EOMI, PERRLA, poor dentition Ears: bilateral: normal - Neck Neck: normal ROM Carotids: bilateral: upstroke normal, bruit absent Thyroid: bilateral: normal size - Respiratory Respiratory: right: rales (At the right base), bilateral: diminished (At bases) - Cardiovascular Rhythm: regular Heart sounds: normal: S1, S2 - Gastrointestinal General gastrointestinal: decreased bowel sounds - Neurologic Neurologic: CNII-XII intact - Musculoskeletal Musculoskeletal: gait normal, generalized weakness, strength equal bilaterally - Psychiatric Psychiatric: A&O x's 3, appropriate affect, intact judgment & insight Results - Laboratory Findings CBC and BMP: 09/15/18 08:34 09/15/18 08:34 Abnormal lab findings: Abnormal Labs 09/14/18 09/14/18 09/14/18 06:00 06:00 10:05 WBC 17.1 H RBC 2.78 L Hgb 8.5 L Hct 26.6 L MCHC RDW 17.4 H Neutrophils # 14.3 H Monocytes # 1.3 H Sodium 134 L Carbon Dioxide BUN 58 H Creatinine 1.99 H Glucose 66 L POC Glucose (mg/dL) Iron TIBC Iron Saturation Albumin Urine Appearance Cloudy H Urine Protein 1+ H Urine Blood Small H Ur Leukocyte Esterase Large H Urine WBC >182 H Urine WBC Clumps Many H Urine Bacteria Occasional H 09/14/18 09/15/18 09/15/18 16:41 08:34 08:34 WBC 17.3 H RBC 2.46 L Hgb 7.3 L Hct 23.8 L MCHC 30.7 L RDW 17.2 H Neutrophils # 14.5 H Monocytes # 1.1 H Sodium Carbon Dioxide 21 L BUN 45 H Creatinine 1.59 H Glucose 127 H POC Glucose (mg/dL) 101 H Iron TIBC Iron Saturation Albumin 2.9 L Urine Appearance Urine Protein Urine Blood Ur Leukocyte Esterase Urine WBC Urine WBC Clumps Urine Bacteria 09/15/18 09/15/18 09/15/18 08:34 11:22 17:17 WBC RBC Hgb Hct MCHC RDW Neutrophils # Monocytes # Sodium Carbon Dioxide BUN Creatinine Glucose POC Glucose (mg/dL) 212 H 245 H Iron 15 L TIBC 160 L Iron Saturation 9.38 L Albumin Urine Appearance Urine Protein Urine Blood Ur Leukocyte Esterase Urine WBC Urine WBC Clumps Urine Bacteria - Diagnostic Findings Chest x-ray: report reviewed, image reviewed (Finding as noted above) Assessment and Plan Assessment: Right lower lobe/right middle lobe pneumonia Right middle lobe 9 mm lung nodule Status post fall with laceration and left for heard requiring sutures Urinary tract infection due to gram-negative rods Sepsis Generalized weakness Type 2 diabetes mellitus Chronic atrial fibrillation not a candidate for a blood thinners Chronic renal failure Coronary artery disease Seizure disorder History of chronic diastolic heart failure currently stable Plan: Agree with antibiotics Follow clinical course closely gentle rehydration We'll do a computed tomography scan of the chest has outpatient Further recommendations pending plan of care as per clinical response of the patient Time with Patient: Greater than 30
[2018-09-15 19:27] LABS: Hemoglobin A1C 6.3 % (4.0-6.0)
[2018-09-15 20:11] LABS: Glucose,Whole Blood 229 mg/dL (75-99)
[2018-09-15] MEDS: ATORVASTATIN 10 MG TAB PO SCH (20:56)
[2018-09-15] MEDS: SERTRALINE 25 MG TAB PO SCH (20:56)
[2018-09-15] MEDS: amLODIPine 10 MG TAB PO SCH (20:56)
[2018-09-16] MEDS: FUROSEMIDE 40 MG TAB PO SCH (06:23)
[2018-09-16] MEDS: LEVOTHYROXINE 112 MCG TAB PO SCH (06:23)
[2018-09-16] MEDS: levETIRAcetam 250 MG TAB PO SCH ×3 (06:25→21:24)
[2018-09-16] MEDS: PANTOPRAZOLE 40 MG TABLET PO SCH ×2 (06:25→17:45)
[2018-09-16] MEDS: SUCRALFATE 1 GM TAB PO SCH ×2 (06:25→17:45)
[2018-09-16 07:03] LABS: Anisocytosis Slight; Basophils % (A) 0 %; Eosinophils # (A) 0.1 k/uL (0-0.7); Eosinophils % (A) 0 %; HCT 20.1 % (34.0-46.0); Hypochromasia Marked; Lymphocytes # (A) 1.1 k/uL (1.0-4.8); Lymphocytes % (A) 8 %; MCH 30.5 pg (25.0-35.0); MCHC 31.5 g/dL (31.0-37.0); MCV 96.8 fL (80.0-100.0); Mean Platelet Volume 8.5; Monocytes # (A) 0.9 k/uL (0-1.0); Monocytes % (A) 7 %; Neutrophils # (A) 11.4 k/uL (1.3-7.7); Neutrophils % (A) 83 %; Platelet Count 211 k/uL (150-450); Poikilocytosis Slight; RBC 2.08 m/uL (3.80-5.40); RDW 17.2 % (11.5-15.5); WBC 13.8 k/uL (3.8-10.6)
[2018-09-16 07:10] LABS: Glucose,Whole Blood 169 mg/dL (75-99)
[2018-09-16 07:16] LABS: HGB 6.4 gm/dL (11.4-16.0)
[2018-09-16 07:21] LABS: Albumin 2.6 g/dL (3.5-5.0); Calcium 9.2 mg/dL (8.4-10.2); Total Bilirubin 0.3 mg/dL (0.2-1.3); Total Protein 6.4 g/dL (6.3-8.2)
[2018-09-16] MEDS: IPRATROPIUM-ALBUTEROL 3 ML NEB INHALATION SCH ×4 (08:13→19:47)
[2018-09-16] MEDS: ASPIRIN 81 MG PO SCH (08:25)
[2018-09-16] MEDS: HEPARIN SODIUM,PORCINE 5,000 UNIT/ML 1 ML VIAL SQ SCH ×2 (08:25→21:24)
[2018-09-16] MEDS: CYANOCOBALAMIN 500 MCG TAB PO SCH (08:25)
[2018-09-16] MEDS: ISOSORBIDE MONONITRATE ER 30 MG TAB.ER.24H PO SCH (08:25)
[2018-09-16] MEDS: INSULIN ASPART (NovoLOG) 100 UNIT/ML VIAL SQ SCH ×4 (08:25→21:24)
[2018-09-16] MEDS: CHOLECALCIFEROL 1,000 UNIT TAB PO SCH (08:25)
[2018-09-16] MEDS: FERROUS SULFATE 325 MG TAB PO SCH ×2 (08:25→17:45)
[2018-09-16] MEDS: METOPROLOL TARTRATE 25 MG TAB PO SCH ×2 (08:25→21:24)
[2018-09-16] MEDS: VIT A,C & E-LUTEIN-MINERALS 1 EACH TAB PO SCH (08:27)
[2018-09-16] MEDS: FAMOTIDINE 20 MG TAB PO SCH (08:29)
[2018-09-16 10:50] LABS: Glucose,Whole Blood 246 mg/dL (75-99)
[2018-09-16] MEDS: ACETAMINOPHEN TAB 325 MG TAB PO PRN (12:15)
--- NOTE | 2018-09-16 14:34 | P.PN ---
Subjective Progress Note Date: 09/16/18 This is a 88-year-old female, resident at [facility]. 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 Patient was just recently hospitalized in July at that time diagnosed with a superficial gastric ulcer had EGD completed in and was placed on Protonix and Carafate. Since then she has been doing well. She presented to the hospital due to a fall at [facility]. She was being transferring from bed to a chair. Patient hit the front of her head. There is no loss of consciousness. She presented to the ER for further evaluation. She was found to have a urinary tract infection started on Rocephin. White count was 17.1 hemoglobin 8.5. She also had evidence of dehydration creatinine was elevated at 1.99 BUN 58. Blood sugar low also at 66. Patient denies any chest pain, shortness of breath, nausea or vomiting, bowel movement changes or urinary symptoms. She did have a computed tomography scan of the head and cervical spine completed in the ER. Computed tomography scan of the brain no acute hemorrhage, hydrocephalus or mass effect. CT of cervical spine showing no acute fracture or subluxation. Did know a 9 mm lesion in the right middle lobe. Recommend outpatient chest CT for better characterization. Chest x-ray no acute pulmonary pop process. Pelvic x- ray no evidence of any fractures. Patient denies any pain at this time. She did require sutures to a laceration above the left eyebrow in ER. She received IV fluid bolus in ER. Lasix is currently on hold. 09/15/2018 patient sitting up in bedside chair. She does admit to a cough and some shortness of breath. She was receiving IV fluids yesterday. IV fluids will be discontinued. Creatinine has come down from 1.99-1.59. White count has gone up from 17.1-17.3 and hemoglobin is 8.5-7.3. Patient's last bowel movement was yesterday. No active sites of bleeding. Patient denies any headache. Denies any chest pain. Denies any nausea vomiting. Denies any bowel movement changes or urinary symptoms. Remains on Rocephin for UTI. On 09/16/2018 patient is alert more oriented in no apparent distress there is no fever or chills no headache or dizziness no chest pain no shortness of breath she is complaining of cough no nausea or vomiting no abdominal pain no diarrhea and no urinary symptoms hemoglobin was down to 6.3 today 1 unit of red blood cell transfusion was ordered repeat CBC at 6 PM today consult for gastroenterology was initiated Objective - Vital Signs Vital signs: Vital Signs Temp 98.2 F 09/16/18 12:25 Pulse 79 09/16/18 12:25 Resp 16 09/16/18 12:25 BP 130/58 09/16/18 12:25 Pulse Ox 97 09/16/18 12:25 Intake & Output 09/15/18 09/16/18 09/16/18 18:59 06:59 18:59 Intake Total 990 0 Balance 990 0 Intake: Intake, IV Titration 300 Amount Sodium Chloride 0.9% 1, 300 000 ml @ 75 mls/hr IV . [id number] [facility] Rx#:[id number] Oral 690 Blood Product 0 Rc As-1 Unit 0 [id number] Other: Voiding Method Toilet Diaper # Voids 2 1 - Exam Head normocephalic. Wrapped in Kerlix. Neck supple. Positive JVD Lungs diminished bilaterally no wheezing or crackles noted. Heart regular rate and rhythm S1-S2, no rub or gallop Abdomen is soft nontender nondistended positive bowel sounds no hepatosplenomegaly Extremities no edema Neuro alert and orientated to 2. Sleepy but able to answer questions. - Labs CBC & Chem 7: 09/16/18 06:45 09/16/18 06:45 Labs: Abnormal Lab Results - Last 24 Hours (Table) 09/15/18 09/15/18 09/15/18 Range/Units 08:34 08:34 17:17 WBC (3.8-10.6) k/uL RBC (3.80-5.40) m/uL Hgb (11.4-16.0) gm/dL Hct (34.0-46.0) % RDW (11.5-15.5) % Neutrophils # (1.3-7.7) k/uL BUN (7-17) mg/dL Creatinine (0.52-1.04) mg/dL Glucose (74-99) mg/dL POC Glucose (mg/dL) 245 H (75-99) mg/dL Hemoglobin A1c 6.3 H (4.0-6.0) % Iron 15 L (50-170) ug/dL TIBC 160 L (228-460) ug/dL Iron Saturation 9.38 L (12.00-45.00) Albumin (3.5-5.0) g/dL Crossmatch 09/15/18 09/16/18 09/16/18 Range/Units 20:09 06:45 06:45 WBC 13.8 H (3.8-10.6) k/uL RBC 2.08 L (3.80-5.40) m/uL Hgb 6.4 L* (11.4-16.0) gm/dL Hct 20.1 L (34.0-46.0) % RDW 17.2 H (11.5-15.5) % Neutrophils # 11.4 H (1.3-7.7) k/uL BUN 45 H (7-17) mg/dL Creatinine 1.61 H (0.52-1.04) mg/dL Glucose 146 H (74-99) mg/dL POC Glucose (mg/dL) 229 H (75-99) mg/dL Hemoglobin A1c (4.0-6.0) % Iron (50-170) ug/dL TIBC (228-460) ug/dL Iron Saturation (12.00-45.00) Albumin 2.6 L (3.5-5.0) g/dL Crossmatch 09/16/18 09/16/18 09/16/18 Range/Units 07:09 08:48 10:49 WBC (3.8-10.6) k/uL RBC (3.80-5.40) m/uL Hgb (11.4-16.0) gm/dL Hct (34.0-46.0) % RDW (11.5-15.5) % Neutrophils # (1.3-7.7) k/uL BUN (7-17) mg/dL Creatinine (0.52-1.04) mg/dL Glucose (74-99) mg/dL POC Glucose (mg/dL) 169 H 246 H (75-99) mg/dL Hemoglobin A1c (4.0-6.0) % Iron (50-170) ug/dL TIBC (228-460) ug/dL Iron Saturation (12.00-45.00) Albumin (3.5-5.0) g/dL Crossmatch See Detail Microbiology - Last 24 Hours (Table) 09/14/18 10:05 Urine Culture - Final Urine,Catheterized Klebsiella pneumoniae Assessment and Plan Plan: 1. Fall with generalized weakness: Possible secondary to UTI, dehydration and hypoglycemia. Patient receiving IV fluids and antibiotics. Consult physical t herapy and occupational therapy. No loss of consciousness. Computed tomography scan of the brain was a negative. Computed tomography scan of the cervical spine no evidence of fracture or subluxation 2. UTI: Check urine culture. Continue Rocephin 1 g daily 3. Acute kidney injury with chronic kidney disease stage III. Baseline creatinine near 1.2 to 1.6. Creatinine on admission 1.99 BUN 58. K functions are improving. Creatinine is down to 1.59. We'll resume patient's home Lasix 40 mg by mouth daily. Aldactone on hold. 4. Diabetes mellitus type 2: Hypoglycemia on admission blood sugar of 66. Check hemoglobin A1c. Add sliding scale coverage. We'll hold oral hypoglycemics for now. Hypoglycemia could also be contributing factor to her fall and generalized weakness. We'll monitor. 5. Iron deficiency anemia continue iron supplement. Hemoglobin has dropped to 7.3. Possibly related to IV fluids. No active signs of bleeding. Check iron studies. 6. Gastric ulcer noted on recent EGD in July 2018 continue Protonix and Carafate. No active signs of bleeding at this time. Continue to monitor hemoglobin 7. History of COPD stable 8. History of chronic atrial fibrillation. Maintained on metoprolol. Not on any anticoagulation due to previous history of petechial hemorrhage on MRI of brain 9. History of seizure disorder continue Keppra 10. History of coronary artery disease with previous CABG in 2008 11. History of chronic systolic just of heart failure. No evidence of exacerbation at this time. We'll hold Lasix due to worsening kidney function. Continue Aldactone for now. Last 2-D echo showing an EF of 60-65% 12. Previous history of UTIs 13. Hypothyroidism continue Synthroid. TSH normal at 1.640 14. Incidental finding on CT of cervical spine of a 9 mm lesion in the right middle lobe. Radiologist is recommending outpatient CT of chest. Patient does have a prior history of smoking 15. Head laceration above the left eyebrow requiring sutures in the ER 16. Moderate protein calorie malnutrition albumin 2.9. Continue Concerta jo ann es 17. Cough with shortness of breath possibly related to some fluid overload. Hep-Lock IV fluids we'll restart patient's Lasix and check chest x-ray. Check BNP. 18. Leukocytosis likely related to UTI. Await urine culture. GI prophylaxis Protonix and DVT prophylaxis subcu heparin
[2018-09-16 16:48] LABS: Glucose,Whole Blood 129 mg/dL (75-99)
[2018-09-16] MEDS: AZITHROMYCIN 500 MG in SODIUM CHLORIDE 0.9% 250 ML IVPB SCH (17:40)
[2018-09-16 18:48] LABS: Anisocytosis Slight; HCT 25.3 % (34.0-46.0); Hypochromasia Marked; MCH 30.3 pg (25.0-35.0); MCHC 32.4 g/dL (31.0-37.0); MCV 93.3 fL (80.0-100.0); Platelet Count 240 k/uL (150-450); Poikilocytosis Slight; RBC 2.71 m/uL (3.80-5.40); RDW 17.8 % (11.5-15.5); WBC 17.5 k/uL (3.8-10.6)
[2018-09-16 19:04] LABS: HGB 8.2 gm/dL (11.4-16.0)
[2018-09-16 19:58] LABS: Glucose,Whole Blood 198 mg/dL (75-99)
--- NOTE | 2018-09-16 20:45 | P.PN ---
Subjective Progress Note Date: 09/16/18 Principal diagnosis: Klebsiella UTI, status post fall due to dehydration and weakness, sepsis due to urinary tract infection, acute renal failure due to dehydration, type 2 diabetes mellitus, chronic anemia, COPD, chronic atrial fibrillation, seizure disorder, coronary artery disease history of CABG in the past, chronic systolic heart failure, hypothyroidism, right middle lobe nodule, right middle lobe pneumonia 09/16/2018, patient seen eval reexamined during the round she as she is been hydrated her mental status improved still did not recall what happened in terms of fall, labs reviewed medications reviewed hemoglobin drop down to 6 she is status post transfusion with 1 unit of packed RBC, Klebsiella has been isolated in urine, white cell count is still elevated, was transfusion hemoglobin improved to 8.2, Klebsiella is sensitive to Rocephin, This is a 88-year-old female with the history of complex past medical problems see below patient was was transferred from wheelchair to bed and fell down and developed left forehead laceration came into the hospital she appears to be dehydrated as urinary tract infection, incidentally found to have a 9 mm right middle lobe nodule the initial x-ray of the chest was unremarkable subsequent x- ray shows right-sided pneumonia probably involving the middle lobe as well patient has been on IV Rocephin review of the data revealed that patient has past medical history of posterior cerebral artery stroke with petechial hemo rrhage, paroxysmal atrial fibrillation, COPD, diabetes mellitus type 2, hyperlipidemia, hypertension, hypothyroidism, coronary disease previous CABG, seizure disorder, chronic kidney disease stage III, congestive heart failure and prior UTIs. Patient was just recently hospitalized in July at that time diagnosed with a superficial gastric ulcer had EGD completed in and was placed on Protonix and Carafate. Since then she has been doing well. She presented to the hospital due to a fall at [facility]. She was being transferring from bed to a chair. Patient hit the front of her head. There is no loss of consciousness. She presented to the ER for further evaluation. She was found to have a urinary tract infection started on Rocephin. White count was 17.1 hemoglobin 8.5. She also had evidence of dehydration creatinine was elevated at 1.99 BUN 58. Blood sugar low also at 66. Patient denies any chest pain, shortness of breath, nausea or vomiting, bowel movement changes or urinary symptoms. She did have a computed tomography scan of the head and cervical spine completed in the ER. Computed tomography scan of the brain no acute hemorrhage, hydrocephalus or mass effect. CT of cervical spine showing no acute fracture or subluxation. Objective - Vital Signs Vital signs: Vital Signs Temp 98.1 F 09/16/18 13:55 Pulse 85 09/16/18 16:00 Resp 16 09/16/18 16:00 BP 136/63 09/16/18 13:55 Pulse Ox 98 09/16/18 13:55 Intake & Output 09/16/18 09/16/18 09/17/18 06:59 18:59 06:59 Intake Total 990 550 Output Total 0 Balance 990 550 Intake: Intake, IV Titration 300 Amount Sodium Chloride 0.9% 1, 300 000 ml @ 75 mls/hr IV . [id number] [facility] Rx#:[id number] Oral 690 240 Blood Product 310 Rc As-1 Unit 310 [id number] Output: Stool 0 Other: Voiding Method Bedside Commode Diaper # Voids 1 3 - Exam - Constitutional Laceration forehead covered with dressing General appearance: average body habitus, cooperative, disheveled, no acute distress - EENT Eyes: anicteric sclerae, EOMI, PERRLA, poor dentition Ears: bilateral: normal - Neck Neck: normal ROM Carotids: bilateral: upstroke normal, bruit absent Thyroid: bilateral: normal size - Respiratory Respiratory: right: rales (At the right base), bilateral: diminished (At bases) - Cardiovascular Rhythm: regular Heart sounds: normal: S1, S2 - Gastrointestinal General gastrointestinal: decreased bowel sounds - Neurologic Neurologic: CNII-XII intact - Musculoskeletal Musculoskeletal: gait normal, generalized weakness, strength equal bilaterally - Psychiatric Psychiatric: A&O x's 3, appropriate affect, intact judgment & insight - Labs CBC & Chem 7: 09/16/18 18:30 09/16/18 06:45 Labs: Abnormal Lab Results - Last 24 Hours (Table) 09/16/18 09/16/18 09/16/18 Range/Units 06:45 06:45 07:09 WBC 13.8 H (3.8-10.6) k/uL RBC 2.08 L (3.80-5.40) m/uL Hgb 6.4 L* (11.4-16.0) gm/dL Hct 20.1 L (34.0-46.0) % RDW 17.2 H (11.5-15.5) % Neutrophils # 11.4 H (1.3-7.7) k/uL BUN 45 H (7-17) mg/dL Creatinine 1.61 H (0.52-1.04) mg/dL Glucose 146 H (74-99) mg/dL POC Glucose (mg/dL) 169 H (75-99) mg/dL Albumin 2.6 L (3.5-5.0) g/dL Crossmatch 09/16/18 09/16/18 09/16/18 Range/Units 08:48 10:49 16:47 WBC (3.8-10.6) k/uL RBC (3.80-5.40) m/uL Hgb (11.4-16.0) gm/dL Hct (34.0-46.0) % RDW (11.5-15.5) % Neutrophils # (1.3-7.7) k/uL BUN (7-17) mg/dL Creatinine (0.52-1.04) mg/dL Glucose (74-99) mg/dL POC Glucose (mg/dL) 246 H 129 H (75-99) mg/dL Albumin (3.5-5.0) g/dL Crossmatch See Detail 09/16/18 09/16/18 Range/Units 18:30 19:54 WBC 17.5 H (3.8-10.6) k/uL RBC 2.71 L (3.80-5.40) m/uL Hgb 8.2 L D (11.4-16.0) gm/dL Hct 25.3 L (34.0-46.0) % RDW 17.8 H (11.5-15.5) % Neutrophils # (1.3-7.7) k/uL BUN (7-17) mg/dL Creatinine (0.52-1.04) mg/dL Glucose (74-99) mg/dL POC Glucose (mg/dL) 198 H (75-99) mg/dL Albumin (3.5-5.0) g/dL Crossmatch Microbiology - Last 24 Hours (Table) 09/14/18 10:05 Urine Culture - Final Urine,Catheterized Klebsiella pneumoniae Assessment and Plan Assessment: Right lower lobe/right middle lobe pneumonia Right middle lobe 9 mm lung nodule Status post fall with laceration and left for heard requiring sutures Klebsiella urinary tract infection Sepsis Generalized weakness Type 2 diabetes mellitus Chronic atrial fibrillation not a candidate for a blood thinners Chronic renal failure Coronary artery disease Seizure disorder History of chronic diastolic heart failure currently stable Plan: Agree with antibiotics Follow clinical course closely gentle rehydration We'll do a computed tomography scan of the chest has outpatient Further recommendations pending plan of care as per clinical response of the patient Time with Patient: Greater than 30
[2018-09-16] MEDS: amLODIPine 10 MG TAB PO SCH (21:23)
[2018-09-16] MEDS: traMADol 50 MG TAB PO PRN (21:24)
[2018-09-16] MEDS: ATORVASTATIN 10 MG TAB PO SCH (21:24)
[2018-09-16] MEDS: SERTRALINE 25 MG TAB PO SCH (21:24)
[2018-09-17] MEDS: FUROSEMIDE 40 MG TAB PO SCH (06:29)
[2018-09-17] MEDS: PANTOPRAZOLE 40 MG TABLET PO SCH ×2 (06:29→16:51)
[2018-09-17] MEDS: LEVOTHYROXINE 112 MCG TAB PO SCH (06:30)
[2018-09-17] MEDS: SUCRALFATE 1 GM TAB PO SCH ×2 (06:30→16:51)
[2018-09-17] MEDS: levETIRAcetam 250 MG TAB PO SCH ×3 (06:30→21:48)
[2018-09-17 06:55] LABS: Glucose,Whole Blood 158 mg/dL (75-99)
[2018-09-17 07:18] LABS: Anisocytosis Slight; Basophils % (A) 0 %; Eosinophils # (A) 0.1 k/uL (0-0.7); Eosinophils % (A) 1 %; HGB 7.8 gm/dL (11.4-16.0); Hypochromasia Marked; Lymphocytes # (A) 1.5 k/uL (1.0-4.8); Lymphocytes % (A) 10 %; MCH 29.6 pg (25.0-35.0); MCHC 31.3 g/dL (31.0-37.0); MCV 94.6 fL (80.0-100.0); Mean Platelet Volume 7.7; Monocytes % (A) 6 %; Neutrophils % (A) 80 %; Platelet Count 213 k/uL (150-450); Poikilocytosis Slight; RBC 2.64 m/uL (3.80-5.40); RDW 17.8 % (11.5-15.5)
--- NOTE | 2018-09-17 07:31 | P.PN ---
Subjective Progress Note Date: 09/17/18 Principal diagnosis: Klebsiella UTI, status post fall due to dehydration and weakness, sepsis due to urinary tract infection, acute renal failure due to dehydration, type 2 diabetes mellitus, chronic anemia, COPD, chronic atrial fibrillation, seizure disorder, coronary artery disease history of CABG in the past, chronic systolic heart failure, hypothyroidism, right middle lobe nodule, right middle lobe pneumonia 09/17/2018, patient seen eval reexamined during the round her appetite has improved mental status more. Denies any new specific complaint did not sleep very well last night labs reviewed medications reviewed patient has been found to have Klebsiella which is sensitive to Rocephin in the urine she has pneumonia also labs reviewed medications reviewed, hemoglobin is stable at 7.8, white cell count is slightly improved to 15 09/16/2018, patient seen eval reexamined during the round she as she is been hydrated her mental status improved still did not recall what happened in terms of fall, labs reviewed medications reviewed hemoglobin drop down to [address] atus post transfusion with 1 unit of packed RBC, Klebsiella has been isolated in urine, white cell count is still elevated, was transfusion hemoglobin improved to 8.2, Klebsiella is sensitive to Rocephin, This is a 88-year-old female with the history of complex past medical problems see below patient was was transferred from wheelchair to bed and fell down and developed left forehead laceration came into the hospital she appears to be dehydrated as urinary tract infection, incidentally found to have a 9 mm right middle lobe nodule the initial x-ray of the chest was unremarkable subsequent x-ray shows right-sided pneumonia probably involving the middle lobe as well patient has been on IV Rocephin review of the data revealed that patient has past medical history of 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 Patient was just recently hospitalized in July at that time diagnosed with a superficial gastric ulcer had EGD completed in and was placed on Protonix and Carafate. Since then she has been doing well. She presented to the hospital due to a fall at [facility]. She was being transferring from bed to a chair. Patient hit the front of her head. There is no loss of consciousness. She presented to the ER for further evaluation. She was found to have a urinary tract infection started on Rocephin. White count was 17.1 hemoglobin 8.5. She also had evidence of dehydration creatinine was elevated at 1.99 BUN 58. Blood sugar low also at 66. Patient denies any chest pain, shortness of breath, nausea or vomiting, bowel movement changes or urinary symptoms. She did have a computed tomography scan of the head and cervical spine completed in the ER. Computed tomography scan of the brain no acute hemorrhage, hydrocephalus or mass effect. CT of cervical spine showing no acute fracture or subluxation. Objective - Vital Signs Vital signs: Vital Signs Temp 97.7 F 09/17/18 05:00 Pulse 90 09/17/18 05:00 Resp 16 09/17/18 05:00 BP 152/78 09/17/18 05:00 Pulse Ox 96 09/17/18 05:00 Intake & Output 09/16/18 09/17/18 09/17/18 18:59 06:59 18:59 Intake Total 550 1280 Output Total 0 Balance 550 1280 Intake: Oral 240 1280 Blood Product 310 Rc As-1 Unit 310 [id number] Output: Stool 0 Other: Voiding Method Bedside Commode Bedside Commode Diaper # Voids 3 3 # Bowel Movements 1 - Exam - Constitutional Laceration forehead covered with dressing General appearance: average body habitus, cooperative, disheveled, no acute distress - EENT Eyes: anicteric sclerae, EOMI, PERRLA, poor dentition Ears: bilateral: normal - Neck Neck: normal ROM Carotids: bilateral: upstroke normal, bruit absent Thyroid: bilateral: normal size - Respiratory Respiratory: right: rales (At the right base), bilateral: diminished (At bases) - Cardiovascular Rhythm: regular Heart sounds: normal: S1, S2 - Gastrointestinal General gastrointestinal: decreased bowel sounds - Neurologic Neurologic: CNII-XII intact - Musculoskeletal Musculoskeletal: gait normal, generalized weakness, strength equal bilaterally - Psychiatric Psychiatric: A&O x's 3, appropriate affect, intact judgment & insight - Labs CBC & Chem 7: 09/17/18 06:50 09/16/18 06:45 Labs: Abnormal Lab Results - Last 24 Hours (Table) 09/16/18 09/16/18 09/16/18 Range/Units 08:48 10:49 16:47 WBC (3.8-10.6) k/uL RBC (3.80-5.40) m/uL Hgb (11.4-16.0) gm/dL Hct (34.0-46.0) % RDW (11.5-15.5) % Neutrophils # (1.3-7.7) k/uL POC Glucose (mg/dL) 246 H 129 H (75-99) mg/dL Crossmatch See Detail 09/16/18 09/16/18 09/17/18 Range/Units 18:30 19:54 06:50 WBC 17.5 H 15.0 H (3.8-10.6) k/uL RBC 2.71 L 2.64 L (3.80-5.40) m/uL Hgb 8.2 L D 7.8 L (11.4-16.0) gm/dL Hct 25.3 L 25.0 L (34.0-46.0) % RDW 17.8 H 17.8 H (11.5-15.5) % Neutrophils # 12.0 H (1.3-7.7) k/uL POC Glucose (mg/dL) 198 H (75-99) mg/dL Crossmatch 09/17/18 Range/Units 06:53 WBC (3.8-10.6) k/uL RBC (3.80-5.40) m/uL Hgb (11.4-16.0) gm/dL Hct (34.0-46.0) % RDW (11.5-15.5) % Neutrophils # (1.3-7.7) k/uL POC Glucose (mg/dL) 158 H (75-99) mg/dL Crossmatch Microbiology - Last 24 Hours (Table) 09/14/18 10:05 Urine Culture - Final Urine,Catheterized Klebsiella pneumoniae Assessment and Plan Assessment: Right lower lobe/right middle lobe pneumonia Right middle lobe 9 mm lung nodule Status post fall with laceration and left for heard requiring sutures Klebsiella urinary tract infection Sepsis Generalized weakness Type 2 diabetes mellitus Chronic atrial fibrillation not a candidate for a blood thinners Chronic renal failure Coronary artery disease Seizure disorder History of chronic diastolic heart failure currently stable Plan: Agree with antibiotics Follow clinical course closely Repeat chest x-ray tomorrow gentle rehydration We'll do a computed tomography scan of the chest has outpatient Further recommendations pending plan of care as per clinical response of the patient Time with Patient: Greater than 30
[2018-09-17 07:34] LABS: Albumin 2.8 g/dL (3.5-5.0); Calcium 9.4 mg/dL (8.4-10.2); Potassium 4.3 mmol/L (3.5-5.1); Total Bilirubin 0.4 mg/dL (0.2-1.3); Total Protein 6.7 g/dL (6.3-8.2)
[2018-09-17] MEDS: CHOLECALCIFEROL 1,000 UNIT TAB PO SCH (08:02)
[2018-09-17] MEDS: INSULIN ASPART (NovoLOG) 100 UNIT/ML VIAL SQ SCH ×4 (08:02→21:48)
[2018-09-17] MEDS: ASPIRIN 81 MG PO SCH (08:02)
[2018-09-17] MEDS: METOPROLOL TARTRATE 25 MG TAB PO SCH ×2 (08:02→21:47)
[2018-09-17] MEDS: FERROUS SULFATE 325 MG TAB PO SCH ×2 (08:02→16:50)
[2018-09-17] MEDS: ISOSORBIDE MONONITRATE ER 30 MG TAB.ER.24H PO SCH (08:02)
[2018-09-17] MEDS: CYANOCOBALAMIN 500 MCG TAB PO SCH (08:02)
[2018-09-17] MEDS: HEPARIN SODIUM,PORCINE 5,000 UNIT/ML 1 ML VIAL SQ SCH ×2 (08:03→21:47)
[2018-09-17] MEDS: VIT A,C & E-LUTEIN-MINERALS 1 EACH TAB PO SCH (08:03)
[2018-09-17] MEDS: IPRATROPIUM-ALBUTEROL 3 ML NEB INHALATION SCH ×4 (08:55→20:16)
--- NOTE | 2018-09-17 10:57 | P.PN ---
Subjective Progress Note Date: 09/17/18 This is a 88-year-old female, resident at [facility]. 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 Patient was just recently hospitalized in July at that time diagnosed with a superficial gastric ulcer had EGD completed in and was placed on Protonix and Carafate. Since then she has been doing well. She presented to the hospital due to a fall at [facility]. She was being transferring from bed to a chair. Patient hit the front of her head. There is no loss of consciousness. She presented to the ER for further evaluation. She was found to have a urinary tract infection started on Rocephin. White count was 17.1 hemoglobin 8.5. She also had evidence of dehydration creatinine was elevated at 1.99 BUN 58. Blood sugar low also at 66. Patient denies any chest pain, shortness of breath, nausea or vomiting, bowel movement changes or urinary symptoms. She did have a computed tomography scan of the head and cervical spine completed in the ER. Computed tomography scan of the brain no acute hemorrhage, hydrocephalus or mass effect. CT of cervical spine showing no acute fracture or subluxation. Did know a 9 mm lesion in the right middle lobe. Recommend outpatient chest CT for better characterization. Chest x-ray no acute pulmonary pop process. Pelvic x- ray no evidence of any fractures. Patient denies any pain at this time. She did require sutures to a laceration above the left eyebrow in ER. She received IV fluid bolus in ER. Lasix is currently on hold. 09/15/2018 patient sitting up in bedside chair. She does admit to a cough and some shortness of breath. She was receiving IV fluids yesterday. IV fluids will be discontinued. Creatinine has come down from 1.99-1.59. White count has gone up from 17.1-17.3 and hemoglobin is 8.5-7.3. Patient's last bowel movement was yesterday. No active sites of bleeding. Patient denies any headache. Denies any chest pain. Denies any nausea vomiting. Denies any bowel movement changes or urinary symptoms. Remains on Rocephin for UTI. On 09/16/2018 patient is alert more oriented in no apparent distress there is no fever or chills no headache or dizziness no chest pain no shortness of breath she is complaining of cough no nausea or vomiting no abdominal pain no diarrhea and no urinary symptoms hemoglobin was down to 6.3 today 1 unit of red blood cell transfusion was ordered repeat CBC at 6 PM today consult for gastroenterology was initiated On 09/17/2018 patient's gallbladder and oriented in no apparent distress. Patient is resting comfortably in bed but answers questions. Patient's hemoglobin improving to 7.8. GI consult placed. At this time patient denies any chest pain or shortness breath. Patient denies nausea vomiting or diarrhea. Patient denies any urinary burning or frequency Objective - Vital Signs Vital signs: Vital Signs Temp 97.7 F 09/17/18 05:00 Pulse 90 09/17/18 05:00 Resp 16 09/17/18 05:00 BP 152/78 09/17/18 05:00 Pulse Ox 96 09/17/18 05:00 Intake & Output 09/16/18 09/17/18 09/17/18 18:59 06:59 18:59 Intake Total 550 1280 Output Total 0 Balance 550 1280 Intake: Oral 240 1280 Blood Product 310 Rc As-1 Unit 310 [id number] Output: Stool 0 Other: Voiding Method Bedside Commode Bedside Commode Diaper # Voids 3 3 # Bowel Movements 1 - Exam Head normocephalic. Wrapped in Kerlix. Neck supple. Positive JVD Lungs diminished bilaterally no wheezing or crackles noted. Heart regular rate and rhythm S1-S2, no rub or gallop Abdomen is soft nontender nondistended positive bowel sounds no hepatosplenomegaly Extremities no edema Neuro alert and orientated to 2. Sleepy but able to answer questions. - Labs CBC & Chem 7: 09/17/18 06:50 09/17/18 06:50 Labs: Abnormal Lab Results - Last 24 Hours (Table) 09/16/18 09/16/18 09/16/18 Range/Units 08:48 16:47 18:30 WBC 17.5 H (3.8-10.6) k/uL RBC 2.71 L (3.80-5.40) m/uL Hgb 8.2 L D (11.4-16.0) gm/dL Hct 25.3 L (34.0-46.0) % RDW 17.8 H (11.5-15.5) % Neutrophils # (1.3-7.7) k/uL BUN (7-17) mg/dL Creatinine (0.52-1.04) mg/dL Glucose (74-99) mg/dL POC Glucose (mg/dL) 129 H (75-99) mg/dL Albumin (3.5-5.0) g/dL Crossmatch See Detail 09/16/18 09/17/18 09/17/18 Range/Units 19:54 06:50 06:50 WBC 15.0 H (3.8-10.6) k/uL RBC 2.64 L (3.80-5.40) m/uL Hgb 7.8 L (11.4-16.0) gm/dL Hct 25.0 L (34.0-46.0) % RDW 17.8 H (11.5-15.5) % Neutrophils # 12.0 H (1.3-7.7) k/uL BUN 39 H (7-17) mg/dL Creatinine 1.52 H (0.52-1.04) mg/dL Glucose 140 H (74-99) mg/dL POC Glucose (mg/dL) 198 H (75-99) mg/dL Albumin 2.8 L (3.5-5.0) g/dL Crossmatch 09/17/18 Range/Units 06:53 WBC (3.8-10.6) k/uL RBC (3.80-5.40) m/uL Hgb (11.4-16.0) gm/dL Hct (34.0-46.0) % RDW (11.5-15.5) % Neutrophils # (1.3-7.7) k/uL BUN (7-17) mg/dL Creatinine (0.52-1.04) mg/dL Glucose (74-99) mg/dL POC Glucose (mg/dL) 158 H (75-99) mg/dL Albumin (3.5-5.0) g/dL Crossmatch Microbiology - Last 24 Hours (Table) 09/14/18 10:05 Urine Culture - Final Urine,Catheterized Klebsiella pneumoniae Assessment and Plan Assessment: 1. Fall with generalized weakness: Possible secondary to UTI, dehydration and hypoglycemia. Patient receiving IV fluids and antibiotics. Consult physical therapy and occupational therapy. No loss of consciousness. Computed tomography scan of the brain was a negative. Computed tomography scan of the cervical spine no evidence of fracture or subluxation 2. UTI: Check urine culture. Continue Rocephin 1 g daily 3. Right lower lobe and right middle lobe pneumonia. Pulmonary services are following. Patient maintained on Rocephin and Zithromax white blood cell is trending down. Repeat chest x-ray ordered for tomorrow per pulmonary 4. Acute kidney injury with chronic kidney disease stage III. Baseline creatinine near 1.2 to 1.6. Creatinine on admission 1.99 BUN 58. K functions are improving. Creatinine is down to 1.59. We'll resume patient's home Lasix 40 mg by mouth daily. Aldactone on hold. 5. Diabetes mellitus type 2: Hypoglycemia on admission blood sugar of 66. Check hemoglobin A1c. Add sliding scale coverage. We'll hold oral h ypoglycemics for now. Hypoglycemia could also be contributing factor to her fall and generalized weakness. We'll monitor. 6. Iron deficiency anemia continue iron supplement. Hemoglobin has dropped to 7.3. Possibly related to IV fluids. No active signs of bleeding. Check iron studies. Patient received 1 unit of PRBCs. 6.5 GI service is consulted 7. Gastric ulcer noted on recent EGD in July 2018 continue Protonix and Carafate. No active signs of bleeding at this time. Continue to monitor hemoglobin 8. History of COPD stable 9. History of chronic atrial fibrillation. Maintained on metoprolol. Not on any anticoagulation due to previous history of petechial hemorrhage on MRI of brain 10. History of seizure disorder continue Keppra 11. History of coronary artery disease with previous CABG in 2008 12. History of chronic systolic just of heart failure. No evidence of e xacerbation at this time. We'll hold Lasix due to worsening kidney function. Continue Aldactone for now. Last 2-D echo showing an EF of 60-65% 13. Previous history of UTIs 14. Hypothyroidism continue Synthroid. TSH normal at 1.640 15. Incidental finding on CT of cervical spine of a 9 mm lesion in the right middle lobe. Radiologist is recommending outpatient CT of chest. Patient does have a prior history of smoking 16. Head laceration above the left eyebrow requiring sutures in the ER 17. Moderate protein calorie malnutrition albumin 2.9. Continue Concerta shakes 18. Cough with shortness of breath possibly related to some fluid overload. Hep-Lock IV fluids we'll restart patient's Lasix and check chest x-ray. Check BNP. 19. Leukocytosis likely related to UTI. Await urine culture. GI prophylaxis Protonix and DVT prophylaxis subcu heparin I performed an examination of the patient and discussed their management with the Nurse Practitioner. I have reviewed the Nurse Practitioner's notes and agree with the documented findings and plan of care
[2018-09-17 11:14] LABS: Glucose,Whole Blood 186 mg/dL (75-99)
[2018-09-17] MEDS: AZITHROMYCIN 500 MG TAB PO SCH (16:50)
[2018-09-17 16:58] LABS: Glucose,Whole Blood 200 mg/dL (75-99)
[2018-09-17 20:18] LABS: Glucose,Whole Blood 154 mg/dL (75-99)
--- NOTE | 2018-09-17 20:33 | P.CONS ---
History of Present Illness - Reason for Consult Consult date: 09/17/18 Anemia Requesting physician: Marcelo Fernandez - Chief Complaint Mechanical fall - History of Present Illness 88-year-old female with a medical history significant for paroxysmal atrial fibrillation, COPD, diabetes mellitus type 2, hypertension, hypothyroidism, hyperlipidemia, coronary artery disease with prior CABG, prior CVA, seizure disorder, CKD and CHF who presented to the hospital after a mechanical fall. The patient had been transferring from bed to chair when she fell and hit her head. Imaging was negative for acute fracture or bleed. Patient has a known history of anemia and was previously seen in July when she underwent EGD on 08/23/2018 with findings of a hiatal hernia, gastritis and a gastric ulcer. She has been on Protonix therapy for treatment at that time. She denies any signs or symptoms of GI bleeding. No abdominal pain. She is tolerating her diet. Patient was again found to be anemic during this hospitalization with a hemoglobin of 6.4 subsequently transfused with repeat hemoglobin 8.2 and 7.8 today on repeat lab draw. WBC 15, platelet count 213,000, iron decreased at 15 and TIBC decreased at 160. Currently she is seen lying in bed with no acute complaints. Review of Systems REVIEW OF SYSTEMS: CONSTITUTIONAL: Denies any fevers, chills, weight change or fatigue. CARDIOVASCULAR: Denies any chest pain, palpitations high or low blood pressures RESPIRATORY: Denies any shortness of breath, hemoptysis or cough. GENITOURINARY: No dysuria or hematuria, but currently receiving treatment for a UTI. MUSCULOSKELETAL: No weakness reported. SKIN: Denies any new rashes or lesions, jaundice or pallor, but hematoma above left eye. PSYCHIATRIC: Denies any depression or anxiety. NEUROLOGY: Denies headache, denies any new focal deficits. EARS/NOSE/THROAT: No recent hearing change, congestion, nasal discharge or sore throat. EYES: No pain in eyes, discharge or change in vision. GASTROINTESTINAL: As per HPI. Past Medical History Past Medical History: Atrial Fibrillation, Coronary Artery Disease (CAD), Cancer, Heart Failure, COPD, Diabetes Mellitus, GERD/Reflux, Hyperlipidemia, Hypertension, Thyroid Disorder Additional Past Medical History / Comment(s): Pt recently admitted to [facility] on 08/22/18 with abnormal labs/iron deficiency anemia-received blood transfusion/EGD showed superficial gastric nonbleeding ulcer/hiatal hernia/gastritis. Other hx: Chronic afib, chronic CHF, CVA with L sided weakness, NIDDM type II, CKD stage III, seizure disorder with last seizure 09/2017, pt states she has had R eye injections but does not recall reason, headaches, skin cancer removal/nose, unsteady gait. History of Any Multi-Drug Resistant Organisms: None Reported Past Surgical History: Appendectomy, Cholecystectomy, Coronary Bypass/CABG, Heart Catheterization, Hysterectomy Additional Past Surgical History / Comment(s): 08/24/18 EGD, 2009 five vessel CABG, skin cancer removed from nose. Past Anesthesia/Blood Transfusion Reactions: No Reported Reaction Additional Past Anesthesia/Blood Transfusion Reaction / Comm: Pt has received blood without reaction. Smoking Status: Former smoker - Past Family History Father History Unknown: Yes Family Medical History: No Reported History Additional Family Medical History / Comment(s): Father was healthy Mother Family Medical History: No Reported History Additional Family Medical History / Comment(s): Mother was healthy Medications and Allergies Home Medications Medication Instructions Recorded Confirmed Type Vit C/E/Zn/Coppr/Lutein/Zeaxan 1 cap PO DAILY@89903/28/16 09/14/18 History [Preservision Areds 2 Softgel] Cholecalciferol [Vitamin D3 (25 1,000 unit PO DAILY@89905/22/17 09/14/18 History Mcg = 1000 Iu)] Famotidine 40 mg PO DAILY@89905/22/17 09/14/18 History amLODIPine BESYLATE [Norvasc] 10 mg PO DAILY@209905/22/17 09/14/18 History Acetaminophen [Tylenol] 1,000 mg PO BID@0900,209910/13/17 09/14/18 History Aspirin [Adult Low Dose Aspirin EC] 81 mg PO DAILY@89910/13/17 09/14/18 History Atorvastatin Calcium [Lipitor] 10 mg PO DAILY@209910/13/17 09/14/18 History Cyanocobalamin [Vitamin B-12] 500 mcg PO DAILY@89910/13/17 09/14/18 History Isosorbide Mononitrate [Isosorbide 30 mg PO DAILY@89910/13/17 09/14/18 History Mononitrate ER] Sharon-3 Fatty Acids/Fish Oil [Fish 1 cap PO DAILY@0900 10/13/17 09/14/18 History Oil 1,000 mg Softgel] Rosuvastatin Calcium [Crestor] 5 mg PO DAILY@2100 10/13/17 09/14/18 History Saxagliptin HCl [Onglyza] 5 mg PO DAILY@0900 10/13/17 09/14/18 History Sertraline HCl [Zoloft] 25 mg PO HS@2100 10/13/17 09/14/18 History Furosemide [Lasix] 40 mg PO DAILY@0608/09/18 09/14/18 History Menthol [Biofreeze] 1 applic TOPICAL Q2H PRN 08/09/18 09/14/18 History glipiZIDE [Glucotrol] 5 mg PO DAILY@1100 08/09/18 09/14/18 History levETIRAcetam [Keppra] 250 mg PO TID@0600,1400,2200 08/09/18 09/14/18 History Ferrous Sulfate [Iron (65 MG 325 mg PO BID@0900,1800 08/21/18 09/14/18 History Elemental)] Levothyroxine Sodium 112 mcg PO DAILY@59908/21/18 09/14/18 History Metoprolol Tartrate [Lopressor] 25 mg PO BID@0900,2100 08/21/18 09/14/18 History Spironolactone [Aldactone] 25 mg PO DAILY@0608/21/18 09/14/18 History traMADol HCL [Ultram] 50 mg PO Q8H PRN 14 Days #42 tablet 08/25/18 09/14/18 Rx Ipratropium-Albuterol Nebulize 3 ml INHALATION 09/14/18 09/14/18 History [Duoneb 0.5 mg-3 mg/3 ml Soln] RT-QID@0900,13,17,21 Pantoprazole [Protonix] 40 mg PO AC-BID@0600,1700 09/14/18 09/14/18 History Sucralfate [Carafate] 1 gm PO AC-BID@0600,1700 09/14/18 09/14/18 History Allergies Allergy/AdvReac Type Severity Reaction Status Date / Time acetaminophen [From Lortab] AdvReac Hallucinati Verified 09/14/18 07:51 ons hydrocodone [From Lortab] AdvReac Hallucinati Verified 09/14/18 07:51 ons Physical Exam Vitals: Vital Signs Temp Pulse Pulse Resp BP BP Pulse Ox 09/17/18 12:07 77 09/17/18 11:55 74 09/17/18 08:00 90 16 09/17/18 05:00 97.7 F 90 16 152/78 96 09/16/18 21:00 98.9 F 83 16 150/66 94 L 09/16/18 16:00 85 16 09/16/18 13:55 98.1 F 87 16 136/63 98 Intake and Output 09/16/18 09/17/18 09/17/18 22:59 06:59 14:59 Intake Total 930 590 240 Output Total 0 0 Balance 930 590 240 Intake: Oral 930 590 240 Output: Stool 0 0 Other: Voiding Method Bedside Commode Bedside Commode Bedside Commode Diaper # Voids 1 3 # Bowel Movements 1 On physical examination, patient appears comfortable in no apparent distress. HEAD: Normocephalic, hematoma above left eye. EYES: No scleral icterus. No conjunctival injection. MOUTH: No lesions, tongue midline. NECK: Trachea midline, no gross abnormalities. CHEST: Clear to auscultation with no wheezing or rhonchi appreciated. HEART: Irregularly irregular. ABDOMEN: Soft. Bowel sounds are positive. No organomegaly. No guarding or rigidity. EXTREMITIES: No pedal edema. SKIN: No rashes, no jaundice. NEUROLOGIC: Alert and oriented. Results CBC & Chem 7: 09/17/18 06:50 09/17/18 06:50 Labs: Abnormal Lab Results - Last 24 Hours (Table) 09/16/18 09/16/18 09/16/18 Range/Units 08:48 16:47 18:30 WBC 17.5 H (3.8-10.6) k/uL RBC 2.71 L (3.80-5.40) m/uL Hgb 8.2 L D (11.4-16.0) gm/dL Hct 25.3 L (34.0-46.0) % RDW 17.8 H (11.5-15.5) % Neutrophils # (1.3-7.7) k/uL BUN (7-17) mg/dL Creatinine (0.52-1.04) mg/dL Glucose (74-99) mg/dL POC Glucose (mg/dL) 129 H (75-99) mg/dL Albumin (3.5-5.0) g/dL Crossmatch See Detail 09/16/18 09/17/18 09/17/18 Range/Units 19:54 06:50 06:50 WBC 15.0 H (3.8-10.6) k/uL RBC 2.64 L (3.80-5.40) m/uL Hgb 7.8 L (11.4-16.0) gm/dL Hct 25.0 L (34.0-46.0) % RDW 17.8 H (11.5-15.5) % Neutrophils # 12.0 H (1.3-7.7) k/uL BUN 39 H (7-17) mg/dL Creatinine 1.52 H (0.52-1.04) mg/dL Glucose 140 H (74-99) mg/dL POC Glucose (mg/dL) 198 H (75-99) mg/dL Albumin 2.8 L (3.5-5.0) g/dL Crossmatch 09/17/18 09/17/18 Range/Units 06:53 11:13 WBC (3.8-10.6) k/uL RBC (3.80-5.40) m/uL Hgb (11.4-16.0) gm/dL Hct (34.0-46.0) % RDW (11.5-15.5) % Neutrophils # (1.3-7.7) k/uL BUN (7-17) mg/dL Creatinine (0.52-1.04) mg/dL Glucose (74-99) mg/dL POC Glucose (mg/dL) 158 H 186 H (75-99) mg/dL Albumin (3.5-5.0) g/dL Crossmatch Microbiology - Last 24 Hours (Table) 09/14/18 10:05 Urine Culture - Final Urine,Catheterized Klebsiella pneumoniae Assessment and Plan (1) Anemia Narrative/Plan: Normocytic anemia with evidence of iron deficiency on iron studies, likely multifactorial in the setting of multiple medical comorbidities including chronic kidney disease and anemia of chronic disease with prior EGD in July significant for gastritis and a gastric ulcer. Denying any signs or symptoms of GI bleeding at this time. Hemoglobin has remained stable after transfusion. Current Visit: No Status: Acute Priority: High Code(s): D64.9 - ANEMIA, UNSPECIFIED SNOMED Code(s): 908201412 (2) Gastric ulcer Current Visit: No Status: Acute Code(s): K25.9 - GASTRIC ULCER, UNSP ACUTE OR CHRONIC, W/O HEMOR OR PERF SNOMED Code(s): 655839940 (3) History of GI bleed Current Visit: No Status: Acute Code(s): Z87.19 - PERSONAL HISTORY OF OTHER DISEASES OF THE DIGESTIVE SYSTEM SNOMED Code(s): 572985019 Plan: Supportive care Okay for diet Continue to monitor hemoglobin and transfuse as needed Continue to monitor for signs or symptoms GI bleeding Continue Protonix twice daily Continue iron supplementation No plans for endoscopic evaluation at this time, however if clinical signs of GI bleeding occurs or further fall in hemoglobin we will reevaluate at that time Thank you for allowing us to participate in the care of this patient we will continue to follow
[2018-09-17] MEDS: ATORVASTATIN 10 MG TAB PO SCH (21:47)
[2018-09-17] MEDS: amLODIPine 10 MG TAB PO SCH (21:47)
[2018-09-17] MEDS: SERTRALINE 25 MG TAB PO SCH (21:48)
[2018-09-17] MEDS: traMADol 50 MG TAB PO PRN (23:06)
[2018-09-18] MEDS: LEVOTHYROXINE 112 MCG TAB PO SCH (05:55)
[2018-09-18] MEDS: levETIRAcetam 250 MG TAB PO SCH ×3 (05:55→22:36)
[2018-09-18] MEDS: SUCRALFATE 1 GM TAB PO SCH ×2 (05:55→17:49)
[2018-09-18] MEDS: PANTOPRAZOLE 40 MG TABLET PO SCH ×2 (05:55→17:49)
[2018-09-18] MEDS: FUROSEMIDE 40 MG TAB PO SCH (05:55)
[2018-09-18 06:56] LABS: Glucose,Whole Blood 148 mg/dL (75-99)
[2018-09-18] MEDS: HEPARIN SODIUM,PORCINE 5,000 UNIT/ML 1 ML VIAL SQ SCH ×2 (08:20→20:40)
[2018-09-18] MEDS: ISOSORBIDE MONONITRATE ER 30 MG TAB.ER.24H PO SCH (08:20)
[2018-09-18] MEDS: CYANOCOBALAMIN 500 MCG TAB PO SCH (08:20)
[2018-09-18] MEDS: METOPROLOL TARTRATE 25 MG TAB PO SCH ×2 (08:20→20:40)
[2018-09-18] MEDS: INSULIN ASPART (NovoLOG) 100 UNIT/ML VIAL SQ SCH ×4 (08:20→22:37)
[2018-09-18] MEDS: VIT A,C & E-LUTEIN-MINERALS 1 EACH TAB PO SCH (08:20)
[2018-09-18] MEDS: ASPIRIN 81 MG PO SCH (08:20)
[2018-09-18] MEDS: FERROUS SULFATE 325 MG TAB PO SCH ×2 (08:20→17:49)
[2018-09-18] MEDS: CHOLECALCIFEROL 1,000 UNIT TAB PO SCH (08:20)
[2018-09-18] MEDS: IPRATROPIUM-ALBUTEROL 3 ML NEB INHALATION SCH ×4 (08:40→20:03)
--- NOTE | 2018-09-18 09:37 | P.PN ---
Subjective Progress Note Date: 09/18/18 Principal diagnosis: Anemia No GI bleeding prior nursing. Denies abdominal complaints. CBC pending. Objective - Vital Signs Vital signs: Vital Signs Temp 98.2 F 09/18/18 04:49 Pulse 86 09/18/18 04:49 Resp 16 09/18/18 04:49 BP 157/75 09/18/18 04:49 Pulse Ox 95 09/18/18 04:49 Intake & Output 09/17/18 09/18/18 09/18/18 18:59 06:59 18:59 Intake Total 600 1600 Output Total 0 0 Balance 600 1600 Intake: Oral 600 1600 Output: Stool 0 0 Other: Voiding Method Bedside Commode Bedside Commode # Voids 3 1 # Bowel Movements 1 - Exam General appearance: The patient is alert, oriented, in no acute distress. HET: Head is normocephalic and atraumatic. Pupils are equal and reactive. Oropharynx is clear without lesions. Neck: Supple without lymphadenopathy. Trachea midline. Heart: S1 S2. Regular rate and rhythm. Lungs: No crackles or wheezes are heard. Abdomen: Soft, nontender, nondistended with bowel sounds. No peritoneal signs. No palpable organomegaly or masses. Extremities: Normal skin color and turgor. No cyanosis, rash, ulceration, clubbing, or edema. Radial and pedal pulses are 2/4 bilaterally. Neurological: No focal deficits. Strength and sensation are grossly intact. - Labs CBC & Chem 7: 09/17/18 06:50 09/17/18 06:50 Labs: Abnormal Lab Results - Last 24 Hours (Table) 09/16/18 09/17/18 09/17/18 Range/Units 08:48 11:13 16:57 POC Glucose (mg/dL) 186 H 200 H (75-99) mg/dL Crossmatch See Detail 09/17/18 09/18/18 Range/Units 20:17 06:55 POC Glucose (mg/dL) 154 H 148 H (75-99) mg/dL Crossmatch Assessment and Plan Assessment: 1. Normocytic anemia iron deficient multifactorial chronic kidney disease anemia of chronic disease. EGD July gastritis gastric ulcer. Presently no evidence of active GI bleeding. Plan: Plan: 1. CBC monitoring if stable no further workup. Continue GI prophylaxis. Continue with iron supplementation. Assessment and plan a care discussed with Dr. Garcia
--- NOTE | 2018-09-18 09:38 | P.CNNES ---
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 She was recently hospitalized in 07/2018 for gastric ulcer. She was readmitted to the hospital this time due to a fall that occurred while she was being transferred from bed to a chair. She did strike the front of the head. There was no loss of consciousness or seizure. Initial CT Head on admission was unrevealing. She was later found to have a UTI and RM/LL PNA for which ABX were started accordingly. Patient was noted to have AMS for which neuro consult was obtained. Patient herself cannot provide much meaningful history other than remembering falling at her facility. Denies any current H/A, changes in vision, facial numbness/droop, dysarthria, dysphagia, aphasia, new focal numbness/weakness, tremors, bowel/bladder incontinence or ataxia. Review of Systems I have performed a 14-point organ ROS with patient that are negative except as per HPI. Past Medical History Past Medical History: Atrial Fibrillation, Coronary Artery Disease (CAD), Cancer, Heart Failure, COPD, Diabetes Mellitus, GERD/Reflux, Hyperlipidemia, Hypertension, Thyroid Disorder Additional Past Medical History / Comment(s): Pt recently admitted to [facility] on 08/22/18 with abnormal labs/iron deficiency anemia-received blood transfusion/EGD showed superficial gastric nonbleeding ulcer/hiatal hernia/gastritis. Other hx: Chronic afib, chronic CHF, CVA with L sided weakness, NIDDM type II, CKD stage III, seizure disorder with last seizure 09/2017, pt states she has had R eye injections but does not recall reason, headaches, skin cancer removal/nose, unsteady gait. 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 Past Anesthesia/Blood Transfusion Reactions: No Reported Reaction Additional Past Anesthesia/Blood Transfusion Reaction / Comment(s): Pt has received blood without reaction. Smoking Status: Former smoker - Past Family History Father History Unknown: Yes Family Medical History: No Reported History Additional Family Medical History / Comment(s): Father was healthy Mother Family Medical History: No Reported History Additional Family Medical History / Comment(s): Mother was healthy Medications and Allergies Home Medications Medication Instructions Recorded Confirmed Type Vit C/E/Zn/Coppr/Lutein/Zeaxan 1 cap PO DAILY@89903/28/16 09/14/18 History [Preservision Areds 2 Softgel] Cholecalciferol [Vitamin D3 (25 1,000 unit PO DAILY@89905/22/17 09/14/18 History Mcg = 1000 Iu)] Famotidine 40 mg PO DAILY@89905/22/17 09/14/18 History amLODIPine BESYLATE [Norvasc] 10 mg PO DAILY@209905/22/17 09/14/18 History Acetaminophen [Tylenol] 1,000 mg PO BID@09,209910/13/17 09/14/18 History Aspirin [Adult Low Dose Aspirin EC] 81 mg PO DAILY@89910/13/17 09/14/18 History Atorvastatin Calcium [Lipitor] 10 mg PO DAILY@209910/13/17 09/14/18 History Cyanocobalamin [Vitamin B-12] 500 mcg PO DAILY@89910/13/17 09/14/18 History Isosorbide Mononitrate [Isosorbide 30 mg PO DAILY@89910/13/17 09/14/18 History Mononitrate ER] [place]-3 Fatty Acids/Fish Oil [Fish 1 cap PO DAILY@89910/13/17 09/14/18 History Oil 1,000 mg Softgel] Rosuvastatin Calcium [Crestor] 5 mg PO DAILY@209910/13/17 09/14/18 History Saxagliptin HCl [Onglyza] 5 mg PO DAILY@89910/13/17 09/14/18 History Sertraline HCl [Zoloft] 25 mg PO HS@209910/13/17 09/14/18 History Furosemide [Lasix] 40 mg PO DAILY@59908/09/18 09/14/18 History Menthol [Biofreeze] 1 applic TOPICAL Q2H PRN 08/09/18 09/14/18 History glipiZIDE [Glucotrol] 5 mg PO DAILY@1100 08/09/18 09/14/18 History levETIRAcetam [Keppra] 250 mg PO TID@0600,1400,2200 08/09/18 09/14/18 History Ferrous Sulfate [Iron (65 MG 325 mg PO BID@0900,1800 08/21/18 09/14/18 History Elemental)] Levothyroxine Sodium 112 mcg PO DAILY@0600 08/21/18 09/14/18 History Metoprolol Tartrate [Lopressor] 25 mg PO BID@0900,2100 08/21/18 09/14/18 History Spironolactone [Aldactone] 25 mg PO DAILY@0600 08/21/18 09/14/18 History traMADol HCL [Ultram] 50 mg PO Q8H PRN 14 Days #42 tablet 08/25/18 09/14/18 Rx Ipratropium-Albuterol Nebulize 3 ml INHALATION 09/14/18 09/14/18 History [Duoneb 0.5 mg-3 mg/3 ml Soln] RT-QID@0900,,17,21 Pantoprazole [Protonix] 40 mg PO AC-BID@0600,1700 09/14/18 09/14/18 History Sucralfate [Carafate] 1 gm PO AC-BID@0600,1700 09/14/18 09/14/18 History Allergies Allergy/AdvReac Type Severity Reaction Status Date / Time acetaminophen [From Lortab] AdvReac Hallucinati Verified 09/14/18 07:51 ons hydrocodone [From Lortab] AdvReac Hallucinati Verified 09/14/18 07:51 ons Physical Examination - Vital Signs Vital Signs: Vital Signs Temp Pulse Pulse Pulse Resp BP BP 09/18/18 04:49 98.2 F 86 16 157/75 09/17/18 23:26 92 93 16 09/17/18 21:00 99.0 F 92 16 164/70 09/17/18 20:29 80 09/17/18 20:17 78 09/17/18 19:23 98.3 F 77 16 136/63 09/17/18 15:56 80 16 09/17/18 13:00 98.3 F 80 16 142/78 09/17/18 12:07 77 09/17/18 11:55 74 Pulse Ox 09/18/18 04:49 95 09/17/18 23:26 09/17/18 21:00 93 L 09/17/18 20:29 09/17/18 20:17 09/17/18 19:23 96 09/17/18 15:56 09/17/18 13:00 96 09/17/18 12:07 09/17/18 11:55 Intake and Output 09/17/18 09/18/18 09/18/18 22:59 06:59 14:59 Intake Total 1540 420 Output Total 0 0 Balance 1540 420 Intake: Oral 1540 420 Output: Stool 0 0 Other: Voiding Method Bedside Commode Bedside Commode # Voids 1 1 # Bowel Movements 1 Gen NAD Pleasant and cooperative HEENT NCAT Sclera without icterus O/P clear Neck Supple No carotid bruit Cor RRR no m/r/g Lungs CTAB Abd Soft NTND +BS Ext Warm to touch No edema Neuro MS Somnolent but easily arousable to normal voice waxing and waning mental status able to follow one-step commands consistently but has more trouble with more complex ones Some phonemic but no semantic paraphasia Mild perseveration but without echolalia or echopraxia She is alert to place, myself but not year, month or date Does not know [place] president Cannot spell WORLD backwards Declines to attempt serial 7's CN PERRL Blinks to threat bilaterally no APD EOMI no nystagmus or JOSH No facial asymmetry Masseter's symmetric Hearing intact to normal voice bilaterally Speech not dysarthric Equal elevation of palate Tongue midline Sym shrug and SCM bilaterally Motor Normal bulk/tone No pronator or tremors/asterixis Strength 5/5 sym throughout Sens Intact to LT x4 No neglect Coord No dysmetria on FTN bilaterally DTRs 2+/4 sym throughout Toes downgoing bilaterally No clonus at achilles Gait Deferred Results 09/14/18 TSH 1.64 - Laboratory Findings CBC and BMP: 09/17/18 06:50 09/17/18 06:50 Abnormal Lab Findings: Abnormal Labs 09/14/18 09/14/18 09/14/18 06:00 06:00 10:05 WBC 17.1 H RBC 2.78 L Hgb 8.5 L Hct 26.6 L MCHC RDW 17.4 H Neutrophils # 14.3 H Monocytes # 1.3 H Sodium 134 L Carbon Dioxide BUN 58 H Creatinine 1.99 H Glucose 66 L POC Glucose (mg/dL) Hemoglobin A1c Iron TIBC Iron Saturation Albumin Urine Appearance Cloudy H Urine Protein 1+ H Urine Blood Small H Ur Leukocyte Esterase Large H Urine WBC >182 H Urine WBC Clumps Many H Urine Bacteria Occasional H Crossmatch 09/14/18 09/15/18 09/15/18 16:41 08:34 08:34 WBC 17.3 H RBC 2.46 L Hgb 7.3 L Hct 23.8 L MCHC 30.7 L RDW 17.2 H Neutrophils # 14.5 H Monocytes # 1.1 H Sodium Carbon Dioxide BUN Creatinine Glucose POC Glucose (mg/dL) 101 H Hemoglobin A1c 6.3 H Iron TIBC Iron Saturation Albumin Urine Appearance Urine Protein Urine Blood Ur Leukocyte Esterase Urine WBC Urine WBC Clumps Urine Bacteria Crossmatch 09/15/18 09/15/18 09/15/18 08:34 08:34 11:22 WBC RBC Hgb Hct MCHC RDW Neutrophils # Monocytes # Sodium Carbon Dioxide 21 L BUN 45 H Creatinine 1.59 H Glucose 127 H POC Glucose (mg/dL) 212 H Hemoglobin A1c Iron 15 L TIBC 160 L Iron Saturation 9.38 L Albumin 2.9 L Urine Appearance Urine Protein Urine Blood Ur Leukocyte Esterase Urine WBC Urine WBC Clumps Urine Bacteria Crossmatch 09/15/18 09/15/18 09/16/18 17:17 20:09 06:45 WBC 13.8 H RBC 2.08 L Hgb 6.4 L* Hct 20.1 L MCHC RDW 17.2 H Neutrophils # 11.4 H Monocytes # Sodium Carbon Dioxide BUN Creatinine Glucose POC Glucose (mg/dL) 245 H 229 H Hemoglobin A1c Iron TIBC Iron Saturation Albumin Urine Appearance Urine Protein Urine Blood Ur Leukocyte Esterase Urine WBC Urine WBC Clumps Urine Bacteria Crossmatch 09/16/18 09/16/18 09/16/18 06:45 07:09 08:48 WBC RBC Hgb Hct MCHC RDW Neutrophils # Monocytes # Sodium Carbon Dioxide BUN 45 H Creatinine 1.61 H Glucose 146 H POC Glucose (mg/dL) 169 H Hemoglobin A1c Iron TIBC Iron Saturation Albumin 2.6 L Urine Appearance Urine Protein Urine Blood Ur Leukocyte Esterase Urine WBC Urine WBC Clumps Urine Bacteria Crossmatch See Detail 09/16/18 09/16/18 09/16/18 10:49 16:47 18:30 WBC 17.5 H RBC 2.71 L Hgb 8.2 L D Hct 25.3 L MCHC RDW 17.8 H Neutrophils # Monocytes # Sodium Carbon Dioxide BUN Creatinine Glucose POC Glucose (mg/dL) 246 H 129 H Hemoglobin A1c Iron TIBC Iron Saturation Albumin Urine Appearance Urine Protein Urine Blood Ur Leukocyte Esterase Urine WBC Urine WBC Clumps Urine Bacteria Crossmatch 09/16/18 09/17/18 09/17/18 19:54 06:50 06:50 WBC 15.0 H RBC 2.64 L Hgb 7.8 L Hct 25.0 L MCHC RDW 17.8 H Neutrophils # 12.0 H Monocytes # Sodium Carbon Dioxide BUN 39 H Creatinine 1.52 H Glucose 140 H POC Glucose (mg/dL) 198 H Hemoglobin A1c Iron TIBC Iron Saturation Albumin 2.8 L Urine Appearance Urine Protein Urine Blood Ur Leukocyte Esterase Urine WBC Urine WBC Clumps Urine Bacteria Crossmatch 09/17/18 09/17/18 09/17/18 06:53 11:13 16:57 WBC RBC Hgb Hct MCHC RDW Neutrophils # Monocytes # Sodium Carbon Dioxide BUN Creatinine Glucose POC Glucose (mg/dL) 158 H 186 H 200 H Hemoglobin A1c Iron TIBC Iron Saturation Albumin Urine Appearance Urine Protein Urine Blood Ur Leukocyte Esterase Urine WBC Urine WBC Clumps Urine Bacteria Crossmatch 09/17/18 09/18/18 20:17 06:55 WBC RBC Hgb Hct MCHC RDW Neutrophils # Monocytes # Sodium Carbon Dioxide BUN Creatinine Glucose POC Glucose (mg/dL) 154 H 148 H Hemoglobin A1c Iron TIBC Iron Saturation Albumin Urine Appearance Urine Protein Urine Blood Ur Leukocyte Esterase Urine WBC Urine WBC Clumps Urine Bacteria Crossmatch - Diagnostic Findings Additional findings: CT Head and C-spine wo cont 09/14/18. No ICH. Nil acute intracranially. No C- spine fracture. I have reviewed neuroimages myself. Assessment and Plan Assessment: AMS in the setting of PNA and UTI. Exam c/w metabolic encephalopathy. Cannot r/o concussion that may confound clinical picture. Should r/o delayed ICH such as SDH. Plan: -Repeat CT Head wo cont r/o delayed ICH/SDH -EEG today -LEV level; she is on a somewhat peculiar regimen of LEV 250mg po tid while it is typically dosed bid. Also, her CrCl today is <30. Her LEV should not be >1 g/day -B12 and NH3 levels -Seizure precautions -Patient does not drive -d/w patient. All questions answered. Thank you for this consultation. Please call with ?. Time with Patient: Greater than 30 (Time spent in direct patient care, greater than 50% of which was spent in [id number] counseling and coordination of care: 70 minutes.)
[2018-09-18 09:57] LABS: Anisocytosis Slight; Basophils % (A) 0 %; Eosinophils # (A) 0.1 k/uL (0-0.7); Eosinophils % (A) 1 %; HCT 25.7 % (34.0-46.0); HGB 7.9 gm/dL (11.4-16.0); Hypochromasia Slight; Lymphocytes # (A) 1.2 k/uL (1.0-4.8); Lymphocytes % (A) 8 %; MCH 29.3 pg (25.0-35.0); MCHC 30.9 g/dL (31.0-37.0); MCV 94.8 fL (80.0-100.0); Mean Platelet Volume 8.1; Monocytes % (A) 7 %; Neutrophils # (A) 11.9 k/uL (1.3-7.7); Neutrophils % (A) 82 %; Platelet Count 222 k/uL (150-450); Poikilocytosis Slight; RBC 2.71 m/uL (3.80-5.40); RDW 17.7 % (11.5-15.5); WBC 14.6 k/uL (3.8-10.6)
[2018-09-18 10:03] LABS: Calcium 9.9 mg/dL (8.4-10.2); Potassium 4.4 mmol/L (3.5-5.1); Total Bilirubin 0.5 mg/dL (0.2-1.3); Total Protein 7.2 g/dL (6.3-8.2)
[2018-09-18 11:49] LABS: Glucose,Whole Blood 197 mg/dL (75-99)
--- NOTE | 2018-09-18 12:44 | CT ---
EXAMINATION TYPE: CT brain wo con DATE OF EXAM: 09/18/2018 COMPARISON: None available at the time of this dictation HISTORY: 88-year-old female Generalized weakness, dehydration, AMS TECHNIQUE: Examination was done in axial plane without intravenous contrast. Coronal and sagittal r econstructions performed. CT DLP: 945.5 mGycm Automated exposure control for dose reduction was used. FINDINGS: There is no evidence of acute intracranial hemorrhage, acute ischemic changes, mass effect, or extra -axial fluid collection. There is no effacement of cerebral sulci or basal subarachnoid cisterns. Th ere is no midline shift. Jara-white matter distinction is preserved. There is a 1 cm round, extra-axial soft tissue lesion along the right frontal convexity. A second adj acent smaller, 4 mm area just anteriorly. Moderate generalized supratentorial volume loss with secondary mild prominence to the ventricular sys tem. Large area of encephalomalacia involving the right frontal lobe and temporoparietal junction. Moderat e patchy white matter hypodensities in both cerebral hemispheres. Extensive atherosclerotic calcifications within the V4 segment right vertebral artery. Paranasal sinuses and mastoid air cells well pneumatized. Orbits and globes are intact. IMPRESSION: 1. Old infarct right occipital lobe and right temporoparietal junction. 2. A couple rounded extra-axial lesions along the right frontal convexity measuring 1 cm and 4 mm lik boris meningiomas. Correlate with any available prior exams to determine stability. Otherwise, six-chirag h follow-up MRI can be performed to reassess. 3. Moderate atrophy and changes of chronic small vessel ischemic disease. No acute intracranial abnor mality seen.
--- NOTE | 2018-09-18 13:07 | P.PN ---
Subjective Progress Note Date: 09/18/18 This is a 88-year-old female, resident at [facility]. 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 Patient was just recently hospitalized in July at that time diagnosed with a superficial gastric ulcer had EGD completed in and was placed on Protonix and Carafate. Since then she has been doing well. She presented to the hospital due to a fall at [facility]. She was being transferring from bed to a chair. Patient hit the front of her head. There is no loss of consciousness. She presented to the ER for further evaluation. She was found to have a urinary tract infection started on Rocephin. White count was 17.1 hemoglobin 8.5. She also had evidence of dehydration creatinine was elevated at 1.99 BUN 58. Blood sugar low also at 66. Patient denies any chest pain, shortness of breath, nausea or vomiting, bowel movement changes or urinary symptoms. She did have a computed tomography scan of the head and cervical spine completed in the ER. Computed tomography scan of the brain no acute hemorrhage, hydrocephalus or mass effect. CT of cervical spine showing no acute fracture or subluxation. Did know a 9 mm lesion in the right middle lobe. Recommend outpatient chest CT for better characterization. Chest x-ray no acute pulmonary pop process. Pelvic x- ray no evidence of any fractures. Patient denies any pain at this time. She did require sutures to a laceration above the left eyebrow in ER. She received IV fluid bolus in ER. Lasix is currently on hold. 09/15/2018 patient sitting up in bedside chair. She does admit to a cough and some shortness of breath. She was receiving IV fluids yesterday. IV fluids will be discontinued. Creatinine has come down from 1.99-1.59. White count has gone up from 17.1-17.3 and hemoglobin is 8.5-7.3. Patient's last bowel movement was yesterday. No active sites of bleeding. Patient denies any headache. Denies any chest pain. Denies any nausea vomiting. Denies any bowel movement changes or urinary symptoms. Remains on Rocephin for UTI. On 09/16/2018 patient is alert more oriented in no apparent distress there is no fever or chills no headache or dizziness no chest pain no shortness of breath she is complaining of cough no nausea or vomiting no abdominal pain no diarrhea and no urinary symptoms hemoglobin was down to 6.3 today 1 unit of red blood cell transfusion was ordered repeat CBC at 6 PM today consult for gastroenterology was initiated On 09/17/2018 patient's gallbladder and oriented in no apparent distress. Patient is resting comfortably in bed but answers questions. Patient's hemoglobin improving to 7.8. GI consult placed. At this time patient denies any chest pain or shortness breath. Patient denies nausea vomiting or diarrhea. Patient denies any urinary burning or frequency 09/18/2018 patient seen and examined this morning. She was sleeping comfortably. Discussed case with nurse. I no new complaints. Over the weekend patient had increasing confusion and neurology had been consulted. They ordered a computed tomography scan of the brain showing an old infarct in the right occipital lobe and right upper parietal junction. A couple rounded extra-axial lesions along the right frontal convexity measuring 1 cm and 4 mm likely meningiomas. Correlate with any available prior exam to check stability. Otherwise 6 month follow-up MRI can be performed to reassess. Moderate atrophy and changes of chronic small vessel ischemic disease. No acute intracranial abnormality seen. Neurology has also ordered EEG and B12 level. Over the weekend patient did require a unit of blood. Hemoglobin is now 7.9 again no active signs of bleeding. Patient seen by GI service no need for endoscopy at this time. White count has decreased from 15-14.6 Objective - Vital Signs Vital signs: Vital Signs Temp 98.1 F 09/18/18 12:43 Pulse 86 09/18/18 12:43 Resp 16 09/18/18 12:43 BP 148/79 09/18/18 12:43 Pulse Ox 94 L 09/18/18 12:43 Intake & Output 09/17/18 09/18/18 09/18/18 18:59 06:59 18:59 Intake Total 600 1600 Output Total 0 0 Balance 600 1600 Intake: Oral 600 1600 Output: Stool 0 0 Other: Voiding Method Bedside Commode Bedside Commode Bedside Commode # Voids 3 1 # Bowel Movements 1 - Exam Head normocephalic. Wrapped in Kerlix. Neck supple. Positive JVD Lungs clear Heart regular rate and rhythm S1-S2, no rub or gallop Abdomen is soft nontender nondistended positive bowel sounds no hepatosplenomegaly Extremities no edema Neuro alert and orientated to 2. Per nursing. Patient is currently sleeping. - Labs CBC & Chem 7: 09/18/18 08:28 09/18/18 08:28 Labs: Abnormal Lab Results - Last 24 Hours (Table) 09/16/18 09/17/18 09/17/18 Range/Units 08:48 16:57 20:17 WBC (3.8-10.6) k/uL RBC (3.80-5.40) m/uL Hgb (11.4-16.0) gm/dL Hct (34.0-46.0) % MCHC (31.0-37.0) g/dL RDW (11.5-15.5) % Neutrophils # (1.3-7.7) k/uL BUN (7-17) mg/dL Creatinine (0.52-1.04) mg/dL Glucose (74-99) mg/dL POC Glucose (mg/dL) 200 H 154 H (75-99) mg/dL Albumin (3.5-5.0) g/dL Crossmatch See Detail 09/18/18 09/18/18 09/18/18 Range/Units 06:55 08:28 08:28 WBC 14.6 H (3.8-10.6) k/uL RBC 2.71 L (3.80-5.40) m/uL Hgb 7.9 L (11.4-16.0) gm/dL Hct 25.7 L (34.0-46.0) % MCHC 30.9 L (31.0-37.0) g/dL RDW 17.7 H (11.5-15.5) % Neutrophils # 11.9 H (1.3-7.7) k/uL BUN 35 H (7-17) mg/dL Creatinine 1.39 H (0.52-1.04) mg/dL Glucose 189 H (74-99) mg/dL POC Glucose (mg/dL) 148 H (75-99) mg/dL Albumin 3.0 L (3.5-5.0) g/dL Crossmatch 09/18/18 Range/Units 11:47 WBC (3.8-10.6) k/uL RBC (3.80-5.40) m/uL Hgb (11.4-16.0) gm/dL Hct (34.0-46.0) % MCHC (31.0-37.0) g/dL RDW (11.5-15.5) % Neutrophils # (1.3-7.7) k/uL BUN (7-17) mg/dL Creatinine (0.52-1.04) mg/dL Glucose (74-99) mg/dL POC Glucose (mg/dL) 197 H (75-99) mg/dL Albumin (3.5-5.0) g/dL Crossmatch Assessment and Plan Assessment: 1. Fall with generalized weakness: Possible secondary to UTI, dehydration and hypoglycemia. Consult physical therapy and occupational therapy. No loss of consciousness. Computed tomography scan of the brain was a negative. Computed tomography scan of the cervical spine no evidence of fracture or subluxation 2. UTI: Urine culture growing Klebsiella pneumonia, Continue Rocephin 1 g daily 3. Acute kidney injury with chronic kidney disease stage III. Baseline creatinine near 1.2 to 1.6. Creatinine on admission 1.99 BUN 58. cr functions are improving. Creatinine down to 1.39. Patient is tolerating her home dose of Lasix . Aldactone on hold. 4. Diabetes mellitus type 2: Hypoglycemia on admission blood sugar of 66. A1c is 6.3 Add sliding scale coverage. We'll hold oral hypoglycemics for now. Hypoglycemia could also be contributing factor to her fall and generalized weakness. We'll monitor. 5. Iron deficiency anemia continue iron supplement. 6. Gastric ulcer noted on recent EGD in July 2018 continue Protonix and Carafate. No active signs of bleeding at this time. Continue to monitor hemoglobin 7. History of COPD stable 8. History of chronic atrial fibrillation. Maintained on metoprolol. Not on any anticoagulation due to previous history of petechial hemorrhage on MRI of brain 9. History of seizure disorder continue Keppra 10. History of coronary artery disease with previous CABG in 2008 11. History of chronic systolic just of heart failure. No evidence of exacerbation at this time. Last 2-D echo showing an EF of 60-65% 12. Previous history of UTIs 13. Hypothyroidism continue Synthroid. TSH normal at 1.640 14. Incidental finding on CT of cervical spine of a 9 mm lesion in the right middle lobe. Radiologist is recommending outpatient CT of chest. Patient does have a prior history of smoking 15. Head laceration above the left eyebrow requiring sutures in the ER 16. Moderate protein calorie malnutrition albumin 2.9. Continue protein shakes 17. Mild fluid overload with elevated BNP. Patient had one dose of IV Lasix. Resume home Lasix 40 mg by mouth daily 18. Pneumonia: Continue Rocephin and azithromycin. Pulmonary service following. Repeat chest x-ray pending. 19. Altered mental status changes possibly due to a metabolic encephalopathy due to her pneumonia and UTI. Neurology also notes concerns for possible concussion. They ordered a repeat computed tomography scan of the brain with no acute intracranial abnormality seen did reveal evidence of old stroke and possible meningiomas. They've ordered EEG and Keppra level. 20. A couple rounded extra-axial lesions along the right frontal convexity measuring 1 cm and 4 mm likely meningiomas. Will await neurology evaluation. Also radiologist recommending a 6 month follow-up MRI on these findings. 21. Normocytic anemia likely related to patient's known iron deficiency and chronic kidney disease and anemia of chronic disease. No evidence of active bleeding. Patient had EGD done in July revealing gastritis and gastric ulcer. Continue with iron supplement. GI is not recommending any endoscopy at this time. Hemoglobin today is 7.9 GI prophylaxis Protonix and DVT prophylaxis subcu heparin I performed an examination of the patient and discussed their management with the physician Electronic Service Technician. I have reviewed the Physician Electronic Service Technician's notes and agree with the documented findings and plan of care
--- NOTE | 2018-09-18 14:10 | EEG ---
ELECTROENCEPHALOGRAM REPORT DATE OF TESTIN09/18/2018. CLINICAL HISTORY: Altered mental status, status post fall and in the setting of urinary tract infection and pneumonia. EEG was ordered to rule out possible seizure activity. TYPE OF RECORDING: Bedside tracing using the 10-20 international electrode placement system. No sedation was given prior to the beginning of this recording. FINDINGS: The background of this tracing is seen with primarily generalized theta and delta slowing. Photic stimulation does not elicit a driving response posteriorly. Hyperventilation is not performed in this recording. There are scattered eye- blink artifacts as well as EMG artifacts that correspond to patient's body movements. There is no sleep architecture seen. There is no background asymmetry, ictal, or interictal patterns appreciated. IMPRESSION: This is an abnormal awake electroencephalogram with excessive background slowing that can be seen in cerebral dysfunction of any cause such as metabolic encephalopathy. There is no background asymmetry or epileptiform discharges. Clinical correlation is advised. JOLANTA / HAILE: [id number] / [id number]
--- NOTE | 2018-09-18 14:10 | XR ---
EXAMINATION TYPE: XR chest 1V portable DATE OF EXAM: 09/18/2018 Comparison: 09/14/2018 Clinical History: 88-year-old female follow-up right middle lobe pneumonia Findings: Low lung volumes with crowded vascular markings. Heart upper limits of normal in size. Mild interstit ial prominence. Nodularity at the right midlung. Patchy opacity right lower lung. No pleural effusion . Impression: 1. Hypoventilatory changes. 2. Mild infiltrate right lower lung, possible pneumonia. 3. Right midlung nodularity. Underlying pulmonary nodule/neoplasm not excluded.
--- NOTE | 2018-09-18 14:13 | P.PN ---
Subjective Progress Note Date: 09/18/18 Principal diagnosis: Klebsiella UTI, status post fall due to dehydration and weakness, sepsis due to urinary tract infection, acute renal failure due to dehydration, type 2 diabetes mellitus, chronic anemia, COPD, chronic atrial fibrillation, seizure disorder, coronary artery disease history of CABG in the past, chronic systolic heart failure, hypothyroidism, right middle lobe nodule, right middle lobe pneumonia 09/18/2018, patient seen and evaluated examined during the rounds he denies any chest pain shortness present denies any cough or sputum production patient on 2 L oxygen, patient has been evaluated by neurology which is available this week due to prior episode requiring admission to do the [facility] there recommend a repeat computed tomography scan 09/17/2018, patient seen eval reexamined during the round her appetite has improved mental status more. Denies any new specific complaint did not sleep very well last night labs reviewed medications reviewed patient has been found to have Klebsiella which is sensitive to Rocephin in the urine she has pneumonia also labs reviewed medications reviewed, hemoglobin is stable at 7.8, white cell count is slightly improved to 15 09/16/2018, patient seen eval reexamined during the round she as she is been hydrated her mental status improved still did not recall what happened in terms of fall, labs reviewed medications reviewed hemoglobin drop down to 6 she is status post transfusion with 1 unit of packed RBC, Klebsiella has been isolated in urine, white cell count is still elevated, was transfusion hemoglobin improved to 8.2, Klebsiella is sensitive to Rocephin, This is a 88-year-old female with the history of complex past medical problems see below patient was was transferred from wheelchair to bed and fell down and developed left forehead laceration came into the hospital she appears to be dehydrated as urinary tract infection, incidentally found to have a 9 mm right middle lobe nodule the initial x-ray of the chest was unremarkable subsequent x- ray shows right-sided pneumonia probably involving the middle lobe as well patient has been on IV Rocephin review of the data revealed that patient has past medical history of 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 Patient was just recently hospitalized in July at that time diagnosed with a superficial gastric ulcer had EGD completed in and was placed on Protonix and Carafate. Since then she has been doing well. She presented to the hospital due to a fall at [facility]. She was being tra nsferring from bed to a chair. Patient hit the front of her head. There is no loss of consciousness. She presented to the ER for further evaluation. She was found to have a urinary tract infection started on Rocephin. White count was 17.1 hemoglobin 8.5. She also had evidence of dehydration creatinine was elevated at 1.99 BUN 58. Blood sugar low also at 66. Patient denies any chest pain, shortness of breath, nausea or vomiting, bowel movement changes or urinary symptoms. She did have a computed tomography scan of the head and cervical spine completed in the ER. Computed tomography scan of the brain no acute hemorrhage, hydrocephalus or mass effect. CT of cervical spine showing no acute fracture or subluxation. Objective - Vital Signs Vital signs: Vital Signs Temp 98.1 F 09/18/18 12:43 Pulse 86 09/18/18 12:43 Resp 16 09/18/18 12:43 BP 148/79 09/18/18 12:43 Pulse Ox 94 L 09/18/18 12:43 Intake & Output 09/17/18 09/18/18 09/18/18 18:59 06:59 18:59 Intake Total 600 1600 Output Total 0 0 Balance 600 1600 Weight 72.575 kg Intake: Oral 600 1600 Output: Stool 0 0 Other: Voiding Method Bedside Commode Bedside Commode Bedside Commode # Voids 3 1 # Bowel Movements 1 - Exam - Constitutional Laceration forehead covered with dressing General appearance: average body habitus, cooperative, disheveled, no acute distress - EENT Eyes: anicteric sclerae, EOMI, PERRLA, poor dentition Ears: bilateral: normal - Neck Neck: normal ROM Carotids: bilateral: upstroke normal, bruit absent Thyroid: bilateral: normal size - Respiratory Respiratory: right: rales (At the right base), bilateral: diminished (At bases) - Cardiovascular Rhythm: regular Heart sounds: normal: S1, S2 - Gastrointestinal General gastrointestinal: decreased bowel sounds - Neurologic Neurologic: CNII-XII intact - Musculoskeletal Musculoskeletal: gait normal, generalized weakness, strength equal bilaterally - Psychiatric Psychiatric: A&O x's 3, appropriate affect, intact judgment & insight - Labs CBC & Chem 7: 09/18/18 08:28 09/18/18 08:28 Labs: Abnormal Lab Results - Last 24 Hours (Table) 09/16/18 09/17/18 09/17/18 Range/Units 08:48 16:57 20:17 WBC (3.8-10.6) k/uL RBC (3.80-5.40) m/uL Hgb (11.4-16.0) gm/dL Hct (34.0-46.0) % MCHC (31.0-37.0) g/dL RDW (11.5-15.5) % Neutrophils # (1.3-7.7) k/uL BUN (7-17) mg/dL Creatinine (0.52-1.04) mg/dL Glucose (74-99) mg/dL POC Glucose (mg/dL) 200 H 154 H (75-99) mg/dL Albumin (3.5-5.0) g/dL Crossmatch See Detail 09/18/18 09/18/18 09/18/18 Range/Units 06:55 08:28 08:28 WBC 14.6 H (3.8-10.6) k/uL RBC 2.71 L (3.80-5.40) m/uL Hgb 7.9 L (11.4-16.0) gm/dL Hct 25.7 L (34.0-46.0) % MCHC 30.9 L (31.0-37.0) g/dL RDW 17.7 H (11.5-15.5) % Neutrophils # 11.9 H (1.3-7.7) k/uL BUN 35 H (7-17) mg/dL Creatinine 1.39 H (0.52-1.04) mg/dL Glucose 189 H (74-99) mg/dL POC Glucose (mg/dL) 148 H (75-99) mg/dL Albumin 3.0 L (3.5-5.0) g/dL Crossmatch 09/18/18 Range/Units 11:47 WBC (3.8-10.6) k/uL RBC (3.80-5.40) m/uL Hgb (11.4-16.0) gm/dL Hct (34.0-46.0) % MCHC (31.0-37.0) g/dL RDW (11.5-15.5) % Neutrophils # (1.3-7.7) k/uL BUN (7-17) mg/dL Creatinine (0.52-1.04) mg/dL Glucose (74-99) mg/dL POC Glucose (mg/dL) 197 H (75-99) mg/dL Albumin (3.5-5.0) g/dL Crossmatch Assessment and Plan Assessment: Right lower lobe/right middle lobe pneumonia Right middle lobe 9 mm lung nodule Status post fall with laceration and left for heard requiring sutures Klebsiella urinary tract infection Sepsis Generalized weakness Type 2 diabetes mellitus Chronic atrial fibrillation not a candidate for a blood thinners Chronic renal failure Coronary artery disease Seizure disorder History of chronic diastolic heart failure currently stable Plan: Agree with antibiotics Follow clinical course closely Repeat chest x-ray tomorrow gentle rehydration We'll do a computed tomography scan of the chest has outpatient Further recommendations pending plan of care as per clinical response of the patient Time with Patient: Greater than 30
[2018-09-18] MEDS: AZITHROMYCIN 500 MG TAB PO SCH (16:21)
[2018-09-18 17:20] LABS: Glucose,Whole Blood 204 mg/dL (75-99)
[2018-09-18] MEDS: ACETAMINOPHEN TAB 325 MG TAB PO PRN (17:49)
[2018-09-18] MEDS: ATORVASTATIN 10 MG TAB PO SCH (20:40)
[2018-09-18] MEDS: amLODIPine 10 MG TAB PO SCH (20:40)
[2018-09-18] MEDS: SERTRALINE 25 MG TAB PO SCH (20:40)
[2018-09-18 20:54] LABS: Glucose,Whole Blood 188 mg/dL (75-99)
[2018-09-19] MEDS: FUROSEMIDE 40 MG TAB PO SCH (05:55)
[2018-09-19] MEDS: LEVOTHYROXINE 112 MCG TAB PO SCH (05:55)
[2018-09-19] MEDS: PANTOPRAZOLE 40 MG TABLET PO SCH ×2 (05:55→16:40)
[2018-09-19] MEDS: levETIRAcetam 250 MG TAB PO SCH ×3 (05:55→21:14)
[2018-09-19] MEDS: SUCRALFATE 1 GM TAB PO SCH ×2 (06:03→16:40)
[2018-09-19 06:58] LABS: Glucose,Whole Blood 191 mg/dL (75-99)
[2018-09-19] MEDS: INSULIN ASPART (NovoLOG) 100 UNIT/ML VIAL SQ SCH ×4 (07:44→21:12)
[2018-09-19 08:56] LABS: Anisocytosis Slight; Basophils # (A) 0.1 k/uL (0-0.2); Basophils % (A) 0 %; Eosinophils # (A) 0.1 k/uL (0-0.7); Eosinophils % (A) 1 %; HCT 26.1 % (34.0-46.0); Hypochromasia Slight; Lymphocytes # (A) 1.3 k/uL (1.0-4.8); Lymphocytes % (A) 7 %; MCH 29.2 pg (25.0-35.0); MCHC 30.8 g/dL (31.0-37.0); MCV 94.6 fL (80.0-100.0); Mean Platelet Volume 7.6; Monocytes # (A) 1.1 k/uL (0-1.0); Monocytes % (A) 6 %; Neutrophils % (A) 84 %; Platelet Count 207 k/uL (150-450); Poikilocytosis Slight; RBC 2.76 m/uL (3.80-5.40); RDW 17.8 % (11.5-15.5); WBC 17.8 k/uL (3.8-10.6)
[2018-09-19] MEDS: IPRATROPIUM-ALBUTEROL 3 ML NEB INHALATION SCH ×4 (08:58→19:28)
[2018-09-19 09:11] LABS: Albumin 3.2 g/dL (3.5-5.0); Calcium 10.6 mg/dL (8.4-10.2); Total Bilirubin 0.7 mg/dL (0.2-1.3); Total Protein 7.7 g/dL (6.3-8.2)
[2018-09-19 09:13] LABS: Potassium 5.4 mmol/L (3.5-5.1)
--- NOTE | 2018-09-19 09:38 | P.PN ---
Subjective Progress Note Date: 09/19/18 Principal diagnosis: Metabolic encephalopathy Seizure disorder No events O/N. Feels a bit better and enjoying breakfast this morning. More conversive. No new neuro c/o. Objective - Vital Signs Vital signs: Vital Signs Temp 98.6 F 09/19/18 05:10 Pulse 88 09/19/18 09:11 Resp 16 09/19/18 05:10 BP 178/70 09/19/18 05:10 Pulse Ox 92 L 09/19/18 05:10 Intake & Output 09/18/18 09/19/18 09/19/18 18:59 06:59 18:59 Output Total 200 Balance -200 Weight 72.575 kg 63.2 kg Output: Urine 200 Other: Voiding Method Bedside Commode Bedside Commode # Voids 1 1 # Bowel Movements 1 1 - Exam Gen NAD Pleasant and cooperative MS A+Ox2 Knows she's at [facility] and her birthdate Able to follow commands more consistently CN II-XII grossly intact no nystagmus Motor Normal bulk/tone No tremors JOSEPH x4 Sens Intact to LT x4 Coord Not tested DTRs 2+/4 sym throughout Gait Deferred - Labs CBC & Chem 7: 09/19/18 08:37 09/19/18 08:37 Labs: Abnormal Lab Results - Last 24 Hours (Table) 09/18/18 09/18/18 09/18/18 Range/Units 08:28 08:28 09:44 WBC 14.6 H (3.8-10.6) k/uL RBC 2.71 L (3.80-5.40) m/uL Hgb 7.9 L (11.4-16.0) gm/dL Hct 25.7 L (34.0-46.0) % MCHC 30.9 L (31.0-37.0) g/dL RDW 17.7 H (11.5-15.5) % Neutrophils # 11.9 H (1.3-7.7) k/uL Monocytes # (0-1.0) k/uL Potassium (3.5-5.1) mmol/L Chloride (98-107) mmol/L Carbon Dioxide (22-30) mmol/L BUN 35 H (7-17) mg/dL Creatinine 1.39 H (0.52-1.04) mg/dL Glucose 189 H (74-99) mg/dL POC Glucose (mg/dL) (75-99) mg/dL Calcium (8.4-10.2) mg/dL Albumin 3.0 L (3.5-5.0) g/dL Vitamin B12 1391.0 H (200.0-944.0) pg/mL 09/18/18 09/18/18 09/18/18 Range/Units 11:47 17:11 20:52 WBC (3.8-10.6) k/uL RBC (3.80-5.40) m/uL Hgb (11.4-16.0) gm/dL Hct (34.0-46.0) % MCHC (31.0-37.0) g/dL RDW (11.5-15.5) % Neutrophils # (1.3-7.7) k/uL Monocytes # (0-1.0) k/uL Potassium (3.5-5.1) mmol/L Chloride (98-107) mmol/L Carbon Dioxide (22-30) mmol/L BUN (7-17) mg/dL Creatinine (0.52-1.04) mg/dL Glucose (74-99) mg/dL POC Glucose (mg/dL) 197 H 204 H 188 H (75-99) mg/dL Calcium (8.4-10.2) mg/dL Albumin (3.5-5.0) g/dL Vitamin B12 (200.0-944.0) pg/mL 09/19/18 09/19/18 09/19/18 Range/Units 06:55 08:37 08:37 WBC 17.8 H (3.8-10.6) k/uL RBC 2.76 L (3.80-5.40) m/uL Hgb 8.0 L (11.4-16.0) gm/dL Hct 26.1 L (34.0-46.0) % MCHC 30.8 L (31.0-37.0) g/dL RDW 17.8 H (11.5-15.5) % Neutrophils # 15.0 H (1.3-7.7) k/uL Monocytes # 1.1 H (0-1.0) k/uL Potassium 5.4 H (3.5-5.1) mmol/L Chloride 108 H (98-107) mmol/L Carbon Dioxide 20 L (22-30) mmol/L BUN 37 H (7-17) mg/dL Creatinine 1.34 H (0.52-1.04) mg/dL Glucose 188 H (74-99) mg/dL POC Glucose (mg/dL) 191 H (75-99) mg/dL Calcium 10.6 H (8.4-10.2) mg/dL Albumin 3.2 L (3.5-5.0) g/dL Vitamin B12 (200.0-944.0) pg/mL Microbiology - Last 24 Hours (Table) 09/17/18 20:00 Gram Stain - Preliminary Sputum Sputum Culture - Preliminary 09/18/18 LEV 51.3 - Imaging and Cardiology CT Head wo cont 09/18/18. No ICH/SDH. Nil acute. EEG 09/18/18. Diffuse slowing c/w metabolic encephalopathy. No EPD. I have reviewed neuroimages myself. Assessment and Plan Assessment: AMS in the setting of PNA and UTI. Exam c/w metabolic encephalopathy. Improved. Plan: -Repeat CT Head wo cont did rule out delayed ICH/SDH -EEG findings consistent with metabolic encephalopathy -LEV level within reference range -B12 and NH3 levels also unrevealing -Seizure precautions -Patient does not drive -d/w patient. All questions answered. -No further inpatient neuro recs at this time. Will revisit prn. Thank you again for this consultation. Please call with ?. Time with Patient: Less than 30 (Time spent in direct patient care, greater than 50% of which was spent in [id number] counseling and coordination of care: 25 minutes.)
[2018-09-19] MEDS: ISOSORBIDE MONONITRATE ER 30 MG TAB.ER.24H PO SCH (09:40)
[2018-09-19] MEDS: FERROUS SULFATE 325 MG TAB PO SCH ×2 (09:41→16:40)
[2018-09-19] MEDS: ASPIRIN 81 MG PO SCH (09:41)
[2018-09-19] MEDS: METOPROLOL TARTRATE 25 MG TAB PO SCH ×2 (09:42→21:14)
[2018-09-19] MEDS: CHOLECALCIFEROL 1,000 UNIT TAB PO SCH (09:42)
[2018-09-19] MEDS: CYANOCOBALAMIN 500 MCG TAB PO SCH (09:43)
[2018-09-19] MEDS: HEPARIN SODIUM,PORCINE 5,000 UNIT/ML 1 ML VIAL SQ SCH ×2 (09:43→21:12)
--- NOTE | 2018-09-19 09:47 | P.PN ---
Subjective Progress Note Date: 09/19/18 Principal diagnosis: Klebsiella UTI, status post fall due to dehydration and weakness, sepsis due to urinary tract infection, acute renal failure due to dehydration, type 2 diabetes mellitus, chronic anemia, COPD, chronic atrial fibrillation, seizure disorder, coronary artery disease history of CABG in the past, chronic systolic heart failure, hypothyroidism, right middle lobe nodule, right middle lobe pneumonia 09/19/2018, patient seen and evaluated examined during the rounds sitting upright on the bed denies any chest pain breathing comfortably reviewed medications reviewed care plan discussed 09/18/2018, patient seen and evaluated examined during the rounds he denies any chest pain shortness present denies any cough or sputum production patient on 2 L oxygen, patient has been evaluated by neurology which is available this week due to prior episode requiring admission to do the hospital there recommend a repeat computed tomography scan 09/17/2018, patient seen eval reexamined during the round her appetite has improved mental status more. Denies any new specific complaint did not sleep very well last night labs reviewed medications reviewed patient has been found to have Klebsiella which is sensitive to Rocephin in the urine she has pneumonia also labs reviewed medications reviewed, hemoglobin is stable at 7.8, white cell count is slightly improved to 15 09/16/2018, patient seen eval reexamined during the round she as she is been hydrated her mental status improved still did not recall what happened in terms of fall, labs reviewed medications reviewed hemoglobin drop down to 6 she is status post transfusion with 1 unit of packed RBC, Klebsiella has been isolated in urine, white cell count is still elevated, was transfusion hemoglobin improved to 8.2, Klebsiella is sensitive to Rocephin, This is a 88-year-old female with the history of complex past medical problems see below patient was was transferred from wheelchair to bed and fell down and developed left forehead laceration came into the hospital she appears to be dehydrated as urinary tract infection, incidentally found to have a 9 mm right middle lobe nodule the initial x-ray of the chest was unremarkable subsequent x- ray shows right-sided pneumonia probably involving the middle lobe as well patient has been on IV Rocephin review of the data revealed that patient has past medical history of 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 Patient was just recently hospitalized in July at that time diagnosed with a superficial gastric ulcer had EGD completed in and was placed on Protonix and Carafate. Since then she has been doing well. She presented to the hospital due to a fall at [facility]. She was being transferring from bed to a chair. Patient hit the front of her head. There is no loss of consciousness. She presented to the ER for further evaluation. She was found to have a urinary tract infection started on Rocephin. White count was 17.1 hemoglobin 8.5. She also had evidence of dehydration creatinine was elevated at 1.99 BUN 58. Blood sugar low also at 66. Patient denies any chest pain, shortness of breath, nausea or vomiting, bowel movement changes or urinary symptoms. She did have a computed tomography scan of the head and cervical spine completed in the ER. Computed tomography scan of the brain no acute hemorrhage, hydrocephalus or mass effect. CT of cervical spine showing no acute fracture or subluxation. Objective - Vital Signs Vital signs: Vital Signs Temp 98.6 F 09/19/18 05:10 Pulse 88 09/19/18 09:11 Resp 16 09/19/18 05:10 BP 178/70 09/19/18 05:10 Pulse Ox 92 L 09/19/18 05:10 Intake & Output 09/18/18 09/19/18 09/19/18 18:59 06:59 18:59 Output Total 200 Balance -200 Weight 72.575 kg 63.2 kg Output: Urine 200 Other: Voiding Method Bedside Commode Bedside Commode # Voids 1 1 # Bowel Movements 1 1 - Exam - Constitutional Laceration forehead covered with dressing General appearance: average body habitus, cooperative, disheveled, no acute distress - EENT Eyes: anicteric sclerae, EOMI, PERRLA, poor dentition Ears: bilateral: normal - Neck Neck: normal ROM Carotids: bilateral: upstroke normal, bruit absent Thyroid: bilateral: normal size - Respiratory Respiratory: right: rales (At the right base), bilateral: diminished (At bases) - Cardiovascular Rhythm: regular Heart sounds: normal: S1, S2 - Gastrointestinal General gastrointestinal: decreased bowel sounds - Neurologic Neurologic: CNII-XII intact - Musculoskeletal Musculoskeletal: gait normal, generalized weakness, strength equal bilaterally - Psychiatric Psychiatric: A&O x's 3, appropriate affect, intact judgment & insight - Labs CBC & Chem 7: 09/19/18 08:37 09/19/18 08:37 Labs: Abnormal Lab Results - Last 24 Hours (Table) 09/18/18 09/18/18 09/18/18 Range/Units 08:28 08:28 09:44 WBC 14.6 H (3.8-10.6) k/uL RBC 2.71 L (3.80-5.40) m/uL Hgb 7.9 L (11.4-16.0) gm/dL Hct 25.7 L (34.0-46.0) % MCHC 30.9 L (31.0-37.0) g/dL RDW 17.7 H (11.5-15.5) % Neutrophils # 11.9 H (1.3-7.7) k/uL Monocytes # (0-1.0) k/uL Potassium (3.5-5.1) mmol/L Chloride (98-107) mmol/L Carbon Dioxide (22-30) mmol/L BUN 35 H (7-17) mg/dL Creatinine 1.39 H (0.52-1.04) mg/dL Glucose 189 H (74-99) mg/dL POC Glucose (mg/dL) (75-99) mg/dL Calcium (8.4-10.2) mg/dL Albumin 3.0 L (3.5-5.0) g/dL Vitamin B12 1391.0 H (200.0-944.0) pg/mL 09/18/18 09/18/18 09/18/18 Range/Units 11:47 17:11 20:52 WBC (3.8-10.6) k/uL RBC (3.80-5.40) m/uL Hgb (11.4-16.0) gm/dL Hct (34.0-46.0) % MCHC (31.0-37.0) g/dL RDW (11.5-15.5) % Neutrophils # (1.3-7.7) k/uL Monocytes # (0-1.0) k/uL Potassium (3.5-5.1) mmol/L Chloride (98-107) mmol/L Carbon Dioxide (22-30) mmol/L BUN (7-17) mg/dL Creatinine (0.52-1.04) mg/dL Glucose (74-99) mg/dL POC Glucose (mg/dL) 197 H 204 H 188 H (75-99) mg/dL Calcium (8.4-10.2) mg/dL Albumin (3.5-5.0) g/dL Vitamin B12 (200.0-944.0) pg/mL 09/19/18 09/19/18 09/19/18 Range/Units 06:55 08:37 08:37 WBC 17.8 H (3.8-10.6) k/uL RBC 2.76 L (3.80-5.40) m/uL Hgb 8.0 L (11.4-16.0) gm/dL Hct 26.1 L (34.0-46.0) % MCHC 30.8 L (31.0-37.0) g/dL RDW 17.8 H (11.5-15.5) % Neutrophils # 15.0 H (1.3-7.7) k/uL Monocytes # 1.1 H (0-1.0) k/uL Potassium 5.4 H (3.5-5.1) mmol/L Chloride 108 H (98-107) mmol/L Carbon Dioxide 20 L (22-30) mmol/L BUN 37 H (7-17) mg/dL Creatinine 1.34 H (0.52-1.04) mg/dL Glucose 188 H (74-99) mg/dL POC Glucose (mg/dL) 191 H (75-99) mg/dL Calcium 10.6 H (8.4-10.2) mg/dL Albumin 3.2 L (3.5-5.0) g/dL Vitamin B12 (200.0-944.0) pg/mL Microbiology - Last 24 Hours (Table) 09/17/18 20:00 Gram Stain - Preliminary Sputum Sputum Culture - Preliminary Assessment and Plan Assessment: Right lower lobe/right middle lobe pneumonia Right middle lobe 9 mm lung nodule Status post fall with laceration and left for heard requiring sutures Klebsiella urinary tract infection Sepsis Generalized weakness Type 2 diabetes mellitus Chronic atrial fibrillation not a candidate for a blood thinners Chronic renal failure Coronary artery disease Seizure disorder History of chronic diastolic heart failure currently stable Plan: Agree with antibiotics Follow clinical course closely Repeat chest x-ray tomorrow gentle rehydration We'll do a computed tomography scan of the chest has outpatient Further recommendations pending plan of care as per clinical response of the patient
--- NOTE | 2018-09-19 09:48 | XR ---
EXAMINATION TYPE: XR chest 2V DATE OF EXAM: 09/19/2018 COMPARISON: 09/18/2018 HISTORY: Pneumonia. Follow-up exam. TECHNIQUE: Frontal and lateral views of the chest are obtained. FINDINGS: Again there are low lung volumes creating crowding of the pulmonary vasculature. Interstit ial prominence is unchanged. Right midlung nodularity just above the minor fissure is not reproduced on today's examination and could be artifactual or not well visualized on today's exam. Multifocal li near right lower lung platelike atelectasis is present. Trace right pleural effusion blunts the costo phrenic angle. No sizable left pleural effusion or pneumothorax. Cardiomediastinal silhouette is enla rged with post CABG changes. No acute osseous process. IMPRESSION: Trace right pleural effusion and multifocal right basilar atelectasis likely on the basi s of low lung volumes. The previously seen nodular density overlying the right midlung is not reprodu carlos enrique. Attention on follow-up exams.
[2018-09-19] MEDS: VIT A,C & E-LUTEIN-MINERALS 1 EACH TAB PO SCH (09:49)
[2018-09-19] MEDS ORDERED: SODIUM POLYSTYRENE SULFONATE 15 GM/60 ML BOTTLE PO STA (10:13)
--- NOTE | 2018-09-19 10:21 | P.PN ---
Subjective Progress Note Date: 09/19/18 This is a 88-year-old female, resident at [facility]. 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 Patient was just recently hospitalized in July at that time diagnosed with a superficial gastric ulcer had EGD completed in and was placed on Protonix and Carafate. Since then she has been doing well. She presented to the hospital due to a fall at [facility]. She was being transferring from bed to a chair. Patient hit the front of her head. There is no loss of consciousness. She presented to the ER for further evaluation. She was found to have a urinary tract infection started on Rocephin. White count was 17.1 hemoglobin 8.5. She also had evidence of dehydration creatinine was elevated at 1.99 BUN 58. Blood sugar low also at 66. Patient denies any chest pain, shortness of breath, nausea or vomiting, bowel movement changes or urinary symptoms. She did have a computed tomography scan of the head and cervical spine completed in the ER. Computed tomography scan of the brain no acute hemorrhage, hydrocephalus or mass effect. CT of cervical spine showing no acute fracture or subluxation. Did know a 9 mm lesion in the right middle lobe. Recommend outpatient chest CT for better characterization. Chest x-ray no acute pulmonary pop process. Pelvic x- ray no evidence of any fractures. Patient denies any pain at this time. She did require sutures to a laceration above the left eyebrow in ER. She received IV fluid bolus in ER. Lasix is currently on hold. 09/15/2018 patient sitting up in bedside chair. She does admit to a cough and some shortness of breath. She was receiving IV fluids yesterday. IV fluids will be discontinued. Creatinine has come down from 1.99-1.59. White count has gone up from 17.1-17.3 and hemoglobin is 8.5-7.3. Patient's last bowel movement was yesterday. No active sites of bleeding. Patient denies any headache. Denies any chest pain. Denies any nausea vomiting. Denies any bowel movement changes or urinary symptoms. Remains on Rocephin for UTI. On 09/16/2018 patient is alert more oriented in no apparent distress there is no fever or chills no headache or dizziness no chest pain no shortness of breath she is complaining of cough no nausea or vomiting no abdominal pain no diarrhea and no urinary symptoms hemoglobin was down to 6.3 today 1 unit of red blood cell transfusion was ordered repeat CBC at 6 PM today consult for gastroenterology was initiated On 09/17/2018 patient's gallbladder and oriented in no apparent distress. Patient is resting comfortably in bed but answers questions. Patient's hemoglobin improving to 7.8. GI consult placed. At this time patient denies any chest pain or shortness breath. Patient denies nausea vomiting or diarrhea. Patient denies any urinary burning or frequency 09/18/2018 patient seen and examined this morning. She was sleeping comfortably. Discussed case with nurse. I no new complaints. Over the weekend patient had increasing confusion and neurology had been consulted. They ordered a computed tomography scan of the brain showing an old infarct in the right occipital lobe and right upper parietal junction. A couple rounded extra-axial lesions along the right frontal convexity measuring 1 cm and 4 mm likely meningiomas. Correlate with any available prior exam to check stability. Otherwise 6 month follow-up MRI can be performed to reassess. Moderate atrophy and changes of chronic small vessel ischemic disease. No acute intracranial abnormality seen. Neurology has also ordered EEG and B12 level. Over the weekend patient did require a unit of blood. Hemoglobin is now 7.9 again no active signs of bleeding. Patient seen by GI service no need for endoscopy at this time. White count has decreased from 15-14.6 09/19/2018 patient sitting in bedside chair. She is sleepy. She does admit to a mild cough. Denies any chest pain or shortness of breath. White count has increased to 17.8. Hemoglobin is stable at 8. EEG showing slowing likely due to metabolic encephalopathy. Blood pressure early this morning was 178/70 before meds were given. Chest x-ray is pending. Patient is followed by pulmonary service and neurology. Patient denies any chest pain or shortness breath. Denies any nausea or vomiting. Reports having bowel movements. Denies any difficulty urinating. Objective - Vital Signs Vital signs: Vital Signs Temp 98.6 F 09/19/18 05:10 Pulse 88 09/19/18 09:11 Resp 16 09/19/18 05:10 BP 178/70 09/19/18 05:10 Pulse Ox 92 L 09/19/18 05:10 Intake & Output 09/18/18 09/19/18 09/19/18 18:59 06:59 18:59 Output Total 200 Balance -200 Weight 72.575 kg 63.2 kg Output: Urine 200 Other: Voiding Method Bedside Commode Bedside Commode # Voids 1 1 # Bowel Movements 1 1 - Exam Head normocephalic. Wrapped in Kerlix. Neck supple. Positive JVD Lungs clear Heart irregular Abdomen is soft nontender nondistended positive bowel sounds no hepatosplenomegaly Extremities no edema Neuro alert and orientated to 2. Which is patient baseline. She is arousable able to answer questions. - Labs CBC & Chem 7: 09/19/18 08:37 09/19/18 08:37 Labs: Abnormal Lab Results - Last 24 Hours (Table) 09/18/18 09/18/18 09/18/18 Range/Units 09:44 11:47 17:11 WBC (3.8-10.6) k/uL RBC (3.80-5.40) m/uL Hgb (11.4-16.0) gm/dL Hct (34.0-46.0) % MCHC (31.0-37.0) g/dL RDW (11.5-15.5) % Neutrophils # (1.3-7.7) k/uL Monocytes # (0-1.0) k/uL Potassium (3.5-5.1) mmol/L Chloride (98-107) mmol/L Carbon Dioxide (22-30) mmol/L BUN (7-17) mg/dL Creatinine (0.52-1.04) mg/dL Glucose (74-99) mg/dL POC Glucose (mg/dL) 197 H 204 H (75-99) mg/dL Calcium (8.4-10.2) mg/dL Albumin (3.5-5.0) g/dL Vitamin B12 1391.0 H (200.0-944.0) pg/mL 09/18/18 09/19/18 09/19/18 Range/Units 20:52 06:55 08:37 WBC 17.8 H (3.8-10.6) k/uL RBC 2.76 L (3.80-5.40) m/uL Hgb 8.0 L (11.4-16.0) gm/dL Hct 26.1 L (34.0-46.0) % MCHC 30.8 L (31.0-37.0) g/dL RDW 17.8 H (11.5-15.5) % Neutrophils # 15.0 H (1.3-7.7) k/uL Monocytes # 1.1 H (0-1.0) k/uL Potassium (3.5-5.1) mmol/L Chloride (98-107) mmol/L Carbon Dioxide (22-30) mmol/L BUN (7-17) mg/dL Creatinine (0.52-1.04) mg/dL Glucose (74-99) mg/dL POC Glucose (mg/dL) 188 H 191 H (75-99) mg/dL Calcium (8.4-10.2) mg/dL Albumin (3.5-5.0) g/dL Vitamin B12 (200.0-944.0) pg/mL 09/19/18 Range/Units 08:37 WBC (3.8-10.6) k/uL RBC (3.80-5.40) m/uL Hgb (11.4-16.0) gm/dL Hct (34.0-46.0) % MCHC (31.0-37.0) g/dL RDW (11.5-15.5) % Neutrophils # (1.3-7.7) k/uL Monocytes # (0-1.0) k/uL Potassium 5.4 H (3.5-5.1) mmol/L Chloride 108 H (98-107) mmol/L Carbon Dioxide 20 L (22-30) mmol/L BUN 37 H (7-17) mg/dL Creatinine 1.34 H (0.52-1.04) mg/dL Glucose 188 H (74-99) mg/dL POC Glucose (mg/dL) (75-99) mg/dL Calcium 10.6 H (8.4-10.2) mg/dL Albumin 3.2 L (3.5-5.0) g/dL Vitamin B12 (200.0-944.0) pg/mL Microbiology - Last 24 Hours (Table) 09/17/18 20:00 Gram Stain - Preliminary Sputum Sputum Culture - Preliminary Assessment and Plan Assessment: 1. Fall with generalized weakness: Possible secondary to UTI, dehydration and hypoglycemia. Consult physical therapy and occupational therapy. No loss of consciousness. Computed tomography scan of the brain was a negative. Computed tomography scan of the cervical spine no evidence of fracture or subluxation 2. UTI: Urine culture growing Klebsiella pneumonia, Continue Rocephin 1 g daily 3. Acute kidney injury with chronic kidney disease stage III. Baseline creatinine near 1.2 to 1.6. Creatinine on admission cr 1.99 BUN 58. kidney functions are improving. Patient is tolerating her home dose of Lasix . Aldactone on hold. 4. Diabetes mellitus type 2: Hypoglycemia on admission blood sugar of 66. A1c is 6.3 Add sliding scale coverage. We'll hold oral hypoglycemics for now. Hypoglycemia could also be contributing factor to her fall and generalized weakness. We'll monitor. 5. Iron deficiency anemia continue iron supplement. 6. Gastric ulcer noted on recent EGD in July 2018 continue Protonix and Carafate. No active signs of bleeding at this time. Continue to monitor hemoglobin 7. History of COPD stable 8. History of chronic atrial fibrillation. Maintained on metoprolol. Not on any anticoagulation due to previous history of petechial hemorrhage on MRI of brain 9. History of seizure disorder continue Keppra 10. History of coronary artery disease with previous CABG in 2008 11. History of chronic systolic just of heart failure. No evidence of exacerbation at this time. Last 2-D echo showing an EF of 60-65% 12. Previous history of UTIs 13. Hypothyroidism continue Synthroid. TSH normal at 1.640 14. Incidental finding on CT of cervical spine of a 9 mm lesion in the right middle lobe. Radiologist is recommending outpatient CT of chest. Patient does have a prior history of smoking 15. Head laceration above the left eyebrow requiring sutures in the ER 16. Moderate protein calorie malnutrition albumin 2.9. Continue protein shakes 17. Mild fluid overload with elevated BNP. Patient had one dose of IV Lasix. Resume home Lasix 40 mg by mouth daily 18. Pneumonia: Continue Rocephin and azithromycin. Pulmonary service following. Repeat chest x-ray showing some evidence of atelectasis. Incentive sprouted ordered 19. Altered mental status changes possibly due to a metabolic encephalopathy due to her pneumonia and UTI. Neurology also notes concerns for possible concussion. They ordered a repeat computed tomography scan of the brain with no acute intracranial abnormality seen did reveal evidence of old stroke and possible meningiomas. keppra level normal 51.3 20. A couple rounded extra-axial lesions along the right frontal convexity measuring 1 cm and 4 mm likely meningiomas. Will await neurology evaluation. Also radiologist recommending a 6 month follow-up MRI on these findings. 21. Normocytic anemia likely related to patient's known iron deficiency and chronic kidney disease and anemia of chronic disease. No evidence of active bleeding. Patient had EGD done in July revealing gastritis and gastric ulcer. Continue with iron supplement. GI is not recommending any endoscopy at this time. Hemoglobin today is 8.0 22. Leukocytosis: White count has increased to 17.8. No fever. Continue to monitor. Patient is currently on Rocephin and azithromycin to cover for her UTI and pneumonia. 23. Hyperkalemia: Potassium 5.4 we'll give Kayexalate. Repeat potassium level in a.m. GI prophylaxis Protonix and DVT prophylaxis subcu heparin I performed an examination of the patient and discussed their management with the physician Ginning Operator. I have reviewed the Physician Ginning Operator's notes and agree with the documented findings and plan of care
[2018-09-19 10:58] LABS: Glucose,Whole Blood 221 mg/dL (75-99)
[2018-09-19] MEDS: AZITHROMYCIN 500 MG TAB PO SCH (16:40)
[2018-09-19 17:06] LABS: Glucose,Whole Blood 176 mg/dL (75-99)
[2018-09-19 20:24] LABS: Glucose,Whole Blood 224 mg/dL (75-99)
[2018-09-19] MEDS: ATORVASTATIN 10 MG TAB PO SCH (21:12)
[2018-09-19] MEDS: amLODIPine 10 MG TAB PO SCH (21:12)
[2018-09-19] MEDS: SERTRALINE 25 MG TAB PO SCH (21:14)
--- NOTE | 2018-09-19 23:26 | P.CONS ---
History of Present Illness - Reason for Consult Consult date: 09/19/18 Leukocytosis Requesting physician: Marcelo Fernandez - Chief Complaint fall at [facility] few days ago - History of Present Illness Patient is 88 year female who was brought into the ER at [facility] after pending the patient did have a fall at the [place] [facility] patient was being health from the chair to the bed and the patient fell down no loss of consciousness subsequently evaluated at the ER the patient did have a CT of the cervical spine in the brain with no acute fracture or bleed she was noticed to have elevated white count of 17,000 and a positive UA with some infiltrate at the lung bases patient has been treated with Rocephin and Zithromax however the patient white count remains to be elevated that prompted this infectious disease consultation patient has been afebrile throughout her hospital stay the patient herself denies any active symptoms she did have a bruise on the left nasofacial area though patient denies any worsening pain to that site did have a stage I pressure ulcer on the sacral area the patient has no symptoms referable to that, the patient denies having any headache no chest pain or shortness of breath she did have some cough no nausea no vomiting no choking on the food has been noticed no diarrhea Review of Systems Positive points has been mentioned in HPI rest of the systems are negative Past Medical History Past Medical History: Atrial Fibrillation, Coronary Artery Disease (CAD), Cancer, Heart Failure, COPD, Diabetes Mellitus, GERD/Reflux, Hyperlipidemia, Hypertension, Thyroid Disorder Additional Past Medical History / Comment(s): Pt recently admitted to [facility] on 08/22/18 with abnormal labs/iron deficiency anemia-received blood transfusion/EGD showed superficial gastric nonbleeding ulcer/hiatal hernia/gastritis. Other hx: Chronic afib, chronic CHF, CVA with L sided weakness, NIDDM type II, CKD stage III, seizure disorder with last seizure 09/2017, pt states she has had R eye injections but does not recall reason, headaches, skin cancer removal/nose, unsteady gait. 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 Past Anesthesia/Blood Transfusion Reactions: No Reported Reaction Additional Past Anesthesia/Blood Transfusion Reaction / Comm: Pt has received blood without reaction. Smoking Status: Former smoker - Past Family History Father History Unknown: Yes Family Medical History: No Reported History Additional Family Medical History / Comment(s): Father was healthy Mother Family Medical History: No Reported History Additional Family Medical History / Comment(s): Mother was healthy Medications and Allergies Home Medications Medication Instructions Recorded Confirmed Type Vit C/E/Zn/Coppr/Lutein/Zeaxan 1 cap PO DAILY@89903/28/16 09/14/18 History [Preservision Areds 2 Softgel] Cholecalciferol [Vitamin D3 (25 1,000 unit PO DAILY@89905/22/17 09/14/18 History Mcg = 1000 Iu)] Famotidine 40 mg PO DAILY@89905/22/17 09/14/18 History amLODIPine BESYLATE [Norvasc] 10 mg PO DAILY@209905/22/17 09/14/18 History Acetaminophen [Tylenol] 1,000 mg PO BID@899,209910/13/17 09/14/18 History Aspirin [Adult Low Dose Aspirin EC] 81 mg PO DAILY@89910/13/17 09/14/18 History Atorvastatin Calcium [Lipitor] 10 mg PO DAILY@209910/13/17 09/14/18 History Cyanocobalamin [Vitamin B-12] 500 mcg PO DAILY@89910/13/17 09/14/18 History Isosorbide Mononitrate [Isosorbide 30 mg PO DAILY@89910/13/17 09/14/18 History Mononitrate ER] Custer-3 Fatty Acids/Fish Oil [Fish 1 cap PO DAILY@89910/13/17 09/14/18 History Oil 1,000 mg Softgel] Rosuvastatin Calcium [Crestor] 5 mg PO DAILY@209910/13/17 09/14/18 History Saxagliptin HCl [Onglyza] 5 mg PO DAILY@89910/13/17 09/14/18 History Sertraline HCl [Zoloft] 25 mg PO HS@209910/13/17 09/14/18 History Furosemide [Lasix] 40 mg PO DAILY@59908/09/18 09/14/18 History Menthol [Biofreeze] 1 applic TOPICAL Q2H PRN 08/09/18 09/14/18 History glipiZIDE [Glucotrol] 5 mg PO DAILY@1100 08/09/18 09/14/18 History levETIRAcetam [Keppra] 250 mg PO TID@0600,1400,2200 08/09/18 09/14/18 History Ferrous Sulfate [Iron (65 MG 325 mg PO BID@0900,1800 08/21/18 09/14/18 History Elemental)] Levothyroxine Sodium 112 mcg PO DAILY@0600 08/21/18 09/14/18 History Metoprolol Tartrate [Lopressor] 25 mg PO BID@0900,2100 08/21/18 09/14/18 History Spironolactone [Aldactone] 25 mg PO DAILY@0600 08/21/18 09/14/18 History traMADol HCL [Ultram] 50 mg PO Q8H PRN 14 Days #42 tablet 08/25/18 09/14/18 Rx Ipratropium-Albuterol Nebulize 3 ml INHALATION 09/14/18 09/14/18 History [Duoneb 0.5 mg-3 mg/3 ml Soln] RT-QID@0900,13,17,21 Pantoprazole [Protonix] 40 mg PO AC-BID@0600,1700 09/14/18 09/14/18 History Sucralfate [Carafate] 1 gm PO AC-BID@0600,1700 09/14/18 09/14/18 History Allergies Allergy/AdvReac Type Severity Reaction Status Date / Time acetaminophen [From Lortab] AdvReac Hallucinati Verified 09/14/18 07:51 ons hydrocodone [From Lortab] AdvReac Hallucinati Verified 09/14/18 07:51 ons Physical Exam Vitals: Vital Signs Temp Pulse Pulse Resp BP Pulse Ox 09/19/18 11:28 98.6 F 85 14 145/68 96 09/19/18 09:11 88 09/19/18 08:58 88 09/19/18 05:10 98.6 F 90 16 178/70 92 L 09/19/18 00:25 16 09/18/18 20:57 98.2 F 91 16 139/64 92 L 09/18/18 20:15 85 09/18/18 20:05 85 09/18/18 15:46 86 09/18/18 15:38 86 09/18/18 12:43 98.1 F 86 16 148/79 94 L Intake and Output 09/18/18 09/19/18 09/19/18 22:59 06:59 14:59 Output Total 200 Balance -200 Output: Urine 200 Other: Voiding Method Bedside Commode Bedside Commode # Voids 1 1 # Bowel Movements 1 1 Weight 63.2 kg GENERAL DESCRIPTION: An elderly female lying in bed, no distress. No tachypnea or accessory muscle of respiration use. HEENT: Shows Pallor , no scleral icterus. Oral mucous membrane is dry. No pharyngeal erythema or thrush NECK: Trachea central, no thyromegaly. LUNGS: Unlabored breathing. Decreased breath sounds at bases. No wheeze or crackle. HEART: S1, S2, regular rate and rhythm. No loud murmur ABDOMEN: Soft, no tenderness , guarding or rigidity, no organomegaly EXTREMITIES: No edema of feet. SKIN: No rash, no masses palpable. NEUROLOGICAL: The patient is awake, alert, oriented x2, mood and affect normal. Results CBC & Chem 7: 09/19/18 08:37 09/19/18 08:37 Labs: Abnormal Lab Results - Last 24 Hours (Table) 09/18/18 09/18/18 09/18/18 Range/Units 09:44 17:11 20:52 WBC (3.8-10.6) k/uL RBC (3.80-5.40) m/uL Hgb (11.4-16.0) gm/dL Hct (34.0-46.0) % MCHC (31.0-37.0) g/dL RDW (11.5-15.5) % Neutrophils # (1.3-7.7) k/uL Monocytes # (0-1.0) k/uL Potassium (3.5-5.1) mmol/L Chloride (98-107) mmol/L Carbon Dioxide (22-30) mmol/L BUN (7-17) mg/dL Creatinine (0.52-1.04) mg/dL Glucose (74-99) mg/dL POC Glucose (mg/dL) 204 H 188 H (75-99) mg/dL Calcium (8.4-10.2) mg/dL Albumin (3.5-5.0) g/dL Vitamin B12 1391.0 H (200.0-944.0) pg/mL 09/19/18 09/19/18 09/19/18 Range/Units 06:55 08:37 08:37 WBC 17.8 H (3.8-10.6) k/uL RBC 2.76 L (3.80-5.40) m/uL Hgb 8.0 L (11.4-16.0) gm/dL Hct 26.1 L (34.0-46.0) % MCHC 30.8 L (31.0-37.0) g/dL RDW 17.8 H (11.5-15.5) % Neutrophils # 15.0 H (1.3-7.7) k/uL Monocytes # 1.1 H (0-1.0) k/uL Potassium 5.4 H (3.5-5.1) mmol/L Chloride 108 H (98-107) mmol/L Carbon Dioxide 20 L (22-30) mmol/L BUN 37 H (7-17) mg/dL Creatinine 1.34 H (0.52-1.04) mg/dL Glucose 188 H (74-99) mg/dL POC Glucose (mg/dL) 191 H (75-99) mg/dL Calcium 10.6 H (8.4-10.2) mg/dL Albumin 3.2 L (3.5-5.0) g/dL Vitamin B12 (200.0-944.0) pg/mL 09/19/18 Range/Units 10:55 WBC (3.8-10.6) k/uL RBC (3.80-5.40) m/uL Hgb (11.4-16.0) gm/dL Hct (34.0-46.0) % MCHC (31.0-37.0) g/dL RDW (11.5-15.5) % Neutrophils # (1.3-7.7) k/uL Monocytes # (0-1.0) k/uL Potassium (3.5-5.1) mmol/L Chloride (98-107) mmol/L Carbon Dioxide (22-30) mmol/L BUN (7-17) mg/dL Creatinine (0.52-1.04) mg/dL Glucose (74-99) mg/dL POC Glucose (mg/dL) 221 H (75-99) mg/dL Calcium (8.4-10.2) mg/dL Albumin (3.5-5.0) g/dL Vitamin B12 (200.0-944.0) pg/mL Microbiology - Last 24 Hours (Table) 09/17/18 20:00 Gram Stain - Preliminary Sputum Sputum Culture - Preliminary Assessment and Plan Assessment: 1-patient with unexplained leukocytosis with white count has been around 17,000 this patient has been brought to the hospital after patient did have a fall she did have a bruise to the left side of the facial area but no other skin breakdown has been noticed or any significant tenderness on abdominal examination mild positive UA and urine did shows Klebsiella which is sensitive to the Rocephin patient is on however white count is still elevated, chest x-ray this morning tissue some infiltrate at right lung base with a question of possible aspiration pneumonitis to be the likely etiology of this elevated white count responded to rocephin and Zithromax Plan: 1-discontinue the Rocephin and Zithromax 2-we will start the patient on Unasyn 3 g every 12 hours, dose adjusted to the kidney function 3-gentle IV fluid and aspiration precautions we will follow on clinical condition and culture to further adjust medication if needed Thank you for this consultation will follow this patient along with you Time with Patient: Greater than 30
[2018-09-20] MEDS: AMPICILLIN-SULBACTAM 3 GM in SODIUM CHLORIDE 0.9% 100 ML IVPB SCH ×2 (00:09→12:39)
[2018-09-20] MEDS: LEVOTHYROXINE 112 MCG TAB PO SCH (06:18)
[2018-09-20] MEDS: levETIRAcetam 250 MG TAB PO SCH ×3 (06:18→21:57)
[2018-09-20] MEDS: FUROSEMIDE 40 MG TAB PO SCH (06:18)
[2018-09-20] MEDS: PANTOPRAZOLE 40 MG TABLET PO SCH ×2 (06:19→16:58)
[2018-09-20] MEDS: SUCRALFATE 1 GM TAB PO SCH ×2 (06:19→16:58)
[2018-09-20 07:18] LABS: Glucose,Whole Blood 190 mg/dL (75-99)
[2018-09-20] MEDS: INSULIN ASPART (NovoLOG) 100 UNIT/ML VIAL SQ SCH ×4 (07:40→21:57)
[2018-09-20] MEDS: IPRATROPIUM-ALBUTEROL 3 ML NEB INHALATION SCH ×4 (08:52→20:15)
[2018-09-20] MEDS: FERROUS SULFATE 325 MG TAB PO SCH ×2 (09:07→16:58)
[2018-09-20] MEDS: ISOSORBIDE MONONITRATE ER 30 MG TAB.ER.24H PO SCH (09:07)
[2018-09-20] MEDS: CYANOCOBALAMIN 500 MCG TAB PO SCH (09:07)
[2018-09-20] MEDS: HEPARIN SODIUM,PORCINE 5,000 UNIT/ML 1 ML VIAL SQ SCH ×2 (09:07→21:56)
[2018-09-20] MEDS: METOPROLOL TARTRATE 25 MG TAB PO SCH ×2 (09:07→21:56)
[2018-09-20] MEDS: ASPIRIN 81 MG PO SCH (09:07)
[2018-09-20] MEDS: VIT A,C & E-LUTEIN-MINERALS 1 EACH TAB PO SCH (09:07)
[2018-09-20] MEDS: CHOLECALCIFEROL 1,000 UNIT TAB PO SCH (09:07)
[2018-09-20 09:58] LABS: Anisocytosis Slight; Basophils # (A) 0.1 k/uL (0-0.2); Basophils % (A) 0 %; Eosinophils # (A) 0.1 k/uL (0-0.7); Eosinophils % (A) 1 %; HCT 27.3 % (34.0-46.0); HGB 8.4 gm/dL (11.4-16.0); Hypochromasia Moderate; Lymphocytes # (A) 1.7 k/uL (1.0-4.8); Lymphocytes % (A) 10 %; MCHC 30.9 g/dL (31.0-37.0); MCV 97.1 fL (80.0-100.0); Macrocytosis Slight; Mean Platelet Volume 7.1; Monocytes % (A) 6 %; Neutrophils # (A) 14.4 k/uL (1.3-7.7); Neutrophils % (A) 82 %; Platelet Count 229 k/uL (150-450); Poikilocytosis Slight; RBC 2.81 m/uL (3.80-5.40); WBC 17.5 k/uL (3.8-10.6)
[2018-09-20 10:22] LABS: Albumin 3.3 g/dL (3.5-5.0); Potassium 4.2 mmol/L (3.5-5.1); Total Bilirubin 0.5 mg/dL (0.2-1.3); Total Protein 7.7 g/dL (6.3-8.2)
--- NOTE | 2018-09-20 10:43 | P.PN ---
Subjective Progress Note Date: 09/20/18 This is a 88-year-old female, resident at [facility]. 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 Patient was just recently hospitalized in July at that time diagnosed with a superficial gastric ulcer had EGD completed in and was placed on Protonix and Carafate. Since then she has been doing well. She presented to the hospital due to a fall at [facility]. She was being transferring from bed to a chair. Patient hit the front of her head. There is no loss of consciousness. She presented to the ER for further evaluation. She was found to have a urinary tract infection started on Rocephin. White count was 17.1 hemoglobin 8.5. She also had evidence of dehydration creatinine was elevated at 1.99 BUN 58. Blood sugar low also at 66. Patient denies any chest pain, shortness of breath, nausea or vomiting, bowel movement changes or urinary symptoms. She did have a computed tomography scan of the head and cervical spine completed in the ER. Computed tomography scan of the brain no acute hemorrhage, hydrocephalus or mass effect. CT of cervical spine showing no acute fracture or subluxation. Did know a 9 mm lesion in the right middle lobe. Recommend outpatient chest CT for better characterization. Chest x-ray no acute pulmonary pop process. Pelvic x- ray no evidence of any fractures. Patient denies any pain at this time. She did require sutures to a laceration above the left eyebrow in ER. She received IV fluid bolus in ER. Lasix is currently on hold. 09/15/2018 patient sitting up in bedside chair. She does admit to a cough and some shortness of breath. She was receiving IV fluids yesterday. IV fluids will be discontinued. Creatinine has come down from 1.99-1.59. White count has gone up from 17.1-17.3 and hemoglobin is 8.5-7.3. Patient's last bowel movement was yesterday. No active sites of bleeding. Patient denies any headache. Denies any chest pain. Denies any nausea vomiting. Denies any bowel movement changes or urinary symptoms. Remains on Rocephin for UTI. On 09/16/2018 patient is alert more oriented in no apparent distress there is no fever or chills no headache or dizziness no chest pain no shortness of breath she is complaining of cough no nausea or vomiting no abdominal pain no diarrhea and no urinary symptoms hemoglobin was down to 6.3 today 1 unit of red blood cell transfusion was ordered repeat CBC at 6 PM today consult for gastroenterology was initiated On 09/17/2018 patient's gallbladder and oriented in no apparent distress. Patient is resting comfortably in bed but answers questions. Patient's hemoglobin improving to 7.8. GI consult placed. At this time patient denies any chest pain or shortness breath. Patient denies nausea vomiting or diarrhea. Patient denies any urinary burning or frequency 09/18/2018 patient seen and examined this morning. She was sleeping comfortably. Discussed case with nurse. I no new complaints. Over the weekend patient had increasing confusion and neurology had been consulted. They ordered a computed tomography scan of the brain showing an old infarct in the right occipital lobe and right upper parietal junction. A couple rounded extra-axial lesions along the right frontal convexity measuring 1 cm and 4 mm likely meningiomas. Correlate with any available prior exam to check stability. Otherwise 6 month follow-up MRI can be performed to reassess. Moderate atrophy and changes of chronic small vessel ischemic disease. No acute intracranial abnormality seen. Neurology has also ordered EEG and B12 level. Over the weekend patient did require a unit of blood. Hemoglobin is now 7.9 again no active signs of bleeding. Patient seen by GI service no need for endoscopy at this time. White count has decreased from 15-14.6 09/19/2018 patient sitting in bedside chair. She is sleepy. She does admit to a mild cough. Denies any chest pain or shortness of breath. White count has increased to 17.8. Hemoglobin is stable at 8. EEG showing slowing likely due to metabolic encephalopathy. Blood pressure early this morning was 178/70 before meds were given. Chest x-ray is pending. Patient is followed by pulmonary service and neurology. Patient denies any chest pain or shortness breath. Denies any nausea or vomiting. Reports having bowel movements. Denies any difficulty urinating. On 09/20/2018 patient currently sitting up in chair. He remains sleepy but does awaken and follow commands. White count slightly decreasing to 17.5 hemoglobin increasing to 8.4. Patient started on Unasyn per ID. At this time patient denies any chest pain or shortness of breath. Patient denies nausea vomiting or diarrhea. Denies any urinary burning or frequency Objective - Vital Signs Vital signs: Vital Signs Temp 98.4 F 09/20/18 05:00 Pulse 94 09/20/18 09:05 Resp 18 09/20/18 08:00 BP 150/73 09/20/18 05:00 Pulse Ox 92 L 09/20/18 05:00 Intake & Output 09/19/18 09/20/18 09/20/18 18:59 06:59 18:59 Intake Total 100 Output Total 200 0 Balance -200 100 0 Weight 62.6 kg Intake: Intake, IV Titration 100 Amount Ampicillin-Sulbactam 3 gm 100 In Sodium Chloride 0.9% 100 ml @ 200 mls/hr IVPB Q12H [facility] Rx#:[id number] Output: Urine 200 Stool 0 Other: Voiding Method Bedside Commode Bedside Commode Bedside Commode Incontinent # Voids 2 1 # Bowel Movements 1 - Exam Head normocephalic. Wrapped in Kerlix. Neck supple. Positive JVD Lungs clear Heart irregular Abdomen is soft nontender nondistended positive bowel sounds no hepato splenomegaly Extremities no edema Neuro alert and orientated to 2. Which is patient baseline. She is arousable able to answer questions. - Labs CBC & Chem 7: 09/20/18 09:29 09/20/18 09:29 Labs: Abnormal Lab Results - Last 24 Hours (Table) 09/19/18 09/19/18 09/19/18 Range/Units 10:55 17:05 20:23 WBC (3.8-10.6) k/uL RBC (3.80-5.40) m/uL Hgb (11.4-16.0) gm/dL Hct (34.0-46.0) % MCHC (31.0-37.0) g/dL RDW (11.5-15.5) % Neutrophils # (1.3-7.7) k/uL BUN (7-17) mg/dL Creatinine (0.52-1.04) mg/dL Glucose (74-99) mg/dL POC Glucose (mg/dL) 221 H 176 H 224 H (75-99) mg/dL C-Reactive Protein (<10.0) mg/L Albumin (3.5-5.0) g/dL 09/20/18 09/20/18 09/20/18 Range/Units 07:16 09:29 09:29 WBC 17.5 H (3.8-10.6) k/uL RBC 2.81 L (3.80-5.40) m/uL Hgb 8.4 L (11.4-16.0) gm/dL Hct 27.3 L (34.0-46.0) % MCHC 30.9 L (31.0-37.0) g/dL RDW 18.0 H (11.5-15.5) % Neutrophils # 14.4 H (1.3-7.7) k/uL BUN 29 H (7-17) mg/dL Creatinine 1.29 H (0.52-1.04) mg/dL Glucose 257 H (74-99) mg/dL POC Glucose (mg/dL) 190 H (75-99) mg/dL C-Reactive Protein 70.0 H (<10.0) mg/L Albumin 3.3 L (3.5-5.0) g/dL Assessment and Plan Assessment: 1. Fall with generalized weakness: Possible secondary to UTI, dehydration and hypoglycemia. Consult physical therapy and occupational therapy. No loss of consciousness. Computed tomography scan of the brain was a negative. Computed tomography scan of the cervical spine no evidence of fracture or subluxation 2. UTI: Urine culture growing Klebsiella pneumonia, Continue Rocephin 1 g daily. Per ID antibiotics switched to Unasyn 3. Acute kidney injury with chronic kidney disease stage III. Baseline creatinine near 1.2 to 1.6. Creatinine on admission cr 1.99 BUN 58. kidney functions are improving. Patient is tolerating her home dose of Lasix . Leslie ctone on hold. 4. Diabetes mellitus type 2: Hypoglycemia on admission blood sugar of 66. A1c is 6.3 Add sliding scale coverage. We'll hold oral hypoglycemics for now. Hypoglycemia could also be contributing factor to her fall and generalized weakness. We'll monitor. 5. Iron deficiency anemia continue iron supplement. 6. Gastric ulcer noted on recent EGD in July 2018 continue Protonix and Carafate. No active signs of bleeding at this time. Continue to monitor hemoglobin 7. History of COPD stable 8. History of chronic atrial fibrillation. Maintained on metoprolol. Not on any anticoagulation due to previous history of petechial hemorrhage on MRI of brain 9. History of seizure disorder continue Keppra 10. History of coronary artery disease with previous CABG in 2008 11. History of chronic systolic just of heart failure. No evidence of exacerbation at this time. Last 2-D echo showing an EF of 60-65% 12. Previous history of UTIs 13. Hypothyroidism continue Synthroid. TSH normal at 1.640 14. Incidental finding on CT of cervical spine of a 9 mm lesion in the right middle lobe. Radiologist is recommending outpatient CT of chest. Patient does have a prior history of smoking 15. Head laceration above the left eyebrow requiring sutures in the ER 16. Moderate protein calorie malnutrition albumin 2.9. Continue protein shakes 17. Mild fluid overload with elevated BNP. Patient had one dose of IV Lasix. Resume home Lasix 40 mg by mouth daily 18. Pneumonia: Continue Rocephin and azithromycin. Pulmonary service following. Repeat chest x-ray showing some evidence of atelectasis. Incentive Rominger ordered. Interacts switched to Unasyn 19. Altered mental status changes possibly due to a metabolic encephalopathy due to her pneumonia and UTI. Neurology also notes concerns for possible concussion. They ordered a repeat computed tomography scan of the brain with no acute intracranial abnormality seen did reveal evidence of old stroke and possible meningiomas. keppra level normal 51.3 20. A couple rounded extra-axial lesions along the right frontal convexity measuring 1 cm and 4 mm likely meningiomas. Will await neurology evaluation. Also radiologist recommending a 6 month follow-up MRI on these findings. 21. Normocytic anemia likely related to patient's known iron deficiency and chronic kidney disease and anemia of chronic disease. No evidence of active bleeding. Patient had EGD done in July revealing gastritis and gastric ulcer. Continue with iron supplement. GI is not recommending any endoscopy at this time. Hemoglobin today is 8.4 22. Leukocytosis: White count has increased to 17.8. No fever. Continue to monitor. Patient is currently on Rocephin and azithromycin to cover for her UTI and pneumonia. 23. Hyperkalemia: Potassium 5.4 we'll give Kayexalate. Repeat potassium level in a.m. repeat potassium 4.2 GI prophylaxis Protonix and DVT prophylaxis subcu heparin I performed an examination of the patient and discussed their management with the Nurse Practitioner. I have reviewed the Nurse Practitioner's notes and agree with the documented findings and plan of care
[2018-09-20 11:12] LABS: Glucose,Whole Blood 283 mg/dL (75-99)
[2018-09-20 13:35] LABS: Erythrocyte Sedimentation Rate 116 mm/hr (0-20)
--- NOTE | 2018-09-20 13:54 | CDI ---
Documentation Clarification Form Date: 09/20/2018 1:30:22 PM From: Laid AlexanderChristiansonAYDEN silverman, CCDS Admit Date: 09/16/2018 6:07:00 PM Patient Name: Rui Samano Visit Number: [id number] Discharge Date: ATTENTION: The Clinical Documentation Specialists (CDI) and [facility] Coding Staff appreciate your assistance in clarifying documentation. Please respond to the clarification below the line at the bottom and electronically sign. The CDI & [facility] Coding staff will review the response and follow-up if needed. Please note: Queries are made part of the Legal Health Record. If you have any questions, please contact the author of this message via ITS. Dr. Marcelo Fernandez: Per the 09/15 Pulmonary consult: Dxs: Sepsis, right lower & right middle lobe pneumonia & UTI. Per the 09/15 Pulmonary progress note: Diagnosed with Klebsiella UTI & Sepsis. History/Risk Factors: Resident of care home, Posterior CVA w/petechial hemorrhage, Paroxysmal A Fib, COPD, DM II, CAD w/prior CABG, Hypertension, CHF, CKD III & prior UTIs. Clinical Indicators: On 09/14 presented to ER after fall at NH during transfer from bed to chair, hit her forehead w/no LOC. Found to have a UTI & started on Rocephin. Also diagnosed with BOGDAN, dehydration & toxic metabolic encephalopathy. On 09/16 patient was made a full IP admit, diagnosed with pneumonia per CXR & Sepsis per pulmonary consult. 09/14 VSS. 09/15: T 97.5*. 09/16 Temp wnl. 09/14 WBC 17.1^. 09/15: 17.3^. 09/16: 13.8 - 17.5. Neut 14.3^. UA: cloudy, 1+ protein, small blood, Lg esterase, WBC >182^. 09/14 CXR: Cardiomegaly. 09/15 CXR: Correlate for developing infiltrate right medial lung base. Pulmonary venous congestion w/o overt failure. 09/18 CXR: Mild infiltrate RLL, possible pneumonia. Sputum cx: pending final. 09/14: Hgb 8.5. 09/15: 7.3*. 09/16: 6/4. Treatment: On 09/14 started on IV fluids, IV Rocephin, INH Albuterol. 09/15 Rocephin continued, IV Lasix, IV Azithromycin, IV Ferric NaGluc. 09/17: po Zithromax. 09/20: IV Ampicillin. Transfused 1 unit PRBCs on 09/16. In your professional opinion, please clarify if these findings signify one of the following conditions, whether the condition is POA, and cause, if known: Sepsis ruled out Sepsis ruled in, please specify cause if known Severe Sepsis Other, please specify Unable to determine Present on Admission o Yes o No Identify the (suspected) organism Link or clarify if there is associated (due to/with): o Organ failure o Shock (Last Revision: May 2017) Sepsis ruled out MTDD
--- NOTE | 2018-09-20 15:02 | P.PN ---
Subjective Progress Note Date: 09/20/18 Principal diagnosis: Klebsiella UTI, status post fall due to dehydration and weakness, sepsis due to urinary tract infection, acute renal failure due to dehydration, type 2 diabetes mellitus, chronic anemia, COPD, chronic atrial fibrillation, seizure disorder, coronary artery disease history of CABG in the past, chronic systolic heart failure, hypothyroidism, right middle lobe nodule, right middle lobe pneumonia 09/20/2018, patient seen eval reexamined during the rounds doing well denies any chest pain breathing is more stable and improved labs reviewed medications reviewed, white cell count is slowly decreasing hemoglobin remained stable patient is on broad-spectrum antibiotics labs reviewed medications 09/19/2018, patient seen and evaluated examined during the rounds sitting upright on the bed denies any chest pain breathing comfortably reviewed medications reviewed care plan discussed 09/18/2018, patient seen and evaluated examined during the rounds he denies any chest pain shortness present denies any cough or sputum production patient on 2 L oxygen, patient has been evaluated by neurology which is available this week due to prior episode requiring admission to do the [facility] there recommend a repeat computed tomography scan 09/17/2018, patient seen eval reexamined during the round her appetite has improved mental status more. Denies any new specific complaint did not sleep very well last night labs reviewed medications reviewed patient has been found to have Klebsiella which is sensitive to Rocephin in the urine she has pneumonia also labs reviewed medications reviewed, hemoglobin is stable at 7.8, white cell count is slightly improved to 15 09/16/2018, patient seen eval reexamined during the round she as she is been hydrated her mental status improved still did not recall what happened in terms of fall, labs reviewed medications reviewed hemoglobin drop down to 6 she is status post transfusion with 1 unit of packed RBC, Klebsiella has been isolated in urine, white cell count is still elevated, was transfusion hemoglobin improved to 8.2, Klebsiella is sensitive to Rocephin, This is a 88-year-old female with the history of complex past medical problems see below patient was was transferred from wheelchair to bed and fell down and developed left forehead laceration came into the hospital she appears to be dehydrated as urinary tract infection, incidentally found to have a 9 mm right middle lobe nodule the initial x-ray of the chest was unremarkable subsequent x- ray shows right-sided pneumonia probably involving the middle lobe as well patient has been on IV Rocephin review of the data revealed that patient has past medical history of 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 Patient was just recently hospitalized in July at that time diagnosed with a superficial gastric ulcer had EGD completed in and was placed on Protonix and Carafate. Since then she has been doing well. She presented to the hospital due to a fall at [facility]. She was being transferring from bed to a chair. Patient hit the front of her head. There is no loss of consciousness. She presented to the ER for further evaluation. She was found to have a urinary tract infection started on Rocephin. White count was 17.1 hemoglobin 8.5. She also had evidence of dehydration creatinine was elevated at 1.99 BUN 58. Blood sugar low also at 66. Patient denies any chest pain, shortness of breath, nausea or vomiting, bowel movement changes or urinary symptoms. She did have a computed tomography scan of the head and cervical spine completed in the ER. Computed tomography scan of the brain no acute hemorrhage, hydrocephalus or mass effect. CT of cervical spine showing no acute fracture or subluxation. Objective - Vital Signs Vital signs: Vital Signs Temp 98 F 09/20/18 12:18 Pulse 79 09/20/18 12:18 Resp 14 09/20/18 12:18 BP 156/74 09/20/18 12:18 Pulse Ox 97 09/20/18 12:18 Intake & Output 09/19/18 09/20/18 09/20/18 18:59 06:59 18:59 Intake Total 100 580 Output Total 200 0 Balance -200 100 580 Weight 62.6 kg Intake: Intake, IV Titration 100 100 Amount Ampicillin-Sulbactam 3 gm 100 100 In Sodium Chloride 0.9% 100 ml @ 200 mls/hr IVPB Q12H [facility] Rx#:[id number] Oral 480 Output: Urine 200 Stool 0 Other: Voiding Method Bedside Commode Bedside Commode Bedside Commode Incontinent # Voids 2 1 3 # Bowel Movements 1 - Exam - Constitutional Laceration forehead covered with dressing General appearance: average body habitus, cooperative, disheveled, no acute distress - EENT Eyes: anicteric sclerae, EOMI, PERRLA, poor dentition Ears: bilateral: normal - Neck Neck: normal ROM Carotids: bilateral: upstroke normal, bruit absent Thyroid: bilateral: normal size - Respiratory Respiratory: right: rales (At the right base), bilateral: diminished (At bases) - Cardiovascular Rhythm: regular Heart sounds: normal: S1, S2 - Gastrointestinal General gastrointestinal: decreased bowel sounds - Neurologic Neurologic: CNII-XII intact - Musculoskeletal Musculoskeletal: gait normal, generalized weakness, strength equal bilaterally - Psychiatric Psychiatric: A&O x's 3, appropriate affect, intact judgment & insight - Labs CBC & Chem 7: 09/20/18 09:29 09/20/18 09:29 Labs: Abnormal Lab Results - Last 24 Hours (Table) 09/19/18 09/19/18 09/20/18 Range/Units 17:05 20:23 07:16 WBC (3.8-10.6) k/uL RBC (3.80-5.40) m/uL Hgb (11.4-16.0) gm/dL Hct (34.0-46.0) % MCHC (31.0-37.0) g/dL RDW (11.5-15.5) % Neutrophils # (1.3-7.7) k/uL ESR (0-20) mm/hr BUN (7-17) mg/dL Creatinine (0.52-1.04) mg/dL Glucose (74-99) mg/dL POC Glucose (mg/dL) 176 H 224 H 190 H (75-99) mg/dL C-Reactive Protein (<10.0) mg/L Albumin (3.5-5.0) g/dL 09/20/18 09/20/18 09/20/18 Range/Units 09:29 09:29 11:11 WBC 17.5 H (3.8-10.6) k/uL RBC 2.81 L (3.80-5.40) m/uL Hgb 8.4 L (11.4-16.0) gm/dL Hct 27.3 L (34.0-46.0) % MCHC 30.9 L (31.0-37.0) g/dL RDW 18.0 H (11.5-15.5) % Neutrophils # 14.4 H (1.3-7.7) k/uL ESR 116 H (0-20) mm/hr BUN 29 H (7-17) mg/dL Creatinine 1.29 H (0.52-1.04) mg/dL Glucose 257 H (74-99) mg/dL POC Glucose (mg/dL) 283 H (75-99) mg/dL C-Reactive Protein 70.0 H (<10.0) mg/L Albumin 3.3 L (3.5-5.0) g/dL Assessment and Plan Assessment: Right lower lobe/right middle lobe pneumonia Right middle lobe 9 mm lung nodule Status post fall with laceration and left for heard requiring sutures Klebsiella urinary tract infection Sepsis Generalized weakness Type 2 diabetes mellitus Chronic atrial fibrillation not a candidate for a blood thinners Chronic renal failure Coronary artery disease Seizure disorder History of chronic diastolic heart failure currently stable Plan: Agree with antibiotics Follow clinical course closely Repeat chest x-ray tomorrow gentle rehydration We'll do a computed tomography scan of the chest has outpatient Further recommendations pending plan of care as per clinical response of the patient Time with Patient: Greater than 30
--- NOTE | 2018-09-20 16:25 | PN ---
PROGRESS NOTE DATE OF SERVICE: 09/20/2018. REASON FOR FOLLOWUP: Leukocytosis. INTERVAL HISTORY: The patient is currently afebrile. The patient has been breathing comfortably. Denies having any chest pain. Minimal cough. No nausea, vomiting, abdominal pain, or any diarrhea. PHYSICAL EXAMINATION: Blood pressure 156/74 with a pulse of 79, temperature 98. She is 97% on room air. General description: The patient is an elderly female up in the bed in no distress. Respiratory system: Unlabored breathing. Decreased breath sounds in the bases. No wheeze. Heart S1, S2. Regular rate and rhythm. Abdomen: Soft, no tenderness. LABS: Hemoglobin 8.4, white count 13.5. BUN of 29, creatinine is 1.29. DIAGNOSTIC IMPRESSION AND PLAN: Patient with leukocytosis, unexplained with concern for possible aspiration pneumonitis abdomen source. Antibiotic has been switched to Unasyn. Still has elevated white count. We will obtain a CT of the abdomen and pelvis with oral contrast abdomen source. Continue with empiric Unasyn at this point. Monitor clinical course closely. Continue supportive care. MMODL / IJN: [id number] /
[2018-09-20 17:02] LABS: Glucose,Whole Blood 143 mg/dL (75-99)
[2018-09-20 19:56] LABS: Glucose,Whole Blood 187 mg/dL (75-99)
[2018-09-20] MEDS: ATORVASTATIN 10 MG TAB PO SCH (21:56)
[2018-09-20] MEDS: SERTRALINE 25 MG TAB PO SCH (21:56)
[2018-09-20] MEDS: amLODIPine 10 MG TAB PO SCH (21:56)
[2018-09-21] MEDS: AMPICILLIN-SULBACTAM 3 GM in SODIUM CHLORIDE 0.9% 100 ML IVPB SCH ×2 (00:03→13:03)
[2018-09-21] MEDS: FUROSEMIDE 40 MG TAB PO SCH (06:34)
[2018-09-21] MEDS: levETIRAcetam 250 MG TAB PO SCH ×3 (06:34→21:16)
[2018-09-21] MEDS: IOPAMIDOL-300 CONTRAST 30 ML VIAL (ORAL USE) PO PRN ×2 (06:34→07:42)
[2018-09-21] MEDS: LEVOTHYROXINE 112 MCG TAB PO SCH (06:34)
[2018-09-21] MEDS: PANTOPRAZOLE 40 MG TABLET PO SCH ×2 (06:34→17:53)
[2018-09-21 07:12] LABS: Glucose,Whole Blood 191 mg/dL (75-99)
[2018-09-21] MEDS: INSULIN ASPART (NovoLOG) 100 UNIT/ML VIAL SQ SCH ×4 (07:45→21:15)
[2018-09-21] MEDS: HEPARIN SODIUM,PORCINE 5,000 UNIT/ML 1 ML VIAL SQ SCH (08:23)
[2018-09-21] MEDS: ASPIRIN 81 MG PO SCH (08:23)
[2018-09-21] MEDS: METOPROLOL TARTRATE 25 MG TAB PO SCH ×2 (08:24→21:16)
[2018-09-21] MEDS: CYANOCOBALAMIN 500 MCG TAB PO SCH (08:24)
[2018-09-21] MEDS: CHOLECALCIFEROL 1,000 UNIT TAB PO SCH (08:24)
[2018-09-21] MEDS: FERROUS SULFATE 325 MG TAB PO SCH ×2 (08:24→17:53)
[2018-09-21] MEDS: ISOSORBIDE MONONITRATE ER 30 MG TAB.ER.24H PO SCH (08:24)
[2018-09-21] MEDS: SUCRALFATE 1 GM TAB PO SCH ×2 (08:24→17:53)
[2018-09-21] MEDS: VIT A,C & E-LUTEIN-MINERALS 1 EACH TAB PO SCH (08:24)
--- NOTE | 2018-09-21 08:30 | CT ---
EXAMINATION TYPE: CT abdomen pelvis wo con DATE OF EXAM: 09/21/2018 HISTORY: leukocytosis , abd pain CT DLP: 497.1 mGycm. Automated Exposure Control for Dose Reduction was Utilized. TECHNIQUE: CT scan of the abdomen and pelvis is performed with oral but without IV contrast. COMPARISON: NONE FINDINGS: Within the limitations of a non-contrast study, the following observations are made. LUNG BASES: Small right pleural effusion with associated compressive atelectasis. Coronary artery amarilys cification is present which is noted marker for underlying coronary artery disease LIVER/GB: Cholecystectomy clips are present. PANCREAS: No significant abnormality is seen. SPLEEN: No significant abnormality is seen. ADRENALS: Nonspecific nodular thickening left adrenal gland with Hounsfield units averaging 27 axial image 16 in 2.1 x 1.7 lesion. KIDNEYS: Cortical thinning both kidneys is present. There is suspected 2.2 cm simple-appearing cyst e xophytically upper pole level left kidney. Of more concern is heterogeneous solid mass lower pole of the left kidney measuring 6.7 x 6.5 cm axial image 32. Just superior to this there is lobulated exte nsion are second suspicious mass laterally mid pole level measuring 4.0 x 3.4 cm axial image 27. Cent ral vascular calcification is present in both kidneys. There is adjacent retroperitoneal adenopathy e xtending inferiorly with 2.5 cm lymph node noted axial image 31 and 2.7 x 2.6 cm left periaortic lymp h node noted axial image 39. There is hyperdense material dependently in the bladder that is also ira picious axial image 70 could reflect eccentric wall thickening or layering blood. Scattered pelvic ph leboliths are present. BOWEL: Oral contrast reaches level of the proximal transverse colon. There is no suspicion of small o r large bowel dilatation. There are prominent diverticula throughout the colon without convincing CT evidence for acute diverticulitis there is mild prominence of fecal material throughout the colon. GENITAL ORGANS: Uterus is surgically absent or markedly atrophic. LYMPH NODES: Abnormal left periaortic lymph nodes as detailed above. OSSEOUS STRUCTURES: [id number] multilevel vacuum disc phenomenon and disc space narrowing wit h grade 1 retrolisthesis of L2 on L3 and L3 on L4 and grade 1 anterolisthesis L5 on S1. Scoliotic cur vature is present on coronal images. Bone density somewhat diffusely sclerotic. OTHER: Heterogeneous soft tissue over the right abdominal wall coronal image 7 could reflect cellulit is or soft tissue infection versus surgical scar, correlate clinically. Mild/moderate calcified plaque of the aorta is present with more severe calcified plaque in smaller b ranch vessels suggesting possible underlying diabetes. Small to trace free fluid in pelvis axial imag e 62. IMPRESSION: 1. Probable advanced renal cell carcinoma with suspicious left renal masses and adjacent adenopathy. Possible hematoma or additional lesion in the bladder. 2. Small right pleural effusion. Small to tiny pelvic ascites. 3. Right mid abdominal anterior wall abnormal soft tissue could reflect cellulitis versus other, lia elate clinically. 4. Prominent colonic diverticulosis without convincing CT evidence for acute diverticulitis. Mild dif fuse colonic fecal stasis. No bowel obstruction.
[2018-09-21 08:34] LABS: Anisocytosis Slight; Basophils % (A) 0 %; Eosinophils # (A) 0.1 k/uL (0-0.7); Eosinophils % (A) 1 %; HCT 25.9 % (34.0-46.0); HGB 8.3 gm/dL (11.4-16.0); Hypochromasia Moderate; Lymphocytes # (A) 0.9 k/uL (1.0-4.8); Lymphocytes % (A) 6 %; MCH 31.1 pg (25.0-35.0); MCHC 31.9 g/dL (31.0-37.0); MCV 97.7 fL (80.0-100.0); Macrocytosis Slight; Mean Platelet Volume 8.2; Monocytes # (A) 0.9 k/uL (0-1.0); Monocytes % (A) 6 %; Neutrophils # (A) 13.2 k/uL (1.3-7.7); Neutrophils % (A) 86 %; Platelet Count 160 k/uL (150-450); Poikilocytosis Slight; RBC 2.65 m/uL (3.80-5.40); RDW 18.8 % (11.5-15.5); WBC 15.3 k/uL (3.8-10.6)
[2018-09-21] MEDS: IPRATROPIUM-ALBUTEROL 3 ML NEB INHALATION SCH ×4 (08:39→20:20)
[2018-09-21 08:46] LABS: Albumin 3.2 g/dL (3.5-5.0); Calcium 9.8 mg/dL (8.4-10.2); Potassium 4.1 mmol/L (3.5-5.1); Total Bilirubin 0.7 mg/dL (0.2-1.3); Total Protein 7.6 g/dL (6.3-8.2)
--- NOTE | 2018-09-21 11:30 | P.PN ---
Subjective Progress Note Date: 09/21/18 This is a 88-year-old female, resident at [facility]. 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 Patient was just recently hospitalized in July at that time diagnosed with a superficial gastric ulcer had EGD completed in and was placed on Protonix and Carafate. Since then she has been doing well. She presented to the hospital due to a fall at [facility]. She was being transferring from bed to a chair. Patient hit the front of her head. There is no loss of consciousness. She presented to the ER for further evaluation. She was found to have a urinary tract infection started on Rocephin. White count was 17.1 hemoglobin 8.5. She also had evidence of dehydration creatinine was elevated at 1.99 BUN 58. Blood sugar low also at 66. Patient denies any chest pain, shortness of breath, nausea or vomiting, bowel movement changes or urinary symptoms. She did have a computed tomography scan of the head and cervical spine completed in the ER. Computed tomography scan of the brain no acute hemorrhage, hydrocephalus or mass effect. CT of cervical spine showing no acute fracture or subluxation. Did know a 9 mm lesion in the right middle lobe. Recommend outpatient chest CT for better characterization. Chest x-ray no acute pulmonary pop process. Pelvic x- ray no evidence of any fractures. Patient denies any pain at this time. She did require sutures to a laceration above the left eyebrow in ER. She received IV fluid bolus in ER. Lasix is currently on hold. 09/15/2018 patient sitting up in bedside chair. She does admit to a cough and some shortness of breath. She was receiving IV fluids yesterday. IV fluids will be discontinued. Creatinine has come down from 1.99-1.59. White count has gone up from 17.1-17.3 and hemoglobin is 8.5-7.3. Patient's last bowel movement was yesterday. No active sites of bleeding. Patient denies any headache. Denies any chest pain. Denies any nausea vomiting. Denies any bowel movement changes or urinary symptoms. Remains on Rocephin for UTI. On 09/16/2018 patient is alert more oriented in no apparent distress there is no fever or chills no headache or dizziness no chest pain no shortness of breath she is complaining of cough no nausea or vomiting no abdominal pain no diarrhea and no urinary symptoms hemoglobin was down to 6.3 today 1 unit of red blood cell transfusion was ordered repeat CBC at 6 PM today consult for gastroenterology was initiated On 09/17/2018 patient's gallbladder and oriented in no apparent distress. Patient is resting comfortably in bed but answers questions. Patient's hemoglobin improving to 7.8. GI consult placed. At this time patient denies any chest pain or shortness breath. Patient denies nausea vomiting or diarrhea. Patient denies any urinary burning or frequency 09/18/2018 patient seen and examined this morning. She was sleeping comfortably. Discussed case with nurse. I no new complaints. Over the weekend patient had increasing confusion and neurology had been consulted. They ordered a computed tomography scan of the brain showing an old infarct in the right occipital lobe and right upper parietal junction. A couple rounded extra-axial lesions along the right frontal convexity measuring 1 cm and 4 mm likely meningiomas. Correlate with any available prior exam to check stability. Otherwise 6 month follow-up MRI can be performed to reassess. Moderate atrophy and changes of chronic small vessel ischemic disease. No acute intracranial abnormality seen. Neurology has also ordered EEG and B12 level. Over the weekend patient did require a unit of blood. Hemoglobin is now 7.9 again no active signs of bleeding. Patient seen by GI service no need for endoscopy at this time. White count has decreased from 15-14.6 09/19/2018 patient sitting in bedside chair. She is sleepy. She does admit to a mild cough. Denies any chest pain or shortness of breath. White count has increased to 17.8. Hemoglobin is stable at 8. EEG showing slowing likely due to metabolic encephalopathy. Blood pressure early this morning was 178/70 before meds were given. Chest x-ray is pending. Patient is followed by pulmonary service and neurology. Patient denies any chest pain or shortness breath. Denies any nausea or vomiting. Reports having bowel movements. Denies any difficulty urinating. On 09/20/2018 patient currently sitting up in chair. He remains sleepy but does awaken and follow commands. White count slightly decreasing to 17.5 hemoglobin increasing to 8.4. Patient started on Unasyn per ID. At this time patient denies any chest pain or shortness of breath. Patient denies nausea vomiting or diarrhea. Denies any urinary burning or frequency 09/21/2018 per nursing staff patient had blood noted in her urine. Hemoglobin was 8.3 today. Repeat CBC will be checked at 2. She did have a computed tomography scan of the abdomen and pelvis completed due to leukocytosis. It did show probable advanced renal cell carcinoma with suspicious left renal masses and adjacent adenopathy. Possible hematoma or additional lesion in the bladder. No evidence of computed tomography scan diverticulitis. Nursing staff did report bowel movement today. Patient denies any chest pain or shortness of breath. Urology was placed on consult. They've ordered a computed tomography scan of the chest Objective - Vital Signs Vital signs: Vital Signs Temp 98.8 F 09/21/18 04:39 Pulse 80 09/21/18 08:47 Resp 16 09/21/18 04:39 BP 158/72 09/21/18 04:39 Pulse Ox 91 L 09/21/18 04:39 Intake & Output 09/20/18 09/21/18 09/21/18 18:59 06:59 18:59 Intake Total 580 Output Total 200 0 Balance 380 0 Weight 88.1 kg Intake: Intake, IV Titration 100 Amount Ampicillin-Sulbactam 3 gm 100 In Sodium Chloride 0.9% 100 ml @ 200 mls/hr IVPB Q12H [facility] Rx#:[id number] Oral 480 Output: Urine 200 Stool 0 0 Other: Voiding Method Bedside Commode Bedside Commode # Voids 3 4 # Bowel Movements 1 1 - Exam Head normocephalic. Wrapped in Kerlix. Neck supple. Positive JVD Lungs clear Heart irregular Abdomen is soft nontender nondistended positive bowel sounds no hepatosplenomegaly Extremities no edema Neuro alert and orientated to 2. Which is patient baseline. - Labs CBC & Chem 7: 09/21/18 07:45 09/21/18 07:45 Labs: Abnormal Lab Results - Last 24 Hours (Table) 09/20/18 09/20/18 09/20/18 Range/Units 09:29 17:00 19:55 WBC (3.8-10.6) k/uL RBC (3.80-5.40) m/uL Hgb (11.4-16.0) gm/dL Hct (34.0-46.0) % RDW (11.5-15.5) % Neutrophils # (1.3-7.7) k/uL Lymphocytes # (1.0-4.8) k/uL ESR 116 H (0-20) mm/hr Sodium (137-145) mmol/L BUN (7-17) mg/dL Creatinine (0.52-1.04) mg/dL Glucose (74-99) mg/dL POC Glucose (mg/dL) 143 H 187 H (75-99) mg/dL Albumin (3.5-5.0) g/dL 09/21/18 09/21/18 09/21/18 Range/Units 07:09 07:45 07:45 WBC 15.3 H (3.8-10.6) k/uL RBC 2.65 L (3.80-5.40) m/uL Hgb 8.3 L (11.4-16.0) gm/dL Hct 25.9 L (34.0-46.0) % RDW 18.8 H (11.5-15.5) % Neutrophils # 13.2 H (1.3-7.7) k/uL Lymphocytes # 0.9 L (1.0-4.8) k/uL ESR (0-20) mm/hr Sodium 136 L (137-145) mmol/L BUN 28 H (7-17) mg/dL Creatinine 1.14 H (0.52-1.04) mg/dL Glucose 194 H (74-99) mg/dL POC Glucose (mg/dL) 191 H (75-99) mg/dL Albumin 3.2 L (3.5-5.0) g/dL Assessment and Plan Assessment: 1. Fall with generalized weakness: Possible secondary to UTI, dehydration and hypoglycemia. Consult physical therapy and occupational therapy. No loss of consciousness. Computed tomography scan of the brain was a negative. Computed tomography scan of the cervical spine no evidence of fracture or subluxation 2. UTI: Urine culture growing Klebsiella pneumonia, antibiotics adjusted to Unasyn 3. Acute kidney injury with chronic kidney disease stage III. Baseline creatinine near 1.2 to 1.6. Creatinine on admission cr 1.99 BUN 58. kidney functions are improving. Patient is tolerating her home dose of Lasix . Aldactone on hold. 4. Diabetes mellitus type 2: Hypoglycemia on admission blood sugar of 66. A1c is 6.3 Add sliding scale coverage. We'll hold oral hypoglycemics for now. Hypoglycemia could also be contributing factor to her fall and generalized weakness. We'll monitor. 5. Iron deficiency anemia continue iron supplement. 6. Gastric ulcer noted on recent EGD in July 2018 continue Protonix and Carafate. No active signs of bleeding at this time. Continue to monitor hemoglobin 7. History of COPD stable 8. History of chronic atrial fibrillation. Maintained on metoprolol. Not on any anticoagulation due to previous history of petechial hemorrhage on MRI of brain 9. History of seizure disorder continue Keppra 10. History of coronary artery disease with previous CABG in 2008 11. History of chronic systolic just of heart failure. No evidence of exacerbation at this time. Last 2-D echo showing an EF of 60-65% 12. Previous history of UTIs 13. Hypothyroidism continue Synthroid. TSH normal at 1.640 14. Incidental finding on CT of cervical spine of a 9 mm lesion in the right middle lobe. Radiologist is recommending outpatient CT of chest. Patient does have a prior history of smoking 15. Head laceration above the left eyebrow requiring sutures in the ER 16. Moderate protein calorie malnutrition albumin 2.9. Continue protein shakes 17. Mild fluid overload with elevated BNP. Patient had one dose of IV Lasix. Resume home Lasix 40 mg by mouth daily 18. Possible aspiration Pneumonia: Infectious disease has discontinue Rocephin and azithromycin in place patient on Unasyn 19. Altered mental status changes possibly due to a metabolic encephalopathy due to her pneumonia and UTI. Neurology also notes concerns for possible concussion. They ordered a repeat computed tomography scan of the brain with no acute intracranial abnormality seen did reveal evidence of old stroke and possible meningiomas. keppra level normal 51.3 20. A couple rounded extra-axial lesions along the right frontal convexity measuring 1 cm and 4 mm likely meningiomas. Will await neurology evaluation. Also radiologist recommending a 6 month follow-up MRI on these findings. 21. Normocytic anemia likely related to patient's known iron deficiency and chronic kidney disease and anemia of chronic disease. No evidence of active bleeding. Patient had EGD done in July revealing gastritis and gastric ulcer. Continue with iron supplement. GI is not recommending any endoscopy at this time. Hemoglobin today is 8.0 22. Leukocytosis: Seen by infectious disease. White count has decreased from 17.5-15.3 on the Unasyn. 23. Hyperkalemia: Resolved with Kayexalate 24. Abdominal CT showing probable advanced renal cell carcinoma with suspicious left renal masses and adjacent adenopathy. Possible hematoma or additional lesion in the bladder. Patient did have some hematuria. I will hold the subcu heparin and aspirin. Check CBC at 2:00. Urology has been placed on consult. They've ordered a computed tomography scan of the chest. GI prophylaxis Protonix and DVT prophylaxis subcu heparin I performed an examination of the patient and discussed their management with the physician Broaching Machine Operator. I have reviewed the Physician Broaching Machine Operator's notes and agree with the documented findings and plan of care
[2018-09-21 11:44] LABS: Glucose,Whole Blood 234 mg/dL (75-99)
--- NOTE | 2018-09-21 11:53 | P.GSCN ---
History of Present Illness Consult date: 09/21/18 Reason for Consult: Left renal mass, hematuria Requesting physician: Mercy Gay History of present illness: The patient is a 88-year-old white female, resident at [facility]. 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 She was hospitalized last month with anemia, and EGD revealed a hiatal hernia, gastritis, and a gastric ulcer. She has been on Protonix therapy since that time. She is now admitted following a fall. She was found overnight to have gross hematuria, though she denies any history of hematuria. She is a vague historian but denies dysuria, hematuria, incontinence, and any prior history of genitourinary disorder. A computed tomography scan of the abdomen and pelvis was obtained, revealing a 6.7 cm left lower pole heterogenous solid renal mass suspicious for renal cell carcinoma, para-aortic adenopathy, and layering in the bladder suggestive of hematuria. Review of Systems - Constitutional Reports poor appetite, Denies weight loss - Gastrointestinal Denies abdominal pain - Genitourinary Genitourinary: Denies dysuria, Denies flank pain Past Medical History Past Medical History: Atrial Fibrillation, Coronary Artery Disease (CAD), Cancer, Heart Failure, COPD, Diabetes Mellitus, GERD/Reflux, Hyperlipidemia, Hypertension, Thyroid Disorder Additional Past Medical History / Comment(s): Pt recently admitted to [facility] on 08/22/18 with abnormal labs/iron deficiency anemia-received blood transfusion/EGD showed superficial gastric nonbleeding ulcer/hiatal hernia/gastritis. Other hx: Chronic afib, chronic CHF, CVA with L sided weakness, NIDDM type II, CKD stage III, seizure disorder with last seizure 09/2017, pt states she has had R eye injections but does not recall reason, headaches, skin cancer removal/nose, unsteady gait. 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 Past Anesthesia/Blood Transfusion Reactions: No Reported Reaction Additional Past Anesthesia/Blood Transfusion Reaction / Comm: Pt has received blood without reaction. Smoking Status: Former smoker - Past Family History Father History Unknown: Yes Family Medical History: No Reported History Additional Family Medical History / Comment(s): Father was healthy Mother Family Medical History: No Reported History Additional Family Medical History / Comment(s): Mother was healthy Medications and Allergies Home Medications Medication Instructions Recorded Confirmed Type Vit C/E/Zn/Coppr/Lutein/Zeaxan 1 cap PO DAILY@89903/28/16 09/14/18 History [Preservision Areds 2 Softgel] Cholecalciferol [Vitamin D3 (25 1,000 unit PO DAILY@89905/22/17 09/14/18 History Mcg = 1000 Iu)] Famotidine 40 mg PO DAILY@89905/22/17 09/14/18 History amLODIPine BESYLATE [Norvasc] 10 mg PO DAILY@209905/22/17 09/14/18 History Acetaminophen [Tylenol] 1,000 mg PO BID@899,209910/13/17 09/14/18 History Aspirin [Adult Low Dose Aspirin EC] 81 mg PO DAILY@89910/13/17 09/14/18 History Atorvastatin Calcium [Lipitor] 10 mg PO DAILY@209910/13/17 09/14/18 History Cyanocobalamin [Vitamin B-12] 500 mcg PO DAILY@89910/13/17 09/14/18 History Isosorbide Mononitrate [Isosorbide 30 mg PO DAILY@89910/13/17 09/14/18 History Mononitrate ER] Kechi-3 Fatty Acids/Fish Oil [Fish 1 cap PO DAILY@89910/13/17 09/14/18 History Oil 1,000 mg Softgel] Rosuvastatin Calcium [Crestor] 5 mg PO DAILY@209910/13/17 09/14/18 History Saxagliptin HCl [Onglyza] 5 mg PO DAILY@89910/13/17 09/14/18 History Sertraline HCl [Zoloft] 25 mg PO HS@209910/13/17 09/14/18 History Furosemide [Lasix] 40 mg PO DAILY@59908/09/18 09/14/18 History Menthol [Biofreeze] 1 applic TOPICAL Q2H PRN 08/09/18 09/14/18 History glipiZIDE [Glucotrol] 5 mg PO DAILY@1100 08/09/18 09/14/18 History levETIRAcetam [Keppra] 250 mg PO TID@0600,1400,2200 08/09/18 09/14/18 History Ferrous Sulfate [Iron (65 MG 325 mg PO BID@0900,1800 08/21/18 09/14/18 History Elemental)] Levothyroxine Sodium 112 mcg PO DAILY@0600 08/21/18 09/14/18 History Metoprolol Tartrate [Lopressor] 25 mg PO BID@0900,2100 08/21/18 09/14/18 History Spironolactone [Aldactone] 25 mg PO DAILY@0600 08/21/18 09/14/18 History traMADol HCL [Ultram] 50 mg PO Q8H PRN 14 Days #42 tablet 08/25/18 09/14/18 Rx Ipratropium-Albuterol Nebulize 3 ml INHALATION 09/14/18 09/14/18 History [Duoneb 0.5 mg-3 mg/3 ml Soln] RT-QID@0900,13,17,21 Pantoprazole [Protonix] 40 mg PO AC-BID@0600,1700 09/14/18 09/14/18 History Sucralfate [Carafate] 1 gm PO AC-BID@0600,1700 09/14/18 09/14/18 History Allergies Allergy/AdvReac Type Severity Reaction Status Date / Time acetaminophen [From Lortab] AdvReac Hallucinati Verified 09/14/18 07:51 ons hydrocodone [From Lortab] AdvReac Hallucinati Verified 09/14/18 07:51 ons Surgical - Exam Vital Signs Temp Pulse Resp BP Pulse Ox 97.8 F 78 18 131/78 100 09/14/18 03:18 09/14/18 03:18 09/14/18 03:18 09/14/18 03:18 09/14/18 03:18 - General well developed, no distress - Neck no masses, trachea midline - Respiratory normal respiratory effort - Abdomen Abdomen: soft, non tender, no guarding, no rigid, no rebound - Psychiatric oriented to time, oriented to person, oriented to place, speech is normal, memory intact Results - Labs 09/21/18 07:45 09/21/18 07:45 Abnormal Lab Results - Last 24 Hours (Table) 09/20/18 09/20/18 09/20/18 Range/Units 09:29 17:00 19:55 WBC (3.8-10.6) k/uL RBC (3.80-5.40) m/uL Hgb (11.4-16.0) gm/dL Hct (34.0-46.0) % RDW (11.5-15.5) % Neutrophils # (1.3-7.7) k/uL Lymphocytes # (1.0-4.8) k/uL ESR 116 H (0-20) mm/hr Sodium (137-145) mmol/L BUN (7-17) mg/dL Creatinine (0.52-1.04) mg/dL Glucose (74-99) mg/dL POC Glucose (mg/dL) 143 H 187 H (75-99) mg/dL Albumin (3.5-5.0) g/dL 09/21/18 09/21/18 09/21/18 Range/Units 07:09 07:45 07:45 WBC 15.3 H (3.8-10.6) k/uL RBC 2.65 L (3.80-5.40) m/uL Hgb 8.3 L (11.4-16.0) gm/dL Hct 25.9 L (34.0-46.0) % RDW 18.8 H (11.5-15.5) % Neutrophils # 13.2 H (1.3-7.7) k/uL Lymphocytes # 0.9 L (1.0-4.8) k/uL ESR (0-20) mm/hr Sodium 136 L (137-145) mmol/L BUN 28 H (7-17) mg/dL Creatinine 1.14 H (0.52-1.04) mg/dL Glucose 194 H (74-99) mg/dL POC Glucose (mg/dL) 191 H (75-99) mg/dL Albumin 3.2 L (3.5-5.0) g/dL Diabetes panel 09/21/18 Range/Units 07:45 Sodium 136 L (137-145) mmol/L Potassium 4.1 (3.5-5.1) mmol/L Chloride 100 (98-107) mmol/L Carbon Dioxide 25 (22-30) mmol/L BUN 28 H (7-17) mg/dL Creatinine 1.14 H (0.52-1.04) mg/dL Glucose 194 H (74-99) mg/dL Calcium 9.8 (8.4-10.2) mg/dL AST 26 (14-36) U/L ALT 20 (9-52) U/L Alkaline Phosphatase 99 (38-126) U/L Total Protein 7.6 (6.3-8.2) g/dL Albumin 3.2 L (3.5-5.0) g/dL Calcium panel 09/21/18 Range/Units 07:45 Calcium 9.8 (8.4-10.2) mg/dL Albumin 3.2 L (3.5-5.0) g/dL Pituitary panel 09/21/18 Range/Units 07:45 Sodium 136 L (137-145) mmol/L Potassium 4.1 (3.5-5.1) mmol/L Chloride 100 (98-107) mmol/L Carbon Dioxide 25 (22-30) mmol/L BUN 28 H (7-17) mg/dL Creatinine 1.14 H (0.52-1.04) mg/dL Glucose 194 H (74-99) mg/dL Calcium 9.8 (8.4-10.2) mg/dL Adrenal panel 09/21/18 Range/Units 07:45 Sodium 136 L (137-145) mmol/L Potassium 4.1 (3.5-5.1) mmol/L Chloride 100 (98-107) mmol/L Carbon Dioxide 25 (22-30) mmol/L BUN 28 H (7-17) mg/dL Creatinine 1.14 H (0.52-1.04) mg/dL Glucose 194 H (74-99) mg/dL Calcium 9.8 (8.4-10.2) mg/dL Total Bilirubin 0.7 (0.2-1.3) mg/dL AST 26 (14-36) U/L ALT 20 (9-52) U/L Alkaline Phosphatase 99 (38-126) U/L Total Protein 7.6 (6.3-8.2) g/dL Albumin 3.2 L (3.5-5.0) g/dL - Imaging CT scan - abdomen: report reviewed, image reviewed Assessment and Plan (1) Left renal mass Current Visit: Yes Status: Acute Code(s): N28.89 - OTHER SPECIFIED DISORDERS OF KIDNEY AND URETER SNOMED Code(s): 328549106 (2) Urinary tract infection Current Visit: Yes Status: Acute Code(s): N39.0 - URINARY TRACT INFECTION, SITE NOT SPECIFIED SNOMED Code(s): 66652141 (3) Gross hematuria Current Visit: Yes Status: Acute Code(s): R31.0 - GROSS HEMATURIA SNOMED Code(s): 699216818 Plan: The left renal mass with periaortic adenopathy is highly suspicious for renal cell carcinoma. Chest x-ray shows a possible right pulmonary nodule, so a computed tomography scan will be obtained for further evaluation of this. She is receiving Augmentin for treatment of a Klebsiella UTI. The hematuria is likely due to renal cell carcinoma and/or UTI, though intravesical pathology has not been excluded. Time with Patient: Greater than 30
[2018-09-21] MEDS ORDERED: glipiZIDE 5 MG TAB PO STA (13:05)
[2018-09-21 14:08] VITALS: BMI 33.3
--- NOTE | 2018-09-21 14:55 | P.PN ---
Subjective Progress Note Date: 09/21/18 Principal diagnosis: Klebsiella UTI, status post fall due to dehydration and weakness, sepsis due to urinary tract infection, acute renal failure due to dehydration, type 2 diabetes mellitus, chronic anemia, COPD, chronic atrial fibrillation, seizure disorder, coronary artery disease history of CABG in the past, chronic systolic heart failure, hypothyroidism, right middle lobe nodule, right middle lobe pneumonia 09/21/2018, doing well patient is getting workup for hematuria urology has seen the patient breathing comfortably denies any chest pain or shortness of breath labs reviewed medications 09/20/2018, patient seen eval reexamined during the rounds doing well denies any chest pain breathing is more stable and improved labs reviewed medications reviewed, white cell count is slowly decreasing hemoglobin remained stable patient is on broad-spectrum antibiotics labs reviewed medications 09/19/2018, patient seen and evaluated examined during the rounds sitting uprig ht on the bed denies any chest pain breathing comfortably reviewed medications reviewed care plan discussed 09/18/2018, patient seen and evaluated examined during the rounds he denies any chest pain shortness present denies any cough or sputum production patient on 2 L oxygen, patient has been evaluated by neurology which is available this week due to prior episode requiring admission to [facility] there recommend a repeat computed tomography scan 09/17/2018, patient seen eval reexamined during the round her appetite has improved mental status more. Denies any new specific complaint did not sleep very well last night labs reviewed medications reviewed patient has been found to have Klebsiella which is sensitive to Rocephin in the urine she has pneumonia also labs reviewed medications reviewed, hemoglobin is stable at 7.8, white cell count is slightly improved to 15 09/16/2018, patient seen eval reexamined during the round she as she is been hydrated her mental status improved still did not recall what happened in terms of fall, labs reviewed medications reviewed hemoglobin drop down to 6 she is status post transfusion with 1 unit of packed RBC, Klebsiella has been isolated in urine, white cell count is still elevated, was transfusion hemoglobin improved to 8.2, Klebsiella is sensitive to Rocephin, This is a 88-year-old female with the history of complex past medical problems see below patient was was transferred from wheelchair to bed and fell down and developed left forehead laceration came into the hospital she appears to be dehydrated as urinary tract infection, incidentally found to have a 9 mm right middle lobe nodule the initial x-ray of the chest was unremarkable subsequent x- ray shows right-sided pneumonia probably involving the middle lobe as well pat ient has been on IV Rocephin review of the data revealed that patient has past medical history of 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 Patient was just recently hospitalized in July at that time diagnosed with a superficial gastric ulcer had EGD completed in and was placed on Protonix and Carafate. Since then she has been doing well. She presented to the hospital due to a fall at [facility]. She was being transferring from bed to a chair. Patient hit the front of her head. There is no loss of consciousness. She presented to the ER for further evaluation. She was found to have a urinary tract infection started on Rocephin. White count was 17.1 hemoglobin 8.5. She also had evidence of dehydration creatinine was elevated at 1.99 BUN 58. Blood sugar low also at 66. Patient denies any chest pain, shortness of breath, nausea or vomiting, bowel movement changes or urinary symptoms. She did have a computed tomography scan of the head and cervical spine completed in the ER. Computed tomography scan of the brain no acute he morrhage, hydrocephalus or mass effect. CT of cervical spine showing no acute fracture or subluxation. Objective - Vital Signs Vital signs: Vital Signs Temp 97.8 F 09/21/18 12:17 Pulse 87 09/21/18 12:17 Resp 16 09/21/18 12:17 BP 135/81 09/21/18 12:17 Pulse Ox 98 09/21/18 12:17 Intake & Output 09/20/18 09/21/18 09/21/18 18:59 06:59 18:59 Intake Total 580 580 Output Total 200 0 Balance 380 0 580 Weight 88.1 kg 88.1 kg Intake: Intake, IV Titration 100 100 Amount Ampicillin-Sulbactam 3 gm 100 100 In Sodium Chloride 0.9% 100 ml @ 200 mls/hr IVPB Q12H [facility] Rx#:[id number] Oral 480 480 Output: Urine 200 Stool 0 0 Other: Voiding Method Bedside Commode Bedside Commode Bedside Commode # Voids 3 4 5 # Bowel Movements 1 1 1 - Exam - Constitutional Laceration forehead covered with dressing General appearance: average body habitus, cooperative, disheveled, no acute distress - EENT Eyes: anicteric sclerae, EOMI, PERRLA, poor dentition Ears: bilateral: normal - Neck Neck: normal ROM Carotids: bilateral: upstroke normal, bruit absent Thyroid: bilateral: normal size - Respiratory Respiratory: right: rales (At the right base), bilateral: diminished (At bases) - Cardiovascular Rhythm: regular Heart sounds: normal: S1, S2 - Gastrointestinal General gastrointestinal: decreased bowel sounds - Neurologic Neurologic: CNII-XII intact - Musculoskeletal Musculoskeletal: gait normal, generalized weakness, strength equal bilaterally - Psychiatric Psychiatric: A&O x's 3, appropriate affect, intact judgment & insight - Labs CBC & Chem 7: 09/21/18 07:45 09/21/18 07:45 Labs: Abnormal Lab Results - Last 24 Hours (Table) 09/20/18 09/20/18 09/21/18 Range/Units 17:00 19:55 07:09 WBC (3.8-10.6) k/uL RBC (3.80-5.40) m/uL Hgb (11.4-16.0) gm/dL Hct (34.0-46.0) % RDW (11.5-15.5) % Neutrophils # (1.3-7.7) k/uL Lymphocytes # (1.0-4.8) k/uL Sodium (137-145) mmol/L BUN (7-17) mg/dL Creatinine (0.52-1.04) mg/dL Glucose (74-99) mg/dL POC Glucose (mg/dL) 143 H 187 H 191 H (75-99) mg/dL Albumin (3.5-5.0) g/dL 09/21/18 09/21/18 09/21/18 Range/Units 07:45 07:45 11:31 WBC 15.3 H (3.8-10.6) k/uL RBC 2.65 L (3.80-5.40) m/uL Hgb 8.3 L (11.4-16.0) gm/dL Hct 25.9 L (34.0-46.0) % RDW 18.8 H (11.5-15.5) % Neutrophils # 13.2 H (1.3-7.7) k/uL Lymphocytes # 0.9 L (1.0-4.8) k/uL Sodium 136 L (137-145) mmol/L BUN 28 H (7-17) mg/dL Creatinine 1.14 H (0.52-1.04) mg/dL Glucose 194 H (74-99) mg/dL POC Glucose (mg/dL) 234 H (75-99) mg/dL Albumin 3.2 L (3.5-5.0) g/dL Microbiology - Last 24 Hours (Table) 09/17/18 20:00 Gram Stain - Final Sputum Sputum Culture - Final Anna albicans Assessment and Plan Assessment: Hematuria Right lower lobe/right middle lobe pneumonia Right middle lobe 9 mm lung nodule Status post fall with laceration and left for heard requiring sutures Klebsiella urinary tract infection Sepsis Generalized weakness Type 2 diabetes mellitus Chronic atrial fibrillation not a candidate for a blood thinners Chronic renal failure Coronary artery disease Seizure disorder History of chronic diastolic heart failure currently stable Plan: Agree with antibiotics Follow clinical course closely Urology evaluating hematuriA gentle rehydration We'll do a computed tomography scan of the chest has outpatient Further recommendations pending plan of care as per clinical response of the patient Time with Patient: Greater than 30
[2018-09-21 15:23] LABS: Anisocytosis Slight; HCT 25.4 % (34.0-46.0); HGB 8.2 gm/dL (11.4-16.0); Hypochromasia Moderate; MCH 31.3 pg (25.0-35.0); MCHC 32.4 g/dL (31.0-37.0); MCV 96.5 fL (80.0-100.0); Macrocytosis Slight; Platelet Count 106 k/uL (150-450); Poikilocytosis Slight; RBC 2.63 m/uL (3.80-5.40); RDW 18.2 % (11.5-15.5); WBC 15.7 k/uL (3.8-10.6)
[2018-09-21 17:14] LABS: Glucose,Whole Blood 191 mg/dL (75-99)
--- NOTE | 2018-09-21 19:17 | CT ---
EXAMINATION TYPE: CT chest wo con DATE OF EXAM: 09/21/2018 COMPARISON: None HISTORY: Pulmonary mass. CT DLP: 365 mGycm. Automated Exposure Control for Dose Reduction was Utilized. TECHNIQUE: CT scan of the thorax is performed without IV contrast. FINDINGS: There is a 12 mm low-density noncalcified nodule anterior segment right upper lobe. There is similar 12 mm nodule in the superior segment right lower lobe. There is 10 mm nodule adjacent to the pleura i n the anterior right upper lobe. There is right pleural effusion. There is right lower lobe infiltrat e and atelectasis. The left lung is clear of consolidation. Heart is enlarged. Thoracic aorta is athe romatous. There is no mediastinal adenopathy. There is some spurring in the thoracic spine. There are sternal wires. I see no focal bone destruction. There is some air in the retreat. This is seen anteriorly. There are clips from cholecystectomy. Ther e is 1.5 cm low-density left adrenal rounded mass suggestive of benign disease. IMPRESSION: Right pleural effusion and right lower lobe pulmonary infiltrate and atelectasis. Multipl e right side noncalcified pulmonary nodules. Appearance is nonspecific.
[2018-09-21 19:53] LABS: Glucose,Whole Blood 133 mg/dL (75-99)
--- NOTE | 2018-09-21 20:43 | PN ---
PROGRESS NOTE DATE OF SERVICE: 09/21/2018. REASON FOR FOLLOWUP: Leukocytosis abdominal source. INTERVAL HISTORY: The patient is currently afebrile. Patient has been breathing comfortably. Denies having any chest pain. No cough. No abdominal pain. The patient has developed hematuria this morning per the nursing staff. The patient denies any active symptoms. PHYSICAL EXAMINATION: Blood pressure 135/81 with a pulse of 87. Temperature 97.8. She is 98% on room air. General description is an elderly female up in the chair in no distress. Respiratory system: Unlabored breathing with decreased breath sounds in the base. No wheeze. Heart S1, S2 regular rate and rhythm. Abdomen soft. No tenderness. LABS: Hemoglobin is 8.1, white count 15.7, BUN of 28, creatinine 1.14. The patient did have a CT of the abdomen and pelvis completed which shows possible left renal tumor with some necrotic tissue. DIAGNOSTIC IMPRESSION AND PLAN: Patient with leukocytosis likely secondary to underlying renal cell carcinoma. Possible necrotic tumor. Urology has been consulted. Patient to continue with Unasyn. White count showing a downward trend. Continue supportive care. MMODL / IJN: [id number] /
[2018-09-21] MEDS: ATORVASTATIN 10 MG TAB PO SCH (21:15)
[2018-09-21] MEDS: amLODIPine 10 MG TAB PO SCH (21:15)
[2018-09-21] MEDS: SERTRALINE 25 MG TAB PO SCH (21:16)
[2018-09-22] MEDS: AMPICILLIN-SULBACTAM 3 GM in SODIUM CHLORIDE 0.9% 100 ML IVPB SCH ×2 (00:12→12:07)
[2018-09-22] MEDS: levETIRAcetam 250 MG TAB PO SCH ×3 (06:08→21:29)
[2018-09-22] MEDS: PANTOPRAZOLE 40 MG TABLET PO SCH ×2 (06:08→15:15)
[2018-09-22] MEDS: SUCRALFATE 1 GM TAB PO SCH ×2 (06:08→15:15)
[2018-09-22] MEDS: LEVOTHYROXINE 112 MCG TAB PO SCH (06:08)
[2018-09-22] MEDS: FUROSEMIDE 40 MG TAB PO SCH (06:08)
[2018-09-22 07:17] LABS: Glucose,Whole Blood 201 mg/dL (75-99)
[2018-09-22 08:00] LABS: Anisocytosis Slight; Basophils % (A) 0 %; Eosinophils # (A) 0.1 k/uL (0-0.7); Eosinophils % (A) 1 %; HGB 8.4 gm/dL (11.4-16.0); Hypochromasia Moderate; Lymphocytes # (A) 1.1 k/uL (1.0-4.8); Lymphocytes % (A) 6 %; MCH 30.3 pg (25.0-35.0); MCHC 31.3 g/dL (31.0-37.0); MCV 96.9 fL (80.0-100.0); Macrocytosis Slight; Mean Platelet Volume 8.4; Monocytes # (A) 0.7 k/uL (0-1.0); Monocytes % (A) 4 %; Neutrophils # (A) 14.7 k/uL (1.3-7.7); Neutrophils % (A) 87 %; Platelet Count 123 k/uL (150-450); Poikilocytosis Slight; RBC 2.78 m/uL (3.80-5.40); RDW 18.9 % (11.5-15.5); WBC 16.8 k/uL (3.8-10.6)
[2018-09-22 08:06] LABS: Albumin 3.4 g/dL (3.5-5.0); Calcium 9.8 mg/dL (8.4-10.2); Total Protein 8.2 g/dL (6.3-8.2)
[2018-09-22] MEDS: INSULIN ASPART (NovoLOG) 100 UNIT/ML VIAL SQ SCH ×4 (08:09→21:30)
[2018-09-22] MEDS: LINAGLIPTIN 5 MG TABLET PO SCH (08:10)
[2018-09-22] MEDS: VIT A,C & E-LUTEIN-MINERALS 1 EACH TAB PO SCH (08:10)
[2018-09-22] MEDS: glipiZIDE 5 MG TAB PO SCH (08:10)
[2018-09-22] MEDS: ISOSORBIDE MONONITRATE ER 30 MG TAB.ER.24H PO SCH (08:10)
[2018-09-22] MEDS: CYANOCOBALAMIN 500 MCG TAB PO SCH (08:10)
[2018-09-22] MEDS: FERROUS SULFATE 325 MG TAB PO SCH ×2 (08:10→15:15)
[2018-09-22] MEDS: CHOLECALCIFEROL 1,000 UNIT TAB PO SCH (08:11)
[2018-09-22] MEDS: METOPROLOL TARTRATE 25 MG TAB PO SCH ×2 (08:11→21:30)
[2018-09-22] MEDS: IPRATROPIUM-ALBUTEROL 3 ML NEB INHALATION SCH ×4 (09:03→19:52)
--- NOTE | 2018-09-22 09:34 | P.PN ---
Subjective Progress Note Date: 09/22/18 Principal diagnosis: Klebsiella UTI, status post fall due to dehydration and weakness, sepsis due to urinary tract infection, acute renal failure due to dehydration, type 2 diabetes mellitus, chronic anemia, COPD, chronic atrial fibrillation, seizure disorder, coronary artery disease history of CABG in the past, chronic systolic heart failure, hypothyroidism, right middle lobe nodule, right middle lobe pneumonia 09/22/2018, patient seen and evaluated examined during the rounds has been doing well denies any chest pain shortness of breath has been on room air, for left renal mass patient underwent the computed tomography scan of the chest Ammann which has been reviewed continue show small right pleural effusion and right lower lobe pneumonia with atelectasis, noncalcified small 1.2 cm nodule was seen in the right upper lobe and another 1.2 cm nodule seen in the right lower lobe as well and another nodule of 1 cm seen at the Center pleura on the right upper lobe, these nodules well circumscribed and likely appeared to be metastatic disease, PET scan would be helpful 09/21/2018, doing well patient is getting workup for hematuria urology has seen the patient breathing comfortably denies any chest pain or shortness of breath labs reviewed medications 09/20/2018, patient seen eval reexamined during the rounds doing well denies any chest pain breathing is more stable and improved labs reviewed medications reviewed, white cell count is slowly decreasing hemoglobin remained stable patient is on broad-spectrum antibiotics labs reviewed medications 09/19/2018, patient seen and evaluated examined during the rounds sitting upright on the bed denies any chest pain breathing comfortably reviewed medications reviewed care plan discussed 09/18/2018, patient seen and evaluated examined during the rounds he denies any chest pain shortness present denies any cough or sputum production patient on 2 L oxygen, patient has been evaluated by neurology which is available this week due to prior episode requiring admission to do the hospital there recommend a repeat computed tomography scan 09/17/2018, patient seen eval reexamined during the round her appetite has improved mental status more. Denies any new specific complaint did not sleep very well last night labs reviewed medications reviewed patient has been found to have Klebsiella which is sensitive to Rocephin in the urine she has pneumonia also labs reviewed medications reviewed, hemoglobin is stable at 7.8, white cell count is slightly improved to 15 09/16/2018, patient seen eval reexamined during the round she as she is been hydrated her mental status improved still did not recall what happened in terms of fall, labs reviewed medications reviewed hemoglobin drop down to 6 she is status post transfusion with 1 unit of packed RBC, Klebsiella has been isolated in urine, white cell count is still elevated, was transfusion hemoglobin improved to 8.2, Klebsiella is sensitive to Rocephin, This is a 88-year-old female with the history of complex past medical problems see below patient was was transferred from wheelchair to bed and fell down and developed left forehead laceration came into the hospital she appears to be dehydrated as urinary tract infection, incidentally found to have a 9 mm right middle lobe nodule the initial x-ray of the chest was unremarkable subsequent x- ray shows right-sided pneumonia probably involving the middle lobe as well patient has been on IV Rocephin review of the data revealed that patient has past medical history of 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 Patient was just recently hospitalized in July at that time diagnosed with a superficial gastric ulcer had EGD completed in and was placed on Protonix and Carafate. Since then she has been doing well. She presented to the hospital due to a fall at [facility]. She was being transferring from bed to a chair. Patient hit the front of her head. There is no loss of consciousness. She presented to the ER for further evaluation. She was found to have a urinary tract infection started on Rocephin. White count was 17.1 hemoglobin 8.5. She also had evidence of dehydration creatinine was elevated at 1.99 BUN 58. Blood sugar low also at 66. Patient denies any chest pain, shortness of breath, nausea or vomiting, bowel movement changes or urinary symptoms. She did have a computed tomography scan of the head and cervical spine completed in the ER. Computed tomography scan of the brain no acute hemorrhage, hydrocephalus or mass effect. CT of cervical spine showing no acute fracture or subluxation. Objective - Vital Signs Vital signs: Vital Signs Temp 98.2 F 09/22/18 05:00 Pulse 93 09/22/18 05:00 Resp 16 09/22/18 05:00 BP 178/77 09/22/18 05:00 Pulse Ox 98 09/22/18 05:00 Intake & Output 09/21/18 09/22/18 09/22/18 18:59 06:59 18:59 Intake Total 820 590 Output Total 0 Balance 820 590 Weight 88.1 kg 88.2 kg Intake: Intake, IV Titration 100 Amount Ampicillin-Sulbactam 3 gm 100 In Sodium Chloride 0.9% 100 ml @ 200 mls/hr IVPB Q12H [facility] Rx#:[id number] Oral 720 590 Output: Stool 0 Other: Voiding Method Bedside Commode Bedside Commode # Voids 5 3 1 # Bowel Movements 1 1 - Exam - Constitutional Laceration forehead covered with dressing General appearance: average body habitus, cooperative, disheveled, no acute distress - EENT Eyes: anicteric sclerae, EOMI, PERRLA, poor dentition Ears: bilateral: normal - Neck Neck: normal ROM Carotids: bilateral: upstroke normal, bruit absent Thyroid: bilateral: normal size - Respiratory Respiratory: right: rales (At the right base), bilateral: diminished (At bases) - Cardiovascular Rhythm: regular Heart sounds: normal: S1, S2 - Gastrointestinal General gastrointestinal: decreased bowel sounds - Neurologic Neurologic: CNII-XII intact - Musculoskeletal Musculoskeletal: gait normal, generalized weakness, strength equal bilaterally - Psychiatric Psychiatric: A&O x's 3, appropriate affect, intact judgment & insight - Labs CBC & Chem 7: 09/22/18 07:09 09/22/18 07:09 Labs: Abnormal Lab Results - Last 24 Hours (Table) 09/21/18 09/21/18 09/21/18 Range/Units 11:31 14:49 17:10 WBC 15.7 H (3.8-10.6) k/uL RBC 2.63 L (3.80-5.40) m/uL Hgb 8.2 L (11.4-16.0) gm/dL Hct 25.4 L (34.0-46.0) % RDW 18.2 H (11.5-15.5) % Plt Count 106 L (150-450) k/uL Neutrophils # (1.3-7.7) k/uL Sodium (137-145) mmol/L BUN (7-17) mg/dL Creatinine (0.52-1.04) mg/dL Glucose (74-99) mg/dL POC Glucose (mg/dL) 234 H 191 H (75-99) mg/dL AST (14-36) U/L Albumin (3.5-5.0) g/dL 09/21/18 09/22/18 09/22/18 Range/Units 19:52 07:09 07:09 WBC 16.8 H (3.8-10.6) k/uL RBC 2.78 L (3.80-5.40) m/uL Hgb 8.4 L (11.4-16.0) gm/dL Hct 27.0 L (34.0-46.0) % RDW 18.9 H (11.5-15.5) % Plt Count 123 L (150-450) k/uL Neutrophils # 14.7 H (1.3-7.7) k/uL Sodium 136 L (137-145) mmol/L BUN 30 H (7-17) mg/dL Creatinine 1.34 H (0.52-1.04) mg/dL Glucose 176 H (74-99) mg/dL POC Glucose (mg/dL) 133 H (75-99) mg/dL AST 37 H (14-36) U/L Albumin 3.4 L (3.5-5.0) g/dL 09/22/18 Range/Units 07:15 WBC (3.8-10.6) k/uL RBC (3.80-5.40) m/uL Hgb (11.4-16.0) gm/dL Hct (34.0-46.0) % RDW (11.5-15.5) % Plt Count (150-450) k/uL Neutrophils # (1.3-7.7) k/uL Sodium (137-145) mmol/L BUN (7-17) mg/dL Creatinine (0.52-1.04) mg/dL Glucose (74-99) mg/dL POC Glucose (mg/dL) 201 H (75-99) mg/dL AST (14-36) U/L Albumin (3.5-5.0) g/dL Microbiology - Last 24 Hours (Table) 09/17/18 20:00 Gram Stain - Final Sputum Sputum Culture - Final Anna albicans Assessment and Plan Assessment: Multiple metastatic pulmonary nodule likely metastatic disease Left renal mass likely renal cell carcinoma Hematuria Right lower lobe/right middle lobe pneumonia Status post fall with laceration and left for heard requiring sutures Klebsiella urinary tract infection Sepsis Generalized weakness Type 2 diabetes mellitus Chronic atrial fibrillation not a candidate for a blood thinners Chronic renal failure Coronary artery disease Seizure disorder History of chronic diastolic heart failure currently stable Plan: Agree with antibiotics Follow clinical course closely PET scan as outpatient gentle rehydration Further recommendations pending plan of care as per clinical response of the patient Time with Patient: Greater than 30
[2018-09-22 11:30] LABS: Glucose,Whole Blood 174 mg/dL (75-99)
[2018-09-22] MEDS: DOCUSATE 100 MG CAP PO SCH ×2 (12:07→21:28)
--- NOTE | 2018-09-22 12:20 | P.PN ---
Subjective Progress Note Date: 09/22/18 This is a 88-year-old female, resident at [facility]. 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 Patient was just recently hospitalized in July at that time diagnosed with a superficial gastric ulcer had EGD completed in and was placed on Protonix and Carafate. Since then she has been doing well. She presented to the hospital due to a fall at [facility]. She was being transferring from bed to a chair. Patient hit the front of her head. There is no loss of consciousness. She presented to the ER for further evaluation. She was found to have a urinary tract infection started on Rocephin. White count was 17.1 hemoglobin 8.5. She also had evidence of dehydration creatinine was elevated at 1.99 BUN 58. Blood sugar low also at 66. Patient denies any chest pain, shortness of breath, nausea or vomiting, bowel movement changes or urinary symptoms. She did have a computed tomography scan of the head and cervical spine completed in the ER. Computed tomography scan of the brain no acute hemorrhage, hydrocephalus or mass effect. CT of cervical spine showing no acute fracture or subluxation. Did know a 9 mm lesion in the right middle lobe. Recommend outpatient chest CT for better characterization. Chest x-ray no acute pulmonary pop process. Pelvic x- ray no evidence of any fractures. Patient denies any pain at this time. She did require sutures to a laceration above the left eyebrow in ER. She received IV fluid bolus in ER. Lasix is currently on hold. 09/15/2018 patient sitting up in bedside chair. She does admit to a cough and some shortness of breath. She was receiving IV fluids yesterday. IV fluids will be discontinued. Creatinine has come down from 1.99-1.59. White count has gone up from 17.1-17.3 and hemoglobin is 8.5-7.3. Patient's last bowel movement was yesterday. No active sites of bleeding. Patient denies any headache. Denies any chest pain. Denies any nausea vomiting. Denies any bowel movement changes or urinary symptoms. Remains on Rocephin for UTI. On 09/16/2018 patient is alert more oriented in no apparent distress there is no fever or chills no headache or dizziness no chest pain no shortness of breath she is complaining of cough no nausea or vomiting no abdominal pain no diarrhea and no urinary symptoms hemoglobin was down to 6.3 today 1 unit of red blood cell transfusion was ordered repeat CBC at 6 PM today consult for gastroenterology was initiated On 09/17/2018 patient's gallbladder and oriented in no apparent distress. Patient is resting comfortably in bed but answers questions. Patient's hemoglobin improving to 7.8. GI consult placed. At this time patient denies any chest pain or shortness breath. Patient denies nausea vomiting or diarrhea. Patient denies any urinary burning or frequency 09/18/2018 patient seen and examined this morning. She was sleeping comfortably. Discussed case with nurse. I no new complaints. Over the weekend patient had increasing confusion and neurology had been consulted. They ordered a computed tomography scan of the brain showing an old infarct in the right occipital lobe and right upper parietal junction. A couple rounded extra-axial lesions along the right frontal convexity measuring 1 cm and 4 mm likely meningiomas. Correlate with any available prior exam to check stability. Otherwise 6 month follow-up MRI can be performed to reassess. Moderate atrophy and changes of chronic small vessel ischemic disease. No acute intracranial abnormality seen. Neurology has also ordered EEG and B12 level. Over the weekend patient did require a unit of blood. Hemoglobin is now 7.9 again no active signs of bleeding. Patient seen by GI service no need for endoscopy at this time. White count has decreased from 15-14.6 09/19/2018 patient sitting in bedside chair. She is sleepy. She does admit to a mild cough. Denies any chest pain or shortness of breath. White count has increased to 17.8. Hemoglobin is stable at 8. EEG showing slowing likely due to metabolic encephalopathy. Blood pressure early this morning was 178/70 before meds were given. Chest x-ray is pending. Patient is followed by pulmonary service and neurology. Patient denies any chest pain or shortness breath. Denies any nausea or vomiting. Reports having bowel movements. Denies any difficulty urinating. On 09/20/2018 patient currently sitting up in chair. He remains sleepy but does awaken and follow commands. White count slightly decreasing to 17.5 hemoglobin increasing to 8.4. Patient started on Unasyn per ID. At this time patient denies any chest pain or shortness of breath. Patient denies nausea vomiting or diarrhea. Denies any urinary burning or frequency 09/21/2018 per nursing staff patient had blood noted in her urine. Hemoglobin was 8.3 today. Repeat CBC will be checked at 2. She did have a computed tomography scan of the abdomen and pelvis completed due to leukocytosis. It did show probable advanced renal cell carcinoma with suspicious left renal masses and adjacent adenopathy. Possible hematoma or additional lesion in the bladder. No evidence of computed tomography scan diverticulitis. Nursing staff did report bowel movement today. Patient denies any chest pain or shortness of breath. Urology was placed on consult. They've ordered a computed tomography scan of the chest 09/22/2018 patient sleeping comfortably. She is complaining of constipation reports last bowel movement was 2 days ago. Stool softener will be ordered. Computed tomography scan of the chest completed showing a right pleural effusion and right lower lobe pulmonary infiltrate and atelectasis. Multiple right-sided noncalcified pulmonary nodules. Appearance is non-specific. Patient does have incentive spirometer at bedside. She denies any chest pain or shortness of b reath. She does admit to some mild burning with urination. Per nursing she is having hematuria. Hemoglobin stable at 8.4. White count did go up to 16.8 she is on Unasyn. Infectious disease and noting that possible necrotic tumor could contribute to an elevated white count. Dr. Chavez is recommending PET scan outpatient. Elevated blood pressure this morning 178/77 repeat blood pressure after medications at 145/85 Objective - Vital Signs Vital signs: Vital Signs Temp 98.2 F 09/22/18 05:00 Pulse 93 09/22/18 05:00 Resp 16 09/22/18 08:00 BP 178/77 09/22/18 05:00 Pulse Ox 98 09/22/18 05:00 Intake & Output 09/21/18 09/22/18 09/22/18 18:59 06:59 18:59 Intake Total 820 590 Output Total 0 Balance 820 590 Weight 88.1 kg 88.2 kg Intake: Intake, IV Titration 100 Amount Ampicillin-Sulbactam 3 gm 100 In Sodium Chloride 0.9% 100 ml @ 200 mls/hr IVPB Q12H ON LICENSE OF [facility] Rx#:[id number] Oral 720 590 Output: Stool 0 Other: Voiding Method Bedside Commode Bedside Commode Bedside Commode # Voids 5 3 1 # Bowel Movements 1 1 - Exam Head normocephalic. Wrapped in Kerlix. Neck supple. Positive JVD Lungs clear Heart regular rate and rhythm Abdomen is soft nontender nondistended positive bowel sounds no hepatosplenomegaly Extremities no edema Neuro alert and orientated to 2. Which is patient baseline. - Labs CBC & Chem 7: 09/22/18 07:09 09/22/18 07:09 Labs: Abnormal Lab Results - Last 24 Hours (Table) 09/21/18 09/21/18 09/21/18 Range/Units 14:49 17:10 19:52 WBC 15.7 H (3.8-10.6) k/uL RBC 2.63 L (3.80-5.40) m/uL Hgb 8.2 L (11.4-16.0) gm/dL Hct 25.4 L (34.0-46.0) % RDW 18.2 H (11.5-15.5) % Plt Count 106 L (150-450) k/uL Neutrophils # (1.3-7.7) k/uL Sodium (137-145) mmol/L BUN (7-17) mg/dL Creatinine (0.52-1.04) mg/dL Glucose (74-99) mg/dL POC Glucose (mg/dL) 191 H 133 H (75-99) mg/dL AST (14-36) U/L Albumin (3.5-5.0) g/dL 09/22/18 09/22/18 09/22/18 Range/Units 07:09 07:09 07:15 WBC 16.8 H (3.8-10.6) k/uL RBC 2.78 L (3.80-5.40) m/uL Hgb 8.4 L (11.4-16.0) gm/dL Hct 27.0 L (34.0-46.0) % RDW 18.9 H (11.5-15.5) % Plt Count 123 L (150-450) k/uL Neutrophils # 14.7 H (1.3-7.7) k/uL Sodium 136 L (137-145) mmol/L BUN 30 H (7-17) mg/dL Creatinine 1.34 H (0.52-1.04) mg/dL Glucose 176 H (74-99) mg/dL POC Glucose (mg/dL) 201 H (75-99) mg/dL AST 37 H (14-36) U/L Albumin 3.4 L (3.5-5.0) g/dL 09/22/18 Range/Units 11:09 WBC (3.8-10.6) k/uL RBC (3.80-5.40) m/uL Hgb (11.4-16.0) gm/dL Hct (34.0-46.0) % RDW (11.5-15.5) % Plt Count (150-450) k/uL Neutrophils # (1.3-7.7) k/uL Sodium (137-145) mmol/L BUN (7-17) mg/dL Creatinine (0.52-1.04) mg/dL Glucose (74-99) mg/dL POC Glucose (mg/dL) 174 H (75-99) mg/dL AST (14-36) U/L Albumin (3.5-5.0) g/dL Microbiology - Last 24 Hours (Table) 09/17/18 20:00 Gram Stain - Final Sputum Sputum Culture - Final Anna albicans Assessment and Plan Assessment: 1. Fall with generalized weakness: Possible secondary to UTI, dehydration and hypoglycemia. And also underlying malignancy. Consult physical therapy and occupational therapy. No loss of consciousness. Computed tomography scan of the brain was a negative. Computed tomography scan of the cervical spine no evidence of fracture or subluxation 2. UTI: Urine culture growing Klebsiella pneumonia, antibiotics adjusted to Unasyn 3. Acute kidney injury with chronic kidney disease stage III. Baseline c reatinine near 1.2 to 1.6. Creatinine on admission cr 1.99 BUN 58. kidney functions are improving. Patient is tolerating her home dose of Lasix . Aldactone on hold. 4. Diabetes mellitus type 2: Hypoglycemia on admission blood sugar of 66. A1c is 6.3 . Blood sugars have been elevated. Patient's glipizide and Tradjenta have been restarted 5. Iron deficiency anemia continue iron supplement. 6. Gastric ulcer noted on recent EGD in July 2018 continue Protonix and Carafate. No active signs of bleeding at this time. Continue to monitor hemoglobin 7. History of COPD stable 8. History of chronic atrial fibrillation. Maintained on metoprolol. Not on any anticoagulation due to previous history of petechial hemorrhage on MRI of brain 9. History of seizure disorder continue Keppra 10. History of coronary artery disease with previous CABG in 2008 11. History of chronic systolic just of heart failure. No evidence of exacerbation at this time. Last 2-D echo showing an EF of 60-65% 12. Previous history of UTIs 13. Hypothyroidism continue Synthroid. TSH normal at 1.640 14. Incidental finding on CT of cervical spine of a 9 mm lesion in the right middle lobe. Radiologist is recommending outpatient CT of chest. Patient does have a prior history of smoking 15. Head laceration above the left eyebrow requiring sutures in the ER 16. Moderate protein calorie malnutrition albumin 2.9. Continue protein shakes 17. Mild fluid overload with elevated BNP. resolved. Continue Lasix 40 mg by mouth daily 18. Possible aspiration Pneumonia: Continue Unasyn. Infectious disease following 19. Altered mental status changes possibly due to a metabolic encephalopathy due to her pneumonia and UTI. Neurology also notes concerns for possible concussion. They ordered a repeat computed tomography scan of the brain with no acute intracranial abnormality seen did reveal evidence of old stroke and possible meningiomas. keppra level normal 51.3. Patient seen by neurology during this admission. 20. A couple rounded extra-axial lesions along the right frontal convexity measuring 1 cm and 4 mm likely meningiomas noted on CT of brain. Also radiologist recommending a 6 month follow-up MRI on these findings. 21. Normocytic anemia likely multifactorial. Possibly related to patient's malignancy as well as her known iron deficiency anemia and chronic kidney disease. Patient is also having some hematuria. Patient had EGD done in July revealing gastritis and gastric ulcer. Continue with iron supplement. GI is not recommending any endoscopy at this time. Hemoglobin today is 8.4 22. Leukocytosis: Possibly secondary to necrotic tumor. Followed by infectious disease. Patient currently on Unasyn white count did go up to 16.8 23. Hyperkalemia: Resolved with Kayexalate 24. Left renal mass noted on CAT scan. Per urology it is highly suspicious for renal cell carcinoma. 25. Multiple right side noncalcified pulmonary nodules: Noted on computed tomography scan of chest. Pulmonary recommending PET scan as outpatient 27. Essential hypertension: Elevated blood pressure this morning improved with blood pressure medication. Repeat blood pressure is 145/85. Continue to monitor GI prophylaxis Protonix and DVT prophylaxis SCDs Plan Await further consulting physician recommendations Add Colace for constipation Resume her glipizide and Tradjenta for better blood sugar control I performed an examination of the patient and discussed their management with the physician Drafter Seismograph. I have reviewed the Physician Drafter Seismograph's notes and agree with the documented findings and plan of care
--- NOTE | 2018-09-22 13:57 | PN ---
PROGRESS NOTE DATE OF SERVICE: 09/22/2018 REASON FOR FOLLOWUP: Leukocytosis, possible renal cell carcinoma. Patient is currently afebrile. Patient has been breathing comfortably. Denies having any chest pain or any cough. No abdominal pain, no diarrhea. PHYSICAL EXAMINATION: Blood pressure is 145/85 with a pulse of 88, temperature 98.3, she is 97% on room air. General description is an elderly female, up in the bed in no distress. RESPIRATORY SYSTEM: Unlabored breathing, clear to auscultation anteriorly. HEART: S1, S2. Regular rate and rhythm. ABDOMEN: Soft, no tenderness. LABS: Hemoglobin is 8.4, white count of 16.8. BUN of 30, creatinine 1.34. Urine with Klebsiella, sputum with Anna. DIAGNOSTIC IMPRESSION AND PLAN: Patient with a leukocytosis, likely multiple , necrotic left renal tumor and urinary tract infection. Currently covered with Unasyn. Continue on the clinical course closely. Continue supportive care. MMODL / IJN: [id number] /
[2018-09-22 17:08] LABS: Glucose,Whole Blood 167 mg/dL (75-99)
[2018-09-22 20:22] LABS: Glucose,Whole Blood 140 mg/dL (75-99)
--- NOTE | 2018-09-22 20:46 | P.CONS ---
History of Present Illness - Reason for Consult Consult date: 09/22/18 Renal Mass and Pulmonary Nodules Requesting physician: Dana Ramesh - History of Present Illness Attempted to see patient although was discharge Past Medical History Past Medical History: Atrial Fibrillation, Coronary Artery Disease (CAD), Cancer, Heart Failure, COPD, Diabetes Mellitus, GERD/Reflux, Hyperlipidemia, Hypertension, Thyroid Disorder Additional Past Medical History / Comment(s): Pt recently admitted to [facility] on 08/22/18 with abnormal labs/iron deficiency anemia-received blood transfusion/EGD showed superficial gastric nonbleeding ulcer/hiatal hernia/gastritis. Other hx: Chronic afib, chronic CHF, CVA with L sided weakness, NIDDM type II, CKD stage III, seizure disorder with last seizure 09/2017, pt states she has had R eye injections but does not recall reason, headaches, skin cancer removal/nose, unsteady gait. 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 Past Anesthesia/Blood Transfusion Reactions: No Reported Reaction Additional Past Anesthesia/Blood Transfusion Reaction / Comm: Pt has received blood without reaction. Smoking Status: Former smoker - Past Family History Father History Unknown: Yes Family Medical History: No Reported History Additional Family Medical History / Comment(s): Father was healthy Mother Family Medical History: No Reported History Additional Family Medical History / Comment(s): Mother was healthy Medications and Allergies Home Medications Medication Instructions Recorded Confirmed Type Vit C/E/Zn/Coppr/Lutein/Zeaxan 1 cap PO DAILY@0900 03/28/16 09/14/18 History [Preservision Areds 2 Softgel] Cholecalciferol [Vitamin D3 (25 1,000 unit PO DAILY@0900 05/22/17 09/14/18 History Mcg = 1000 Iu)] Famotidine 40 mg PO DAILY@0900 05/22/17 09/14/18 History amLODIPine BESYLATE [Norvasc] 10 mg PO DAILY@209905/22/17 09/14/18 History Acetaminophen [Tylenol] 1,000 mg PO BID@0900,2100 10/13/17 09/14/18 History Aspirin [Adult Low Dose Aspirin EC] 81 mg PO DAILY@89910/13/17 09/14/18 History Atorvastatin Calcium [Lipitor] 10 mg PO DAILY@209910/13/17 09/14/18 History Cyanocobalamin [Vitamin B-12] 500 mcg PO DAILY@89910/13/17 09/14/18 History Isosorbide Mononitrate [Isosorbide 30 mg PO DAILY@89910/13/17 09/14/18 History Mononitrate ER] [place]-3 Fatty Acids/Fish Oil [Fish 1 cap PO DAILY@89910/13/17 09/14/18 History Oil 1,000 mg Softgel] Rosuvastatin Calcium [Crestor] 5 mg PO DAILY@209910/13/17 09/14/18 History Saxagliptin HCl [Onglyza] 5 mg PO DAILY@89910/13/17 09/14/18 History Sertraline HCl [Zoloft] 25 mg PO HS@209910/13/17 09/14/18 History Furosemide [Lasix] 40 mg PO DAILY@59908/09/18 09/14/18 History Menthol [Biofreeze] 1 applic TOPICAL Q2H PRN 08/09/18 09/14/18 History glipiZIDE [Glucotrol] 5 mg PO DAILY@1100 08/09/18 09/14/18 History levETIRAcetam [Keppra] 250 mg PO TID@0600,1400,2200 08/09/18 09/14/18 History Ferrous Sulfate [Iron (65 MG 325 mg PO BID@0900,1800 08/21/18 09/14/18 History Elemental)] Levothyroxine Sodium 112 mcg PO DAILY@59908/21/18 09/14/18 History Metoprolol Tartrate [Lopressor] 25 mg PO BID@0900,2100 08/21/18 09/14/18 History Spironolactone [Aldactone] 25 mg PO DAILY@59908/21/18 09/14/18 History traMADol HCL [Ultram] 50 mg PO Q8H PRN 14 Days #42 tablet 08/25/18 09/14/18 Rx Ipratropium-Albuterol Nebulize 3 ml INHALATION 09/14/18 09/14/18 History [Duoneb 0.5 mg-3 mg/3 ml Soln] RT-QID@0900,13,17,21 Pantoprazole [Protonix] 40 mg PO AC-BID@0600,1700 09/14/18 09/14/18 History Sucralfate [Carafate] 1 gm PO AC-BID@0600,1700 09/14/18 09/14/18 History Allergies Allergy/AdvReac Type Severity Reaction Status Date / Time acetaminophen [From Lortab] AdvReac Hallucinati Verified 09/14/18 07:51 ons hydrocodone [From Lortab] AdvReac Hallucinati Verified 09/14/18 07:51 ons Physical Exam Vitals: Vital Signs Temp Pulse Pulse Resp BP Pulse Ox 09/22/18 11:06 98.3 F 88 18 145/85 97 09/22/18 08:00 16 09/22/18 05:00 98.2 F 93 16 178/77 98 09/21/18 23:23 91 171/71 09/21/18 21:00 98.3 F 93 16 184/76 95 09/21/18 16:04 80 09/21/18 15:57 76 Intake and Output 09/21/18 09/22/18 09/22/18 22:59 06:59 14:59 Intake Total 240 590 Output Total 0 Balance 240 590 Intake: Oral 240 590 Output: Stool 0 Other: Voiding Method Bedside Commode Bedside Commode Bedside Commode # Voids 6 3 1 # Bowel Movements 1 Weight 88.2 kg Results CBC & Chem 7: 09/22/18 07:09 09/22/18 07:09 Labs: Abnormal Lab Results - Last 24 Hours (Table) 09/21/18 09/21/18 09/21/18 Range/Units 14:49 17:10 19:52 WBC 15.7 H (3.8-10.6) k/uL RBC 2.63 L (3.80-5.40) m/uL Hgb 8.2 L (11.4-16.0) gm/dL Hct 25.4 L (34.0-46.0) % RDW 18.2 H (11.5-15.5) % Plt Count 106 L (150-450) k/uL Neutrophils # (1.3-7.7) k/uL Sodium (137-145) mmol/L BUN (7-17) mg/dL Creatinine (0.52-1.04) mg/dL Glucose (74-99) mg/dL POC Glucose (mg/dL) 191 H 133 H (75-99) mg/dL AST (14-36) U/L Albumin (3.5-5.0) g/dL 09/22/18 09/22/18 09/22/18 Range/Units 07:09 07:09 07:15 WBC 16.8 H (3.8-10.6) k/uL RBC 2.78 L (3.80-5.40) m/uL Hgb 8.4 L (11.4-16.0) gm/dL Hct 27.0 L (34.0-46.0) % RDW 18.9 H (11.5-15.5) % Plt Count 123 L (150-450) k/uL Neutrophils # 14.7 H (1.3-7.7) k/uL Sodium 136 L (137-145) mmol/L BUN 30 H (7-17) mg/dL Creatinine 1.34 H (0.52-1.04) mg/dL Glucose 176 H (74-99) mg/dL POC Glucose (mg/dL) 201 H (75-99) mg/dL AST 37 H (14-36) U/L Albumin 3.4 L (3.5-5.0) g/dL 09/22/18 Range/Units 11:09 WBC (3.8-10.6) k/uL RBC (3.80-5.40) m/uL Hgb (11.4-16.0) gm/dL Hct (34.0-46.0) % RDW (11.5-15.5) % Plt Count (150-450) k/uL Neutrophils # (1.3-7.7) k/uL Sodium (137-145) mmol/L BUN (7-17) mg/dL Creatinine (0.52-1.04) mg/dL Glucose (74-99) mg/dL POC Glucose (mg/dL) 174 H (75-99) mg/dL AST (14-36) U/L Albumin (3.5-5.0) g/dL Microbiology - Last 24 Hours (Table) 09/17/18 20:00 Gram Stain - Final Sputum Sputum Culture - Final Anna albicans
[2018-09-22] MEDS: SERTRALINE 25 MG TAB PO SCH (21:28)
[2018-09-22] MEDS: amLODIPine 10 MG TAB PO SCH (21:28)
[2018-09-22] MEDS: ATORVASTATIN 10 MG TAB PO SCH (21:29)
[2018-09-22] MEDS: traMADol 50 MG TAB PO PRN (21:30)
[2018-09-22] MEDS ORDERED: ONDANSETRON 4 MG/2 ML VIAL IVP PRN (21:43)
[2018-09-23] MEDS: AMPICILLIN-SULBACTAM 3 GM in SODIUM CHLORIDE 0.9% 100 ML IVPB SCH ×2 (00:41→11:44)
[2018-09-23] MEDS: SUCRALFATE 1 GM TAB PO SCH ×2 (06:18→17:10)
[2018-09-23] MEDS: LEVOTHYROXINE 112 MCG TAB PO SCH (06:18)
[2018-09-23] MEDS: PANTOPRAZOLE 40 MG TABLET PO SCH ×2 (06:18→17:09)
[2018-09-23] MEDS: FUROSEMIDE 40 MG TAB PO SCH (06:18)
[2018-09-23] MEDS: levETIRAcetam 250 MG TAB PO SCH ×3 (06:19→22:24)
[2018-09-23 07:14] LABS: Glucose,Whole Blood 172 mg/dL (75-99)
[2018-09-23] MEDS: DOCUSATE 100 MG CAP PO SCH ×2 (07:21→22:23)
[2018-09-23] MEDS: INSULIN ASPART (NovoLOG) 100 UNIT/ML VIAL SQ SCH ×4 (07:21→22:25)
[2018-09-23] MEDS: CHOLECALCIFEROL 1,000 UNIT TAB PO SCH (07:22)
[2018-09-23] MEDS: ISOSORBIDE MONONITRATE ER 30 MG TAB.ER.24H PO SCH (07:22)
[2018-09-23] MEDS: METOPROLOL TARTRATE 25 MG TAB PO SCH ×2 (07:22→22:24)
[2018-09-23] MEDS: VIT A,C & E-LUTEIN-MINERALS 1 EACH TAB PO SCH (07:23)
[2018-09-23] MEDS: FERROUS SULFATE 325 MG TAB PO SCH ×2 (07:24→17:10)
[2018-09-23] MEDS: glipiZIDE 5 MG TAB PO SCH (07:24)
[2018-09-23] MEDS: LINAGLIPTIN 5 MG TABLET PO SCH (07:24)
[2018-09-23] MEDS: CYANOCOBALAMIN 500 MCG TAB PO SCH (07:25)
[2018-09-23 07:43] LABS: Albumin 2.9 g/dL (3.5-5.0); Calcium 9.5 mg/dL (8.4-10.2); Potassium 4.3 mmol/L (3.5-5.1); Total Bilirubin 0.6 mg/dL (0.2-1.3); Total Protein 6.9 g/dL (6.3-8.2)
[2018-09-23 07:56] LABS: Anisocytosis Slight; Basophils % (A) 0 %; Eosinophils # (A) 0.1 k/uL (0-0.7); Eosinophils % (A) 0 %; HCT 23.9 % (34.0-46.0); HGB 7.4 gm/dL (11.4-16.0); Hypochromasia Moderate; Lymphocytes % (A) 6 %; MCH 30.3 pg (25.0-35.0); MCHC 30.9 g/dL (31.0-37.0); Macrocytosis Slight; Mean Platelet Volume 8.4; Monocytes # (A) 1.2 k/uL (0-1.0); Monocytes % (A) 7 %; Neutrophils # (A) 15.2 k/uL (1.3-7.7); Neutrophils % (A) 85 %; Poikilocytosis Slight; RBC 2.44 m/uL (3.80-5.40); RDW 19.2 % (11.5-15.5); WBC 17.8 k/uL (3.8-10.6)
[2018-09-23] MEDS: IPRATROPIUM-ALBUTEROL 3 ML NEB INHALATION SCH ×4 (08:32→20:10)
[2018-09-23 11:32] LABS: Glucose,Whole Blood 267 mg/dL (75-99)
[2018-09-23 13:02] LABS: Platelet Count 84 k/uL (150-450)
[2018-09-23] MEDS: ACETAMINOPHEN TAB 325 MG TAB PO PRN (17:09)
[2018-09-23 17:11] LABS: Glucose,Whole Blood 213 mg/dL (75-99)
--- NOTE | 2018-09-23 17:32 | P.CONS ---
History of Present Illness - Reason for Consult Consult date: 09/23/18 Renal Mass and Pul Nodules Requesting physician: Kalee Murray - Chief Complaint Hematuria weakness - History of Present Illness 88 year old female patient presenting with complaints of generalized weakness, SOB, Hematuria. CT scans reveal concern for multiple right pulmonary nodules ans solid mass lower pole left kidney 6.7x6.5 and 4x3.4. During hoispitalization also found to have UTI Klebsiella. Given her advanced age discussion will need to be made regarding aggressiveness of diagnostics. If full agressive work-up is desired patient will require tissue biopsy. Poor historian and pleasantly confused Review of Systems A 14 point review of systems assessed and completed and all negative except HPI Past Medical History Past Medical History: Atrial Fibrillation, Coronary Artery Disease (CAD), Cancer, Heart Failure, COPD, Diabetes Mellitus, GERD/Reflux, Hyperlipidemia, Hypertension, Thyroid Disorder Additional Past Medical History / Comment(s): Pt recently admitted to [facility] on 08/22/18 with abnormal labs/iron deficiency anemia-received blood transfusion/EGD showed superficial gastric nonbleeding ulcer/hiatal hernia/gastritis. Other hx: Chronic afib, chronic CHF, CVA with L sided weakness, NIDDM type II, CKD stage III, seizure disorder with last seizure 09/2017, pt states she has had R eye injections but does not recall reason, headaches, skin cancer removal/nose, unsteady gait. 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 Past Anesthesia/Blood Transfusion Reactions: No Reported Reaction Additional Past Anesthesia/Blood Transfusion Reaction / Comm: Pt has received blood without reaction. Smoking Status: Former smoker - Past Family History Father History Unknown: Yes Family Medical History: No Reported History Additional Family Medical History / Comment(s): Father was healthy Mother Family Medical History: No Reported History Additional Family Medical History / Comment(s): Mother was healthy Medications and Allergies Home Medications Medication Instructions Recorded Confirmed Type Vit C/E/Zn/Coppr/Lutein/Zeaxan 1 cap PO DAILY@0900 03/28/16 09/14/18 History [Preservision Areds 2 Softgel] Cholecalciferol [Vitamin D3 (25 1,000 unit PO DAILY@89905/22/17 09/14/18 History Mcg = 1000 Iu)] Famotidine 40 mg PO DAILY@89905/22/17 09/14/18 History amLODIPine BESYLATE [Norvasc] 10 mg PO DAILY@209905/22/17 09/14/18 History Acetaminophen [Tylenol] 1,000 mg PO BID@0900,209910/13/17 09/14/18 History Aspirin [Adult Low Dose Aspirin EC] 81 mg PO DAILY@89910/13/17 09/14/18 History Atorvastatin Calcium [Lipitor] 10 mg PO DAILY@209910/13/17 09/14/18 History Cyanocobalamin [Vitamin B-12] 500 mcg PO DAILY@89910/13/17 09/14/18 History Isosorbide Mononitrate [Isosorbide 30 mg PO DAILY@89910/13/17 09/14/18 History Mononitrate ER] Tyro-3 Fatty Acids/Fish Oil [Fish 1 cap PO DAILY@89910/13/17 09/14/18 History Oil 1,000 mg Softgel] Rosuvastatin Calcium [Crestor] 5 mg PO DAILY@209910/13/17 09/14/18 History Saxagliptin HCl [Onglyza] 5 mg PO DAILY@89910/13/17 09/14/18 History Sertraline HCl [Zoloft] 25 mg PO HS@209910/13/17 09/14/18 History Furosemide [Lasix] 40 mg PO DAILY@59908/09/18 09/14/18 History Menthol [Biofreeze] 1 applic TOPICAL Q2H PRN 08/09/18 09/14/18 History glipiZIDE [Glucotrol] 5 mg PO DAILY@1100 08/09/18 09/14/18 History levETIRAcetam [Keppra] 250 mg PO TID@0600,1400,2200 08/09/18 09/14/18 History Ferrous Sulfate [Iron (65 MG 325 mg PO BID@0900,1800 08/21/18 09/14/18 History Elemental)] Levothyroxine Sodium 112 mcg PO DAILY@0600 08/21/18 09/14/18 History Metoprolol Tartrate [Lopressor] 25 mg PO BID@0900,2100 08/21/18 09/14/18 History Spironolactone [Aldactone] 25 mg PO DAILY@0600 08/21/18 09/14/18 History traMADol HCL [Ultram] 50 mg PO Q8H PRN 14 Days #42 tablet 08/25/18 09/14/18 Rx Ipratropium-Albuterol Nebulize 3 ml INHALATION 09/14/18 09/14/18 History [Duoneb 0.5 mg-3 mg/3 ml Soln] RT-QID@0900,,17,21 Pantoprazole [Protonix] 40 mg PO AC-BID@0600,1700 09/14/18 09/14/18 History Sucralfate [Carafate] 1 gm PO AC-BID@0600,1700 09/14/18 09/14/18 History Allergies Allergy/AdvReac Type Severity Reaction Status Date / Time acetaminophen [From Lortab] AdvReac Hallucinati Verified 09/14/18 07:51 ons hydrocodone [From Lortab] AdvReac Hallucinati Verified 09/14/18 07:51 ons Physical Exam Vitals: Vital Signs Temp Pulse Pulse Resp BP Pulse Ox 09/23/18 15:11 87 16 09/23/18 14:35 80 09/23/18 14:21 80 09/23/18 12:08 97 F L 87 16 131/61 92 L 09/23/18 08:45 76 09/23/18 08:32 76 09/23/18 08:00 97 18 09/23/18 05:00 98.2 F 86 16 157/84 92 L 09/22/18 23:40 109 H 16 09/22/18 21:00 98.6 F 109 H 16 156/76 93 L 09/22/18 20:03 88 09/22/18 19:52 87 18 Intake and Output 09/23/18 09/23/18 09/23/18 06:59 14:59 22:59 Intake Total 590 660 Output Total 200 Balance 590 660 -200 Intake: Intake, IV Titration 10 Amount Ampicillin-Sulbactam 3 gm 10 In Sodium Chloride 0.9% 100 ml @ 200 mls/hr IVPB Q12H [facility] Rx#:[id number] Oral 590 650 Output: Urine 200 Stool 0 Other: Voiding Method Bedside Commode Bedside Commode Bedside Commode Diaper Diaper Diaper # Voids 1 3 3 Gen: Alert NAD Head NCNT NEck Supple Lungs: Diminished occassional wheeze right Heart R\Tachy Abdomen: S/Mild tender Extremities: f\gen edema Results CBC & Chem 7: 09/23/18 07:00 09/23/18 07:00 Labs: Abnormal Lab Results - Last 24 Hours (Table) 09/22/18 09/23/18 09/23/18 Range/Units 20:21 07:00 07:00 WBC 17.8 H (3.8-10.6) k/uL RBC 2.44 L (3.80-5.40) m/uL Hgb 7.4 L (11.4-16.0) gm/dL Hct 23.9 L (34.0-46.0) % MCHC 30.9 L (31.0-37.0) g/dL RDW 19.2 H (11.5-15.5) % Plt Count 84 L (150-450) k/uL Neutrophils # 15.2 H (1.3-7.7) k/uL Monocytes # 1.2 H (0-1.0) k/uL BUN 30 H (7-17) mg/dL Creatinine 1.74 H (0.52-1.04) mg/dL Glucose 146 H (74-99) mg/dL POC Glucose (mg/dL) 140 H (75-99) mg/dL Albumin 2.9 L (3.5-5.0) g/dL 09/23/18 09/23/18 09/23/18 Range/Units 07:13 11:29 17:09 WBC (3.8-10.6) k/uL RBC (3.80-5.40) m/uL Hgb (11.4-16.0) gm/dL Hct (34.0-46.0) % MCHC (31.0-37.0) g/dL RDW (11.5-15.5) % Plt Count (150-450) k/uL Neutrophils # (1.3-7.7) k/uL Monocytes # (0-1.0) k/uL BUN (7-17) mg/dL Creatinine (0.52-1.04) mg/dL Glucose (74-99) mg/dL POC Glucose (mg/dL) 172 H 267 H 213 H (75-99) mg/dL Albumin (3.5-5.0) g/dL CT scan - abdomen: report reviewed CT scan - pelvis: report reviewed Assessment and Plan Plan: Assessment and Recommendations: New Renal Mass (x2) - 6.7x6.5 and 4x3.4 - If patient and family wish to proceed with aggressive diagnostic approach a tissue biopsy will be needed Multiple pulmonary Lesions: COncern for metastatic malignant Picture Klebsiella UTI: On Abx Hematuria: Likely related to renal Mass pathology and UTI Normocytic Anemia: - Anemia WOrk-up in progress - Transfuse hemoglobin less than 7 - Compoenent of Renal Failure, Eruthropoetin level - Component of blood loss anemia and iron deficiency, when threat of active infection clears Parental Iron is resonable Thrombocytopenia: - New - Recheck COags and Fibrinogen - Assess for DIC. Renal Insufficiency - Worsening - Known Chronic Kidney disease stage 3 Recommendations: - Biopsy of Renal mass versus portential metastatic site if patient/family would like aggressive diagnostic approach. Thank you for allowing us to participate in care of patient, follow along with you
[2018-09-23 18:40] LABS: D-Dimer 1.7 mg/L FEU (<0.60); INR 1.1 (<1.2); Partial Thromboplastin Time 26.8 sec (22.0-30.0); Prothrombin Time 11.9 sec (9.0-12.0)
--- NOTE | 2018-09-23 19:50 | P.PN ---
Subjective Progress Note Date: 09/23/18 This is a 88-year-old female, resident at [facility]. 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 Patient was just recently hospitalized in July at that time diagnosed with a superficial gastric ulcer had EGD completed in and was placed on Protonix and Carafate. Since then she has been doing well. She presented to the hospital due to a fall at [facility]. She was being transferring from bed to a chair. Patient hit the front of her head. There is no loss of consciousness. She presented to the ER for further evaluation. She was found to have a urinary tract infection started on Rocephin. White count was 17.1 hemoglobin 8.5. She also had evidence of dehydration creatinine was elevated at 1.99 BUN 58. Blood sugar low also at 66. Patient denies any chest pain, shortness of breath, nausea or vomiting, bowel movement changes or urinary symptoms. She did have a computed tomography scan of the head and cervical spine completed in the ER. Computed tomography scan of the brain no acute hemorrhage, hydrocephalus or mass effect. CT of cervical spine showing no acute fracture or subluxation. Did know a 9 mm lesion in the right middle lobe. Recommend outpatient chest CT for better characterization. Chest x-ray no acute pulmonary pop process. Pelvic x- ray no evidence of any fractures. Patient denies any pain at this time. She did require sutures to a laceration above the left eyebrow in ER. She received IV fluid bolus in ER. Lasix is currently on hold. 09/15/2018 patient sitting up in bedside chair. She does admit to a cough and some shortness of breath. She was receiving IV fluids yesterday. IV fluids will be discontinued. Creatinine has come down from 1.99-1.59. White count has gone up from 17.1-17.3 and hemoglobin is 8.5-7.3. Patient's last bowel movement was yesterday. No active sites of bleeding. Patient denies any headache. Denies any chest pain. Denies any nausea vomiting. Denies any bowel movement changes or urinary symptoms. Remains on Rocephin for UTI. On 09/16/2018 patient is alert more oriented in no apparent distress there is no fever or chills no headache or dizziness no chest pain no shortness of breath she is complaining of cough no nausea or vomiting no abdominal pain no diarrhea and no urinary symptoms hemoglobin was down to 6.3 today 1 unit of red blood cell transfusion was ordered repeat CBC at 6 PM today consult for gastroenterology was initiatedOn 09/17/2018 patient's gallbladder and oriented in no apparent distress. Patient is resting comfortably in bed but answers questions. Patient's hemoglobin improving to 7.8. GI consult placed. At this time patient denies any chest pain or shortness breath. Patient denies nausea vomiting or diarrhea. Patient denies any urinary burning or frequency 09/18/2018 patient seen and examined this morning. She was sleeping comfortably. Discussed case with nurse. I no new complaints. Over the weekend patient had increasing confusion and neurology had been consulted. They ordered a computed tomography scan of the brain showing an old infarct in the right occipital lobe and right upper parietal junction. A couple rounded extra-axial lesions along the right frontal convexity measuring 1 cm and 4 mm likely meningiomas. Correlate with any available prior exam to check stability. Otherwise 6 month follow-up MRI can be performed to reassess. Moderate atrophy and changes of chronic small vessel ischemic disease. No acute intracranial abnormality seen. Neurology has also ordered EEG and B12 level. Over the weekend patient did require a unit of blood. Hemoglobin is now 7.9 again no active signs of bleeding. Patient seen by GI service no need for endoscopy at this time. White count has decreased from 15-14.6 09/19/2018 patient sitting in bedside chair. She is sleepy. She does admit to a mild cough. Denies any chest pain or shortness of breath. White count has increased to 17.8. Hemoglobin is stable at 8. EEG showing slowing likely due to metabolic encephalopathy. Blood pressure early this morning was 178/70 before meds were given. Chest x-ray is pending. Patient is followed by pulmonary service and neurology. Patient denies any chest pain or shortness breath. Denies any nausea or vomiting. Reports having bowel movements. Denies any difficulty urinating. On 09/20/2018 patient currently sitting up in chair. He remains sleepy but does awaken and follow commands. White count slightly decreasing to 17.5 hemoglobin increasing to 8.4. Patient started on Unasyn per ID. At this time patient denies any chest pain or shortness of breath. Patient denies nausea vomiting or diarrhea. Denies any urinary burning or frequency 09/21/2018 per nursing staff patient had blood noted in her urine. Hemoglobin was 8.3 today. Repeat CBC will be checked at 2. She did have a computed tomography scan of the abdomen and pelvis completed due to leukocytosis. It did show probable advanced renal cell carcinoma with suspicious left renal masses and adjacent adenopathy. Possible hematoma or additional lesion in the bladder. No evidence of computed tomography scan diverticulitis. Nursing staff did report bowel movement today. Patient denies any chest pain or shortness of breath. Urology was placed on consult. They've ordered a computed tomography scan of the chest 09/22/2018 patient sleeping comfortably. She is complaining of constipation reports last bowel movement was 2 days ago. Stool softener will be ordered. Computed tomography scan of the chest completed showing a right pleural effusion and right lower lobe pulmonary infiltrate and atelectasis. Multiple right-sided noncalcified pulmonary nodules. Appearance is non-specific. Patient does have incentive spirometer at bedside. She denies any chest pain or shortness of breath. She does admit to some mild burning with urination. Per nursing she is having hematuria. Hemoglobin stable at 8.4. White count did go up to 16.8 she is on Unasyn. Infectious disease and noting that possible necrotic tumor could contribute to an elevated white count. Dr. Chavez is recommending PET scan outpatient. Elevated blood pressure this morning 178/77 repeat blood pressure after medications at 145/85 On 09/23/2018 patient was seen and examined on the medical floor she is alert and responsive in no apparent distress she denies any complaints at this time there is no fever or chills no headache or dizziness no chest pain no shortness of breath no cough no nausea or vomiting no abdominal pain no diarrhea and no urinary symptoms, hemoglobin is down to 7.4 white blood count 17.8 Objective - Vital Signs Vital signs: Vital Signs Temp 97 F L 09/23/18 12:08 Pulse 87 09/23/18 15:11 Resp 16 09/23/18 15:11 BP 131/61 09/23/18 12:08 Pulse Ox 92 L 09/23/18 12:08 Intake & Output 09/23/18 09/23/18 09/24/18 06:59 18:59 06:59 Intake Total 1180 660 Output Total 200 Balance 1180 460 Intake: Intake, IV Titration 10 Amount Ampicillin-Sulbactam 3 gm 10 In Sodium Chloride 0.9% 100 ml @ 200 mls/hr IVPB Q12H [facility] Rx#:[id number] Oral 1180 650 Output: Urine 200 Stool 0 Other: Voiding Method Bedside Commode Bedside Commode Diaper Diaper # Voids 1 3 - Exam Head normocephalic. Wrapped in Kerlix. Neck supple. Positive JVD Lungs diminished bilaterally no wheezing or crackles noted. Heart regular rate and rhythm S1-S2, no rub or gallop Abdomen is soft nontender nondistended positive bowel sounds no hepatosplenomegaly Extremities no edema Neuro alert and orientated to 2. Sleepy but able to answer questions. - Labs CBC & Chem 7: 09/23/18 07:00 09/23/18 07:00 Labs: Abnormal Lab Results - Last 24 Hours (Table) 09/22/18 09/23/18 09/23/18 Range/Units 20:21 07:00 07:00 WBC 17.8 H (3.8-10.6) k/uL RBC 2.44 L (3.80-5.40) m/uL Hgb 7.4 L (11.4-16.0) gm/dL Hct 23.9 L (34.0-46.0) % MCHC 30.9 L (31.0-37.0) g/dL RDW 19.2 H (11.5-15.5) % Plt Count 84 L (150-450) k/uL Neutrophils # 15.2 H (1.3-7.7) k/uL Monocytes # 1.2 H (0-1.0) k/uL Fibrinogen (200-500) mg/dL D-Dimer (<0.60) mg/L FEU BUN 30 H (7-17) mg/dL Creatinine 1.74 H (0.52-1.04) mg/dL Glucose 146 H (74-99) mg/dL POC Glucose (mg/dL) 140 H (75-99) mg/dL Albumin 2.9 L (3.5-5.0) g/dL 09/23/18 09/23/18 09/23/18 Range/Units 07:13 11:29 17:09 WBC (3.8-10.6) k/uL RBC (3.80-5.40) m/uL Hgb (11.4-16.0) gm/dL Hct (34.0-46.0) % MCHC (31.0-37.0) g/dL RDW (11.5-15.5) % Plt Count (150-450) k/uL Neutrophils # (1.3-7.7) k/uL Monocytes # (0-1.0) k/uL Fibrinogen (200-500) mg/dL D-Dimer (<0.60) mg/L FEU BUN (7-17) mg/dL Creatinine (0.52-1.04) mg/dL Glucose (74-99) mg/dL POC Glucose (mg/dL) 172 H 267 H 213 H (75-99) mg/dL Albumin (3.5-5.0) g/dL 09/23/18 Range/Units 17:56 WBC (3.8-10.6) k/uL RBC (3.80-5.40) m/uL Hgb (11.4-16.0) gm/dL Hct (34.0-46.0) % MCHC (31.0-37.0) g/dL RDW (11.5-15.5) % Plt Count (150-450) k/uL Neutrophils # (1.3-7.7) k/uL Monocytes # (0-1.0) k/uL Fibrinogen 588 H (200-500) mg/dL D-Dimer 1.70 H (<0.60) mg/L FEU BUN (7-17) mg/dL Creatinine (0.52-1.04) mg/dL Glucose (74-99) mg/dL POC Glucose (mg/dL) (75-99) mg/dL Albumin (3.5-5.0) g/dL Assessment and Plan Plan: 1. Fall with generalized weakness: Possible secondary to UTI, dehydration and h ypoglycemia. And also underlying malignancy. Consult physical therapy and occupational therapy. No loss of consciousness. Computed tomography scan of the brain was a negative. Computed tomography scan of the cervical spine no evidence of fracture or subluxation 2. UTI: Urine culture growing Klebsiella pneumonia, antibiotics adjusted to Unasyn 3. Acute kidney injury with chronic kidney disease stage III. Baseline creatinine near 1.2 to 1.6. Creatinine on admission cr 1.99 BUN 58. kidney functions are improving. Patient is tolerating her home dose of Lasix . Aldactone on hold. 4. Diabetes mellitus type 2: Hypoglycemia on admission blood sugar of 66. A1c is 6.3 . Blood sugars have been elevated. Patient's glipizide and Tradjenta have been restarted 5. Iron deficiency anemia continue iron supplement. 6. Gastric ulcer noted on recent EGD in July 2018 continue Protonix and Carafate. No active signs of bleeding at this time. Continue to monitor hemoglobin 7. History of COPD stable 8. History of chronic atrial fibrillation. Maintained on metoprolol. Not on any anticoagulation due to previous history of petechial hemorrhage on MRI of brain 9. History of seizure disorder continue Keppra 10. History of coronary artery disease with previous CABG in 2008 11. History of chronic systolic just of heart failure. No evidence of exacerbation at this time. Last 2-D echo showing an EF of 60-65% 12. Previous history of UTIs 13. Hypothyroidism continue Synthroid. TSH normal at 1.640 14. Incidental finding on CT of cervical spine of a 9 mm lesion in the right middle lobe. Radiologist is recommending outpatient CT of chest. Patient does have a prior history of smoking 15. Head laceration above the left eyebrow requiring sutures in the ER 16. Moderate protein calorie malnutrition albumin 2.9. Continue protein shakes 17. Mild fluid overload with elevated BNP. resolved. Continue Lasix 40 mg by mouth daily 18. Possible aspiration Pneumonia: Continue Unasyn. Infectious disease following 19. Altered mental status changes possibly due to a metabolic encephalopathy due to her pneumonia and UTI. Neurology also notes concerns for possible concussion. They ordered a repeat computed tomography scan of the brain with no acute intracranial abnormality seen did reveal evidence of old stroke and possible meningiomas. keppra level normal 51.3. Patient seen by neurology during this admission. 20. A couple rounded extra-axial lesions along the right frontal convexity measuring 1 cm and 4 mm likely meningiomas noted on CT of brain. Also radiologist recommending a 6 month follow-up MRI on these findings. 21. Normocytic anemia likely multifactorial. Possibly related to patient's malignancy as well as her known iron deficiency anemia and chronic kidney disease. Patient is also having some hematuria. Patient had EGD done in July revealing gastritis and gastric ulcer. Continue with iron supplement. GI is not recommending any endoscopy at this time. Hemoglobin today is 8.4 22. Leukocytosis: Possibly secondary to necrotic tumor. Followed by infectious disease. Patient currently on Unasyn white count did go up to 16.8 23. Hyperkalemia: Resolved with Kayexalate 24. Left renal mass noted on CAT scan. Per urology it is highly suspicious for renal cell carcinoma. 25. Multiple right side noncalcified pulmonary nodules: Noted on computed tomography scan of chest. Pulmonary recommending PET scan as outpatient 27. Essential hypertension: Elevated blood pressure this morning improved with blood pressure medication. Repeat blood pressure is 145/85. Continue to monitor GI prophylaxis Protonix and DVT prophylaxis SCDs Plan Await further consulting physician recommendations Add Colace for constipation Resume her glipizide and Tradjenta for better blood sugar control At this time family is considering hospice care once patient is transferred to intermediate, they are requesting that her IV not to be restarted at this time.
[2018-09-23 20:04] LABS: Glucose,Whole Blood 237 mg/dL (75-99)
[2018-09-23] MEDS: AMOXIC-POT CLAV 500-125 MG 1 EACH TAB PO SCH (22:23)
[2018-09-23] MEDS: ATORVASTATIN 10 MG TAB PO SCH (22:24)
[2018-09-23] MEDS: SERTRALINE 25 MG TAB PO SCH (22:24)
[2018-09-23] MEDS: traMADol 50 MG TAB PO PRN (22:25)
[2018-09-23] MEDS: amLODIPine 10 MG TAB PO SCH (22:25)
[2018-09-23] MEDS: ENOXAPARIN 80 MG/0.8 ML SYRINGE SQ SCH (22:44)
[2018-09-24] MEDS: IPRATROPIUM-ALBUTEROL 3 ML NEB INHALATION SCH ×4 (05:52→19:09)
[2018-09-24] MEDS: LEVOTHYROXINE 112 MCG TAB PO SCH (06:15)
[2018-09-24] MEDS: levETIRAcetam 250 MG TAB PO SCH ×3 (06:15→22:35)
[2018-09-24] MEDS: ONDANSETRON 4 MG TAB PO PRN ×2 (06:15→22:34)
[2018-09-24] MEDS: PANTOPRAZOLE 40 MG TABLET PO SCH ×3 (06:15→22:34)
[2018-09-24] MEDS: SUCRALFATE 1 GM TAB PO SCH ×2 (06:15→17:40)
[2018-09-24] MEDS: FUROSEMIDE 40 MG TAB PO SCH (06:16)
[2018-09-24 07:04] LABS: Glucose,Whole Blood 143 mg/dL (75-99)
[2018-09-24 07:51] LABS: Anisocytosis Slight; Basophils % (A) 0 %; Eosinophils # (A) 0.1 k/uL (0-0.7); Eosinophils % (A) 1 %; HGB 7.2 gm/dL (11.4-16.0); Hypochromasia Marked; Lymphocytes # (A) 1.4 k/uL (1.0-4.8); Lymphocytes % (A) 12 %; MCH 31.1 pg (25.0-35.0); MCHC 31.2 g/dL (31.0-37.0); MCV 99.7 fL (80.0-100.0); Macrocytosis Slight; Mean Platelet Volume 8.9; Monocytes # (A) 0.8 k/uL (0-1.0); Monocytes % (A) 7 %; Neutrophils # (A) 9.3 k/uL (1.3-7.7); Neutrophils % (A) 78 %; Platelet Count 105 k/uL (150-450); Poikilocytosis Slight; RBC 2.31 m/uL (3.80-5.40); RDW 19.5 % (11.5-15.5)
[2018-09-24 08:00] LABS: Albumin 2.8 g/dL (3.5-5.0); Calcium 9.1 mg/dL (8.4-10.2); Potassium 4.6 mmol/L (3.5-5.1); Total Bilirubin 0.5 mg/dL (0.2-1.3); Total Protein 6.6 g/dL (6.3-8.2)
--- NOTE | 2018-09-24 08:25 | P.PN ---
Subjective Progress Note Date: 09/24/18 The patient was seen by for a left renal mass. A computed tomography scan of the chest showed a right pleural effusion and some nonspecific pulmonary nodules. Nothing immediate will be done urologically. Dr. oleary will follow with the patient. Objective - Vital Signs Vital signs: Vital Signs Temp 98.6 F 09/24/18 07:52 Pulse 86 09/24/18 07:52 Resp 18 09/24/18 07:52 BP 129/58 09/24/18 07:52 Pulse Ox 90 L 09/24/18 07:52 Intake & Output 09/23/18 09/24/18 09/24/18 18:59 06:59 18:59 Intake Total 660 Output Total 200 200 Balance 460 -200 Intake: Intake, IV Titration 10 Amount Ampicillin-Sulbactam 3 gm 10 In Sodium Chloride 0.9% 100 ml @ 200 mls/hr IVPB Q12H [facility] Rx#:[id number] Oral 650 Output: Urine 200 200 Stool 0 0 Other: Voiding Method Bedside Commode Bedside Commode Diaper Diaper # Voids 3 1 - Labs CBC & Chem 7: 09/24/18 07:00 09/24/18 07:00 Labs: Abnormal Lab Results - Last 24 Hours (Table) 09/23/18 09/23/18 09/23/18 Range/Units 07:00 11:29 17:09 WBC 17.8 H (3.8-10.6) k/uL RBC 2.44 L (3.80-5.40) m/uL Hgb 7.4 L (11.4-16.0) gm/dL Hct 23.9 L (34.0-46.0) % MCHC 30.9 L (31.0-37.0) g/dL RDW 19.2 H (11.5-15.5) % Plt Count 84 L (150-450) k/uL Neutrophils # 15.2 H (1.3-7.7) k/uL Monocytes # 1.2 H (0-1.0) k/uL Fibrinogen (200-500) mg/dL D-Dimer (<0.60) mg/L FEU BUN (7-17) mg/dL Creatinine (0.52-1.04) mg/dL Glucose (74-99) mg/dL POC Glucose (mg/dL) 267 H 213 H (75-99) mg/dL Albumin (3.5-5.0) g/dL 09/23/18 09/23/18 09/24/18 Range/Units 17:56 20:02 07:00 WBC 12.0 H (3.8-10.6) k/uL RBC 2.31 L (3.80-5.40) m/uL Hgb 7.2 L (11.4-16.0) gm/dL Hct 23.0 L (34.0-46.0) % MCHC (31.0-37.0) g/dL RDW 19.5 H (11.5-15.5) % Plt Count 105 L (150-450) k/uL Neutrophils # 9.3 H (1.3-7.7) k/uL Monocytes # (0-1.0) k/uL Fibrinogen 588 H (200-500) mg/dL D-Dimer 1.70 H (<0.60) mg/L FEU BUN (7-17) mg/dL Creatinine (0.52-1.04) mg/dL Glucose (74-99) mg/dL POC Glucose (mg/dL) 237 H (75-99) mg/dL Albumin (3.5-5.0) g/dL 09/24/18 09/24/18 Range/Units 07:00 07:02 WBC (3.8-10.6) k/uL RBC (3.80-5.40) m/uL Hgb (11.4-16.0) gm/dL Hct (34.0-46.0) % MCHC (31.0-37.0) g/dL RDW (11.5-15.5) % Plt Count (150-450) k/uL Neutrophils # (1.3-7.7) k/uL Monocytes # (0-1.0) k/uL Fibrinogen (200-500) mg/dL D-Dimer (<0.60) mg/L FEU BUN 39 H (7-17) mg/dL Creatinine 2.50 H (0.52-1.04) mg/dL Glucose 109 H (74-99) mg/dL POC Glucose (mg/dL) 143 H (75-99) mg/dL Albumin 2.8 L (3.5-5.0) g/dL
[2018-09-24] MEDS: ISOSORBIDE MONONITRATE ER 30 MG TAB.ER.24H PO SCH (08:30)
[2018-09-24] MEDS: CYANOCOBALAMIN 500 MCG TAB PO SCH (08:30)
[2018-09-24] MEDS: LINAGLIPTIN 5 MG TABLET PO SCH (08:30)
[2018-09-24] MEDS: FERROUS SULFATE 325 MG TAB PO SCH ×2 (08:30→17:40)
[2018-09-24] MEDS: METOPROLOL TARTRATE 25 MG TAB PO SCH ×2 (08:30→22:35)
[2018-09-24] MEDS: AMOXIC-POT CLAV 500-125 MG 1 EACH TAB PO SCH ×2 (08:30→22:35)
[2018-09-24] MEDS: glipiZIDE 5 MG TAB PO SCH (08:30)
[2018-09-24] MEDS: DOCUSATE 100 MG CAP PO SCH ×2 (08:31→22:34)
[2018-09-24] MEDS: VIT A,C & E-LUTEIN-MINERALS 1 EACH TAB PO SCH (08:31)
[2018-09-24] MEDS: CHOLECALCIFEROL 1,000 UNIT TAB PO SCH (08:31)
[2018-09-24] MEDS: INSULIN ASPART (NovoLOG) 100 UNIT/ML VIAL SQ SCH ×4 (08:31→22:36)
[2018-09-24] MEDS: ENOXAPARIN 80 MG/0.8 ML SYRINGE SQ SCH (08:31)
--- NOTE | 2018-09-24 10:43 | P.PN ---
<Leslye Marx - Last Filed: 09/24/18 12:27> Subjective Progress Note Date: 09/17/18 Principal diagnosis: Renal Mass and Pulm Nodules Patient seen and examined by Dr. Joseph, Dictation has been scribed by Leslye Marx. Patient appears comfortable, no acute complaints, No family at bedsides and patient poor historian Objective - Vital Signs Vital signs: Vital Signs Temp 98.6 F 09/24/18 07:52 Pulse 86 09/24/18 07:52 Resp 20 09/24/18 08:00 BP 129/58 09/24/18 07:52 Pulse Ox 90 L 09/24/18 07:52 Intake & Output 09/23/18 09/24/18 09/24/18 18:59 06:59 18:59 Intake Total 660 Output Total 200 200 Balance 460 -200 Intake: Intake, IV Titration 10 Amount Ampicillin-Sulbactam 3 gm 10 In Sodium Chloride 0.9% 100 ml @ 200 mls/hr IVPB Q12H [facility] Rx#:[id number] Oral 650 Output: Urine 200 200 Stool 0 0 Other: Voiding Method Bedside Commode Bedside Commode Bedside Commode Diaper Diaper Diaper # Voids 3 1 - Exam Gen: Alert, [place], Pleasant confusion Head: NC,NT, Bruise left eye Neck: Supple Lungs: CTA anterior, decreased lower Heart: RRR Abdomen: S.ND. NT Abd: Soft ND Ext: No edema - Labs CBC & Chem 7: 09/24/18 07:00 09/24/18 07:00 Labs: Abnormal Lab Results - Last 24 Hours (Table) 09/23/18 09/23/18 09/23/18 Range/Units 07:00 11:29 17:09 WBC 17.8 H (3.8-10.6) k/uL RBC 2.44 L (3.80-5.40) m/uL Hgb 7.4 L (11.4-16.0) gm/dL Hct 23.9 L (34.0-46.0) % MCHC 30.9 L (31.0-37.0) g/dL RDW 19.2 H (11.5-15.5) % Plt Count 84 L (150-450) k/uL Neutrophils # 15.2 H (1.3-7.7) k/uL Monocytes # 1.2 H (0-1.0) k/uL Fibrinogen (200-500) mg/dL D-Dimer (<0.60) mg/L FEU BUN (7-17) mg/dL Creatinine (0.52-1.04) mg/dL Glucose (74-99) mg/dL POC Glucose (mg/dL) 267 H 213 H (75-99) mg/dL Albumin (3.5-5.0) g/dL 09/23/18 09/23/18 09/24/18 Range/Units 17:56 20:02 07:00 WBC 12.0 H (3.8-10.6) k/uL RBC 2.31 L (3.80-5.40) m/uL Hgb 7.2 L (11.4-16.0) gm/dL Hct 23.0 L (34.0-46.0) % MCHC (31.0-37.0) g/dL RDW 19.5 H (11.5-15.5) % Plt Count 105 L (150-450) k/uL Neutrophils # 9.3 H (1.3-7.7) k/uL Monocytes # (0-1.0) k/uL Fibrinogen 588 H (200-500) mg/dL D-Dimer 1.70 H (<0.60) mg/L FEU BUN (7-17) mg/dL Creatinine (0.52-1.04) mg/dL Glucose (74-99) mg/dL POC Glucose (mg/dL) 237 H (75-99) mg/dL Albumin (3.5-5.0) g/dL 09/24/18 09/24/18 Range/Units 07:00 07:02 WBC (3.8-10.6) k/uL RBC (3.80-5.40) m/uL Hgb (11.4-16.0) gm/dL Hct (34.0-46.0) % MCHC (31.0-37.0) g/dL RDW (11.5-15.5) % Plt Count (150-450) k/uL Neutrophils # (1.3-7.7) k/uL Monocytes # (0-1.0) k/uL Fibrinogen (200-500) mg/dL D-Dimer (<0.60) mg/L FEU BUN 39 H (7-17) mg/dL Creatinine 2.50 H (0.52-1.04) mg/dL Glucose 109 H (74-99) mg/dL POC Glucose (mg/dL) 143 H (75-99) mg/dL Albumin 2.8 L (3.5-5.0) g/dL Assessment and Plan Plan: Assessment and Recommendations: New Renal Mass (x2) - 6.7x6.5 and 4x3.4 - If patient and family wish to proceed with aggressive diagnostic approach a tissue biopsy will be needed Multiple pulmonary Lesions: COncern for metastatic malignant Picture Klebsiella UTI: On Abx Hematuria: Likely related to renal Mass pathology and UTI Normocytic Anemia: - Anemia WOrk-up in progress - Transfuse hemoglobin less than 7 - Compoenent of Renal Failure, Eruthropoetin level - Component of blood loss anemia and iron deficiency, when threat of active infection clears Parental Iron is resonable Thrombocytopenia: - New - Recheck COags and Fibrinogen - Assess for DIC. Renal Insufficiency - Worsening - Known Chronic Kidney disease stage 3 Recommendations: - Biopsy of Renal mass versus portential metastatic site if patient/family would like aggressive diagnostic approach. Thank you for allowing us to participate in care of patient, follow along with you - No family at bedside during interaction, Patient performace and multiple co- morbidies will be difficult to treat with a systemic treatment if malignancy. Will need to discuss further with family. Physician Wil: I have completed the full history and physical and agree with above dictation by Leslye Marx, I have devloped the complete impression and plan. <Nina Joseph - Last Filed: 09/24/18 18:49> Objective - Vital Signs Vital signs: Vital Signs Temp 97.7 F 09/24/18 12:25 Pulse 94 09/24/18 15:13 Resp 14 09/24/18 15:00 BP 121/81 09/24/18 12:25 Pulse Ox 98 09/24/18 12:25 Intake & Output 09/23/18 09/24/18 09/24/18 18:59 06:59 18:59 Intake Total 660 Output Total 200 200 100 Balance 460 -200 -100 Weight 88.2 kg Intake: Intake, IV Titration 10 Amount Ampicillin-Sulbactam 3 gm 10 In Sodium Chloride 0.9% 100 ml @ 200 mls/hr IVPB Q12H ON LICENSE OF [facility] Rx#:[id number] Oral 650 Output: Urine 200 200 100 Stool 0 0 0 Other: Voiding Method Bedside Commode Bedside Commode Bedside Commode Diaper Diaper Diaper # Voids 3 1 2 - Labs CBC & Chem 7: 09/24/18 07:00 09/24/18 07:00 Labs: Abnormal Lab Results - Last 24 Hours (Table) 09/23/18 09/24/18 09/24/18 Range/Units 20:02 07:00 07:00 WBC 12.0 H (3.8-10.6) k/uL RBC 2.31 L (3.80-5.40) m/uL Hgb 7.2 L (11.4-16.0) gm/dL Hct 23.0 L (34.0-46.0) % RDW 19.5 H (11.5-15.5) % Plt Count 105 L (150-450) k/uL Neutrophils # 9.3 H (1.3-7.7) k/uL BUN 39 H (7-17) mg/dL Creatinine 2.50 H (0.52-1.04) mg/dL Glucose 109 H (74-99) mg/dL POC Glucose (mg/dL) 237 H (75-99) mg/dL Albumin 2.8 L (3.5-5.0) g/dL 09/24/18 09/24/18 09/24/18 Range/Units 07:02 11:27 16:54 WBC (3.8-10.6) k/uL RBC (3.80-5.40) m/uL Hgb (11.4-16.0) gm/dL Hct (34.0-46.0) % RDW (11.5-15.5) % Plt Count (150-450) k/uL Neutrophils # (1.3-7.7) k/uL BUN (7-17) mg/dL Creatinine (0.52-1.04) mg/dL Glucose (74-99) mg/dL POC Glucose (mg/dL) 143 H 193 H 177 H (75-99) mg/dL Albumin (3.5-5.0) g/dL Assessment and Plan Plan: The patient was seen and examined by me and discussed with nurse practitioner Leslye, Agree with the assessment and plan formulated. We'll suggest need for CT-guided biopsy and depending on the results accordingly having a discussion and determining prognosis. Nina Joseph M.D.
[2018-09-24 11:29] LABS: Glucose,Whole Blood 193 mg/dL (75-99)
--- NOTE | 2018-09-24 12:42 | P.PN ---
Subjective Progress Note Date: 09/24/18 This is a 88-year-old female, resident at [facility]. 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 Patient was just recently hospitalized in July at that time diagnosed with a superficial gastric ulcer had EGD completed in and was placed on Protonix and Carafate. Since then she has been doing well. She presented to the hospital due to a fall at [facility]. She was being transferring from bed to a chair. Patient hit the front of her head. There is no loss of consciousness. She presented to the ER for further evaluation. She was found to have a urinary tract infection started on Rocephin. White count was 17.1 hemoglobin 8.5. She also had evidence of dehydration creatinine was elevated at 1.99 BUN 58. Blood sugar low also at 66. Patient denies any chest pain, shortness of breath, nausea or vomiting, bowel movement changes or urinary symptoms. She did have a computed tomography scan of the head and cervical spine completed in the ER. Computed tomography scan of the brain no acute hemorrhage, hydrocephalus or mass effect. CT of cervical spine showing no acute fracture or subluxation. Did know a 9 mm lesion in the right middle lobe. Recommend outpatient chest CT for better characterization. Chest x-ray no acute pulmonary pop process. Pelvic x- ray no evidence of any fractures. Patient denies any pain at this time. She did require sutures to a laceration above the left eyebrow in ER. She received IV fluid bolus in ER. Lasix is currently on hold. 09/15/2018 patient sitting up in bedside chair. She does admit to a cough and some shortness of breath. She was receiving IV fluids yesterday. IV fluids will be discontinued. Creatinine has come down from 1.99-1.59. White count has gone up from 17.1-17.3 and hemoglobin is 8.5-7.3. Patient's last bowel movement was yesterday. No active sites of bleeding. Patient denies any headache. Denies any chest pain. Denies any nausea vomiting. Denies any bowel movement changes or urinary symptoms. Remains on Rocephin for UTI. On 09/16/2018 patient is alert more oriented in no apparent distress there is no fever or chills no headache or dizziness no chest pain no shortness of breath she is complaining of cough no nausea or vomiting no abdominal pain no diarrhea and no urinary symptoms hemoglobin was down to 6.3 today 1 unit of red blood cell transfusion was ordered repeat CBC at 6 PM today consult for gastroenterology was initiatedOn 09/17/2018 patient's gallbladder and oriented in no apparent distress. Patient is resting comfortably in bed but answers questions. Patient's hemoglobin improving to 7.8. GI consult placed. At this time patient denies any chest pain or shortness breath. Patient denies nausea vomiting or diarrhea. Patient denies any urinary burning or frequency 09/18/2018 patient seen and examined this morning. She was sleeping comfortably. Discussed case with nurse. I no new complaints. Over the weekend patient had increasing confusion and neurology had been consulted. They ordered a computed tomography scan of the brain showing an old infarct in the right occipital lobe and right upper parietal junction. A couple rounded extra-axial lesions along the right frontal convexity measuring 1 cm and 4 mm likely meningiomas. Correlate with any available prior exam to check stability. Otherwise 6 month follow-up MRI can be performed to reassess. Moderate atrophy and changes of chronic small vessel ischemic disease. No acute intracranial abnormality seen. Neurology has also ordered EEG and B12 level. Over the weekend patient did require a unit of blood. Hemoglobin is now 7.9 again no active signs of bleeding. Patient seen by GI service no need for endoscopy at this time. White count has decreased from 15-14.6 09/19/2018 patient sitting in bedside chair. She is sleepy. She does admit to a mild cough. Denies any chest pain or shortness of breath. White count has increased to 17.8. Hemoglobin is stable at 8. EEG showing slowing likely due to metabolic encephalopathy. Blood pressure early this morning was 178/70 before meds were given. Chest x-ray is pending. Patient is followed by pulmonary service and neurology. Patient denies any chest pain or shortness breath. Denies any nausea or vomiting. Reports having bowel movements. Denies any difficulty urinating. On 09/20/2018 patient currently sitting up in chair. He remains sleepy but does awaken and follow commands. White count slightly decreasing to 17.5 hemoglobin increasing to 8.4. Patient started on Unasyn per ID. At this time patient denies any chest pain or shortness of breath. Patient denies nausea vomiting or diarrhea. Denies any urinary burning or frequency 09/21/2018 per nursing staff patient had blood noted in her urine. Hemoglobin was 8.3 today. Repeat CBC will be checked at 2. She did have a computed tomography scan of the abdomen and pelvis completed due to leukocytosis. It did show probable advanced renal cell carcinoma with suspicious left renal masses and adjacent adenopathy. Possible hematoma or additional lesion in the bladder. No evidence of computed tomography scan diverticulitis. Nursing staff did report bowel movement today. Patient denies any chest pain or shortness of breath. Urology was placed on consult. They've ordered a computed tomography scan of the chest 09/22/2018 patient sleeping comfortably. She is complaining of constipation reports last bowel movement was 2 days ago. Stool softener will be ordered. Computed tomography scan of the chest completed showing a right pleural effusion and right lower lobe pulmonary infiltrate and atelectasis. Multiple right-sided noncalcified pulmonary nodules. Appearance is non-specific. Patient does have incentive spirometer at bedside. She denies any chest pain or shortness of breath. She does admit to some mild burning with urination. Per nursing she is having hematuria. Hemoglobin stable at 8.4. White count did go up to 16.8 she is on Unasyn. Infectious disease and noting that possible necrotic tumor could contribute to an elevated white count. Dr. Chavez is recommending PET scan outpatient. Elevated blood pressure this morning 178/77 repeat blood pressure after medications at 145/85 On 09/23/2018 patient was seen and examined on the medical floor she is alert and responsive in no apparent distress she denies any complaints at this time there is no fever or chills no headache or dizziness no chest pain no shortness of breath no cough no nausea or vomiting no abdominal pain no diarrhea and no urinary symptoms, hemoglobin is down to 7.4 white blood count 17.8 On 09/24/2018 patient was seen and examined on the medical floor she is doing well sitting up in a chair denying any complaints at this time there is no fever or chills no headache or dizziness no chest pain no shortness of breath no cough no nausea or vomiting no abdominal pain no diarrhea and no burning was urination no frequency or urgency no hematuria Objective - Vital Signs Vital signs: Vital Signs Temp 97.7 F 09/24/18 12:25 Pulse 84 09/24/18 12:25 Resp 16 09/24/18 12:25 BP 121/81 09/24/18 12:25 Pulse Ox 98 09/24/18 12:25 Intake & Output 09/23/18 09/24/18 09/24/18 18:59 06:59 18:59 Intake Total 660 Output Total 200 200 Balance 460 -200 Weight 88.2 kg Intake: Intake, IV Titration 10 Amount Ampicillin-Sulbactam 3 gm 10 In Sodium Chloride 0.9% 100 ml @ 200 mls/hr IVPB Q12H [facility] Rx#:[id number] Oral 650 Output: Urine 200 200 Stool 0 0 Other: Voiding Method Bedside Commode Bedside Commode Bedside Commode Diaper Diaper Diaper # Voids 3 1 1 - Exam Head normocephalic. Wrapped in Kerlix. Neck supple. Positive JVD Lungs diminished bilaterally no wheezing or crackles noted. Heart regular rate and rhythm S1-S2, no rub or gallop Abdomen is soft nontender nondistended positive bowel sounds no hepatosplenomegaly Extremities no edema Neuro alert and orientated to 2. Sleepy but able to answer questions. - Labs CBC & Chem 7: 09/24/18 07:00 09/24/18 07:00 Labs: Abnormal Lab Results - Last 24 Hours (Table) 09/23/18 09/23/18 09/23/18 Range/Units 07:00 17:09 17:56 WBC 17.8 H (3.8-10.6) k/uL RBC 2.44 L (3.80-5.40) m/uL Hgb 7.4 L (11.4-16.0) gm/dL Hct 23.9 L (34.0-46.0) % MCHC 30.9 L (31.0-37.0) g/dL RDW 19.2 H (11.5-15.5) % Plt Count 84 L (150-450) k/uL Neutrophils # 15.2 H (1.3-7.7) k/uL Monocytes # 1.2 H (0-1.0) k/uL Fibrinogen 588 H (200-500) mg/dL D-Dimer 1.70 H (<0.60) mg/L FEU BUN (7-17) mg/dL Creatinine (0.52-1.04) mg/dL Glucose (74-99) mg/dL POC Glucose (mg/dL) 213 H (75-99) mg/dL Albumin (3.5-5.0) g/dL 09/23/18 09/24/18 09/24/18 Range/Units 20:02 07:00 07:00 WBC 12.0 H (3.8-10.6) k/uL RBC 2.31 L (3.80-5.40) m/uL Hgb 7.2 L (11.4-16.0) gm/dL Hct 23.0 L (34.0-46.0) % MCHC (31.0-37.0) g/dL RDW 19.5 H (11.5-15.5) % Plt Count 105 L (150-450) k/uL Neutrophils # 9.3 H (1.3-7.7) k/uL Monocytes # (0-1.0) k/uL Fibrinogen (200-500) mg/dL D-Dimer (<0.60) mg/L FEU BUN 39 H (7-17) mg/dL Creatinine 2.50 H (0.52-1.04) mg/dL Glucose 109 H (74-99) mg/dL POC Glucose (mg/dL) 237 H (75-99) mg/dL Albumin 2.8 L (3.5-5.0) g/dL 09/24/18 09/24/18 Range/Units 07:02 11:27 WBC (3.8-10.6) k/uL RBC (3.80-5.40) m/uL Hgb (11.4-16.0) gm/dL Hct (34.0-46.0) % MCHC (31.0-37.0) g/dL RDW (11.5-15.5) % Plt Count (150-450) k/uL Neutrophils # (1.3-7.7) k/uL Monocytes # (0-1.0) k/uL Fibrinogen (200-500) mg/dL D-Dimer (<0.60) mg/L FEU BUN (7-17) mg/dL Creatinine (0.52-1.04) mg/dL Glucose (74-99) mg/dL POC Glucose (mg/dL) 143 H 193 H (75-99) mg/dL Albumin (3.5-5.0) g/dL Assessment and Plan Plan: 1. Fall with generalized weakness: Possible secondary to UTI, dehydration and hypoglycemia. And also underlying malignancy. Consult physical therapy and occupational therapy. No loss of consciousness. Computed tomography scan of the brain was a negative. Computed tomography scan of the cervical spine no evidence of fracture or subluxation 2. UTI: Urine culture growing Klebsiella pneumonia, antibiotics adjusted to Unasyn 3. Acute kidney injury with chronic kidney disease stage III. Baseline creatinine near 1.2 to 1.6. Creatinine on admission cr 1.99 BUN 58. kidney functions are improving. Patient is tolerating her home dose of Lasix . Aldactone on hold. 4. Diabetes mellitus type 2: Hypoglycemia on admission blood sugar of 66. A1c is 6.3 . Blood sugars have been elevated. Patient's glipizide and Tradjenta have been restarted 5. Iron deficiency anemia continue iron supplement. 6. Gastric ulcer noted on recent EGD in July 2018 continue Protonix and Carafate. No active signs of bleeding at this time. Continue to monitor hemoglobin 7. History of COPD stable 8. History of chronic atrial fibrillation. Maintained on metoprolol. Not on any anticoagulation due to previous history of petechial hemorrhage on MRI of brain 9. History of seizure disorder continue Keppra 10. History of coronary artery disease with previous CABG in 2008 11. History of chronic systolic just of heart failure. No evidence of exacerbation at this time. Last 2-D echo showing an EF of 60-65% 12. Previous history of UTIs 13. Hypothyroidism continue Synthroid. TSH normal at 1.640 14. Incidental finding on CT of cervical spine of a 9 mm lesion in the right middle lobe. Radiologist is recommending outpatient CT of chest. Patient does have a prior history of smoking 15. Head laceration above the left eyebrow requiring sutures in the ER 16. Moderate protein calorie malnutrition albumin 2.9. Continue protein shakes 17. Mild fluid overload with elevated BNP. resolved. Continue Lasix 40 mg by mouth daily 18. Possible aspiration Pneumonia: Continue Unasyn. Infectious disease following 19. Altered mental status changes possibly due to a metabolic encephalopathy due to her pneumonia and UTI. Neurology also notes concerns for possible concussion. They ordered a repeat computed tomography scan of the brain with no acute intracranial abnormality seen did reveal evidence of old stroke and possible meningiomas. keppra level normal 51.3. Patient seen by neurology during this admission. 20. A couple rounded extra-axial lesions along the right frontal convexity measuring 1 cm and 4 mm likely meningiomas noted on CT of brain. Also radiologist recommending a 6 month follow-up MRI on these findings. 21. Normocytic anemia likely multifactorial. Possibly related to patient's malignancy as well as her known iron deficiency anemia and chronic kidney disease. Patient is also having some hematuria. Patient had EGD done in July revealing gastritis and gastric ulcer. Continue with iron supplement. GI is not recommending any endoscopy at this time. Hemoglobin today is 8.4 22. Leukocytosis: Possibly secondary to necrotic tumor. Followed by infectious disease. Patient currently on Unasyn white count did go up to 16.8 23. Hyperkalemia: Resolved with Kayexalate 24. Left renal mass noted on CAT scan. Per urology it is highly suspicious for renal cell carcinoma. 25. Multiple right side noncalcified pulmonary nodules: Noted on computed tomography scan of chest. Pulmonary recommending PET scan as outpatient 27. Essential hypertension: Elevated blood pressure this morning improved with blood pressure medication. Repeat blood pressure is 145/85. Continue to monitor GI prophylaxis Protonix and DVT prophylaxis SCDs Plan Await further consulting physician recommendations Add Colace for constipation Resume her glipizide and Tradjenta for better blood sugar control At this time family is considering hospice care once patient is transferred to [facility], they are requesting that her IV not to be restarted at this time.
--- NOTE | 2018-09-24 13:07 | PN ---
PROGRESS NOTE DATE OF SERVICE: 09/23/2018. REASON FOR FOLLOWUP: Leukocytosis and possible abdominal source. INTERVAL HISTORY: The patient is currently afebrile. The patient is breathing comfortably. She denies having any chest pain or cough. No abdominal pain or any diarrhea. PHYSICAL EXAMINATION: Blood pressure 131/61 with a pulse of 87, temperature 97. She is 92% on room air. General description is an elderly female up in the bed in no distress. Respiratory system: Unlabored breathing with decreased breath sounds at the bases. No wheeze. Heart S1, S2. Regular rate and rhythm. Abdomen soft, no tenderness. LABS: Hemoglobin 7.4, white count 17.8. BUN of 30, creatinine 1.74. DIAGNOSTIC IMPRESSION AND PLAN: Patient with leukocytosis, likely multifactorial with Klebsiella pneumonia urinary tract infection and now a component of the necrotic left renal tumor. The patient is currently covered with Unasyn to transition to oral Augmentin while monitoring her clinical course closely. Continue supportive care. MMODL / IJN: [id number] /
[2018-09-24 16:56] LABS: Glucose,Whole Blood 177 mg/dL (75-99)
[2018-09-24 20:25] LABS: Glucose,Whole Blood 144 mg/dL (75-99)
--- NOTE | 2018-09-24 21:50 | PN ---
PROGRESS NOTE DATE OF SERVICE: 09/24/2018. REASON FOR FOLLOWUP: Leukocytosis, UTI and the chronic pain. INTERVAL HISTORY: The patient is currently afebrile. The patient has been breathing comfortably. Denies having any chest pain or cough. No nausea, vomiting. No abdominal pain or any diarrhea. PHYSICAL EXAMINATION: Blood pressure 121/81 with a pulse of 84, temperature 97.7, she is 98% 2 L nasal cannula. General description is an elderly female lying in bed in no distress. Respiratory system: Unlabored breathing with decreased breath sounds in the base, no wheeze. Heart S1, S2. Regular rate and rhythm. ABDOMEN: Soft. No tenderness. LABS: White count is down to 12. The BUN of 39, creatinine 2.50. DIAGNOSTIC IMPRESSION AND PLAN: Patient with leukocytosis, multifactorial with a component of Klebsiella UTI. This patient also has a necrotic left renal tumor possible consideration for hospice which would be appropriate for her. Currently on oral Augmentin to finish a short course. Continue supportive care. MMODL / IJN: [id number] /
[2018-09-24] MEDS: SERTRALINE 25 MG TAB PO SCH (22:33)
[2018-09-24] MEDS: ATORVASTATIN 10 MG TAB PO SCH (22:33)
[2018-09-24] MEDS: amLODIPine 10 MG TAB PO SCH (22:34)
[2018-09-24 22:59] VITALS: TEMP 98.3
[2018-09-25 05:27] VITALS: BP 119/67; RESP 16
[2018-09-25] MEDS: levETIRAcetam 250 MG TAB PO SCH ×2 (06:11→13:04)
[2018-09-25] MEDS: SUCRALFATE 1 GM TAB PO SCH (06:12)
[2018-09-25] MEDS: LEVOTHYROXINE 112 MCG TAB PO SCH (06:12)
[2018-09-25] MEDS: ONDANSETRON 4 MG TAB PO PRN (06:12)
[2018-09-25] MEDS: FUROSEMIDE 40 MG TAB PO SCH (06:12)
[2018-09-25 07:18] LABS: Glucose,Whole Blood 107 mg/dL (75-99)
[2018-09-25] MEDS: IPRATROPIUM-ALBUTEROL 3 ML NEB INHALATION SCH ×2 (08:24→13:00)
[2018-09-25 08:28] VITALS: PULSE 82
[2018-09-25 08:54] LABS: Albumin 3.1 g/dL (3.5-5.0); Calcium 9.2 mg/dL (8.4-10.2); Total Bilirubin 0.6 mg/dL (0.2-1.3); Total Protein 7.5 g/dL (6.3-8.2)
[2018-09-25] MEDS ORDERED: ENOXAPARIN 80 MG/0.8 ML SYRINGE SQ SCH (09:00)
[2018-09-25 09:18] LABS: Anisocytosis Slight; Basophils % (A) 0 %; Eosinophils # (A) 0.1 k/uL (0-0.7); Eosinophils % (A) 1 %; HCT 23.2 % (34.0-46.0); HGB 7.4 gm/dL (11.4-16.0); Hypochromasia Moderate; Lymphocytes # (A) 0.9 k/uL (1.0-4.8); Lymphocytes % (A) 6 %; MCH 31.5 pg (25.0-35.0); MCHC 31.9 g/dL (31.0-37.0); Macrocytosis Slight; Mean Platelet Volume 8.7; Monocytes % (A) 7 %; Neutrophils # (A) 12.4 k/uL (1.3-7.7); Neutrophils % (A) 84 %; Platelet Count 132 k/uL (150-450); Poikilocytosis Slight; RBC 2.34 m/uL (3.80-5.40); RDW 19.3 % (11.5-15.5); WBC 14.6 k/uL (3.8-10.6)
--- NOTE | 2018-09-25 10:34 | P.PN ---
Subjective Progress Note Date: 09/25/18 Principal diagnosis: Renal Mass and Pulm Nodules planning home hospice [facility] Objective - Vital Signs Vital signs: Vital Signs Temp 98.3 F 09/25/18 05:00 Pulse 82 09/25/18 08:38 Resp 16 09/25/18 05:00 BP 119/67 09/25/18 05:00 Pulse Ox 93 L 09/25/18 05:00 Intake & Output 09/24/18 09/25/18 09/25/18 18:59 06:59 18:59 Intake Total 200 Output Total 100 0 Balance -100 200 Weight 88.2 kg Intake: Oral 200 Output: Urine 100 Stool 0 0 Other: Voiding Method Bedside Commode Bedside Commode Diaper Diaper # Voids 2 1 # Bowel Movements 1 - Exam Gen: Alert, VENETIE, Pleasant confusion, up in chair oriiented self Head: NC,NT, Bruise left eye Neck: Supple Lungs: CTA anterior, decreased lower Heart: RRR Abdomen: S.ND. NT Abd: Soft ND Ext: No edema - Labs CBC & Chem 7: 09/25/18 08:06 09/25/18 08:06 Labs: Abnormal Lab Results - Last 24 Hours (Table) 09/24/18 09/24/18 09/24/18 Range/Units 11:27 16:54 20:23 WBC (3.8-10.6) k/uL RBC (3.80-5.40) m/uL Hgb (11.4-16.0) gm/dL Hct (34.0-46.0) % RDW (11.5-15.5) % Plt Count (150-450) k/uL Neutrophils # (1.3-7.7) k/uL Lymphocytes # (1.0-4.8) k/uL BUN (7-17) mg/dL Creatinine (0.52-1.04) mg/dL Glucose (74-99) mg/dL POC Glucose (mg/dL) 193 H 177 H 144 H (75-99) mg/dL Albumin (3.5-5.0) g/dL 09/25/18 09/25/18 09/25/18 Range/Units 07:06 08:06 08:06 WBC 14.6 H (3.8-10.6) k/uL RBC 2.34 L (3.80-5.40) m/uL Hgb 7.4 L (11.4-16.0) gm/dL Hct 23.2 L (34.0-46.0) % RDW 19.3 H (11.5-15.5) % Plt Count 132 L (150-450) k/uL Neutrophils # 12.4 H (1.3-7.7) k/uL Lymphocytes # 0.9 L (1.0-4.8) k/uL BUN 46 H (7-17) mg/dL Creatinine 2.92 H (0.52-1.04) mg/dL Glucose 106 H (74-99) mg/dL POC Glucose (mg/dL) 107 H (75-99) mg/dL Albumin 3.1 L (3.5-5.0) g/dL Assessment and Plan Plan: Assessment and Recommendations: New Renal Mass (x2) - 6.7x6.5 and 4x3.4 - If patient and family wish to proceed with aggressive diagnostic approach a tissue biopsy will be needed Multiple pulmonary Lesions: COncern for metastatic malignant Picture Klebsiella UTI: On Abx Hematuria: Likely related to renal Mass pathology and UTI Normocytic Anemia: - Anemia WOrk-up in progress - Transfuse hemoglobin less than 7 - Compoenent of Renal Failure, Eruthropoetin level - Component of blood loss anemia and iron deficiency, when threat of active infection clears Parental Iron is resonable Thrombocytopenia: - New - Recheck COags and Fibrinogen - Assess for DIC. Renal Insufficiency - Worsening - Known Chronic Kidney disease stage 3 Recommendations: - Biopsy of Renal mass versus portential metastatic site if patient/family would like aggressive diagnostic approach. Thank you for allowing us to participate in care of patient, follow along with you - No family at bedside during interaction, Patient performace and multiple co- morbidies will be difficult to treat with a systemic treatment if malignancy. Will need to discuss further with family. - If wish to proceed CT guided biopsy is recommendATION. Hospice appropriate
[2018-09-25 11:31] LABS: Glucose,Whole Blood 204 mg/dL (75-99)
[2018-09-25] MEDS: METOPROLOL TARTRATE 25 MG TAB PO SCH (11:37)
[2018-09-25] MEDS: INSULIN ASPART (NovoLOG) 100 UNIT/ML VIAL SQ SCH ×2 (11:37→13:04)
[2018-09-25] MEDS: ISOSORBIDE MONONITRATE ER 30 MG TAB.ER.24H PO SCH (11:37)
[2018-09-25] MEDS: CYANOCOBALAMIN 500 MCG TAB PO SCH (11:37)
[2018-09-25] MEDS: DOCUSATE 100 MG CAP PO SCH (11:37)
[2018-09-25] MEDS: AMOXIC-POT CLAV 500-125 MG 1 EACH TAB PO SCH (11:38)
[2018-09-25] MEDS: CHOLECALCIFEROL 1,000 UNIT TAB PO SCH (11:38)
[2018-09-25] MEDS: FERROUS SULFATE 325 MG TAB PO SCH (11:38)
[2018-09-25] MEDS: glipiZIDE 5 MG TAB PO SCH (11:38)
[2018-09-25] MEDS: LINAGLIPTIN 5 MG TABLET PO SCH (11:39)
[2018-09-25] MEDS: VIT A,C & E-LUTEIN-MINERALS 1 EACH TAB PO SCH (11:39)
--- NOTE | 2018-09-25 12:17 | P.DS ---
Providers Date of admission: 09/16/18 18:07 Expected date of discharge: 09/25/18 Attending physician: Marcelo Fernandez Consults: 09/15/18 15:07 Consult Physician Routine Consulting Provider: Ramakrishna Chavez Consult Reason/Comments: possible pneumonia Do you want consulting provider notified?: Yes 09/15/18 18:52 Consult Physician Routine Consulting Provider: Reshma Jensen Consult Reason/Comments: altered mental status Do you want consulting provider notified?: Yes 09/19/18 11:05 Consult Physician Routine Consulting Provider: Mercy Gay Consult Reason/Comments: Leukocytosis Do you want consulting provider notified?: Yes 09/21/18 09:54 Consult Physician Routine Consulting Provider: Monroe Kidd Consult Reason/Comments: CT showing probable advanced renal cell carcinoma Do you want consulting provider notified?: Yes 09/22/18 13:23 Consult Physician Routine Consulting Provider: Oz Eng Consult Reason/Comments: renal mass, pulmonary nodules Do you want consulting provider notified?: Yes Primary care physician: Marcelo Rebecca [facility] Course: Discharge diagnosis Left renal mass and pulmonary nodules incidental findings noted on computed tomography scan. Patient seen by oncology, urology and pulmonary services during this admission. Patient and family have decided not to proceed with any further treatment or investigation of these masses or nodules. They want to proceed with hospice. Patient will be discharged today back to [facility] and opened up to hospice at [facility]. 1. Fall with generalized weakness: Possible secondary to UTI, dehydration and hypoglycemia. And also underlying malignancy. Consult physical therapy and occupational therapy. No loss of consciousness. Computed tomography scan of the brain was a negative. Computed tomography scan of the cervical spine no evidence of fracture or subluxation 2. UTI: Urine culture growing Klebsiella pneumonia, continue Augmentin for 7 more days 3. Acute kidney injury with chronic kidney disease stage III. Creatinine is up to 2.9 for discharge. Lasix and Aldactone have been on hold. 4. Diabetes mellitus type 2: Hypoglycemia on admission blood sugar of 66. A1c is 6.3 . Blood sugars have been elevated. Patient's glipizide and Tradjenta have been restarted 5. Iron deficiency anemia continue iron supplement. 6. Gastric ulcer noted on recent EGD in July 2018 continue Protonix and Carafate. No active signs of bleeding at this time. Continue to monitor hemoglobin 7. History of COPD stable 8. History of chronic atrial fibrillation. Maintained on metoprolol. Not on any anticoagulation due to previous history of petechial hemorrhage on MRI of brain 9. History of seizure disorder continue Keppra 10. History of coronary artery disease with previous CABG in 2008 11. History of chronic systolic just of heart failure. No evidence of exacerbation at this time. Last 2-D echo showing an EF of 60-65% 12. Previous history of UTIs 13. Hypothyroidism continue Synthroid. TSH normal at 1.640 14. Incidental finding on CT of cervical spine of a 9 mm lesion in the right middle lobe. Radiologist is recommending outpatient CT of chest. Patient does have a prior history of smoking 15. Head laceration above the left eyebrow requiring sutures in the ER 16. Moderate protein calorie malnutrition albumin 2.9. Continue protein shakes 17. Mild fluid overload with elevated BNP. resolved. 18. Possible aspiration Pneumonia: Continue Unasyn. Infectious disease following 19. Altered mental status changes possibly due to a metabolic encephalopathy due to her pneumonia and UTI. Neurology also notes concerns for possible concussion. They ordered a repeat computed tomography scan of the brain with no acute intracranial abnormality seen did reveal evidence of old stroke and possible meningiomas. keppra level normal 51.3. Patient seen by neurology during this admission. 20. A couple rounded extra-axial lesions along the right frontal convexity measuring 1 cm and 4 mm likely meningiomas noted on CT of brain. Also radiologist recommending a 6 month follow-up MRI on these findings. 21. Normocytic anemia likely multifactorial. Possibly related to patient's malignancy as well as her known iron deficiency anemia and chronic kidney disease. Patient is also having some hematuria. Patient had EGD done in July revealing gastritis and gastric ulcer. Continue with iron supplement. GI is not recommending any endoscopy at this time. Hemoglobin today is 8.4 22. Leukocytosis: Possibly secondary to necrotic tumor. Followed by infectious disease. Patient currently on Unasyn white count did go up to 16.8 23. Hyperkalemia: Resolved with Kayexalate 24. Left renal mass noted on CAT scan. Per urology it is highly suspicious for renal cell carcinoma. 25. Multiple right side noncalcified pulmonary nodules: Noted on computed tomography scan of chest. 27. Essential hypertension Hospital course This is a 88-year-old female, resident at [facility]. 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 Patient was just recently hospitalized in July at that time diagnosed with a superficial gastric ulcer had EGD completed in and was placed on Protonix and Carafate. Since then she has been doing well. She presented to the hospital due to a fall at [facility]. She was being transferring from bed to a chair. Patient hit the front of her head. There is no loss of consciousness. She presented to the ER for further evaluation. She was found to have a urinary tract infection started on Rocephin. White count was 17.1 hemoglobin 8.5. She also had evidence of dehydration creatinine was elevated at 1.99 BUN 58. Blood sugar low also at 66. Patient denies any chest pain, shortness of breath, nausea or vomiting, bowel movement changes or urinary symptoms. She did have a computed tomography scan of the head and cervical spine completed in the ER. Computed tomography scan of the brain no acute hemorrhage, hydrocephalus or mass effect. CT of cervical spine showing no acute fracture or subluxation. Did know a 9 mm lesion in the right middle lobe. Recommend outpatient chest CT for better characterization. Chest x-ray no acute pulmonary pop process. Pelvic x- ray no evidence of any fractures. Patient denies any pain at this time. She did require sutures to a laceration above the left eyebrow in ER. She received IV fluid bolus in ER. Lasix is currently on hold. 09/15/2018 patient sitting up in bedside chair. She does admit to a cough and some shortness of breath. She was receiving IV fluids yesterday. IV fluids will be discontinued. Creatinine has come down from 1.99-1.59. White count has gone up from 17.1-17.3 and hemoglobin is 8.5-7.3. Patient's last bowel movement was yesterday. No active sites of bleeding. Patient denies any headache. Denies any chest pain. Denies any nausea vomiting. Denies any bowel movement changes or urinary symptoms. Remains on Rocephin for UTI. On 09/16/2018 patient is alert more oriented in no apparent distress there is no fever or chills no headache or dizziness no chest pain no shortness of breath she is complaining of cough no nausea or vomiting no abdominal pain no diarrhea and no urinary symptoms hemoglobin was down to 6.3 today 1 unit of red blood cell transfusion was ordered repeat CBC at 6 PM today consult for gastroenterology was initiatedOn 09/17/2018 patient's gallbladder and oriented in no apparent distress. Patient is resting comfortably in bed but answers questions. Patient's hemoglobin improving to 7.8. GI consult placed. At this time patient denies any chest pain or shortness breath. Patient denies nausea vomiting or diarrhea. Patient denies any urinary burning or frequency 09/18/2018 patient seen and examined this morning. She was sleeping comfortably. Discussed case with nurse. I no new complaints. Over the weekend patient had increasing confusion and neurology had been consulted. They ordered a computed tomography scan of the brain showing an old infarct in the right occipital lobe and right upper parietal junction. A couple rounded extra-axial lesions along the right frontal convexity measuring 1 cm and 4 mm likely meningiomas. Correlate with any available prior exam to check stability. O janetwise 6 month follow-up MRI can be performed to reassess. Moderate atrophy and changes of chronic small vessel ischemic disease. No acute intracranial abnormality seen. Neurology has also ordered EEG and B12 level. Over the weekend patient did require a unit of blood. Hemoglobin is now 7.9 again no active signs of bleeding. Patient seen by GI service no need for endoscopy at this time. White count has decreased from 15-14.6 09/19/2018 patient sitting in bedside chair. She is sleepy. She does admit to a mild cough. Denies any chest pain or shortness of breath. White count has increased to 17.8. Hemoglobin is stable at 8. EEG showing slowing likely due to metabolic encephalopathy. Blood pressure early this morning was 178/70 before meds were given. Chest x-ray is pending. Patient is followed by pulmonary service and neurology. Patient denies any chest pain or shortness breath. Denies any nausea or vomiting. Reports having bowel movements. Denies any difficulty urinating. On 09/20/2018 patient currently sitting up in chair. He remains sleepy but does awaken and follow commands. White count slightly decreasing to 17.5 hemoglobin increasing to 8.4. Patient started on Unasyn per ID. At this time patient denies any chest pain or shortness of breath. Patient denies nausea vomiting or diarrhea. Denies any urinary burning or frequency 09/21/2018 per nursing staff patient had blood noted in her urine. Hemoglobin was 8.3 today. Repeat CBC will be checked at 2. She did have a computed tomography scan of the abdomen and pelvis completed due to leukocytosis. It did show probable advanced renal cell carcinoma with suspicious left renal masses and adjacent adenopathy. Possible hematoma or additional lesion in the bladder. No evidence of computed tomography scan diverticulitis. Nursing staff did report bowel movement today. Patient denies any chest pain or shortness of breath. Urology was placed on consult. They've ordered a computed tomography scan of the chest 09/22/2018 patient sleeping comfortably. She is complaining of constipation reports last bowel movement was 2 days ago. Stool softener will be ordered. Computed tomography scan of the chest completed showing a right pleural effusion and right lower lobe pulmonary infiltrate and atelectasis. Multiple right-sided noncalcified pulmonary nodules. Appearance is non-specific. Patient does have incentive spirometer at bedside. She denies any chest pain or shortness of breath. She does admit to some mild burning with urination. Per nursing she is having hematuria. Hemoglobin stable at 8.4. White count did go up to 16.8 she is on Unasyn. Infectious disease and noting that possible necrotic tumor could contribute to an elevated white count. Dr. Chavez is recommending PET scan outpatient. Elevated blood pressure this morning 178/77 repeat blood pressure after medications at 145/85 On 09/23/2018 patient was seen and examined on the medical floor she is alert and responsive in no apparent distress she denies any complaints at this time there is no fever or chills no headache or dizziness no chest pain no shortness of breath no cough no nausea or vomiting no abdominal pain no diarrhea and no urinary symptoms, hemoglobin is down to 7.4 white blood count 17.8 On 09/24/2018 patient was seen and examined on the medical floor she is doing well sitting up in a chair denying any complaints at this time there is no fever or chills no headache or dizziness no chest pain no shortness of breath no cough no nausea or vomiting no abdominal pain no diarrhea and no burning was urination no frequency or urgency no hematuria 09/25/2018 patient and son have decided to proceed with discharged to [facility] and open up the hospice at [facility]. Patient denies any pain. She has been seen by oncology regarding the renal and pulmonary masses. They did recommend if treatment was to be done that she would require kidney biopsy. Patient is not interested in having any treatment or having a kidney biopsy. Patient will be discharged to [facility] today. She will open up at hospice there. Creatinine is up to 2.92 therefore we will continue off the Lasix and Aldactone. Patient will be discharged with the rest of her home medications and also she will be on Augmentin for 7 more days to complete treatment for her UTI. Patient is stable for discharge back to [facility]. Please refer to chart for any further details. I performed an examination of the patient and discussed their management with the physician Solutions Sales Consultant. I have reviewed the Physician Solutions Sales Consultant's notes and agree with the documented findings and plan of care Patient Condition at Discharge: Stable Plan - Discharge Summary Discharge Rx Participant: No New Discharge Prescriptions: New Amoxic-Pot Clav 500-125 mg [Augmentin 500-125 mg] 1 each PO BID #14 tab Continue Vit C/E/Zn/Coppr/Lutein/Zeaxan [Preservision Areds 2 Softgel] 1 cap PO DAILY@0900 Cholecalciferol [Vitamin D3 (25 Mcg = 1000 Iu)] 1,000 unit PO DAILY@0900 amLODIPine BESYLATE [Norvasc] 10 mg PO DAILY@2100 Acetaminophen [Tylenol] 1,000 mg PO BID@0900,2100 Aspirin [Adult Low Dose Aspirin EC] 81 mg PO DAILY@0900 Atorvastatin Calcium [Lipitor] 10 mg PO DAILY@2100 Cyanocobalamin [Vitamin B-12] 500 mcg PO DAILY@0900 Isosorbide Mononitrate [Isosorbide Mononitrate ER] 30 mg PO DAILY@0900 Bluefield-3 Fatty Acids/Fish Oil [Fish Oil 1,000 mg Softgel] 1 cap PO DAILY@0900 Rosuvastatin Calcium [Crestor] 5 mg PO DAILY@2100 Saxagliptin HCl [Onglyza] 5 mg PO DAILY@0900 Sertraline HCl [Zoloft] 25 mg PO HS@2100 Menthol [Biofreeze] 1 applic TOPICAL Q2H PRN PRN Reason: Pain levETIRAcetam [Keppra] 250 mg PO TID@0600,1400,2200 glipiZIDE [Glucotrol] 5 mg PO DAILY@1100 Levothyroxine Sodium 112 mcg PO DAILY@0600 Metoprolol Tartrate [Lopressor] 25 mg PO BID@0900,2100 Ferrous Sulfate [Iron (65 MG Elemental)] 325 mg PO BID@0900,1800 Pantoprazole [Protonix] 40 mg PO AC-BID@0600,1700 Sucralfate [Carafate] 1 gm PO AC-BID@0600,1700 Ipratropium-Albuterol Nebulize [Duoneb 0.5 mg-3 mg/3 ml Soln] 3 ml INHALATION RT-QID@0900,13,17,21 traMADol HCL [Ultram] 50 mg PO Q8H PRN 14 Days #21 tablet PRN Reason: HEADAHCE/PAIN Discontinued Famotidine 40 mg PO DAILY@0900 Furosemide [Lasix] 40 mg PO DAILY@0600 Spironolactone [Aldactone] 25 mg PO DAILY@0600 Discharge Medication List Vit C/E/Zn/Coppr/Lutein/Zeaxan [Preservision Areds 2 Softgel] 1 cap PO DAILY@89903/28/16 [History] Cholecalciferol [Vitamin D3 (25 Mcg = 1000 Iu)] 1,000 unit PO DAILY@89905/22/17 [History] amLODIPine BESYLATE [Norvasc] 10 mg PO DAILY@209905/22/17 [History] Acetaminophen [Tylenol] 1,000 mg PO BID@0900,209910/13/17 [History] Aspirin [Adult Low Dose Aspirin EC] 81 mg PO DAILY@89910/13/17 [History] Atorvastatin Calcium [Lipitor] 10 mg PO DAILY@209910/13/17 [History] Cyanocobalamin [Vitamin B-12] 500 mcg PO DAILY@89910/13/17 [History] Isosorbide Mononitrate [Isosorbide Mononitrate ER] 30 mg PO DAILY@89910/13/17 [History] Bluefield-3 Fatty Acids/Fish Oil [Fish Oil 1,000 mg Softgel] 1 cap PO DAILY@89910/13/17 [History] Rosuvastatin Calcium [Crestor] 5 mg PO DAILY@209910/13/17 [History] Saxagliptin HCl [Onglyza] 5 mg PO DAILY@89910/13/17 [History] Sertraline HCl [Zoloft] 25 mg PO HS@2100 10/13/17 [History] Menthol [Biofreeze] 1 applic TOPICAL Q2H PRN 08/09/18 [History] glipiZIDE [Glucotrol] 5 mg PO DAILY@1100 08/09/18 [History] levETIRAcetam [Keppra] 250 mg PO TID@0600,1400,2200 08/09/18 [History] Ferrous Sulfate [Iron (65 MG Elemental)] 325 mg PO BID@0900,1800 08/21/18 [History] Levothyroxine Sodium 112 mcg PO DAILY@0600 08/21/18 [History] Metoprolol Tartrate [Lopressor] 25 mg PO BID@0900,2100 08/21/18 [History] Ipratropium-Albuterol Nebulize [Duoneb 0.5 mg-3 mg/3 ml Soln] 3 ml INHALATION RT-QID@0900,13,17,21 09/14/18 [History] Pantoprazole [Protonix] 40 mg PO AC-BID@0600,1700 09/14/18 [History] Sucralfate [Carafate] 1 gm PO AC-BID@0600,1700 09/14/18 [History] Amoxic-Pot Clav 500-125 mg [Augmentin 500-125 mg] 1 each PO BID #14 tab 09/25/18 [Rx] traMADol HCL [Ultram] 50 mg PO Q8H PRN 14 Days #21 tablet 09/25/18 [Rx] Follow up Appointment(s)/Referral(s): Ramakrishna Chavez MD [STAFF PHYSICIAN] - 1 Week Marcelo Fernandez MD [Primary Care Provider] - 1 Week Patient Instructions/Handouts: Fall Prevention for Older Adults (ED) Activity/Diet/Wound Care/Special Instructions: Diet: cardiac, diabetic Activity: as tolerated patient will be discharged back to [facility]. She will be opened to hospice at [facility]. Discharge Disposition: TRANSFER TO SNF/ECF
--- NOTE | 2018-09-25 14:21 | PN ---
PROGRESS NOTE DATE OF SERVICE: 09/25/2018 REASON FOR FOLLOWUP: Leukocytosis. INTERVAL HISTORY: The patient is currently afebrile. The patient is breathing comfortably. Patient denies having any chest pain. No shortness of breath or cough. No nausea, no vomiting. No abdominal pain and no diarrhea. PHYSICAL EXAMINATION: Blood pressure is 119/67, pulse of 84, temperature 98.3, she is 93% on 2 L nasal cannula. General description is an elderly female, up in the chair in no distress. RESPIRATORY SYSTEM: Unlabored breathing with decreased breath sounds at the base, no wheeze. HEART: S1, S2. Regular rate and rhythm. ABDOMEN: Soft, no tenderness. LABS: Hemoglobin 7.4 with a white count of 14.6. DIAGNOSTIC IMPRESSION AND PLAN: Patient with leukocytosis, multifactorial, possible UTI with urine has been finalized as klebsiella, possible necrotic tumor on the left side, possible hospice appropriate for her. A short course of oral Augmentin can bed discussed with the discharging physician. MMODL / IJN: [id number] /
== END 2018-09-25 14:00 | DRG 177 ==
LOC: EC 03:05 → 3NMEDONC 09:22 → OBSVTOIN 09-16 18:07
PROVIDERS: ADMIT Internal Medicine; ATTEND Internal Medicine
PROC: 0HQ1XZZ Repair Face Skin, External Approach (ICD-10-PCS; principal; 2018-09-14)
PROC: 30233N1 Transfusion of Nonautologous Red Blood Cells into Peripheral Vein, Percutaneous Approach (ICD-10-PCS; 2018-09-16)
DX: J69.0 Pneumonitis due to inhalation of food and vomit (principal); G93.41 Metabolic encephalopathy; S06.0X9A Concussion with loss of consciousness of unspecified duration, initial encounter; C64.2 Malignant neoplasm of left kidney, except renal pelvis; C78.00 Secondary malignant neoplasm of unspecified lung; E44.0 Moderate protein-calorie malnutrition; I13.0 Hypertensive heart and chronic kidney disease with heart failure and stage 1 through stage 4 chronic kidney disease, or unspecified chronic kidney disease; I50.42 Chronic combined systolic (congestive) and diastolic (congestive) heart failure; I69.354 Hemiplegia and hemiparesis following cerebral infarction affecting left non-dominant side; J44.0 Chronic obstructive pulmonary disease with (acute) lower respiratory infection; J98.11 Atelectasis; N17.9 Acute kidney failure, unspecified; N39.0 Urinary tract infection, site not specified; B96.1 Klebsiella pneumoniae [K. pneumoniae] as the cause of diseases classified elsewhere; B96.89 Other specified bacterial agents as the cause of diseases classified elsewhere; D32.9 Benign neoplasm of meninges, unspecified; D50.9 Iron deficiency anemia, unspecified; D63.1 Anemia in chronic kidney disease; E03.9 Hypothyroidism, unspecified; E11.22 Type 2 diabetes mellitus with diabetic chronic kidney disease; E11.649 Type 2 diabetes mellitus with hypoglycemia without coma; E78.5 Hyperlipidemia, unspecified; E86.0 Dehydration; E87.5 Hyperkalemia; G40.909 Epilepsy, unspecified, not intractable, without status epilepticus; G89.29 Other chronic pain; I25.10 Atherosclerotic heart disease of native coronary artery without angina pectoris; I48.0 Paroxysmal atrial fibrillation; K21.9 Gastro-esophageal reflux disease without esophagitis; K25.9 Gastric ulcer, unspecified as acute or chronic, without hemorrhage or perforation; K29.70 Gastritis, unspecified, without bleeding; K59.00 Constipation, unspecified; N18.3 Chronic kidney disease, stage 3 (moderate); R31.0 Gross hematuria; S01.81XA Laceration without foreign body of other part of head, initial encounter; W18.30XA Fall on same level, unspecified, initial encounter; Y92.129 Unspecified place in nursing home as the place of occurrence of the external cause; Z79.82 Long term (current) use of aspirin; Z79.84 Long term (current) use of oral hypoglycemic drugs; Z79.890 Hormone replacement therapy; Z79.899 Other long term (current) drug therapy; Z85.828 Personal history of other malignant neoplasm of skin; Z87.11 Personal history of peptic ulcer disease; Z87.440 Personal history of urinary (tract) infections; Z87.891 Personal history of nicotine dependence; Z90.710 Acquired absence of both cervix and uterus; Z95.1 Presence of aortocoronary bypass graft; Z51.5 Encounter for palliative care
CPT/HCPCS: 12013; 36415; 70450; 71045; 71046; 71250; 72125; 72170; 74176; 80048; 80053; 80177; 81001; 82140; 82607; 83036; 83540; 83550; 83880; 84443; 85025; 85027; 85379; 85384; 85610; 85652; 85730; 86140; 86850; 86900; 86901; 86920; 87070; 87077; 87086; 87186; 87205; 94640; 95816; 99285